=== PATIENT | female | born 1955 | race Caucasian/White ===

== ENCOUNTER 2016-11-18 15:45 | Inpatient (IN) | payer MEDICARE, MEDICAID ==
[~2016-11-18] VITALS: Ht 162.6 cm; Wt 101.5 kg
[2016-11-18] MEDS ORDERED: SOD CHLORIDE 0.9% 1,000 ML IV STA (17:45)
--- NOTE | 2016-11-18 18:11 | RADRPT ---
PROCEDURE: XR Chest. CLINICAL INDICATION: Cough. TECHNIQUE: Single frontal view. COMPARISON: None. FINDINGS: The lungs are clear. The heart size is normal. There is no pleural effusion. There is no pneumothorax. IMPRESSION: 1. Normal chest radiograph. RPTAT: QQ .Akil Cardona MD, Date Time Electronically viewed and signed by .Akil Cardona MD, on 11/18/2016 18:10 .R/
[2016-11-18 18:42] LABS: BASOPHILS % 0.1 % (0.0-2.0); EOSINOPHILS % 0.4 % (0.0-7.0); HEMATOCRIT 33.9 % (37.0-47.0); HEMOGLOBIN 11.5 g/dl (12.0-16.0); LYMPHOCYTES # 3.1 10^3/ul (0.8-2.9); LYMPHOCYTES % 56.4 % (15.0-51.0); MEAN CORPUSCULAR HGB CONC 33.8 g/dl (32.0-37.0); MEAN CORPUSCULAR VOLUME 100.5 fl (82.0-101.0); MEAN PLATELET VOLUME 8.6 fl (7.4-10.4); MONOCYTE # 0.3 10^3/ul (0.3-0.9); MONOCYTES % 4.9 % (0.0-11.0); NEUTROPHILS % 38.2 % (39.0-77.0); RED BLOOD COUNT 3.37 10^6/ul (4.20-5.40); RED CELL DISTRIBUTION WIDTH 15.7 % (11.5-14.5); UNCORRECTED WBC 5.5 10^3/ul (4.8-10.8)
[2016-11-18 18:45] LABS: ADD UMIC YES; URINE BILIRUBIN (Dip) NEGATIVE (NEGATIVE); URINE BLOOD (Dip) 2+ (NEGATIVE); URINE COLOR LT. YELLOW (YELLOW); URINE GLUCOSE (Dip) NEGATIVE (NEGATIVE); URINE KETONES (Dip) NEGATIVE (NEGATIVE); URINE LEUKOCYTE ESTERASE (Dip) 2+ (NEGATIVE); URINE NITRITE (Dip) NEGATIVE (NEGATIVE); URINE TOTAL PROTEIN (Dip) NEGATIVE (NEGATIVE); URINE UROBILINOGEN (Dip) 0.2 E.U./dL (0.1-1.0)
[2016-11-18 18:51] LABS: INR 0.81; PROTIME 11.2 Sec (12.2-14.2); PT RATIO 0.9
[2016-11-18] MEDS ORDERED: METF1000 PO (18:53)
[2016-11-18] MEDS ORDERED: FLUO20CA38 PO (18:54)
[2016-11-18] MEDS ORDERED: FER325 PO (18:55)
[2016-11-18] MEDS ORDERED: ALPR0.254 PO (18:55)
[2016-11-18 18:56] LABS: CHLORIDE 102 mmol/L (97-110)
[2016-11-18] MEDS ORDERED: OMEP40CA6 PO (18:56)
[2016-11-18] MEDS ORDERED: LISI-313 PO (18:56)
[2016-11-18] MEDS ORDERED: PREG150C PO (18:56)
[2016-11-18 18:57] LABS: ALBUMIN 4.4 g/dl (3.3-4.9); SODIUM 142 mmol/L (135-144)
[2016-11-18] MEDS ORDERED: ZOLP10TA5 PO (18:57)
[2016-11-18 19:08] LABS: CONDITION 1; LH ANALYZER COMMENTS 1; PLATELET COUNT 29 10^3/UL (140-440)
[2016-11-18 19:10] LABS: BACTERIA,URINE MODERATE; SQUAMOUS EPITHELIAL CELL,UR MANY
[2016-11-18 19:15] LABS: TROPONIN-I < 0.012 ng/ml (0.00-0.12)
[2016-11-18 19:18] LABS: PLATELET ESTIMATE PLT APPEAR DECREASED
[2016-11-18 19:19] LABS: NEUTROPHIL # 2.1 10^3/ul (1.6-7.5)
--- NOTE | 2016-11-18 20:01 | ERA ---
ER Documentation Chief Complaint Date/Time DATE: 11/18/16 TIME: 19:56 Chief Complaint SENT BY PMD FOR RECENT BLEEDING AND BRUISING AND LOW PLTS AND H&H HPI 60-year-old woman referred here by her data management specialist oncologist for thrombocytopenia. She states over the last few weeks she has been feeling weak and dizzy, and for the last 2-3 months she has developed ecchymoses and superficial hematomas to the lower extremities bilaterally. She states back in September she had a episode of epistaxis which resolved spontaneously. She states recently she is experienced morning diaphoresis upon awakening, she denies any new medication use, no fevers or chills, no night sweats, no recent travel. No complaints of chest pain or shortness of breath, no blood per rectum or melena, no vomiting or diarrhea. ROS All systems reviewed and are negative except as per history of present illness. Medications Home Meds Reported Medications Zolpidem Tartrate* (Zolpidem Tartrate*) 10 Mg Tablet, 10 MG PO QHS Y for INSOMNIA, #30 TAB 11/18/16 Omeprazole* (Omeprazole*) 40 Mg Capsule.dr, 40 MG PO DAILY, #30 CAP 11/18/16 Pregabalin* (Lyrica*) 150 Mg Capsule, 150 MG PO BID, CAP 11/18/16 Lisinopril* (Lisinopril*) 5 Mg Tablet, 5 MG PO DAILY, #30 TAB 11/18/16 Ferrous Sulfate* (Ferrous Sulfate*) 325 Mg Tabec, 325 MG PO BID, TAB 11/18/16 Alprazolam* (Alprazolam*) 0.25 Mg Tablet, 0.25 MG PO DAILY Y for ANXIETY, TAB 11/18/16 Fluoxetine Hcl* (Prozac*) 20 Mg Capsule, 20 MG PO DAILY, CAP 11/18/16 Metformin Hcl* (Metformin Hcl*) 1,000 Mg Tablet, 1000 MG PO WITH BREAKFAST DINNE , #60 TAB 11/18/16 Allergies Allergies: Coded Allergies: Penicillins (Unverified Allergy, Unknown, 11/18/16) PMhx/Soc Hypertension, diabetes mellitus, gastritis History of Surgery: Yes (BACK) Hx Alcohol Use: No Hx Substance Use: No Hx Tobacco Use: No Smoking Status: Never smoker FmHx Acute lymphocytic leukemia Family History: diabetes Physical Exam Vitals Vital Signs Date Time Temp Pulse Resp B/P Pulse Ox O2 Delivery O2 Flow Rate FiO2 11/18/16 15:59 98.5 86 20 132/84 99 Physical Exam GENERAL: Well-developed, well-nourished, well-hydrated, in no apparent distress , looks nontoxic in appearance HEENT: Moist mucous membranes, pink conjunctiva, no cervical spine tenderness or step-off deformities, no goiter, no jaundice or icterus, extraocular movements intact without pain. No submandibular induration, and no pharyngeal erythema NEURO: Alert and oriented 3, cranial nerves II through XII intact bilaterally, pupils equal round reactive to light, no focal deficits or facial asymmetry, sensation intact distally Strength 5/5 in upper and lower extremities bilaterally CARDIAC: Regular rate and rhythm, no murmurs rubs or gallops LUNGS: Clear bilaterally no wheezing crackles or stridor ABDOMEN: Soft nontender, no guarding, no rigidity, no rebound, no psoas sign no obturator sign. Normoactive bowel sounds SKIN: Warm and dry to touch, no abrasions, there are multiple large soft tissue contusions and hematomas to the upper and lower extremities, no active bleeding , no lacerations, no ecchymosis, no target lesions, and without ulcers EXTREMITIES: No clubbing cyanosis or edema, calves are bilaterally symmetrical, no Homans sign, no popliteal cord sign. Distal pulses equal and bilateral PSYCH: Normal affect without agitation or irritability Result Diagram: 11/18/16 1800 11/18/16 1800 Results 24 hrs Laboratory Tests Test 11/18/16 18:00 11/18/16 18:20 Alanine Aminotransferase (ALT/SGPT) Pending Albumin 4.4g/dl Albumin/Globulin Ratio Pending Alkaline Phosphatase Pending Anion Gap Pending Aspartate Amino Transf (AST/SGOT) Pending Basophils # 0.010^3/ul Basophils % 0.1% Blood Morphology Comment Blood Urea Nitrogen Pending Calcium Level Pending Carbon Dioxide Level Pending Chloride Level 102mmol/L Creatinine Pending Differential Comment AUTO w/SCAN Direct Bilirubin Pending Eosinophils # 0.010^3/ul Eosinophils % 0.4% Globulin Pending Glucose Level Pending Hematocrit 33.9% Hemoglobin 11.5g/dl INR International Normalized Ratio 0.81 Indirect Bilirubin Pending Lipase Pending Lymphocytes # 3.110^3/ul Lymphocytes % 56.4% Mean Corpuscular Hemoglobin 34.0pg Mean Corpuscular Hemoglobin Concent 33.8g/dl Mean Corpuscular Volume 100.5fl Mean Platelet Volume 8.6fl Monocytes # 0.310^3/ul Monocytes % 4.9% Neutrophils # 2.110^3/ul Neutrophils % 38.2% Nucleated Red Blood Cells # 0.010^3/ul Nucleated Red Blood Cells % 0.0/100WBC Platelet Count 2910^3/UL Platelet Estimate PLT APPEAR DECREASED Potassium Level 5.0mmol/L Prothrombin Time 11.2Sec Prothrombin Time Ratio 0.9 Red Blood Count 3.3710^6/ul Red Cell Distribution Width 15.7% Sodium Level 142mmol/L Total Bilirubin Pending Total Protein Pending Troponin I < 0.012ng/ml White Blood Count 5.510^3/ul Urine Bacteria MODERATE Urine Bilirubin NEGATIVE Urine Clarity SLIGHTLY CLOUDY Urine Color LT. YELLOW Urine Glucose NEGATIVE% Urine Hemoglobin 2+ Urine Hyaline Casts MODERATE Urine Ketones NEGATIVE Urine Leukocyte Esterase 2+ Urine Microscopic RBC 2-5/HPF Urine Microscopic WBC 2-5/HPF Urine Nitrite NEGATIVE Urine Specific [place] 1.025 Urine Squamous Epithelial Cells MANY Urine Total Protein NEGATIVE Urine Urobilinogen 0.2 E.U./dL Urine pH 5.5 Current Medications Medications (Trade) Dose Ordered Sig/Rehan Route PRN Reason Start Time Stop Time Status Last Admin Dose Admin Sodium Chloride (NS) 1,000 ml @ 1,000 mls/hr Q1H STAT IV 11/18/16 17:45 11/18/16 18:44 DC 11/18/16 18:52 Procedures/MDM IV line was established patient was placed on blood tester fowl rhythm strip revealed sinus rhythm at about 70 bpm with upright P and T waves. Patient was afebrile. One AP view of the chest performed, read by me reveals no acute infiltrates, normal mediastinum, sharp costophrenic and cardiac borders, no air under the diaphragm. Otherwise unremarkable chest x-ray. EKG performed, read by me revealed a normal sinus rhythm at 71 bpm, normal axis , narrow QRS complex, no concerning ST elevations or depressions noted. CBC reveals thrombocytopenia at 29,000, electrolytes are pending and I will follow-up, troponin negative, urinalysis negative for infection. I spoke to Dr. Romero who will be the admitting the patient, and Dr. 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
[2016-11-18 20:11] LABS: ANION GAP 20 (8-16); ASPARTATE AMINO TRANSFERASE 27 IU/L (15-46); BILIRUBIN,INDIRECT 0.2 mg/dl (0-1.1); BILIRUBIN,TOTAL 0.2 mg/dl (0.2-1.3); CARBON DIOXIDE 25 mmol/L (21-31)
[2016-11-18 20:12] LABS: ALANINE AMINOTRANSFERASE 32 IU/L (13-69); ALBUMIN/GLOBULIN RATIO 1.22; ALKALINE PHOSPHATASE 115 IU/L (42-121); BLOOD UREA NITROGEN 27 mg/dl (7-20); CALCIUM 9.9 mg/dl (8.4-10.2); GLUCOSE 102 mg/dl (70-220)
[2016-11-18 23:25] VITALS: BP 132/59; PULSE 69; RESP 18
[2016-11-18 23:51] VITALS: Ht 162.6 cm; Wt 101.5 kg
[2016-11-19] MEDS: SOD CHLORIDE 0.45% 1,000 ML IV SCH ×2 (01:36→12:49)
[2016-11-19 05:13] LABS: BASOPHILS % 0.1 % (0.0-2.0); EOSINOPHILS % 0.7 % (0.0-7.0); HEMATOCRIT 28.2 % (37.0-47.0); HEMOGLOBIN 9.6 g/dl (12.0-16.0); LYMPHOCYTES # 2.1 10^3/ul (0.8-2.9); LYMPHOCYTES % 56.6 % (15.0-51.0); MEAN CORPUSCULAR HEMOGLOBIN 34.4 pg (29.0-33.0); MEAN CORPUSCULAR HGB CONC 34.1 g/dl (32.0-37.0); MEAN PLATELET VOLUME 8.4 fl (7.4-10.4); MONOCYTE # 0.2 10^3/ul (0.3-0.9); MONOCYTES % 5.7 % (0.0-11.0); NEUTROPHIL # 1.4 10^3/ul (1.6-7.5); NEUTROPHILS % 36.9 % (39.0-77.0); POTASSIUM 4.4 mmol/L (3.5-5.1); UNCORRECTED WBC 3.8 10^3/ul (4.8-10.8); WHITE BLOOD COUNT 3.8 10^3/ul (4.8-10.8)
[2016-11-19 05:15] LABS: CREATININE 0.77 mg/dl (0.44-1.00)
[2016-11-19 05:16] LABS: CALCIUM 8.9 mg/dl (8.4-10.2)
[2016-11-19 06:19] LABS: CONDITION 1; LH ANALYZER COMMENTS 1
[2016-11-19 06:23] LABS: PLATELET COUNT 26 10^3/UL (140-440)
[2016-11-19 06:50] VITALS: BP 120/58; PULSE 82; RESP 18
[2016-11-19 07:56] VITALS: BP 126/62; RESP 19
[2016-11-19] MEDS ORDERED: LIDOCAINE 1% (MDV) 20 ML INJ INJ ONE (08:00)
--- NOTE | 2016-11-19 08:01 | CONS ---
Date/Time of Note Date/Time of Note DATE: 11/19/16 TIME: 08:00 Assessment/Plan Assessment/Plan Chief Complaint/Hosp Course ASSESSMENT AND PLAN: This is a 60-year-old female who presents with: 1. Pancytopenia. ( WITH +FHX FOR ALL) r/o primary bone marrow disorder orders given BMBX- performed from [facility] under local anesthesia with 1 % LIDOCAINE PT IS MORBIDLY OBESE AND REQUIRED ANESTHESIA USING SPINAL NEEDLE PT TOLERATED PROCEDURE WELL SPECIMEN SEND TO THE LAB 2. Azotemia. Etiology is likely due to volume depletion. The patient's renal function has improved after receiving IV hydration. We will continue. 3. Diabetes. We will continue Accu-Cheks and sliding scale. We will continue metformin. 4. History of hypertension. Continue benazepril. 5. Depression and anxiety disorder. Continue Xanax and Prozac. 6. History of neuropathy. Continue Lyrica. 7. History of degenerative joint disease, osteoarthritis. The patient is status post bilateral knee replacement. Continue to monitor. 8. Insomnia. Continue Ambien. 9. Gastrointestinal and deep venous thrombosis prophylaxis. Continue proton pump inhibitor and sequential leg squeezers. Problems: Consultation Date/Type/Reason Admit Date/Time Nov 18, 2016 at 20:09 Date of Consultation: Nov 19, 2016 Type of Consultation: hemeonc Reason for Consultation pancytopenia Referring Provider: FINA IRVING of Present Illness This is a 60-year-old female with a past medical history of hypertension, history of dyslipidemia, history of obesity, history of anxiety disorder, history of depression, history of diabetes and insomnia who presents to [facility] for recent concern of bruising, bleeding, low platelets and anemia. The patient states over the last 2 to 3 months she has developed ecchymoses and superficial hematomas in her upper and lower extremities. She was then seen BY ME YESTERDAY AND WAS noted her to be thrombocytopenic anemic with multiple bruises The patient continued to have episodes of epistaxis which resolved spontaneously; however, given these progressive symptoms, she was send to [facility] Emergency Room for evaluation , to be admitted for further w -up The patient, upon arrival to the emergency room, had laboratory data drawn which noted her to be anemic with a hemoglobin 11.5 and thrombocytopenia with a platelet count of 29. The patient in the emergency room was given IV fluids and admitted to med/surg telemetry for further evaluation. Overnight, the patient had been stable and complained of a mild headache but otherwise denies any fevers, chills, nausea, vomiting. No hemoptysis, hematemesis, or hematochezia. note that pt has a + FNX ALL ( SON developed ALL when he was 10 yo) no fever, nt sweats, wt loss PAST MEDICAL HISTORY: As stated above, history of hypertension, diabetes, dyslipidemia, obesity, GERD, anxiety disorder, insomnia, depression. ALLERGIES: THE PATIENT IS ALLERGIC TO PENICILLIN. PAST SURGICAL HISTORY: Includes surgeries with bilateral knee arthroplasty and back surgery. FAMILY HISTORY: The patient has family history of diabetes. SOCIAL HISTORY: Does not drink, smoke, or do drugs. MEDICATIONS: The patient's medications have been reviewed and reconciled. REVIEW OF SYSTEMS: A 14-point review of systems was conducted. Pertinent positives stated in HPI, otherwise negative. Social History Smoking Status: Never smoker Exam/Review of Systems Vital Signs Vitals Vital Signs Date Time Temp Pulse Resp B/P Pulse Ox O2 Delivery O2 Flow Rate FiO2 11/19/16 07:56 98.2 74 19 126/62 96 11/19/16 06:50 Room Air Intake and Output 11/18/16 11/18/16 11/19/16 15:00 23:00 07:00 Intake Total 1000 ml 900 ml Balance 1000 ml 900 ml Exam PHYSICAL EXAMINATION: HEENT: Head is normocephalic. NECK: Supple. HEART: Regular rate. LUNGS: Show diminished breath sounds at base. ABDOMEN: Soft, nontender to palpation without rebound or guarding. EXTREMITIES: Negative for clubbing, cyanosis, no edema. DERMATOLOGIC: Noted ecchymoses upper and lower extremities, back, and thighs. NEUROLOGIC: No focal deficits. Results Result Diagram: 11/19/16 0425 11/19/16 0425 Results 24 hrs Laboratory Tests Test 11/18/16 18:00 11/18/16 18:20 11/19/16 04:25 Alanine Aminotransferase (ALT/SGPT) 32 Albumin 4.4 Albumin/Globulin Ratio 1.22 Alkaline Phosphatase 115 Anion Gap 20 H 14 Aspartate Amino Transf (AST/SGOT) 27 Basophils # 0.0 0.0 Basophils % 0.1 0.1 Blood Morphology Comment Blood Urea Nitrogen 27 H 20 Calcium Level 9.9 8.9 Carbon Dioxide Level 25 25 Chloride Level 102 106 Creatinine 0.90 0.77 Differential Comment AUTO w/SCAN Direct Bilirubin 0.00 Eosinophils # 0.0 0.0 Eosinophils % 0.4 0.7 Globulin 3.60 H Glucose Level 102 97 Hematocrit 33.9 L 28.2 L Hemoglobin 11.5 L 9.6 L INR International Normalized Ratio 0.81 Indirect Bilirubin 0.2 Lipase 286 Lymphocytes # 3.1 H 2.1 Lymphocytes % 56.4 H 56.6 H Mean Corpuscular Hemoglobin 34.0 H 34.4 H Mean Corpuscular Hemoglobin Concent 33.8 34.1 Mean Corpuscular Volume 100.5 101.0 Mean Platelet Volume 8.6 8.4 Monocytes # 0.3 0.2 L Monocytes % 4.9 5.7 Neutrophils # 2.1 1.4 L Neutrophils % 38.2 L 36.9 L Nucleated Red Blood Cells # 0.0 0.0 Nucleated Red Blood Cells % 0.0 0.0 Platelet Count 29 *L 26 *L Platelet Estimate PLT APPEAR DECREASED Potassium Level 5.0 4.4 Prothrombin Time 11.2 L Prothrombin Time Ratio 0.9 Red Blood Count 3.37 L 2.80 L Red Cell Distribution Width 15.7 H 16.0 H Sodium Level 142 141 Total Bilirubin 0.2 Total Protein 8.0 Troponin I < 0.012 White Blood Count 5.5 3.8 #L Urine Bacteria MODERATE Urine Bilirubin NEGATIVE Urine Clarity SLIGHTLY CLOUDY Urine Color LT. YELLOW Urine Glucose NEGATIVE Urine Hemoglobin 2+ H Urine Hyaline Casts MODERATE Urine Ketones NEGATIVE Urine Leukocyte Esterase 2+ H Urine Microscopic RBC 2-5 Urine Microscopic WBC 2-5 Urine Nitrite NEGATIVE Urine Specific [place] 1.025 Urine Squamous Epithelial Cells MANY Urine Total Protein NEGATIVE Urine Urobilinogen 0.2 E.U./dL Urine pH 5.5 Lactate Dehydrogenase 326 Medications Medications Current Medications Sodium Chloride (1/2 NS) 1,000 ml @ 80 mls/hr [id number] IV Last administered on 11/19/16t 01:36; Admin Dose 80 MLS/HR; Start 11/19/16 at 00:30 ZHAO CARRILLO MD Nov 19, 2016 08:01
[2016-11-19] MEDS: PANTOPRAZOLE (EC) 40 MG TAB PO SCH (08:52)
[2016-11-19] MEDS: FLUOXETINE 20 MG CAP PO SCH (08:53)
[2016-11-19] MEDS: FERROUS SULFATE (EC) 325 MG TAB PO SCH ×2 (08:53→20:53)
[2016-11-19] MEDS: PREGABALIN 75 MG CAP PO SCH ×2 (08:53→20:53)
[2016-11-19] MEDS: LISINOPRIL 5 MG TAB PO SCH (08:54)
[2016-11-19] MEDS ORDERED: GLUCAGON 1 MG INJ IM PRN (09:00)
[2016-11-19] MEDS ORDERED: GLUCOSE GEL 15 GRAM TUBE PO PRN ×2 (09:00)
[2016-11-19] MEDS ORDERED: DEXTROSE 50% 50 ML SYRINGE IV PRN ×2 (09:00)
[2016-11-19] MEDS ORDERED: LIDOCAINE 1% (MDV) 20 ML INJ SC ONE (09:00)
[2016-11-19] MEDS ORDERED: NON-FORMULARY/PATIENT OWN MED (Omeprazole* 40 MG) PO SCH (09:00)
[2016-11-19] MEDS ORDERED: GLUCOSE GEL 15 GRAM TUBE BUCCAL PRN (09:00)
--- NOTE | 2016-11-19 09:11 | HP ---
DATE OF ADMISSION: 11/18/2016 CHIEF COMPLAINT: Thrombocytopenia, ecchymosis, bruising. HISTORY OF PRESENT ILLNESS: This is a 60-year-old female with a past medical history of hypertensio n, history of dyslipidemia, history of obesity, history of anxiety disorder, history of depression, history of diabetes and insomnia who presents to [facility] for recent concern of bruising, bleeding, low platelets and anemia. The patient states over the last 2 to 3 months she velásquez s developed ecchymoses and superficial hematomas in her upper and lower extremities. She was then s een by her car deliverer, Dr. Machado, who noted her to be thrombocytopenic and has been working he r up for her anemia. The patient continued to have episodes of epistaxis which resolved spontaneous ly; however, given these progressive symptoms, she came into the [facility] Emergency Room for evaluation. The patient, upon arrival to the emergency room, had laboratory data drawn which no kianna her to be anemic with a hemoglobin 11.5 and thrombocytopenia with a platelet count of 29. The p atient in the emergency room was given IV fluids and admitted to med/surg telemetry for further eval uation. Overnight, the patient had been stable and complained of a mild headache but otherwise femi es any fevers, chills, nausea, vomiting. No hemoptysis, hematemesis, or hematochezia. PAST MEDICAL HISTORY: As stated above, history of hypertension, diabetes, dyslipidemia, obesity, GE RD, anxiety disorder, insomnia, depression. ALLERGIES: THE PATIENT IS ALLERGIC TO PENICILLIN. PAST SURGICAL HISTORY: Includes surgeries with bilateral knee arthroplasty and back surgery. FAMILY HISTORY: The patient has family history of diabetes. SOCIAL HISTORY: Does not drink, smoke, or do drugs. MEDICATIONS: The patient's medications have been reviewed and reconciled. REVIEW OF SYSTEMS: A 14-point review of systems was conducted. Pertinent positives stated in HPI, otherwise negative. PHYSICAL EXAMINATION: VITAL SIGNS: Blood pressure is 126/60, respiration 19, pulse 74, temperature 98.2. HEENT: Head is normocephalic. NECK: Supple. HEART: Regular rate. LUNGS: Show diminished breath sounds at base. ABDOMEN: Soft, nontender to palpation without rebound or guarding. EXTREMITIES: Negative for clubbing, cyanosis, no edema. DERMATOLOGIC: Noted ecchymoses upper and lower extremities, back, and thighs. NEUROLOGIC: No focal deficits. LABORATORY DATA: Shows a BMP within normal limits. White count 3.8, hemoglobin 9.6, hematocrit 28. 9, platelet count is 26. Chest x-ray shows no acute findings. ASSESSMENT AND PLAN: This is a 60-year-old female who presents with: 1. Pancytopenia. Underlying etiology is unclear. Concerning for possible plasma cell dyscrasia, l eukemia. Plan is for the patient to undergo bone marrow biopsy by car deliverer, Dr. Machado. We will continue to monitor CBC daily. The patient may require platelet and/or blood transfusion. We will defer to Dr. Machado for management. Otherwise, continue to monitor closely. 2. Azotemia. Etiology is likely due to volume depletion. The patient's renal function has improve d after receiving IV hydration. We will continue. 3. Diabetes. We will continue Accu-Cheks and sliding scale. We will continue metformin. 4. History of hypertension. Continue benazepril. 5. Depression and anxiety disorder. Continue Xanax and Prozac. 6. History of neuropathy. Continue Lyrica. 7. History of degenerative joint disease, osteoarthritis. The patient is status post bilateral kne e replacement. Continue to monitor. 8. Insomnia. Continue Ambien. 9. Gastrointestinal and deep venous thrombosis prophylaxis. Continue proton pump inhibitor and seq uential leg squeezers. Please note I spent 20 minutes of time discussing code status with the patient. The patient is FULL CODE and advanced directives. Dictated By: FINA NUÑEZ/ARMEN Conf#: [id number] DID#: [id number]
[2016-11-19] MEDS ORDERED: ONDANSETRON 4 MG INJ IV PRN (09:30)
[2016-11-19] MEDS: ALPRAZOLAM 0.25 MG TAB PO PRN (09:35)
[2016-11-19] MEDS: ACETAMINOPHEN 325 MG TAB PO PRN (09:36)
[2016-11-19 10:34] LABS: RETICULOCYTE COUNT % 1.4 % (0.5-1.5)
[2016-11-19 10:38] LABS: IRON 92 ug/dl (35-150)
[2016-11-19 10:41] LABS: MAGNESIUM 1.6 mg/dl (1.7-2.5)
[2016-11-19 10:48] LABS: TOTAL IRON BINDING CAPACITY 271 ug/dl (241-421)
[2016-11-19 11:09] LABS: INR 0.91; PROTIME 12.3 Sec (12.2-14.2)
[2016-11-19 11:10] LABS: PARTIAL THROMBOPLASTIN TIME 26.4 Sec (25.0-35.0)
[2016-11-19 11:11] LABS: THROMBIN TIME 13.9 SEC (13.8-19.1)
[2016-11-19 11:14] LABS: D-DIMER 854.76 ng/ml (<460); THYROID STIMULATING HORMONE 1.56 MIU/L (0.465-4.680)
[2016-11-19] MEDS: INSULIN ASPART [NOVOLOG] 3 ML PEN SC SCH ×3 (11:40→21:00)
[2016-11-19 11:49] LABS: FOLATE 10.4 ng/ml (2.8-20.0)
[2016-11-19 12:38] LABS: PLATELET COUNT 26 10^3/UL (140-440)
[2016-11-19 14:05] LABS: FIBRIN SPLIT PRODUCT <10 ug/ml (<10)
[2016-11-19] MEDS ORDERED: MAGNESIUM SULFATE 2 GM/50 ML 50 ML IVPB ONE (16:30)
[2016-11-19] MEDS: metFORMIN 500 MG TAB PO SCH ×2 (17:55→22:17)
[2016-11-19 19:00] VITALS: BP 120/68; PULSE 68; RESP 20
--- NOTE | 2016-11-19 20:10 | RADRPT ---
PROCEDURE: US Abdomen. CLINICAL INDICATION: Abdominal pain. History of cholecystectomy. TECHNIQUE: Multiple real-time images were acquired of the patient's abdomen and retroperitoneum ut ilizing a high resolution transducer. COMPARISON: None FINDINGS: The liver demonstrates increased echogenicity and size and no focal lesions are seen. The liver keshia ures 15.8 cm in size. The gallbladder is not identified. No intrahepatic biliary dilatation is seen . The common bile duct measures 7 mm in maximal dimension. The visualized portions of the pancrea s are unremarkable. There is no splenomegaly. The spleen measures 11.2 x 4.1 cm in size. No free f luid is identified. The kidneys are normal size, and demonstrate normal echogenicity and morphology. The right kidney m easures 9.8 cm. The left kidney measures 10 cm. There is no dilatation of the pelvicaliceal system s bilaterally. There are no perinephric fluid collections. There are no areas of increased echogen icity to suggest nephrolithiasis. IMPRESSION: 1. Fatty infiltration of the liver. 2. Gallbladder not visualized consistent with the clinical history of a prior cholecystectomy with likely physiologic common bile duct dilatation. RPTAT: HPNM Physician Emelina Date Time Electronically viewed and signed by Physician Emelina on 11/19/2016 20:10 /
[2016-11-20 01:15] VITALS: BP 119/66; PULSE 77; RESP 16
[2016-11-20] MEDS: SOD CHLORIDE 0.45% 1,000 ML IV SCH ×2 (01:30→14:14)
[2016-11-20] MEDS: ALPRAZOLAM 0.25 MG TAB PO PRN (01:52)
[2016-11-20] MEDS: ACCUCHECK XX SCH (02:03)
[2016-11-20] MEDS: PANTOPRAZOLE (EC) 40 MG TAB PO SCH (05:49)
[2016-11-20 05:56] LABS: POTASSIUM 4.5 mmol/L (3.5-5.1)
[2016-11-20 05:58] LABS: CREATININE 0.9 mg/dl (0.44-1.00)
[2016-11-20 05:59] LABS: PHOSPHORUS 3.1 mg/dl (2.5-4.9)
[2016-11-20 06:00] LABS: CALCIUM 8.9 mg/dl (8.4-10.2); MAGNESIUM 2.2 mg/dl (1.7-2.5)
[2016-11-20] MEDS: metFORMIN 500 MG TAB PO SCH ×2 (07:50→18:32)
[2016-11-20] MEDS: INSULIN ASPART [NOVOLOG] 3 ML PEN SC SCH ×4 (07:50→20:06)
[2016-11-20 08:10] VITALS: BP 96/57; RESP 19
[2016-11-20 08:33] LABS: PROTEIN, TOTAL 6.2 g/dL (6.1-8.1)
[2016-11-20] MEDS: LISINOPRIL 5 MG TAB PO SCH (09:00)
--- NOTE | 2016-11-20 09:38 | CONS ---
Date/Time of Note Date/Time of Note DATE: 11/20/16 TIME: 09:37 Consult Date/Type/Reason Admit Date/Time Nov 18, 2016 at 20:09 Initial Consult Date 11/19/16 Type of Consultation: nephrology Ordering Provider: FINA GENAO DO Subjective Pt. seen and examined. occ SOB. s/p Bone marrow Bx d/w RN and Dr. Genao Objective Vital Signs Date Time Temp Pulse Resp B/P Pulse Ox O2 Delivery O2 Flow Rate FiO2 11/20/16 08:10 98.1 66 19 96/57 97 11/19/16 19:00 Room Air Intake and Output 11/19/16 11/19/16 11/20/16 15:00 23:00 07:00 Intake Total 1690 ml 1440 ml Balance 1690 ml 1440 ml HEENT: Head is normocephalic. NECK: Supple. HEART: Regular rate. LUNGS: Show diminished breath sounds at base. ABDOMEN: Soft, nontender to palpation without rebound or guarding. EXTREMITIES: Negative for clubbing, cyanosis, no edema. DERMATOLOGIC: Noted ecchymoses upper and lower extremities, back, and thighs. NEUROLOGIC: No focal deficits. Results/Medications Result Diagram: 11/19/16 1000 11/20/16 0420 Results 24 hrs Laboratory Tests Test 11/19/16 10:00 11/19/16 12:28 11/19/16 17:18 11/19/16 21:53 25-Hydroxy Vitamin D Total Pending 25-Hydroxy Vitamin D2 Pending 25-Hydroxy Vitamin D3 Pending Absolute Reticulocyte Count 0.042 Activated Partial Thromboplast Time 26.4 Albumin (PEP) Pending [id number] Pending [id number] Pending Beta Globulins Pending D-Dimer 854.76 H D-Dimer Comment Erythropoietin Pending Fibrinogen 334.0 Folate 10.4 Gamma Globulins Pending Haptoglobin Pending INR International Normalized Ratio 0.91 Iron Level 92 Lactate Dehydrogenase 334 Magnesium Level 1.6 L Percent Iron Saturation 34 Percent Reticulocyte Count 1.4 Plasma Fibrin Degradation Products <10 Platelet Count 26 *L Protein Electrophoresis Interpret Pending Prothrombin Time 12.3 Prothrombin Time Ratio 1.0 Thrombin Time 13.9 Thyroid Stimulating Hormone (TSH) 1.560 Total Iron Binding Capacity 271 Total Protein (PEP) 6.2 Uric Acid 5.0 Vitamin B12 Level 317 Bedside Glucose 92 105 188 Test 11/20/16 01:57 11/20/16 04:20 11/20/16 08:05 Bedside Glucose 100 109 Anion Gap 13 Blood Urea Nitrogen 19 Calcium Level 8.9 Carbon Dioxide Level 25 Chloride Level 107 Creatinine 0.90 Glucose Level 98 Hemoglobin A1c 6.2 H Magnesium Level 2.2 Phosphorus Level 3.1 Potassium Level 4.5 Sodium Level 140 Medications Current Medications Sodium Chloride (1/2 NS) 1,000 ml @ 80 mls/hr [id number] IV Last administered on 11/19/16 12:49; Admin Dose 80 MLS/HR; Start 11/19/16 at 00:30 Alprazolam (Xanax) 0.25 mg DAILY PRN PO ANXIETY Last administered on 11/20/16 01:52; Admin Dose 0.25 MG; Start 11/19/16 at 09:00 Ferrous Sulfate (Ferrous Sulfate (Ec)) 325 mg BID PO Last administered on 20:53; Admin Dose 325 MG; Start 11/19/16 at 09:00 Fluoxetine HCl (Prozac) 20 mg DAILY PO Last administered on 11/19/16 08:53; Admin Dose 20 MG; Start 11/19/16 at 09:00 Lisinopril (Zestril) 5 mg DAILY PO Last administered on 11/19/16 08:54; Admin Dose 5 MG; Start 11/19/16 at 09:00 Pregabalin (Lyrica) 150 mg BID PO Last administered on 11/19/16 20:53; Admin Dose 150 MG; Start 11/19/16 at 09:00 Zolpidem Tartrate (Ambien) 10 mg QHS PRN PO INSOMNIA; Start 11/19/16 at 09:00 Miscellaneous Information 1 ea NOTE XX ; Start 11/19/16 at 09:00 Glucose (Glutose) 15 gm Q15M PRN PO DECREASED GLUCOSE; Start 11/19/16 at 09:00 Glucose (Glutose) 22.5 gm Q15M PRN PO DECREASED GLUCOSE; Start 11/19/16 at 09:00 Dextrose (D50w Syringe) 25 ml Q15M PRN IV DECREASED GLUCOSE; Start 11/19/16 at 09:00 Dextrose (D50w Syringe) 50 ml Q15M PRN IV DECREASED GLUCOSE; Start 11/19/16 at 09:00 Glucagon (Glucagen) 1 mg Q15M PRN IM DECREASED GLUCOSE; Start 11/19/16 at 09:00 Glucose (Glutose) 15 gm Q15M PRN BUCCAL DECREASED GLUCOSE; Start 11/19/16 at 09: 00 Diagnostic Test (Pha) (Accucheck) 1 ea 02 XX Last administered on 11/20/16 02: 03; Admin Dose 1 EA; Start 11/20/16 at 02:00 Pantoprazole (Protonix Tab) 40 mg DAILY@06 PO Last administered on 11/20/16 05: 49; Admin Dose 40 MG; Start 11/19/16 at 09:00 Acetaminophen (Tylenol Tab) 650 mg Q6H PRN PO PAIN AND OR ELEVATED TEMP Last administered on 11/19/16 09:36; Admin Dose 650 MG; Start 11/19/16 at 09:30 Ondansetron HCl (Zofran Inj) 4 mg Q4H PRN IV NAUSEA AND/OR VOMITING; Start 11/19 at 09:30 Assessment/Plan Chief Complaint/Hosp Course 1. Pancytopenia. Underlying etiology is unclear. Concerning for possible plasma cell dyscrasia, leukemia. Plan is for the patient to undergo bone marrow biopsy by labor conciliator, Dr. Machado. We will continue to monitor CBC daily. The patient may require platelet and/or blood transfusion. We will defer to Dr. Machado for management. Otherwise, continue to monitor closely. 2. Azotemia. Etiology is likely due to volume depletion. The patient's renal function has improved after receiving IV hydration. We will continue. 3. Diabetes. We will continue Accu-Cheks and sliding scale. We will continue metformin. 4. History of hypertension. Continue benazepril. 5. Depression and anxiety disorder. Continue Xanax and Prozac. 6. History of neuropathy. Continue Lyrica. 7. History of degenerative joint disease, osteoarthritis. The patient is status post bilateral knee replacement. Continue to monitor. 8. Insomnia. Continue Ambien. 9. Gastrointestinal and deep venous thrombosis prophylaxis. Continue proton pump inhibitor and sequential leg squeezers. Problems: CRUZITO SAMUELS MD Nov 20, 2016 09:38
[2016-11-20] MEDS: FLUOXETINE 20 MG CAP PO SCH (09:53)
[2016-11-20] MEDS: FERROUS SULFATE (EC) 325 MG TAB PO SCH ×2 (09:53→20:06)
[2016-11-20] MEDS: PREGABALIN 75 MG CAP PO SCH ×2 (09:53→20:06)
[2016-11-20 10:04] LABS: HEMATOCRIT 28.4 % (37.0-47.0); HEMOGLOBIN 9.2 g/dl (12.0-16.0); MEAN CORPUSCULAR HEMOGLOBIN 33.2 pg (29.0-33.0); MEAN CORPUSCULAR HGB CONC 32.4 g/dl (32.0-37.0); MEAN CORPUSCULAR VOLUME 102.5 fl (82.0-101.0); RED BLOOD COUNT 2.77 10^6/ul (4.20-5.40); RED CELL DISTRIBUTION WIDTH 14.8 % (11.5-14.5); UNCORRECTED WBC 3.7 10^3/ul (4.8-10.8); WHITE BLOOD COUNT 3.7 10^3/ul (4.8-10.8)
[2016-11-20 10:06] LABS: LYMPHOCYTES % 62.5 % (15.0-51.0); MEAN PLATELET VOLUME 10.5 fl (7.4-10.4); MONOCYTES % 5.1 % (0.0-11.0); NEUTROPHILS % 31.6 % (39.0-77.0); PLATELET COUNT 23 10^3/UL (140-440)
[2016-11-20 10:07] LABS: EOSINOPHILS % 0.5 % (0.0-7.0); LYMPHOCYTES # 2.3 10^3/ul (0.8-2.9); MONOCYTE # 0.2 10^3/ul (0.3-0.9); NEUTROPHIL # 1.2 10^3/ul (1.6-7.5)
[2016-11-20 10:09] LABS: PLATELET ESTIMATE PLT APPEAR DECREASED
[2016-11-20 11:58] LABS: WHITE BLOOD COUNT 5.5 10^3/ul (4.8-10.8)
[2016-11-20 16:24] VITALS: BP 118/74; PULSE 64; RESP 18
[2016-11-20 17:48] LABS: ALBUMIN 3.7 g/dL (3.8-4.8)
[2016-11-20 19:53] VITALS: BP 123/61; RESP 18
--- NOTE | 2016-11-20 20:44 | CONS ---
Date/Time of Note Date/Time of Note DATE: 11/20/16 TIME: 20:42 Assessment/Plan Assessment/Plan Chief Complaint/Hosp Course ASSESSMENT AND PLAN: This is a 60-year-old female who presents with: 1. Pancytopenia. ( WITH +FHX FOR ALL) r/o primary bone marrow disorder orders given BMBX- performed from [facility] under local anesthesia with 1 % LIDOCAINE FINAL -P SMEAR- NO BLASTS FLOW- SEND OUT 2. Azotemia. Etiology is likely due to volume depletion. The patient's renal function has improved after receiving IV hydration. We will continue. 3. Diabetes. We will continue Accu-Cheks and sliding scale. We will continue metformin. 4. History of hypertension. Continue benazepril. 5. Depression and anxiety disorder. Continue Xanax and Prozac. 6. History of neuropathy. Continue Lyrica. 7. History of degenerative joint disease, osteoarthritis. The patient is status post bilateral knee replacement. Continue to monitor. 8. Insomnia. Continue Ambien. 9. Gastrointestinal and deep venous thrombosis prophylaxis. Continue proton pump inhibitor and sequential leg squeezers. Problems: Consultation Date/Type/Reason Admit Date/Time Nov 18, 2016 at 20:09 Initial Consult Date 11/19/16 Type of Consultation: [facility] Referring Provider: FINA IRVING DO 24 HR Interval Summary Free Text/Dictation ALL NOTED POST BMBX NO BLEEDING SMEAR- NO BLASTS FLOW- SEND OUT Exam/Review of Systems Vital Signs Vitals Vital Signs Date Time Temp Pulse Resp B/P Pulse Ox O2 Delivery O2 Flow Rate FiO2 11/20/16 19:53 98.0 72 18 123/61 99 11/20/16 16:24 Room Air Intake and Output 11/19/16 11/19/16 11/20/16 15:00 23:00 07:00 Intake Total 1690 ml 1440 ml Balance 1690 ml 1440 ml Exam HEENT: Head is normocephalic. NECK: Supple. HEART: Regular rate. LUNGS: Show diminished breath sounds at base. ABDOMEN: Soft, nontender to palpation without rebound or guarding. EXTREMITIES: Negative for clubbing, cyanosis, no edema. DERMATOLOGIC: Noted ecchymoses upper and lower extremities, back, and thighs. NEUROLOGIC: No focal deficits. Results Result Diagram: 11/20/16 0420 2/4/17 0420 Results 24 hrs Laboratory Tests Test 11/19/16 21:53 11/20/16 01:57 11/20/16 04:20 11/20/16 05:45 Bedside Glucose 188 100 Anion Gap 13 Basophils # 0.0 Basophils % 0.0 Blood Urea Nitrogen 19 Calcium Level 8.9 Carbon Dioxide Level 25 Chloride Level 107 Creatinine 0.90 Differential Comment AUTO w/SCAN Eosinophils # 0.0 Eosinophils % 0.5 Glucose Level 98 Hematocrit 28.4 L Hemoglobin 9.2 L Hemoglobin A1c 6.2 H Lymphocytes # 2.3 Lymphocytes % 62.5 H Magnesium Level 2.2 Mean Corpuscular Hemoglobin 33.2 H Mean Corpuscular Hemoglobin Concent 32.4 Mean Corpuscular Volume 102.5 H Mean Platelet Volume 10.5 #H Monocytes # 0.2 L Monocytes % 5.1 Neutrophils # 1.2 L Neutrophils % 31.6 L Nucleated Red Blood Cells # 0.0 Nucleated Red Blood Cells % 0.0 Phosphorus Level 3.1 Platelet Count 23 *L Platelet Estimate PLT APPEAR DECREASED Potassium Level 4.5 Red Blood Count 2.77 L Red Cell Distribution Width 14.8 H Sodium Level 140 White Blood Count 3.7 L Stool Occult Blood NEGATIVE Test 11/20/16 08:05 11/20/16 11:53 11/20/16 16:59 11/20/16 20:04 Bedside Glucose 109 82 115 163 Medications Medications Current Medications Sodium Chloride (1/2 NS) 1,000 ml @ 80 mls/hr [id number] IV Last administered on 11/20/16 14:14; Admin Dose 80 MLS/HR; Start 11/19/16 at 00:30 Alprazolam (Xanax) 0.25 mg DAILY PRN PO ANXIETY Last administered on 11/20/16 01:52; Admin Dose 0.25 MG; Start 11/19/16 at 09:00 Ferrous Sulfate (Ferrous Sulfate (Ec)) 325 mg BID PO Last administered on 20:06; Admin Dose 325 MG; Start 11/19/16 at 09:00 Fluoxetine HCl (Prozac) 20 mg DAILY PO Last administered on 11/20/16 09:53; Admin Dose 20 MG; Start 11/19/16 at 09:00 Lisinopril (Zestril) 5 mg DAILY PO Last administered on 11/19/16 08:54; Admin Dose 5 MG; Start 11/19/16 at 09:00 Pregabalin (Lyrica) 150 mg BID PO Last administered on 11/20/16 20:06; Admin Dose 150 MG; Start 11/19/16 at 09:00 Zolpidem Tartrate (Ambien) 10 mg QHS PRN PO INSOMNIA; Start 11/19/16 at 09:00 Miscellaneous Information 1 ea NOTE XX ; Start 11/19/16 at 09:00 Glucose (Glutose) 15 gm Q15M PRN PO DECREASED GLUCOSE; Start 11/19/16 at 09:00 Glucose (Glutose) 22.5 gm Q15M PRN PO DECREASED GLUCOSE; Start 11/19/16 at 09:00 Dextrose (D50w Syringe) 25 ml Q15M PRN IV DECREASED GLUCOSE; Start 11/19/16 at 09:00 Dextrose (D50w Syringe) 50 ml Q15M PRN IV DECREASED GLUCOSE; Start 11/19/16 at 09:00 Glucagon (Glucagen) 1 mg Q15M PRN IM DECREASED GLUCOSE; Start 11/19/16 at 09:00 Glucose (Glutose) 15 gm Q15M PRN BUCCAL DECREASED GLUCOSE; Start 11/19/16 at 09: 00 Diagnostic Test (Pha) (Accucheck) 1 ea 02 XX Last administered on 11/20/16 02: 03; Admin Dose 1 EA; Start 11/20/16 at 02:00 Pantoprazole (Protonix Tab) 40 mg DAILY@06 PO Last administered on 11/20/16 05: 49; Admin Dose 40 MG; Start 11/19/16 at 09:00 Acetaminophen (Tylenol Tab) 650 mg Q6H PRN PO PAIN AND OR ELEVATED TEMP Last administered on 11/19/16 09:36; Admin Dose 650 MG; Start 11/19/16 at 09:30 Ondansetron HCl (Zofran Inj) 4 mg Q4H PRN IV NAUSEA AND/OR VOMITING; Start 11/19 at 09:30 ZHAO CARRILLO MD Nov 20, 2016 20:43
[2016-11-20] MEDS: ZOLPIDEM 5 MG TAB PO PRN (22:20)
[2016-11-20] MEDS: ALBUTEROL HFA 8 GM INHALER INH PRN (22:21)
[2016-11-21] MEDS: SOD CHLORIDE 0.45% 1,000 ML IV SCH ×2 (01:58→16:25)
[2016-11-21] MEDS: ACCUCHECK XX SCH (02:00)
[2016-11-21] MEDS: PANTOPRAZOLE (EC) 40 MG TAB PO SCH (06:09)
[2016-11-21 06:13] LABS: BASOPHILS % 0.2 % (0.0-2.0); EOSINOPHILS % 0.5 % (0.0-7.0); HEMATOCRIT 26.9 % (37.0-47.0); HEMOGLOBIN 9.1 g/dl (12.0-16.0); LYMPHOCYTES # 2.2 10^3/ul (0.8-2.9); MEAN CORPUSCULAR HEMOGLOBIN 34.4 pg (29.0-33.0); MEAN CORPUSCULAR VOLUME 101.1 fl (82.0-101.0); MONOCYTE # 0.2 10^3/ul (0.3-0.9); MONOCYTES % 4.7 % (0.0-11.0); NEUTROPHIL # 1.9 10^3/ul (1.6-7.5); NEUTROPHILS % 43.6 % (39.0-77.0); RED BLOOD COUNT 2.66 10^6/ul (4.20-5.40); RED CELL DISTRIBUTION WIDTH 15.7 % (11.5-14.5); UNCORRECTED WBC 4.3 10^3/ul (4.8-10.8); WHITE BLOOD COUNT 4.3 10^3/ul (4.8-10.8)
[2016-11-21 06:31] LABS: CONDITION 1; LH ANALYZER COMMENTS 1
[2016-11-21 06:35] LABS: PLATELET COUNT 22 10^3/UL (140-440)
[2016-11-21 07:27] VITALS: BP 140/63; RESP 20
[2016-11-21] MEDS: INSULIN ASPART [NOVOLOG] 3 ML PEN SC SCH ×4 (07:50→20:25)
[2016-11-21] MEDS: FERROUS SULFATE (EC) 325 MG TAB PO SCH ×2 (09:04→20:32)
[2016-11-21] MEDS: FLUOXETINE 20 MG CAP PO SCH (09:04)
[2016-11-21] MEDS: metFORMIN 500 MG TAB PO SCH ×2 (09:04→18:38)
[2016-11-21] MEDS: PREGABALIN 75 MG CAP PO SCH ×2 (09:05→20:32)
[2016-11-21] MEDS: LISINOPRIL 5 MG TAB PO SCH (09:07)
--- NOTE | 2016-11-21 09:17 | CONS ---
Date/Time of Note Date/Time of Note DATE: 11/21/16 TIME: 09:16 Consult Date/Type/Reason Admit Date/Time Nov 18, 2016 at 20:09 Initial Consult Date 11/19/16 Type of Consultation: nephro Ordering Provider: FINA IRVING DO Subjective Pt. seen and examined. d/w heme.onc good uop. Objective Vital Signs Date Time Temp Pulse Resp B/P Pulse Ox O2 Delivery O2 Flow Rate FiO2 11/21/16 07:27 97.7 76 20 140/63 97 11/20/16 16:24 Room Air Intake and Output 11/20/16 11/20/16 11/21/16 15:00 23:00 07:00 Intake Total 1710 ml 1540 ml Balance 1710 ml 1540 ml HEENT: Head is normocephalic. NECK: Supple. HEART: Regular rate. LUNGS: Show diminished breath sounds at base. ABDOMEN: Soft, nontender to palpation without rebound or guarding. EXTREMITIES: Negative for clubbing, cyanosis, no edema. DERMATOLOGIC: Noted ecchymoses upper and lower extremities, back, and thighs. NEUROLOGIC: No focal deficits. Results/Medications Result Diagram: 11/21/16 0426 11/20/16 0420 Results 24 hrs Laboratory Tests Test 11/20/16 11:53 11/20/16 16:59 11/20/16 20:04 11/21/16 04:26 Bedside Glucose 82 115 163 Basophils # 0.0 Basophils % 0.2 Blood Morphology Comment Eosinophils # 0.0 Eosinophils % 0.5 Hematocrit 26.9 L Hemoglobin 9.1 L Lymphocytes # 2.2 Lymphocytes % 51.0 Mean Corpuscular Hemoglobin 34.4 H Mean Corpuscular Hemoglobin Concent 34.0 Mean Corpuscular Volume 101.1 H Mean Platelet Volume 9.0 Monocytes # 0.2 L Monocytes % 4.7 Neutrophils # 1.9 Neutrophils % 43.6 Nucleated Red Blood Cells # 0.0 Nucleated Red Blood Cells % 0.0 Platelet Count 22 *L Red Blood Count 2.66 L Red Cell Distribution Width 15.7 H White Blood Count 4.3 L Test 11/21/16 08:11 Bedside Glucose 107 Medications Current Medications Sodium Chloride (1/2 NS) 1,000 ml @ 80 mls/hr [id number] IV Last administered on 11/21/16 01:58; Admin Dose 80 MLS/HR; Start 11/19/16 at 00:30 Alprazolam (Xanax) 0.25 mg DAILY PRN PO ANXIETY Last administered on 11/20/16 01:52; Admin Dose 0.25 MG; Start 11/19/16 at 09:00 Ferrous Sulfate (Ferrous Sulfate (Ec)) 325 mg BID PO Last administered on 09:04; Admin Dose 325 MG; Start 11/19/16 at 09:00 Fluoxetine HCl (Prozac) 20 mg DAILY PO Last administered on 11/21/16 09:04; Admin Dose 20 MG; Start 11/19/16 at 09:00 Lisinopril (Zestril) 5 mg DAILY PO Last administered on 11/21/16 09:07; Admin Dose 5 MG; Start 11/19/16 at 09:00 Pregabalin (Lyrica) 150 mg BID PO Last administered on 11/21/16 09:05; Admin Dose 150 MG; Start 11/19/16 at 09:00 Zolpidem Tartrate (Ambien) 10 mg QHS PRN PO INSOMNIA Last administered on 22:20; Admin Dose 10 MG; Start 11/19/16 at 09:00 Miscellaneous Information 1 ea NOTE XX ; Start 11/19/16 at 09:00 Glucose (Glutose) 15 gm Q15M PRN PO DECREASED GLUCOSE; Start 11/19/16 at 09:00 Glucose (Glutose) 22.5 gm Q15M PRN PO DECREASED GLUCOSE; Start 11/19/16 at 09:00 Dextrose (D50w Syringe) 25 ml Q15M PRN IV DECREASED GLUCOSE; Start 11/19/16 at 09:00 Dextrose (D50w Syringe) 50 ml Q15M PRN IV DECREASED GLUCOSE; Start 11/19/16 at 09:00 Glucagon (Glucagen) 1 mg Q15M PRN IM DECREASED GLUCOSE; Start 11/19/16 at 09:00 Glucose (Glutose) 15 gm Q15M PRN BUCCAL DECREASED GLUCOSE; Start 11/19/16 at 09: 00 Diagnostic Test (Pha) (Accucheck) 1 ea 02 XX Last administered on 11/20/16 02: 03; Admin Dose 1 EA; Start 11/20/16 at 02:00 Pantoprazole (Protonix Tab) 40 mg DAILY@06 PO Last administered on 11/21/16 06: 09; Admin Dose 40 MG; Start 11/19/16 at 09:00 Acetaminophen (Tylenol Tab) 650 mg Q6H PRN PO PAIN AND OR ELEVATED TEMP Last administered on 11/19/16 09:36; Admin Dose 650 MG; Start 11/19/16 at 09:30 Ondansetron HCl (Zofran Inj) 4 mg Q4H PRN IV NAUSEA AND/OR VOMITING; Start 11/19 at 09:30 Assessment/Plan Chief Complaint/Hosp Course 1. Pancytopenia. Underlying etiology is unclear. Concerning for possible plasma cell dyscrasia, leukemia. -s/p bone marrow biopsy . -We will continue to monitor CBC daily. The patient may require platelet and/ or blood transfusion. We will defer to Dr. Machado for management. Otherwise , continue to monitor closely. 2. Azotemia. Etiology is likely due to volume depletion. The patient's renal function has improved after receiving IV hydration. We will continue. 3. Diabetes. We will continue Accu-Cheks and sliding scale. We will continue metformin. 4. History of hypertension. Continue benazepril. 5. Depression and anxiety disorder. Continue Xanax and Prozac. 6. History of neuropathy. Continue Lyrica. 7. History of degenerative joint disease, osteoarthritis. The patient is status post bilateral knee replacement. Continue to monitor. 8. Insomnia. Continue Ambien. 9. Gastrointestinal and deep venous thrombosis prophylaxis. Continue proton pump inhibitor and sequential leg squeezers. Problems: CRUZITO SAMUELS MD Nov 21, 2016 09:17
--- NOTE | 2016-11-21 15:34 | CONS ---
Date/Time of Note Date/Time of Note DATE: 11/21/16 TIME: 15:30 Assessment/Plan Assessment/Plan Chief Complaint/Hosp Course ASSESSMENT AND PLAN: This is a 60-year-old female who presents with: 1. Pancytopenia. ( WITH +FHX FOR ALL) r/o primary bone marrow disorder vs ITP BMBX- performed from [facility] under local anesthesia with 1 % LIDOCAINE FINAL -P SMEAR- NO BLASTS FLOW- NEG SO FAR LOOKS LIKE ITP WILL START STEROIDS D/W PT IN DETAILS 2. Azotemia. Etiology is likely due to volume depletion. The patient's renal function has improved after receiving IV hydration. We will continue. 3. Diabetes. We will continue Accu-Cheks and sliding scale. We will continue metformin. 4. History of hypertension. Continue benazepril. 5. Depression and anxiety disorder. Continue Xanax and Prozac. 6. History of neuropathy. Continue Lyrica. 7. History of degenerative joint disease, osteoarthritis. The patient is status post bilateral knee replacement. Continue to monitor. 8. Insomnia. Continue Ambien. 9. Gastrointestinal and deep venous thrombosis prophylaxis. Continue proton pump inhibitor and sequential leg squeezers. Problems: Consultation Date/Type/Reason Admit Date/Time Nov 18, 2016 at 20:09 Initial Consult Date 11/19/16 Type of Consultation: [facility] Referring Provider: FINA IRVING DO 24 HR Interval Summary Free Text/Dictation all noted d/w dr Troncoso flow- neg Exam/Review of Systems Vital Signs Vitals Vital Signs Date Time Temp Pulse Resp B/P Pulse Ox O2 Delivery O2 Flow Rate FiO2 11/21/16 07:27 97.7 76 20 140/63 97 11/20/16 16:24 Room Air Intake and Output 11/20/16 11/20/16 11/21/16 15:00 23:00 07:00 Intake Total 1710 ml 1540 ml Balance 1710 ml 1540 ml Exam HEENT: Head is normocephalic. NECK: Supple. HEART: Regular rate. LUNGS: Show diminished breath sounds at base. ABDOMEN: Soft, nontender to palpation without rebound or guarding. EXTREMITIES: Negative for clubbing, cyanosis, no edema. DERMATOLOGIC: Noted ecchymoses upper and lower extremities, back, and thighs. NEUROLOGIC: No focal deficits. Results Result Diagram: 11/21/16 0426 11/20/16 0420 Results 24 hrs Laboratory Tests Test 11/20/16 16:59 11/20/16 20:04 11/21/16 04:26 11/21/16 08:11 Bedside Glucose 115 163 107 Basophils # 0.0 Basophils % 0.2 Blood Morphology Comment Eosinophils # 0.0 Eosinophils % 0.5 Hematocrit 26.9 L Hemoglobin 9.1 L Lymphocytes # 2.2 Lymphocytes % 51.0 Mean Corpuscular Hemoglobin 34.4 H Mean Corpuscular Hemoglobin Concent 34.0 Mean Corpuscular Volume 101.1 H Mean Platelet Volume 9.0 Monocytes # 0.2 L Monocytes % 4.7 Neutrophils # 1.9 Neutrophils % 43.6 Nucleated Red Blood Cells # 0.0 Nucleated Red Blood Cells % 0.0 Platelet Count 22 *L Red Blood Count 2.66 L Red Cell Distribution Width 15.7 H White Blood Count 4.3 L Test 11/21/16 11:52 Bedside Glucose 139 Medications Medications Current Medications Sodium Chloride (1/2 NS) 1,000 ml @ 80 mls/hr [id number] IV Last administered on 11/21/16 01:58; Admin Dose 80 MLS/HR; Start 11/19/16 at 00:30 Alprazolam (Xanax) 0.25 mg DAILY PRN PO ANXIETY Last administered on 11/20/16 01:52; Admin Dose 0.25 MG; Start 11/19/16 at 09:00 Ferrous Sulfate (Ferrous Sulfate (Ec)) 325 mg BID PO Last administered on 09:04; Admin Dose 325 MG; Start 11/19/16 at 09:00 Fluoxetine HCl (Prozac) 20 mg DAILY PO Last administered on 11/21/16 09:04; Admin Dose 20 MG; Start 11/19/16 at 09:00 Lisinopril (Zestril) 5 mg DAILY PO Last administered on 11/21/16 09:07; Admin Dose 5 MG; Start 11/19/16 at 09:00 Pregabalin (Lyrica) 150 mg BID PO Last administered on 11/21/16 09:05; Admin Dose 150 MG; Start 11/19/16 at 09:00 Zolpidem Tartrate (Ambien) 10 mg QHS PRN PO INSOMNIA Last administered on 22:20; Admin Dose 10 MG; Start 11/19/16 at 09:00 Miscellaneous Information 1 ea NOTE XX ; Start 11/19/16 at 09:00 Glucose (Glutose) 15 gm Q15M PRN PO DECREASED GLUCOSE; Start 11/19/16 at 09:00 Glucose (Glutose) 22.5 gm Q15M PRN PO DECREASED GLUCOSE; Start 11/19/16 at 09:00 Dextrose (D50w Syringe) 25 ml Q15M PRN IV DECREASED GLUCOSE; Start 11/19/16 at 09:00 Dextrose (D50w Syringe) 50 ml Q15M PRN IV DECREASED GLUCOSE; Start 11/19/16 at 09:00 Glucagon (Glucagen) 1 mg Q15M PRN IM DECREASED GLUCOSE; Start 11/19/16 at 09:00 Glucose (Glutose) 15 gm Q15M PRN BUCCAL DECREASED GLUCOSE; Start 11/19/16 at 09: 00 Diagnostic Test (Pha) (Accucheck) 1 ea 02 XX Last administered on 11/20/16 02: 03; Admin Dose 1 EA; Start 11/20/16 at 02:00 Pantoprazole (Protonix Tab) 40 mg DAILY@06 PO Last administered on 11/21/16 06: 09; Admin Dose 40 MG; Start 11/19/16 at 09:00 Acetaminophen (Tylenol Tab) 650 mg Q6H PRN PO PAIN AND OR ELEVATED TEMP Last administered on 11/19/16 09:36; Admin Dose 650 MG; Start 11/19/16 at 09:30 Ondansetron HCl (Zofran Inj) 4 mg Q4H PRN IV NAUSEA AND/OR VOMITING; Start 11/19 at 09:30 ZHAO CARRILLO MD Nov 21, 2016 15:34
[2016-11-21] MEDS: METHYLPREDNISOLONE 125 MG INJ IV SCH ×2 (16:32→23:17)
[2016-11-21 19:15] VITALS: BP 115/62; RESP 18
[2016-11-21] MEDS: ZOLPIDEM 5 MG TAB PO PRN (23:22)
[2016-11-22] MEDS: ACCUCHECK XX SCH (01:16)
[2016-11-22] MEDS: SOD CHLORIDE 0.45% 1,000 ML IV SCH (04:18)
[2016-11-22 05:35] LABS: BASOPHILS % 0.1 % (0.0-2.0); EOSINOPHILS % 0.1 % (0.0-7.0); HEMATOCRIT 28.9 % (37.0-47.0); LYMPHOCYTES # 1.1 10^3/ul (0.8-2.9); LYMPHOCYTES % 33.6 % (15.0-51.0); MEAN CORPUSCULAR HEMOGLOBIN 34.7 pg (29.0-33.0); MEAN CORPUSCULAR HGB CONC 34.6 g/dl (32.0-37.0); MEAN CORPUSCULAR VOLUME 100.1 fl (82.0-101.0); MEAN PLATELET VOLUME 8.5 fl (7.4-10.4); MONOCYTES % 0.7 % (0.0-11.0); NEUTROPHIL # 2.2 10^3/ul (1.6-7.5); NEUTROPHILS % 65.5 % (39.0-77.0); RED BLOOD COUNT 2.88 10^6/ul (4.20-5.40); RED CELL DISTRIBUTION WIDTH 15.7 % (11.5-14.5); UNCORRECTED WBC 3.4 10^3/ul (4.8-10.8); WHITE BLOOD COUNT 3.4 10^3/ul (4.8-10.8)
[2016-11-22 05:50] LABS: CONDITION 1; LH ANALYZER COMMENTS 1
[2016-11-22 05:51] LABS: PLATELET COUNT 29 10^3/UL (140-440)
[2016-11-22] MEDS: PANTOPRAZOLE (EC) 40 MG TAB PO SCH (06:33)
[2016-11-22] MEDS: METHYLPREDNISOLONE 125 MG INJ IV SCH ×3 (06:33→22:43)
[2016-11-22] MEDS: INSULIN ASPART [NOVOLOG] 3 ML PEN SC SCH ×4 (07:50→21:15)
[2016-11-22] MEDS: PREGABALIN 75 MG CAP PO SCH ×2 (08:47→21:08)
[2016-11-22] MEDS: FERROUS SULFATE (EC) 325 MG TAB PO SCH ×2 (08:47→21:07)
[2016-11-22] MEDS: FLUOXETINE 20 MG CAP PO SCH (08:47)
[2016-11-22] MEDS: metFORMIN 500 MG TAB PO SCH ×2 (08:48→18:08)
[2016-11-22] MEDS: LISINOPRIL 5 MG TAB PO SCH (08:48)
[2016-11-22 09:04] VITALS: BP 145/71; RESP 19
--- NOTE | 2016-11-22 09:33 | CONS ---
Date/Time of Note Date/Time of Note DATE: 11/22/16 TIME: 09:33 Assessment/Plan Assessment/Plan Chief Complaint/Hosp Course ASSESSMENT AND PLAN: This is a 60-year-old female who presents with: 1. Pancytopenia. ( WITH +FHX FOR ALL) r/o primary bone marrow disorder vs ITP BMBX- performed from [facility] under local anesthesia with 1 % LIDOCAINE FINAL -P SMEAR- NO BLASTS FLOW- NEG SO FAR LOOKS LIKE ITP WILL START STEROIDS D/W PT IN DETAILS 2. Azotemia. Etiology is likely due to volume depletion. The patient's renal function has improved after receiving IV hydration. We will continue. 3. Diabetes. We will continue Accu-Cheks and sliding scale. We will continue metformin. 4. History of hypertension. Continue benazepril. 5. Depression and anxiety disorder. Continue Xanax and Prozac. 6. History of neuropathy. Continue Lyrica. 7. History of degenerative joint disease, osteoarthritis. The patient is status post bilateral knee replacement. Continue to monitor. 8. Insomnia. Continue Ambien. 9. Gastrointestinal and deep venous thrombosis prophylaxis. Continue proton pump inhibitor and sequential leg squeezers. Problems: Consultation Date/Type/Reason Admit Date/Time Nov 18, 2016 at 20:09 Initial Consult Date 11/19/16 Type of Consultation: [facility] Referring Provider: FINA IRVING DO 24 HR Interval Summary Free Text/Dictation The patient is stable, no acute events overnight. No fevers, chills, nausea, vomiting. No shortness of breath. Exam/Review of Systems Vital Signs Vitals Vital Signs Date Time Temp Pulse Resp B/P Pulse Ox O2 Delivery O2 Flow Rate FiO2 11/22/16 09:04 98.0 69 19 145/71 97 11/20/16 16:24 Room Air Intake and Output 11/21/16 11/21/16 11/22/16 15:00 23:00 07:00 Intake Total 1700 ml 1960 ml Balance 1700 ml 1960 ml Exam HEENT: Head is normocephalic. NECK: Supple. HEART: Regular rate. LUNGS: Show diminished breath sounds at the base. ABDOMEN: Soft, nontender to palpation without rebound or guarding. EXTREMITIES: Negative for clubbing, cyanosis. No edema. DERMATOLOGIC: No rashes. MUSCULOSKELETAL: No joint effusions. NEUROLOGIC: No change in exam. Results Result Diagram: 11/22/16 0444 11/20/16 0420 Results 24 hrs Laboratory Tests Test 11/21/16 11:52 11/21/16 17:48 11/21/16 20:22 11/22/16 04:44 Bedside Glucose 139 111 159 Basophils # 0.0 Basophils % 0.1 Blood Morphology Comment Eosinophils # 0.0 Eosinophils % 0.1 Hematocrit 28.9 L Hemoglobin 10.0 L Lymphocytes # 1.1 Lymphocytes % 33.6 Mean Corpuscular Hemoglobin 34.7 H Mean Corpuscular Hemoglobin Concent 34.6 Mean Corpuscular Volume 100.1 Mean Platelet Volume 8.5 Monocytes # 0.0 L Monocytes % 0.7 Neutrophils # 2.2 Neutrophils % 65.5 Nucleated Red Blood Cells # 0.0 Nucleated Red Blood Cells % 0.0 Platelet Count 29 #*L Red Blood Count 2.88 L Red Cell Distribution Width 15.7 H White Blood Count 3.4 #L Test 11/22/16 07:55 Bedside Glucose 145 Medications Medications Current Medications Alprazolam (Xanax) 0.25 mg DAILY PRN PO ANXIETY Last administered on 11/20/16 01:52; Admin Dose 0.25 MG; Start 11/19/16 at 09:00 Ferrous Sulfate (Ferrous Sulfate (Ec)) 325 mg BID PO Last administered on 08:47; Admin Dose 325 MG; Start 11/19/16 at 09:00 Fluoxetine HCl (Prozac) 20 mg DAILY PO Last administered on 11/22/16 08:47; Admin Dose 20 MG; Start 11/19/16 at 09:00 Lisinopril (Zestril) 5 mg DAILY PO Last administered on 11/22/16 08:48; Admin Dose 5 MG; Start 11/19/16 at 09:00 Pregabalin (Lyrica) 150 mg BID PO Last administered on 11/22/16 08:47; Admin Dose 150 MG; Start 11/19/16 at 09:00 Zolpidem Tartrate (Ambien) 10 mg QHS PRN PO INSOMNIA Last administered on 23:22; Admin Dose 10 MG; Start 11/19/16 at 09:00 Miscellaneous Information 1 ea NOTE XX ; Start 11/19/16 at 09:00 Glucose (Glutose) 15 gm Q15M PRN PO DECREASED GLUCOSE; Start 11/19/16 at 09:00 Glucose (Glutose) 22.5 gm Q15M PRN PO DECREASED GLUCOSE; Start 11/19/16 at 09:00 Dextrose (D50w Syringe) 25 ml Q15M PRN IV DECREASED GLUCOSE; Start 11/19/16 at 09:00 Dextrose (D50w Syringe) 50 ml Q15M PRN IV DECREASED GLUCOSE; Start 11/19/16 at 09:00 Glucagon (Glucagen) 1 mg Q15M PRN IM DECREASED GLUCOSE; Start 11/19/16 at 09:00 Glucose (Glutose) 15 gm Q15M PRN BUCCAL DECREASED GLUCOSE; Start 11/19/16 at 09: 00 Diagnostic Test (Pha) (Accucheck) 1 ea 02 XX Last administered on 11/20/16 02: 03; Admin Dose 1 EA; Start 11/20/16 at 02:00 Pantoprazole (Protonix Tab) 40 mg DAILY@06 PO Last administered on 11/22/16 06: 33; Admin Dose 40 MG; Start 11/19/16 at 09:00 Acetaminophen (Tylenol Tab) 650 mg Q6H PRN PO PAIN AND OR ELEVATED TEMP Last administered on 11/19/16 09:36; Admin Dose 650 MG; Start 11/19/16 at 09:30 Ondansetron HCl (Zofran Inj) 4 mg Q4H PRN IV NAUSEA AND/OR VOMITING; Start 11/19 at 09:30 Methylprednisolone Sodium Succinate (Solu-Medrol) 80 mg Q8 IV Last administered on 11/22/16 06:33; Admin Dose 80 MG; Start 11/21/16 at 16:00 ZHAO CARRILLO MD Nov 22, 2016 09:33
--- NOTE | 2016-11-22 10:05 | PN ---
DATE: 11/22/2016 SUBJECTIVE: The patient is stable, no acute events overnight. No fevers, chills, nausea, vomiting. No shortness of breath. OBJECTIVE: VITAL SIGNS: Blood pressure is 150/60, respiration 18, pulse 75, temperature 98.2. HEENT: Head is normocephalic. NECK: Supple. HEART: Regular rate. LUNGS: Show diminished breath sounds at the base. ABDOMEN: Soft, nontender to palpation without rebound or guarding. EXTREMITIES: Negative for clubbing, cyanosis. No edema. DERMATOLOGIC: No rashes. MUSCULOSKELETAL: No joint effusions. NEUROLOGIC: No change in exam. MEDICATIONS: Patient's medications have been reviewed. LABORATORY DATA: Shows a white count 3.4, hemoglobin 10.0, hematocrit 28.9, platelet count is 29. IMAGING STUDIES: The patient's abdominal ultrasound shows gallbladder is not visualized, fatty live r. ASSESSMENT AND PLAN: 1. Pancytopenia. The patient is status post bone marrow biopsy. 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 No evidence of blasts at this time. The patient currently has been initiated on steroi ds. We will continue to monitor. Follow up with histology tech, Dr. Machado. 2. Azotemia, improved. Continue to monitor. 3. Diabetes, continue Accu-Cheks and sliding scale. 4. Hypertension. Continue Benazepril. 5. Depression and anxiety disorder. Continue Xanax and Prozac. 6. Neuropathy. Continue Lyrica. 7. History of insomnia. Continue Ambien. 8. Degenerative joint disease and osteoarthritis, status post bilateral knee replacement. Continue to monitor. 9. Gastrointestinal and deep venous thrombosis prophylaxis. Continue proton pump inhibitor and seq uential leg squeezers. Dictated By: FINA NUÑEZ/ARMEN Conf#: [id number] DID#: [id number]
[2016-11-22 20:03] VITALS: BP 118/58; RESP 20
[2016-11-22] MEDS: ALPRAZOLAM 0.25 MG TAB PO PRN (21:07)
[2016-11-22] MEDS: ZOLPIDEM 5 MG TAB PO PRN (22:43)
[2016-11-23] MEDS: ACCUCHECK XX SCH (02:50)
[2016-11-23] MEDS: PANTOPRAZOLE (EC) 40 MG TAB PO SCH (05:34)
[2016-11-23] MEDS: METHYLPREDNISOLONE 125 MG INJ IV SCH ×3 (05:34→22:20)
[2016-11-23] MEDS: ALBUTEROL HFA 8 GM INHALER INH PRN (05:35)
[2016-11-23 05:39] LABS: BASOPHILS % 0.2 % (0.0-2.0); HEMATOCRIT 28.3 % (37.0-47.0); HEMOGLOBIN 9.6 g/dl (12.0-16.0); LYMPHOCYTES # 1.3 10^3/ul (0.8-2.9); MEAN CORPUSCULAR HEMOGLOBIN 34.4 pg (29.0-33.0); MEAN CORPUSCULAR HGB CONC 33.8 g/dl (32.0-37.0); MEAN CORPUSCULAR VOLUME 101.8 fl (82.0-101.0); MEAN PLATELET VOLUME 7.9 fl (7.4-10.4); MONOCYTE # 0.2 10^3/ul (0.3-0.9); MONOCYTES % 3.2 % (0.0-11.0); NEUTROPHIL # 3.4 10^3/ul (1.6-7.5); NEUTROPHILS % 70.6 % (39.0-77.0); PLATELET COUNT 37 10^3/UL (140-440); RED BLOOD COUNT 2.78 10^6/ul (4.20-5.40); UNCORRECTED WBC 4.9 10^3/ul (4.8-10.8); WHITE BLOOD COUNT 4.9 10^3/ul (4.8-10.8)
[2016-11-23 06:04] LABS: CONDITION 1; LH ANALYZER COMMENTS 1
[2016-11-23] MEDS: INSULIN ASPART [NOVOLOG] 3 ML PEN SC SCH ×4 (07:50→20:57)
[2016-11-23 08:05] VITALS: BP 129/61; RESP 19
[2016-11-23] MEDS: FERROUS SULFATE (EC) 325 MG TAB PO SCH ×2 (08:40→20:50)
[2016-11-23] MEDS: FLUOXETINE 20 MG CAP PO SCH (08:40)
[2016-11-23] MEDS: LISINOPRIL 5 MG TAB PO SCH (08:41)
[2016-11-23] MEDS: metFORMIN 500 MG TAB PO SCH ×2 (08:49→18:00)
[2016-11-23] MEDS: PREGABALIN 75 MG CAP PO SCH ×2 (08:49→20:49)
--- NOTE | 2016-11-23 10:14 | CONS ---
Date/Time of Note Date/Time of Note DATE: 11/23/16 TIME: 10:13 Assessment/Plan Assessment/Plan Chief Complaint/Hosp Course ASSESSMENT AND PLAN: This is a 60-year-old female who presents with: 1. Pancytopenia. ( WITH +FHX FOR ALL) r/o primary bone marrow disorder vs ITP BMBX- performed from [facility] under local anesthesia with 1 % LIDOCAINE FINAL -P, SMEAR- NO BLASTS FLOW- NEG SO FAR LOOKS LIKE ITP WILL START STEROIDS D/W PT IN DETAILS 2. Azotemia. Etiology is likely due to volume depletion. The patient's renal function has improved after receiving IV hydration. We will continue. 3. Diabetes. We will continue Accu-Cheks and sliding scale. We will continue metformin. 4. History of hypertension. Continue benazepril. 5. Depression and anxiety disorder. Continue Xanax and Prozac. 6. History of neuropathy. Continue Lyrica. 7. History of degenerative joint disease, osteoarthritis. The patient is status post bilateral knee replacement. Continue to monitor. 8. Insomnia. Continue Ambien. 9. Gastrointestinal and deep venous thrombosis prophylaxis. Continue proton pump inhibitor and sequential leg squeezers. Problems: Consultation Date/Type/Reason Admit Date/Time Nov 18, 2016 at 20:09 Initial Consult Date 11/19/16 Type of Consultation: [facility] Referring Provider: FINA IRVING DO 24 HR Interval Summary Free Text/Dictation on steroids Exam/Review of Systems Vital Signs Vitals Vital Signs Date Time Temp Pulse Resp B/P Pulse Ox O2 Delivery O2 Flow Rate FiO2 11/23/16 08:05 98.9 65 19 129/61 99 11/20/16 16:24 Room Air Intake and Output 11/22/16 11/22/16 11/23/16 15:00 23:00 07:00 Intake Total 1400 ml 680 ml Balance 1400 ml 680 ml Exam HEENT: Head is normocephalic. NECK: Supple. HEART: Regular rate. LUNGS: Show diminished breath sounds at the base. ABDOMEN: Soft, nontender to palpation without rebound or guarding. EXTREMITIES: Negative for clubbing, cyanosis. No edema. DERMATOLOGIC: No rashes. MUSCULOSKELETAL: No joint effusions. NEUROLOGIC: No change in exam. Results Result Diagram: 11/23/16 0414 11/20/16 0420 Results 24 hrs Laboratory Tests Test 2/6/17 12:05 11/22/16 17:45 11/22/16 21:06 11/23/16 02:48 Bedside Glucose 206 170 224 H 162 Test 11/23/16 04:14 11/23/16 08:38 Basophils # 0.0 Basophils % 0.2 Blood Morphology Comment Eosinophils # 0.0 Eosinophils % 0.0 Hematocrit 28.3 L Hemoglobin 9.6 L Lymphocytes # 1.3 Lymphocytes % 26.0 Mean Corpuscular Hemoglobin 34.4 H Mean Corpuscular Hemoglobin Concent 33.8 Mean Corpuscular Volume 101.8 H Mean Platelet Volume 7.9 Monocytes # 0.2 L Monocytes % 3.2 Neutrophils # 3.4 Neutrophils % 70.6 Nucleated Red Blood Cells # 0.0 Nucleated Red Blood Cells % 0.0 Platelet Count 37 #L Red Blood Count 2.78 L Red Cell Distribution Width 16.0 H White Blood Count 4.9 # Bedside Glucose 137 Medications Medications Current Medications Alprazolam (Xanax) 0.25 mg DAILY PRN PO ANXIETY Last administered on 11/22/16 21:07; Admin Dose 0.25 MG; Start 11/19/16 at 09:00 Ferrous Sulfate (Ferrous Sulfate (Ec)) 325 mg BID PO Last administered on 08:40; Admin Dose 325 MG; Start 11/19/16 at 09:00 Fluoxetine HCl (Prozac) 20 mg DAILY PO Last administered on 11/23/16 08:40; Admin Dose 20 MG; Start 11/19/16 at 09:00 Lisinopril (Zestril) 5 mg DAILY PO Last administered on 11/23/16 08:41; Admin Dose 5 MG; Start 11/19/16 at 09:00 Pregabalin (Lyrica) 150 mg BID PO Last administered on 11/23/16 08:49; Admin Dose 150 MG; Start 11/19/16 at 09:00 Zolpidem Tartrate (Ambien) 10 mg QHS PRN PO INSOMNIA Last administered on 22:43; Admin Dose 10 MG; Start 11/19/16 at 09:00 Miscellaneous Information 1 ea NOTE XX ; Start 11/19/16 at 09:00 Glucose (Glutose) 15 gm Q15M PRN PO DECREASED GLUCOSE; Start 11/19/16 at 09:00 Glucose (Glutose) 22.5 gm Q15M PRN PO DECREASED GLUCOSE; Start 11/19/16 at 09:00 Dextrose (D50w Syringe) 25 ml Q15M PRN IV DECREASED GLUCOSE; Start 11/19/16 at 09:00 Dextrose (D50w Syringe) 50 ml Q15M PRN IV DECREASED GLUCOSE; Start 11/19/16 at 09:00 Glucagon (Glucagen) 1 mg Q15M PRN IM DECREASED GLUCOSE; Start 11/19/16 at 09:00 Glucose (Glutose) 15 gm Q15M PRN BUCCAL DECREASED GLUCOSE; Start 11/19/16 at 09: 00 Diagnostic Test (Pha) (Accucheck) 1 ea 02 XX Last administered on 11/23/16 02: 50; Admin Dose 1 EA; Start 11/20/16 at 02:00 Pantoprazole (Protonix Tab) 40 mg DAILY@06 PO Last administered on 11/23/16 05: 34; Admin Dose 40 MG; Start 11/19/16 at 09:00 Acetaminophen (Tylenol Tab) 650 mg Q6H PRN PO PAIN AND OR ELEVATED TEMP Last administered on 11/19/16 09:36; Admin Dose 650 MG; Start 11/19/16 at 09:30 Ondansetron HCl (Zofran Inj) 4 mg Q4H PRN IV NAUSEA AND/OR VOMITING; Start 11/19 at 09:30 Methylprednisolone Sodium Succinate (Solu-Medrol) 80 mg Q8 IV Last administered on 11/23/16 05:34; Admin Dose 80 MG; Start 11/21/16 at 16:00 ZHAO CARRILLO MD Nov 23, 2016 10:14
--- NOTE | 2016-11-23 10:59 | PN ---
DATE: SUBJECTIVE: The patient is stable, no acute events overnight. No fevers, chills, nausea, vomiting, no shortness of breath. OBJECTIVE: VITAL SIGNS: Blood pressure 129/64, respiration 19, pulse 65, temperature 98.9. HEENT: Head is normocephalic. NECK: Supple. HEART: Regular rate. LUNGS: Show diminished breath sounds at base. ABDOMEN: Soft, nontender to palpation. No rebound or guarding. EXTREMITIES: Negative for clubbing, cyanosis, no edema. DERMATOLOGIC: No rashes. MUSCULOSKELETAL: No joint effusions. NEUROLOGIC: No change in exam. MEDICATIONS: The patient's medications have been reviewed. LABORATORY DATA: Shows a white count of 4.9, hemoglobin 9.6, hematocrit 28.3, platelet count is 37. ASSESSMENT AND PLAN: 1. Pancytopenia and thrombocytopenia. Etiology may be secondary to ITP. The patient is status pos t bone marrow biopsy. Final pathology is pending. The patient is on empiric steroids with slow imp rovement of platelet count. We will continue current treatment plan. Follow up with hematology. 2. Diabetes. Continue current insulin regimen. 3. Hypertension. Continue Benazepril. 4. Neuropathy. Continue Lyrica. 5. Depression and anxiety disorder. Continue Xanax and Prozac. 6. Insomnia. Continue Ambien. 7. Degenerative joint disease, osteoarthritis. Continue medical management. 8. Gastrointestinal and deep venous thrombosis prophylaxis. Continue proton pump inhibitor and seq uential leg squeezers. 9. Status post azotemia. Dictated By: FINA NUÑEZ/ARMEN Conf#: [id number] DID#: [id number]
[2016-11-23 19:57] VITALS: BP 132/75; RESP 18
[2016-11-23] MEDS ORDERED: ALBUTEROL HFA 8 GM INHALER INH PRN (22:00)
[2016-11-23] MEDS: ALPRAZOLAM 0.25 MG TAB PO PRN (22:20)
[2016-11-24] MEDS: ACCUCHECK XX SCH (02:18)
[2016-11-24 05:31] LABS: POTASSIUM 4.9 mmol/L (3.5-5.1)
[2016-11-24 05:33] LABS: CREATININE 0.88 mg/dl (0.44-1.00)
[2016-11-24 05:34] LABS: CALCIUM 10.1 mg/dl (8.4-10.2); MAGNESIUM 1.6 mg/dl (1.7-2.5); PHOSPHORUS 3.7 mg/dl (2.5-4.9)
[2016-11-24] MEDS: METHYLPREDNISOLONE 125 MG INJ IV SCH ×3 (05:49→21:49)
[2016-11-24] MEDS: PANTOPRAZOLE (EC) 40 MG TAB PO SCH (05:49)
[2016-11-24 05:52] LABS: BASOPHILS % 0.2 % (0.0-2.0); HEMOGLOBIN 9.7 g/dl (12.0-16.0); LYMPHOCYTES # 1.1 10^3/ul (0.8-2.9); LYMPHOCYTES % 30.5 % (15.0-51.0); MEAN CORPUSCULAR HEMOGLOBIN 34.9 pg (29.0-33.0); MEAN CORPUSCULAR HGB CONC 34.5 g/dl (32.0-37.0); MEAN CORPUSCULAR VOLUME 101.1 fl (82.0-101.0); MEAN PLATELET VOLUME 7.9 fl (7.4-10.4); MONOCYTE # 0.1 10^3/ul (0.3-0.9); MONOCYTES % 3.4 % (0.0-11.0); NEUTROPHIL # 2.5 10^3/ul (1.6-7.5); NEUTROPHILS % 65.9 % (39.0-77.0); PLATELET COUNT 35 10^3/UL (140-440); RED BLOOD COUNT 2.77 10^6/ul (4.20-5.40); RED CELL DISTRIBUTION WIDTH 15.7 % (11.5-14.5); UNCORRECTED WBC 3.7 10^3/ul (4.8-10.8); WHITE BLOOD COUNT 3.7 10^3/ul (4.8-10.8)
[2016-11-24 05:55] LABS: CONDITION 1; LH ANALYZER COMMENTS 1
[2016-11-24 08:29] VITALS: BP 145/66; RESP 18
[2016-11-24] MEDS: ALBUTEROL 0.083% (NEB) 2.5 MG/3 ML AMP HHN PRN ×2 (08:30→17:41)
--- NOTE | 2016-11-24 09:04 | CONS ---
Date/Time of Note Date/Time of Note DATE: 11/24/16 TIME: 09:04 Assessment/Plan Assessment/Plan Chief Complaint/Hosp Course ASSESSMENT AND PLAN: This is a 60-year-old female who presents with: 1. Pancytopenia. ( WITH +FHX FOR ALL) r/o primary bone marrow disorder vs ITP BMBX- performed from [facility] under local anesthesia with 1 % LIDOCAINE FINAL -noted, no evidence of 1 bm disorder, although bx is small SMEAR- NO BLASTS FLOW- NEG SO FAR LOOKS LIKE ITP cont STEROIDS D/W PT IN DETAILS 2. Azotemia. Etiology is likely due to volume depletion. The patient's renal function has improved after receiving IV hydration. We will continue. 3. Diabetes. We will continue Accu-Cheks and sliding scale. We will continue metformin. 4. History of hypertension. Continue benazepril. 5. Depression and anxiety disorder. Continue Xanax and Prozac. 6. History of neuropathy. Continue Lyrica. 7. History of degenerative joint disease, osteoarthritis. The patient is status post bilateral knee replacement. Continue to monitor. 8. Insomnia. Continue Ambien. 9. Gastrointestinal and deep venous thrombosis prophylaxis. Continue proton pump inhibitor and sequential leg squeezers. Problems: Consultation Date/Type/Reason Admit Date/Time Nov 18, 2016 at 20:09 Initial Consult Date 11/19/16 Type of Consultation: [facility] Referring Provider: FINA IRVING DO 24 HR Interval Summary Free Text/Dictation all noted no new events on steroids Exam/Review of Systems Vital Signs Vitals Vital Signs Date Time Temp Pulse Resp B/P Pulse Ox O2 Delivery O2 Flow Rate FiO2 11/24/16 08:31 53 18 98 21 11/24/16 08:29 97.9 145/66 11/20/16 16:24 Room Air Intake and Output 11/23/16 11/23/16 11/24/16 15:00 23:00 07:00 Intake Total 1030 ml 750 ml Output Total 650 ml Balance 380 ml 750 ml Exam HEENT: Head is normocephalic. NECK: Supple. HEART: Regular rate. LUNGS: Show diminished breath sounds at the base. ABDOMEN: Soft, nontender to palpation without rebound or guarding. EXTREMITIES: Negative for clubbing, cyanosis. No edema. DERMATOLOGIC: No rashes. MUSCULOSKELETAL: No joint effusions. NEUROLOGIC: No change in exam. Results Result Diagram: 11/24/16 0422 11/24/16 0422 Results 24 hrs Laboratory Tests Test 11/23/16 12:42 11/23/16 17:56 11/23/16 20:47 11/24/16 02:17 Bedside Glucose 112 141 185 160 Test 11/24/16 04:22 11/24/16 08:02 Anion Gap 18 H Basophils # 0.0 Basophils % 0.2 Blood Morphology Comment Blood Urea Nitrogen 31 H Calcium Level 10.1 Carbon Dioxide Level 24 Chloride Level 103 Creatinine 0.88 Eosinophils # 0.0 Eosinophils % 0.0 Glucose Level 166 Hematocrit 28.0 L Hemoglobin 9.7 L Lymphocytes # 1.1 Lymphocytes % 30.5 Magnesium Level 1.6 L Mean Corpuscular Hemoglobin 34.9 H Mean Corpuscular Hemoglobin Concent 34.5 Mean Corpuscular Volume 101.1 H Mean Platelet Volume 7.9 Monocytes # 0.1 L Monocytes % 3.4 Neutrophils # 2.5 Neutrophils % 65.9 Nucleated Red Blood Cells # 0.0 Nucleated Red Blood Cells % 0.0 Phosphorus Level 3.7 Platelet Count 35 L Potassium Level 4.9 Red Blood Count 2.77 L Red Cell Distribution Width 15.7 H Sodium Level 140 White Blood Count 3.7 #L Bedside Glucose 152 Medications Medications Current Medications Alprazolam (Xanax) 0.25 mg DAILY PRN PO ANXIETY Last administered on 11/23/16 22:20; Admin Dose 0.25 MG; Start 11/19/16 at 09:00 Ferrous Sulfate (Ferrous Sulfate (Ec)) 325 mg BID PO Last administered on 20:50; Admin Dose 325 MG; Start 11/19/16 at 09:00 Fluoxetine HCl (Prozac) 20 mg DAILY PO Last administered on 11/23/16 08:40; Admin Dose 20 MG; Start 11/19/16 at 09:00 Lisinopril (Zestril) 5 mg DAILY PO Last administered on 11/23/16 08:41; Admin Dose 5 MG; Start 11/19/16 at 09:00 Pregabalin (Lyrica) 150 mg BID PO Last administered on 11/23/16 20:49; Admin Dose 150 MG; Start 11/19/16 at 09:00 Zolpidem Tartrate (Ambien) 10 mg QHS PRN PO INSOMNIA Last administered on 22:43; Admin Dose 10 MG; Start 11/19/16 at 09:00 Miscellaneous Information 1 ea NOTE XX ; Start 11/19/16 at 09:00 Glucose (Glutose) 15 gm Q15M PRN PO DECREASED GLUCOSE; Start 11/19/16 at 09:00 Glucose (Glutose) 22.5 gm Q15M PRN PO DECREASED GLUCOSE; Start 11/19/16 at 09:00 Dextrose (D50w Syringe) 25 ml Q15M PRN IV DECREASED GLUCOSE; Start 11/19/16 at 09:00 Dextrose (D50w Syringe) 50 ml Q15M PRN IV DECREASED GLUCOSE; Start 11/19/16 at 09:00 Glucagon (Glucagen) 1 mg Q15M PRN IM DECREASED GLUCOSE; Start 11/19/16 at 09:00 Glucose (Glutose) 15 gm Q15M PRN BUCCAL DECREASED GLUCOSE; Start 11/19/16 at 09: 00 Diagnostic Test (Pha) (Accucheck) 1 ea 02 XX Last administered on 11/24/16 02: 18; Admin Dose 1 EA; Start 11/20/16 at 02:00 Pantoprazole (Protonix Tab) 40 mg DAILY@06 PO Last administered on 11/24/16 05: 49; Admin Dose 40 MG; Start 11/19/16 at 09:00 Acetaminophen (Tylenol Tab) 650 mg Q6H PRN PO PAIN AND OR ELEVATED TEMP Last administered on 11/19/16 09:36; Admin Dose 650 MG; Start 11/19/16 at 09:30 Ondansetron HCl (Zofran Inj) 4 mg Q4H PRN IV NAUSEA AND/OR VOMITING; Start 11/19 at 09:30 Methylprednisolone Sodium Succinate (Solu-Medrol) 80 mg Q8 IV Last administered on 11/24/16 05:49; Admin Dose 80 MG; Start 11/21/16 at 16:00 Azithromycin 250 mg 250 mg DAILY PO ; Start 11/24/16 at 09:00 Magnesium Sulfate (Magnesium Sulfate 2 Gm/50 ml) 50 ml @ 25 mls/hr ONCE IVPB ; Start 11/24/16 at 10:00; Stop 11/24/16 at 11:59 Guaifenesin (Robitussin Liquid Cup) 200 mg Q4H PRN PO cough; Start 11/24/16 at 08:30 ZHAO CARRILLO MD Nov 24, 2016 09:04
[2016-11-24] MEDS: metFORMIN 500 MG TAB PO SCH ×2 (09:20→18:17)
[2016-11-24] MEDS: INSULIN ASPART [NOVOLOG] 3 ML PEN SC SCH ×4 (09:21→20:14)
[2016-11-24] MEDS: FERROUS SULFATE (EC) 325 MG TAB PO SCH ×2 (09:22→20:16)
[2016-11-24] MEDS: FLUOXETINE 20 MG CAP PO SCH (09:22)
[2016-11-24] MEDS: LISINOPRIL 5 MG TAB PO SCH (09:23)
[2016-11-24] MEDS: AZITHROMYCIN 250 MG TAB PO SCH (09:24)
[2016-11-24] MEDS: PREGABALIN 75 MG CAP PO SCH ×2 (09:27→20:16)
[2016-11-24] MEDS: GUAIFENESIN 20 MG/ML 5ML CUP PO PRN ×2 (09:27→20:15)
[2016-11-24] MEDS ORDERED: MAGNESIUM SULFATE 2 GM/50 ML 50 ML IVPB SCH (10:00)
--- NOTE | 2016-11-24 11:12 | PN ---
DATE: 11/24/2016 SUBJECTIVE: The patient is complaining of a cough, wheezing over the last 24 hours. No other event s noted. No hemoptysis, hematemesis or hematochezia. OBJECTIVE: VITAL SIGNS: Blood pressure 132/75, respiration 18, pulse 79, temperature 98.2. HEENT: Head is normocephalic. NECK: Supple. HEART: Regular rate. LUNGS: Show diminished breath sounds at base and some audible wheezes. ABDOMEN: Soft, nontender to palpation. No rebound or guarding. EXTREMITIES: Negative for clubbing, cyanosis, edema. DERMATOLOGIC: No rashes. MUSCULOSKELETAL: No joint effusions. NEUROLOGIC: No change in exam. MEDICATIONS: Have been reviewed. LABORATORY DATA: Sodium 140, potassium 4.9, chloride 103, BUN 31, creatinine 1.88, magnesium 1.6. White count 3.7, hemoglobin 9.7, hematocrit 28.0, platelet count 35. IMAGING STUDIES: The patient's pathology on biopsy shows thrombocytopenia, microcytic anemia, leuko penia. Insufficient for complete evaluation. ASSESSMENT AND PLAN: 1. Pancytopenia and thrombocytopenia. 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 The patient's biopsy does not show any blast cells. However, it was noted to velásquez ve insufficient material. The patient is currently on steroids for empiric treatment of possible im mune thrombocytopenic purpura. Will defer to hematology for management. 2. Asthmatic bronchitis. The patient will be started on azithromycin. Will continue steroids. Wi ll continue nebulizers. Will add Robitussin p.r.n. for cough. Check a chest x-ray and monitor. 3. Diabetes. Continue Accu-Cheks, insulin sliding scale. 4. Hypertension. Continue aspirin. 5. Neuropathy. Continue Lyrica. 6. Depression and anxiety, continue Xanax and Prozac. 7. Insomnia. Continue Ambien. 8. History of degenerative joint disease with arthritis. Continue current medical management. 9. Gastrointestinal and deep venous thrombosis prophylaxis. Continue proton pump inhibitor and seq uential leg squeezers. 10. Hypomagnesemia. Replete with magnesium sulfate. Dictated By: FINA NUÑEZ/ARMEN Conf#: [id number] DID#: [id number]
--- NOTE | 2016-11-24 11:21 | RADRPT ---
PROCEDURE: XR Chest. CLINICAL INDICATION: Cough. TECHNIQUE: Single frontal chest x-ray. COMPARISON: Chest radiograph 11/18/2016. FINDINGS: The cardiomediastinal silhouette is unremarkable. No pneumothorax, pleural effusion or consolidation is seen. No acute osseous abnormality is noted. IMPRESSION: 1. No acute cardiopulmonary abnormality. No significant interval change. RPTAT: QQ .Deng Ivory MD, MD Date Time Electronically viewed and signed by .Deng Ivory MD, on 11/24/2016 11:21 .N/
[2016-11-24] MEDS: ALPRAZOLAM 0.25 MG TAB PO PRN (12:19)
[2016-11-24 14:32] LABS: ANA SCREEN NEGATIVE (NEGATIVE)
[2016-11-24 19:44] VITALS: BP 148/80; RESP 20
[2016-11-24] MEDS: ACETAMINOPHEN 325 MG TAB PO PRN (20:15)
[2016-11-24] MEDS: ZOLPIDEM 5 MG TAB PO PRN (20:16)
[2016-11-25] MEDS: ACCUCHECK XX SCH (02:00)
[2016-11-25] MEDS: PANTOPRAZOLE (EC) 40 MG TAB PO SCH (04:47)
[2016-11-25] MEDS: GUAIFENESIN 20 MG/ML 5ML CUP PO PRN ×3 (04:47→17:25)
[2016-11-25] MEDS: METHYLPREDNISOLONE 125 MG INJ IV SCH ×3 (04:47→21:29)
[2016-11-25 05:18] LABS: BASOPHILS % 0.3 % (0.0-2.0); HEMATOCRIT 28.9 % (37.0-47.0); HEMOGLOBIN 9.9 g/dl (12.0-16.0); LYMPHOCYTES # 1.3 10^3/ul (0.8-2.9); LYMPHOCYTES % 36.6 % (15.0-51.0); MEAN CORPUSCULAR HEMOGLOBIN 34.3 pg (29.0-33.0); MEAN CORPUSCULAR HGB CONC 34.2 g/dl (32.0-37.0); MEAN CORPUSCULAR VOLUME 100.3 fl (82.0-101.0); MEAN PLATELET VOLUME 8.6 fl (7.4-10.4); MONOCYTE # 0.1 10^3/ul (0.3-0.9); MONOCYTES % 4.1 % (0.0-11.0); NEUTROPHIL # 2.1 10^3/ul (1.6-7.5); RED BLOOD COUNT 2.88 10^6/ul (4.20-5.40); RED CELL DISTRIBUTION WIDTH 15.5 % (11.5-14.5); UNCORRECTED WBC 3.6 10^3/ul (4.8-10.8); WHITE BLOOD COUNT 3.6 10^3/ul (4.8-10.8)
[2016-11-25 05:37] LABS: CREATININE 0.91 mg/dl (0.44-1.00)
[2016-11-25 05:38] LABS: PHOSPHORUS 3.2 mg/dl (2.5-4.9)
[2016-11-25 05:44] LABS: CONDITION 1; LH ANALYZER COMMENTS 1
[2016-11-25 05:45] LABS: PLATELET COUNT 28 10^3/UL (140-440)
[2016-11-25 08:10] VITALS: BP 122/84; RESP 18
[2016-11-25] MEDS: PREGABALIN 75 MG CAP PO SCH ×2 (09:54→20:27)
[2016-11-25] MEDS: AZITHROMYCIN 250 MG TAB PO SCH (09:54)
[2016-11-25] MEDS: FLUOXETINE 20 MG CAP PO SCH (09:54)
[2016-11-25] MEDS: FERROUS SULFATE (EC) 325 MG TAB PO SCH ×2 (09:54→20:27)
[2016-11-25] MEDS: metFORMIN 500 MG TAB PO SCH ×2 (09:54→17:25)
[2016-11-25] MEDS: LISINOPRIL 5 MG TAB PO SCH (09:56)
[2016-11-25] MEDS: INSULIN ASPART [NOVOLOG] 3 ML PEN SC SCH ×4 (09:57→20:30)
[2016-11-25] MEDS: ALBUTEROL 0.083% (NEB) 2.5 MG/3 ML AMP HHN PRN (10:04)
--- NOTE | 2016-11-25 11:06 | PN ---
DATE: 11/25/2016 SUBJECTIVE: The patient is feeling better, continues to have a cough, but improving. Patient also has a hoarse voice. No other acute events noted. No hemoptysis, hematemesis or hematochezia. OBJECTIVE: VITAL SIGNS: Blood pressure 148/80, respirations 20, pulse 95, temperature 98.3. HEENT: Head is normocephalic. NECK: Supple. HEART: Regular rate. LUNGS: Show diminished breath sounds at the base. ABDOMEN: Soft, nontender to palpation. No rebound or guarding. EXTREMITIES: Negative for clubbing, cyanosis, no edema. DERMATOLOGIC: No rashes. MUSCULOSKELETAL: No joint effusions. NEUROLOGIC: No change in exam. MEDICATIONS: The patient's medications have been reviewed. LABORATORY DATA: Shows sodium 140, potassium 5.0, BUN 29, creatinine 0.91. White count 3.6, hemogl obin 9.9, hematocrit 22.9, platelet count is 28. IMAGING: Chest x-ray shows no acute pathology. ASSESSMENT AND PLAN: 1. Pancytopenia and thrombocytopenia. Etiology is possibly secondary to ITP. The patient is curre ntly on Solu-Medrol. Will continue. Follow up CBC daily. Follow up with Dr. Machado for further recommendations. 2. Asthmatic bronchitis. The patient is clinically improving. Continue azithromycin, nebulizers, steroids. Continue Robitussin. The patient's chest x-ray was reviewed, was negative for any acute pathology. 3. Diabetes, continue Accu-Cheks and sliding scale. 4. Hypertension. Continue aspirin. 5. . Continue Lyrica. 6. Depression and anxiety. Continue Xanax and Prozac. 7. Insomnia. Continue Ambien. 8. History of degenerative joint disease, arthritis. Continue current medical management. 9. Gastrointestinal and deep venous thrombosis prophylaxis. Continue proton pump inhibitor and seq uential leg squeezers. Dictated By: FINA NUÑEZ/ARMEN Conf#: [id number] DID#: [id number]
--- NOTE | 2016-11-25 12:05 | CONS ---
Date/Time of Note Date/Time of Note DATE: 11/25/16 TIME: 12:05 Assessment/Plan Assessment/Plan Chief Complaint/Hosp Course ASSESSMENT AND PLAN: This is a 60-year-old female who presents with: 1. Pancytopenia. ( WITH +FHX FOR ALL) r/o primary bone marrow disorder vs ITP BMBX- performed from [facility] under local anesthesia with 1 % LIDOCAINE FINAL -neg, small specimen SMEAR- NO BLASTS FLOW- NEG SO FAR LOOKS LIKE ITP cont STEROIDS D/W PT IN DETAILS 2nd opinion - DR TOLEDO 2. Azotemia. Etiology is likely due to volume depletion. The patient's renal function has improved after receiving IV hydration. We will continue. 3. Diabetes. We will continue Accu-Cheks and sliding scale. We will continue metformin. 4. History of hypertension. Continue benazepril. 5. Depression and anxiety disorder. Continue Xanax and Prozac. 6. History of neuropathy. Continue Lyrica. 7. History of degenerative joint disease, osteoarthritis. The patient is status post bilateral knee replacement. Continue to monitor. 8. Insomnia. Continue Ambien. 9. Gastrointestinal and deep venous thrombosis prophylaxis. Continue proton pump inhibitor and sequential leg squeezers. Problems: Consultation Date/Type/Reason Admit Date/Time Nov 18, 2016 at 20:09 Initial Consult Date 11/19/16 Type of Consultation: [facility] Referring Provider: FINA IRVING DO 24 HR Interval Summary Free Text/Dictation on steroids Exam/Review of Systems Vital Signs Vitals Vital Signs Date Time Temp Pulse Resp B/P Pulse Ox O2 Delivery O2 Flow Rate FiO2 11/25/16 10:05 62 20 98 21 11/25/16 08:10 98.2 122/84 Intake and Output 11/24/16 11/24/16 11/25/16 15:00 23:00 07:00 Intake Total 750 ml 1120 ml Output Total 1050 ml Balance 750 ml 70 ml Exam HEENT: Head is normocephalic. NECK: Supple. HEART: Regular rate. LUNGS: Show diminished breath sounds at the base. ABDOMEN: Soft, nontender to palpation without rebound or guarding. EXTREMITIES: Negative for clubbing, cyanosis. No edema. DERMATOLOGIC: No rashes. MUSCULOSKELETAL: No joint effusions. NEUROLOGIC: No change in exam. Results Result Diagram: 11/25/16 0433 11/25/16 0433 Results 24 hrs Laboratory Tests Test 11/24/16 17:14 11/24/16 20:10 11/25/16 01:28 11/25/16 04:33 Bedside Glucose 168 219 167 Anion Gap 22 H Basophils # 0.0 Basophils % 0.3 Blood Morphology Comment Blood Urea Nitrogen 29 H Calcium Level 10.0 Carbon Dioxide Level 22 Chloride Level 101 Creatinine 0.91 Eosinophils # 0.0 Eosinophils % 0.0 Glucose Level 167 Hematocrit 28.9 L Hemoglobin 9.9 L Lymphocytes # 1.3 Lymphocytes % 36.6 Magnesium Level 2.0 Mean Corpuscular Hemoglobin 34.3 H Mean Corpuscular Hemoglobin Concent 34.2 Mean Corpuscular Volume 100.3 Mean Platelet Volume 8.6 Monocytes # 0.1 L Monocytes % 4.1 Neutrophils # 2.1 Neutrophils % 59.0 Nucleated Red Blood Cells # 0.0 Nucleated Red Blood Cells % 0.0 Phosphorus Level 3.2 Platelet Count 28 *L Potassium Level 5.0 Red Blood Count 2.88 L Red Cell Distribution Width 15.5 H Sodium Level 140 White Blood Count 3.6 L Test 11/25/16 08:07 11/25/16 11:47 Bedside Glucose 164 258 H Medications Medications Current Medications Alprazolam (Xanax) 0.25 mg DAILY PRN PO ANXIETY Last administered on 11/24/16 12:19; Admin Dose 0.25 MG; Start 11/19/16 at 09:00 Ferrous Sulfate (Ferrous Sulfate (Ec)) 325 mg BID PO Last administered on 09:54; Admin Dose 325 MG; Start 11/19/16 at 09:00 Fluoxetine HCl (Prozac) 20 mg DAILY PO Last administered on 11/25/16 09:54; Admin Dose 20 MG; Start 11/19/16 at 09:00 Lisinopril (Zestril) 5 mg DAILY PO Last administered on 11/25/16 09:56; Admin Dose 5 MG; Start 11/19/16 at 09:00 Pregabalin (Lyrica) 150 mg BID PO Last administered on 11/25/16 09:54; Admin Dose 150 MG; Start 11/19/16 at 09:00 Zolpidem Tartrate (Ambien) 10 mg QHS PRN PO INSOMNIA Last administered on 20:16; Admin Dose 10 MG; Start 11/19/16 at 09:00 Miscellaneous Information 1 ea NOTE XX ; Start 11/19/16 at 09:00 Glucose (Glutose) 15 gm Q15M PRN PO DECREASED GLUCOSE; Start 11/19/16 at 09:00 Glucose (Glutose) 22.5 gm Q15M PRN PO DECREASED GLUCOSE; Start 11/19/16 at 09:00 Dextrose (D50w Syringe) 25 ml Q15M PRN IV DECREASED GLUCOSE; Start 11/19/16 at 09:00 Dextrose (D50w Syringe) 50 ml Q15M PRN IV DECREASED GLUCOSE; Start 11/19/16 at 09:00 Glucagon (Glucagen) 1 mg Q15M PRN IM DECREASED GLUCOSE; Start 11/19/16 at 09:00 Glucose (Glutose) 15 gm Q15M PRN BUCCAL DECREASED GLUCOSE; Start 11/19/16 at 09: 00 Diagnostic Test (Pha) (Accucheck) 1 ea 02 XX Last administered on 11/24/16 02: 18; Admin Dose 1 EA; Start 11/20/16 at 02:00 Pantoprazole (Protonix Tab) 40 mg DAILY@06 PO Last administered on 11/25/16 04: 47; Admin Dose 40 MG; Start 11/19/16 at 09:00 Acetaminophen (Tylenol Tab) 650 mg Q6H PRN PO PAIN AND OR ELEVATED TEMP Last administered on 11/24/16 20:15; Admin Dose 650 MG; Start 11/19/16 at 09:30 Ondansetron HCl (Zofran Inj) 4 mg Q4H PRN IV NAUSEA AND/OR VOMITING; Start 11/19 at 09:30 Methylprednisolone Sodium Succinate (Solu-Medrol) 80 mg Q8 IV Last administered on 11/25/16 04:47; Admin Dose 80 MG; Start 11/21/16 at 16:00 Azithromycin (Zithromax) 250 mg DAILY PO Last administered on 11/25/16 09:54; Admin Dose 250 MG; Start 11/24/16 at 09:00 Guaifenesin (Robitussin Liquid Cup) 200 mg Q4H PRN PO cough Last administered on 11/25/16 09:58; Admin Dose 200 MG; Start 11/24/16 at 08:30 ZHAO CARRILLO MD Nov 25, 2016 12:05
[2016-11-25 19:00] VITALS: BP 141/66; RESP 19
[2016-11-25] MEDS: ACETAMINOPHEN 325 MG TAB PO PRN (19:44)
[2016-11-25] MEDS: ALPRAZOLAM 0.25 MG TAB PO PRN (19:44)
--- NOTE | 2016-11-25 21:16 | CONS ---
DATE OF ADMISSION: 11/18/2016 DATE OF CONSULTATION: 11/25/2016 TYPE OF CONSULTATION: Hematology consultation as a "second opinion." REQUESTING PHYSICIAN: 1. Dr. Pat Machado 2. Dr. Lyle Miner REASON FOR CONSULTATION: Pancytopenia. Dear Doctors Jeannette and Dr. Miner: Thank you very much for asking me to see this very interesting and pleasant patient in hematologic c onsultation. As you know, is a 60-year-old female who was admitted to [facility] on 11/18/2016. The patient apparently had been experiencing increasing bruising without trauma for the past 4 to 6 months. The patient states that she first noted that these ecchymotic ar eas after starting on aspirin. The patient, however, discontinued the aspirin after only a few days , but the ecchymoses have continued. Most of the ecchymoses have been on the upper and lower extremity. The patient has not had gingival bleeding but has had 1 or 2 episodes of epistaxis. She has not noticed any melena or hematochezia and she has not had any hematemesis. The patient is status post hysterectomy and has not had any ty pe of vaginal bleeding. The patient states when the symptoms first started she had not had any unusual viral illnesses or ot her illnesses. Other than the aspirin she had not taken any other new medications. The patient was seen as an outpatient by Dr. Pat Machado prior to this admission. Dr. Machado was unable to determine the etiology for the significant thrombocytopenia and the patient was sanket t to the emergency room. On presentation to the emergency room, the patient's white count was 5500 with 38% neutrophils and 56% lymphocytes, hemoglobin was 11.5, hematocrit 33.9, MCV 105.5, MCH 34, MCHC 33.8, RDW 15.7, plate let count 29,000, MPV is 86. Repeated CBCs have been similar, although there has been a decrease in white count. Also there has no longer been the relative lymphocytosis. Today, the patient's white count is 6300 with 59% neutrophils and 36% lymphocytes. The hemoglobin is 9.9, hematocrit 28.9, MC V 100.3, MCH 34.3, MCHC 34.2, RDW 15.5 and platelet count is 28,000 with an MPV of 86,000. Other evaluation has included on admission, sodium 142, potassium 5, BUN 37, creatinine 0.9, total b ilirubin 0.2 with an indirect of 0.2, AST 27, ALT 32, alkaline phosphatase 115 and LDH 326, albumin 4.4, globulin 3.6. Vitamin B12 level is 317, folic acid level was 10.4. Serum iron 92, iron bindin g capacity 271, percent saturation 34%. An erythropoietin level was 47.3. On that same day the greg ent had a hemoglobin of 9.6, hematocrit of 28.2. Haptoglobin is 145. Other studies have included CHANTE which is negative. HIV is negative as well. Stool for occult blood is negative x1. The patient has had a chest x-ray which was normal. An abdominal ultrasound show some fatty infiltr ation of the liver. The spleen was felt to be normal in size and measured 11.2 x 4.1 cm. The patient has undergone a bone marrow aspiration and biopsy done on November 19. This was performed for left posterior iliac crest. Unfortunately, the aspiration was hypocellular. There were no par ticles noted. There are scattered myeloid and erythroid precursors. No megakaryocytes were seen. N o abnormal cells were identified. The clock specimen was also a particulate and therefore had a few isolated hematopoietic cells. The biopsy itself was primarily cortical bone with only a scant amou nt of subcortical marrow. This was insufficient for evaluation. Flow cytometry showed no diagnosti c immunophenotypic abnormalities. 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 These are not necessarily consistent with any known disease entity. The patient has had no symptoms other than the abnormal bruising. She has had no fevers, chills or night sweats. No shortness of breath or cough. She has had no complaints of joint pain. No diarrh ea or mouth ulcerations. No alopecia. The patient states she had never been told of any hematologic abnormalities in the past. Past medica l problems have included type 2 diabetes mellitus, hypertension, depression and anxiety, diabetic ne uropathy and a history of "fibromyalgia." PAST SURGICAL HISTORY: Patient's surgeries in the past have included some type of lower back surger y in 2012 at [facility]. She states that this was complicated by a postoperative infection an d she spent multiple weeks in the hospital requiring antibiotics. She states she did have blood tra nsfusions during that time, it is unclear whether there was thrombocytopenia. The patient also, how ever, has had bilateral total knee replacement surgeries in the past year which were not associated with any hemorrhagic complications. Hysterectomy 20 years ago. The ovaries were left in situ. MEDICATIONS: At the time of admission have been included: 1. Omeprazole 40 mg every morning. 2. Lyrica 150 mg p.o. b.i.d. 3. Lisinopril 5 mg daily. 4. Alprazolam 0.25 mg q. 8 hours for pain. 5. Fluoxetine 20 mg p.o. daily. 6. Metformin 1000 mg daily. 7. Zolpidem 10 mg hours of sleep p.r.n. ALLERGIES: SHE STATES SHE IS ALLERGIC TO PENICILLIN. SOCIAL HISTORY: The patient does not smoke or use alcoholic beverages. She has not knowingly been exposed to any industrial toxins or ionizing radiation. FAMILY HISTORY: Remarkable in that her son had acute lymphoblastic leukemia as a child. He is now alive and in good health at 31 years of age. She has 2 other children that are in good health. The re is a family history of diabetes but no other known history of any hematologic abnormalities. PHYSICAL EXAMINATION GENERAL: At this time reveals a well-developed, obese female who is in no acute distress. VITAL SIGNS: Temperature 98.2, pulse 72 per minute, respirations 18, blood pressure 122/84 and puls e oximetry is 98% on room air. SKIN: Scattered ecchymoses and purpura mostly on the arms and legs. HEENT: Normocephalic. No evidence of trauma. The pupils are equal, round, react to light and acco mmodation. Sclerae nonicteric. Oral mucosa is moist without lesions. Tongue is well papillated. There is no gingival hyperplasia, no hypertrophy of Waldeyer ring, I cannot see any mucosal purpura. NECK: Supple, no jugular venous distention or thyroid enlargement. CHEST: Clear to auscultation and percussion. No rhonchi, wheezes, rales or rubs. BREASTS: Symmetrical. No masses, skin retraction, or nipple inversion. NODES: No palpable lymphadenopathy in lymph node bearing area. ABDOMEN: Soft but obese. There are no masses or ascites. Bowel sounds are active. EXTREMITIES: Good range of motion, no clubbing, edema or cyanosis. There longitudinal incisions ov er both knees which are well healed. No palpable cords or Homans sign. NEUROLOGIC: Normal. The peripheral smear has been reviewed. Red blood cell morphology is relatively normal. There are some oval macrocytes. There are no fragmented red blood cells, no spherocytes. The white blood john ls are mildly decreased in number. They are otherwise normal in appearance. There are no immature neutrophils. No hypersegmented polys, and no nucleated red blood cells noted. There are occasional atypical lymphocytes. The platelets are moderately to markedly decreased. There are some occasiona l large platelet forms seen. At this time, the etiology of this patient's thrombocytopenia is unclear. Certainly this could repr esent immune thrombocytopenia; however, one would expect to see large platelets if that were the levon e. Also the population of platelets in immune thrombocytopenia is usually young and therefore hemos tatically very active. This degree of ecchymosis is unusual for this. The patient has no exposures to medications or other toxins which may cause thrombocytopenia. Also she has not taken any medication associated with thrombocytopenia. Of interest also is the fact that the patient does have a borderline white blood cell count. Also t here is a mild macrocytosis. One should consider the possibility of an underlying myelodysplastic sy ndrome, which may be evolving at this time. Also, although there are no circulating immature white blood cells the possibility of a "aleukemic leukemia" or an evolving aplastic process should be con sidered as well. There does not appear to be any evidence of a consumptive coagulopathy such as TTP, hemolytic uremic syndrome or DIC. There is no evidence of a hemolytic process at this time as the patient's bilirubin is normal. LDH is normal and haptoglobin is normal, but one should also consider the possibility of paroxysmal noct urnal hemoglobinuria. A bone marrow has been attempted, but has noted the specimen was not adequate for evaluation. I hav e discussed the situation with the patient and suggested that a repeat bone marrow aspiration and bi opsy is necessary. She is very fearful of this. Perhaps this can be done in radiology under CT avni dance and with some sedation. Other studies suggested at this time included an immunofixation and quantitative immunoglobulins as well as a beta 2 microglobulin. This although, I think it is unlikely, one might consider the possi bility of a bone marrow infiltrative process such as lymphoma. I have also requested antiplatelet antibody panel as well as a neutrophil antibody to be done by van w cytometry. Once again, thank you very much for the opportunity of participating in the medical care of this bambi y interesting and pleasant patient. I will be happy to follow this patient with you and assist in h er hematologic evaluation and follow up as necessary. Dictated By: DONNY TOLEDO MD SR/ARMEN Conf#: [id number] DID#: [id number]
[2016-11-25] MEDS: ZOLPIDEM 5 MG TAB PO PRN (21:34)
[2016-11-26] VITALS (9 sets, daily range): BP systolic 28–172; BP diastolic 60–82; PULSE 54–82; RESP 18–21
[2016-11-26] MEDS: ACCUCHECK XX SCH (01:38)
[2016-11-26] MEDS: GUAIFENESIN 20 MG/ML 5ML CUP PO PRN (01:39)
[2016-11-26] MEDS: METHYLPREDNISOLONE 125 MG INJ IV SCH ×3 (05:23→21:54)
[2016-11-26] MEDS: PANTOPRAZOLE (EC) 40 MG TAB PO SCH (05:23)
[2016-11-26 06:21] LABS: ABNORMAL IP MESSAGE 1; HEMATOCRIT 29.2 % (37.0-47.0); HEMOGLOBIN 9.7 g/dl (12.0-16.0); LYMPHOCYTES # 1.1 10^3/ul (0.8-2.9); LYMPHOCYTES % 30.8 % (15.0-51.0); MEAN CORPUSCULAR HEMOGLOBIN 33.1 pg (29.0-33.0); MEAN CORPUSCULAR HGB CONC 33.2 g/dl (32.0-37.0); MEAN CORPUSCULAR VOLUME 99.7 fl (82.0-101.0); MEAN PLATELET VOLUME 11.9 fl (7.4-10.4); MONOCYTE # 0.1 10^3/ul (0.3-0.9); MONOCYTES % 3.2 % (0.0-11.0); NEUTROPHIL # 2.4 10^3/ul (1.6-7.5); NEUTROPHILS % 65.2 % (39.0-77.0); NUCLEATED RED BLOOD CELLS% 0.8 /100WBC (0.0-0.0); RED BLOOD COUNT 2.93 10^6/ul (4.20-5.40); RED CELL DISTRIBUTION WIDTH 14.6 % (11.5-14.5); WHITE BLOOD COUNT 3.7 10^3/ul (4.8-10.8)
[2016-11-26 07:13] LABS: ADD SCAN DIFF NO; PLATELET COUNT 33 10^3/UL (140-415)
--- NOTE | 2016-11-26 08:45 | PN ---
DATE: 11/26/2016 SUBJECTIVE: The patient is stable. She is feeling clinically improving. No acute events noted. N o hemoptysis, hematemesis, or hematochezia. The patient is pending repeat bone marrow biopsy. No o ther events noted. OBJECTIVE: VITAL SIGNS: Blood pressure 140/66, respiration 19, pulse 69, temperature 97.9. HEENT: Head is normocephalic. NECK: Supple. HEART: Regular rate. LUNGS: Show diminished breath sounds at the base. ABDOMEN: Soft, nontender to palpation. No rebound or guarding. EXTREMITIES: Negative for clubbing, cyanosis, edema. DERMATOLOGIC: No rashes. MUSCULOSKELETAL: No joint effusions. NEUROLOGIC: No change in exam. MEDICATIONS: The patient's medications have been reviewed. LABORATORY DATA: On 11/26/2016 showed white count 3.7, hemoglobin 9.7, hematocrit 29.2, platelet co unt is 33. ASSESSMENT AND PLAN: 1. Pancytopenia and thrombocytopenia. Etiology is felt to be secondary to possible ITP. The patie nt is currently on Solu-Medrol. A second opinion by Dr. Martinez was obtained. A possible repeat bam ne marrow biopsy is pending. We will continue to monitor. Follow up with hematology for further re commendations. 2. Bronchitis, clinically improving. Continue nebulizers, steroids, azithromycin, and Robitussin. 3. Diabetes. Continue Accu-Cheks and sliding scale. 4. Hypertension. Continue current blood pressure regimen. 5. Neuropathy. Continue Lyrica. 6. Depression and anxiety disorder. Continue Xanax and Prozac. 7. Insomnia. Continue Ambien. 8. History of degenerative joint disease, arthritis. Continue current medical management. 9. Gastrointestinal and deep venous thrombosis prophylaxis. Continue proton pump inhibitor and seq uential leg squeezers. Dictated By: FINA NUÑEZ/ARMEN Conf#: [id number] DID#: [id number]
--- NOTE | 2016-11-26 09:19 | CONS ---
DATE OF ADMISSION: 11/18/2016 DATE OF CONSULTATION: 11/26/2016 TYPE OF CONSULTATION: Hematology progress note. HISTORY OF PRESENT ILLNESS: is feeling well this morning. She has no complaints. She has had no fevers, chills or night sweats. A CBC this morning, the white count 3700 with a of 3700 with an absolute neutrophil count of 2400 an d absolute lymphocyte count of 1100. Hemoglobin was 9.7, hematocrit 29.2, platelet count 33,000 wit h a MPV of 11.9. I have requested a CT-guided bone marrow aspiration and biopsy to be done by Interventional Radiolog y. The patient is quite anxious about this because of the discomfort she experienced with the last examination. I have explained to the patient this is necessary in order for us to actually determine the etiology for the patient's peripheral blood abnormalities so that they can be treated appropriately. It is still my concern that this patient has an underlying myelodysplastic syndrome or even some oth er bone marrow infiltrative process. Dictated By: DONNY TOLEDO MD, SR/ARMEN Conf#: [id number] DID#: [id number]
[2016-11-26] MEDS: FLUOXETINE 20 MG CAP PO SCH (09:28)
[2016-11-26] MEDS: metFORMIN 500 MG TAB PO SCH ×2 (09:28→18:28)
[2016-11-26] MEDS: FERROUS SULFATE (EC) 325 MG TAB PO SCH ×2 (09:28→20:30)
[2016-11-26] MEDS: PREGABALIN 75 MG CAP PO SCH ×2 (09:28→20:31)
[2016-11-26] MEDS: LISINOPRIL 5 MG TAB PO SCH (09:29)
[2016-11-26] MEDS: AZITHROMYCIN 250 MG TAB PO SCH (09:29)
[2016-11-26] MEDS ORDERED: LIDOCAINE 1% (MDV) 20 ML INJ ONE (10:08)
[2016-11-26] MEDS ORDERED: MIDAZOLAM 1 MG/ML 2 ML INJ ONE (10:16)
[2016-11-26] MEDS ORDERED: FENTAnyl 50 MCG/ML VIAL ONE (10:16)
[2016-11-26] MEDS: INSULIN ASPART [NOVOLOG] 3 ML PEN SC SCH ×4 (10:17→20:33)
--- NOTE | 2016-11-26 12:31 | RADRPT ---
PROCEDURE: CT GUIDED PERCUTANEOUS BONE MARROW BIOPSY CLINICAL INDICATION: Pancytopenia, thrombocytopenia TECHNIQUE: Informed consent was obtained from the patient following careful explanation of the risks and benefi ts of the procedure. Versed and Fentanyl were administered. DLP not available CTDIvol not available One or more of the following post reduction techniques were used: - Automated exposure control. - Adjustment of the mA and/or Kv according to patient's size. - Use of iterative reconstruction technique The patient was placed prone on the CT table. Multiple axial CT images through the abdomen were acqu ired without contrast. The iliac bone was localized. A site in the patient's back was selected and m arked. The area was prepped and draped in the usual sterile fashion. 1% lidocaine was utilized. Und er CT guidance a 11 gauge co-axial core biopsy needle was advanced into the left iliac bone, paralle l to the SI joint.. A bone marrow aspirate was obtained. Subsequently the needle was withdrawn and r eadvanced into the bone and a core bone biopsy was obtained. There were no immediate complications. COMPARISON: none FINDINGS: As above RPTAT: AA IMPRESSION: Uncomplicated CT-guided bone marrow biopsy and aspiration. .Matt Marinelli MD, MD Date Time Electronically viewed and signed by .Matt Marinelli MD, on 11/26/2016 12:31 .S/
[2016-11-26 13:17] LABS: IMMUNOGLOBULIN G 799 mg/dl (700-1600)
[2016-11-26 13:18] LABS: IMMUNOGLOBULIN M 49 mg/dl (40-230)
[2016-11-26 13:19] LABS: IMMUNOGLOBULIN A 131 mg/dl (70-400)
--- NOTE | 2016-11-26 13:57 | CONS ---
Date/Time of Note Date/Time of Note DATE: 11/26/16 TIME: 13:56 Assessment/Plan Assessment/Plan Chief Complaint/Hosp Course ASSESSMENT AND PLAN: This is a 60-year-old female who presents with: 1. Pancytopenia. ( WITH +FHX FOR ALL) r/o primary bone marrow disorder vs ITP BMBX- performed from [facility] under local anesthesia with 1 % LIDOCAINE FINAL -NEG SMEAR- NO BLASTS FLOW- NEG SO FAR LOOKS LIKE ITP CONT STEROIDS D/W PT IN DETAILS REPEAT BMBX 2. Azotemia. Etiology is likely due to volume depletion. The patient's renal function has improved after receiving IV hydration. We will continue. 3. Diabetes. We will continue Accu-Cheks and sliding scale. We will continue metformin. 4. History of hypertension. Continue benazepril. 5. Depression and anxiety disorder. Continue Xanax and Prozac. 6. History of neuropathy. Continue Lyrica. 7. History of degenerative joint disease, osteoarthritis. The patient is status post bilateral knee replacement. Continue to monitor. 8. Insomnia. Continue Ambien. 9. Gastrointestinal and deep venous thrombosis prophylaxis. Continue proton pump inhibitor and sequential leg squeezers. Problems: Consultation Date/Type/Reason Admit Date/Time Nov 18, 2016 at 20:09 Initial Consult Date 11/19/16 Type of Consultation: [facility] Referring Provider: FINA IRVING DO 24 HR Interval Summary Free Text/Dictation ALL NOTED ON STEROIDS NO RESPONSE Exam/Review of Systems Vital Signs Vitals Vital Signs Date Time Temp Pulse Resp B/P Pulse Ox O2 Delivery O2 Flow Rate FiO2 11/25/16 19:00 97.9 69 19 141/66 98 11/25/16 10:05 21 Intake and Output 11/25/16 11/25/16 11/26/16 15:00 23:00 07:00 Intake Total 840 ml 1050 ml Output Total 950 ml Balance 840 ml 100 ml Exam HEENT: Head is normocephalic. NECK: Supple. HEART: Regular rate. LUNGS: Show diminished breath sounds at the base. ABDOMEN: Soft, nontender to palpation without rebound or guarding. EXTREMITIES: Negative for clubbing, cyanosis. No edema. DERMATOLOGIC: No rashes. MUSCULOSKELETAL: No joint effusions. NEUROLOGIC: No change in exam. Results Result Diagram: 11/26/16 0445 11/25/16 0433 Results 24 hrs Laboratory Tests Test 11/25/16 17:29 11/25/16 20:03 11/26/16 01:34 11/26/16 04:45 Bedside Glucose 160 239 H 212 Basophils # 0.0 Basophils % 0.0 Eosinophils # 0.0 Eosinophils % 0.0 Hematocrit 29.2 L Hemoglobin 9.7 L Immunoglobulin A 131 Immunoglobulin G 799 Immunoglobulin M 49 Lymphocytes # 1.1 Lymphocytes % 30.8 Mean Corpuscular Hemoglobin 33.1 H Mean Corpuscular Hemoglobin Concent 33.2 Mean Corpuscular Volume 99.7 Mean Platelet Volume 11.9 #H Monocytes # 0.1 L Monocytes % 3.2 Neutrophils # 2.4 Neutrophils % 65.2 Nucleated Red Blood Cells # 0.0 Nucleated Red Blood Cells % 0.8 H Platelet Count 33 L Red Blood Count 2.93 L Red Cell Distribution Width 14.6 H White Blood Count 3.7 L Test 11/26/16 08:01 11/26/16 09:25 11/26/16 12:56 Bedside Glucose 183 185 169 Medications Medications Current Medications Alprazolam (Xanax) 0.25 mg DAILY PRN PO ANXIETY Last administered on 11/25/16 19:44; Admin Dose 0.25 MG; Start 11/19/16 at 09:00 Ferrous Sulfate (Ferrous Sulfate (Ec)) 325 mg BID PO Last administered on 09:28; Admin Dose 325 MG; Start 11/19/16 at 09:00 Fluoxetine HCl (Prozac) 20 mg DAILY PO Last administered on 11/26/16 09:28; Admin Dose 20 MG; Start 11/19/16 at 09:00 Lisinopril (Zestril) 5 mg DAILY PO Last administered on 11/26/16 09:29; Admin Dose 5 MG; Start 11/19/16 at 09:00 Pregabalin (Lyrica) 150 mg BID PO Last administered on 11/26/16 09:28; Admin Dose 150 MG; Start 11/19/16 at 09:00 Zolpidem Tartrate (Ambien) 10 mg QHS PRN PO INSOMNIA Last administered on 21:34; Admin Dose 10 MG; Start 11/19/16 at 09:00 Miscellaneous Information 1 ea NOTE XX ; Start 11/19/16 at 09:00 Glucose (Glutose) 15 gm Q15M PRN PO DECREASED GLUCOSE; Start 11/19/16 at 09:00 Glucose (Glutose) 22.5 gm Q15M PRN PO DECREASED GLUCOSE; Start 11/19/16 at 09:00 Dextrose (D50w Syringe) 25 ml Q15M PRN IV DECREASED GLUCOSE; Start 11/19/16 at 09:00 Dextrose (D50w Syringe) 50 ml Q15M PRN IV DECREASED GLUCOSE; Start 11/19/16 at 09:00 Glucagon (Glucagen) 1 mg Q15M PRN IM DECREASED GLUCOSE; Start 11/19/16 at 09:00 Glucose (Glutose) 15 gm Q15M PRN BUCCAL DECREASED GLUCOSE; Start 11/19/16 at 09: 00 Diagnostic Test (Pha) (Accucheck) 1 ea 02 XX Last administered on 11/24/16 02: 18; Admin Dose 1 EA; Start 11/20/16 at 02:00 Pantoprazole (Protonix Tab) 40 mg DAILY@06 PO Last administered on 11/26/16 05 :23; Admin Dose 40 MG; Start 11/19/16 at 09:00 Acetaminophen (Tylenol Tab) 650 mg Q6H PRN PO PAIN AND OR ELEVATED TEMP Last administered on 11/25/16 19:44; Admin Dose 650 MG; Start 11/19/16 at 09:30 Ondansetron HCl (Zofran Inj) 4 mg Q4H PRN IV NAUSEA AND/OR VOMITING; Start 11/19 at 09:30 Methylprednisolone Sodium Succinate (Solu-Medrol) 80 mg Q8 IV Last administered on 11/26/16 05:23; Admin Dose 80 MG; Start 11/21/16 at 16:00 Azithromycin (Zithromax) 250 mg DAILY PO Last administered on 11/26/16 09:29; Admin Dose 250 MG; Start 11/24/16 at 09:00 Guaifenesin (Robitussin Liquid Cup) 200 mg Q4H PRN PO cough Last administered on 11/26/16 01:39; Admin Dose 200 MG; Start 11/24/16 at 08:30 ZHAO CARRILLO MD Nov 26, 2016 13:56
[2016-11-26] MEDS: ACETAMINOPHEN 325 MG TAB PO PRN (16:37)
[2016-11-26] MEDS: ALPRAZOLAM 0.25 MG TAB PO PRN (16:37)
[2016-11-27] MEDS: ZOLPIDEM 5 MG TAB PO PRN (01:28)
[2016-11-27] MEDS: ACCUCHECK XX SCH (02:00)
[2016-11-27 05:31] LABS: ADD SCAN DIFF NO
[2016-11-27] MEDS: PANTOPRAZOLE (EC) 40 MG TAB PO SCH (05:45)
[2016-11-27] MEDS: METHYLPREDNISOLONE 125 MG INJ IV SCH ×3 (05:45→21:27)
[2016-11-27 05:50] LABS: ABNORMAL IP MESSAGE 1; HEMATOCRIT 28.6 % (37.0-47.0); HEMOGLOBIN 9.7 g/dl (12.0-16.0); LYMPHOCYTES # 0.9 10^3/ul (0.8-2.9); LYMPHOCYTES % 23.6 % (15.0-51.0); MEAN CORPUSCULAR HEMOGLOBIN 33.6 pg (29.0-33.0); MEAN CORPUSCULAR HGB CONC 33.9 g/dl (32.0-37.0); MEAN PLATELET VOLUME 11.5 fl (7.4-10.4); MONOCYTE # 0.1 10^3/ul (0.3-0.9); MONOCYTES % 2.7 % (0.0-11.0); NEUTROPHIL # 2.6 10^3/ul (1.6-7.5); NEUTROPHILS % 72.6 % (39.0-77.0); PLATELET COUNT 30 10^3/UL (140-415); RED BLOOD COUNT 2.89 10^6/ul (4.20-5.40); RED CELL DISTRIBUTION WIDTH 14.2 % (11.5-14.5); WHITE BLOOD COUNT 3.6 10^3/ul (4.8-10.8)
[2016-11-27 06:08] LABS: POTASSIUM 4.5 mmol/L (3.5-5.1)
[2016-11-27 06:10] LABS: CREATININE 0.91 mg/dl (0.44-1.00)
[2016-11-27 06:11] LABS: CALCIUM 9.7 mg/dl (8.4-10.2); PHOSPHORUS 3.4 mg/dl (2.5-4.9)
[2016-11-27 06:12] LABS: MAGNESIUM 1.9 mg/dl (1.7-2.5)
[2016-11-27 07:30] VITALS: BP 132/76; RESP 17
[2016-11-27] MEDS ORDERED: LIDOCAINE 1% (MDV) 20 ML INJ SC ONE (08:30)
[2016-11-27] MEDS: PREGABALIN 75 MG CAP PO SCH ×2 (08:36→21:22)
[2016-11-27] MEDS: FERROUS SULFATE (EC) 325 MG TAB PO SCH ×2 (08:36→21:22)
[2016-11-27] MEDS: AZITHROMYCIN 250 MG TAB PO SCH (08:38)
[2016-11-27] MEDS: LISINOPRIL 5 MG TAB PO SCH (08:38)
[2016-11-27] MEDS: FLUOXETINE 20 MG CAP PO SCH (08:38)
[2016-11-27] MEDS: metFORMIN 500 MG TAB PO SCH ×2 (08:42→17:55)
[2016-11-27] MEDS: INSULIN ASPART [NOVOLOG] 3 ML PEN SC SCH ×4 (08:44→21:25)
[2016-11-27] MEDS: ALPRAZOLAM 0.25 MG TAB PO PRN (08:48)
--- NOTE | 2016-11-27 10:31 | CONS ---
Date/Time of Note Date/Time of Note DATE: 11/27/16 TIME: 10:29 Assessment/Plan Assessment/Plan Chief Complaint/Hosp Course ASSESSMENT AND PLAN: This is a 60-year-old female who presents with: 1. Pancytopenia. ( WITH +FHX FOR ALL) r/o primary bone marrow disorder vs ITP BMBX- performed from [facility] under local anesthesia with 1 % LIDOCAINE FINAL -neg, small specimen SMEAR- NO BLASTS FLOW- NEG SO FAR LOOKS LIKE ITP cont STEROIDS D/W PT IN DETAILS D/W DR TOLEDO AWAIT PATH ON 2ND BMBX 2. Azotemia. Etiology is likely due to volume depletion. The patient's renal function has improved after receiving IV hydration. We will continue. 3. Diabetes. We will continue Accu-Cheks and sliding scale. We will continue metformin. 4. History of hypertension. Continue benazepril. 5. Depression and anxiety disorder. Continue Xanax and Prozac. 6. History of neuropathy. Continue Lyrica. 7. History of degenerative joint disease, osteoarthritis. The patient is status post bilateral knee replacement. Continue to monitor. 8. Insomnia. Continue Ambien. 9. Gastrointestinal and deep venous thrombosis prophylaxis. Continue proton pump inhibitor and sequential leg squeezers. Problems: Consultation Date/Type/Reason Admit Date/Time Nov 18, 2016 at 20:09 Initial Consult Date 11/19/16 Type of Consultation: [facility] Referring Provider: FINA IRVING DO 24 HR Interval Summary Free Text/Dictation ALL NOTED POST 2ND BMBX- CT-QUIDED PATH-P ON STEROIDS NO RESPONSE Exam/Review of Systems Vital Signs Vitals Vital Signs Date Time Temp Pulse Resp B/P Pulse Ox O2 Delivery O2 Flow Rate FiO2 11/27/16 07:30 97.8 56 17 132/76 100 11/26/16 12:30 Room Air 11/25/16 10:05 21 Intake and Output 11/26/16 11/26/16 11/27/16 15:00 23:00 07:00 Intake Total 1500 ml 950 ml Output Total 600 ml 850 ml Balance 900 ml 100 ml Exam HEENT: Head is normocephalic. NECK: Supple. HEART: Regular rate. LUNGS: Show diminished breath sounds at the base. ABDOMEN: Soft, nontender to palpation without rebound or guarding. EXTREMITIES: Negative for clubbing, cyanosis. No edema. DERMATOLOGIC: No rashes. MUSCULOSKELETAL: No joint effusions. NEUROLOGIC: No change in exam. Results Result Diagram: 11/27/16 0425 11/27/165 Results 24 hrs Laboratory Tests Test 11/26/16 12:56 11/26/16 18:24 11/26/16 20:13 11/27/16 01:52 Bedside Glucose 169 133 192 231 H Test 11/27/16 04:25 11/27/16 07:56 Anion Gap 19 H Basophils # 0.0 Basophils % 0.0 Blood Urea Nitrogen 34 H Calcium Level 9.7 Carbon Dioxide Level 24 Chloride Level 99 Creatinine 0.91 Eosinophils # 0.0 Eosinophils % 0.0 Glucose Level 187 Hematocrit 28.6 L Hemoglobin 9.7 L Lymphocytes # 0.9 Lymphocytes % 23.6 Magnesium Level 1.9 Mean Corpuscular Hemoglobin 33.6 H Mean Corpuscular Hemoglobin Concent 33.9 Mean Corpuscular Volume 99.0 Mean Platelet Volume 11.5 H Monocytes # 0.1 L Monocytes % 2.7 Neutrophils # 2.6 Neutrophils % 72.6 Nucleated Red Blood Cells # 0.0 Nucleated Red Blood Cells % 0.0 Phosphorus Level 3.4 Platelet Count 30 L Potassium Level 4.5 Red Blood Count 2.89 L Red Cell Distribution Width 14.2 Sodium Level 137 White Blood Count 3.6 L Bedside Glucose 207 Medications Medications Current Medications Alprazolam (Xanax) 0.25 mg DAILY PRN PO ANXIETY Last administered on 11/27/16 08:48; Admin Dose 0.25 MG; Start 11/19/16 at 09:00 Ferrous Sulfate (Ferrous Sulfate (Ec)) 325 mg BID PO Last administered on 08:36; Admin Dose 325 MG; Start 11/19/16 at 09:00 Fluoxetine HCl (Prozac) 20 mg DAILY PO Last administered on 11/27/16 08:38; Admin Dose 20 MG; Start 11/19/16 at 09:00 Lisinopril (Zestril) 5 mg DAILY PO Last administered on 11/27/16 08:38; Admin Dose 5 MG; Start 11/19/16 at 09:00 Pregabalin (Lyrica) 150 mg BID PO Last administered on 11/27/16 08:36; Admin Dose 150 MG; Start 11/19/16 at 09:00 Zolpidem Tartrate (Ambien) 10 mg QHS PRN PO INSOMNIA Last administered on 01:28; Admin Dose 10 MG; Start 11/19/16 at 09:00 Miscellaneous Information 1 ea NOTE XX ; Start 11/19/16 at 09:00 Glucose (Glutose) 15 gm Q15M PRN PO DECREASED GLUCOSE; Start 11/19/16 at 09:00 Glucose (Glutose) 22.5 gm Q15M PRN PO DECREASED GLUCOSE; Start 11/19/16 at 09:00 Dextrose (D50w Syringe) 25 ml Q15M PRN IV DECREASED GLUCOSE; Start 11/19/16 at 09:00 Dextrose (D50w Syringe) 50 ml Q15M PRN IV DECREASED GLUCOSE; Start 11/19/16 at 09:00 Glucagon (Glucagen) 1 mg Q15M PRN IM DECREASED GLUCOSE; Start 11/19/16 at 09:00 Glucose (Glutose) 15 gm Q15M PRN BUCCAL DECREASED GLUCOSE; Start 11/19/16 at 09: 00 Diagnostic Test (Pha) (Accucheck) 1 ea 02 XX Last administered on 11/24/16 02: 18; Admin Dose 1 EA; Start 11/20/16 at 02:00 Pantoprazole (Protonix Tab) 40 mg DAILY@06 PO Last administered on 11/27/16 05 :45; Admin Dose 40 MG; Start 11/19/16 at 09:00 Acetaminophen (Tylenol Tab) 650 mg Q6H PRN PO PAIN AND OR ELEVATED TEMP Last administered on 11/26/16 16:37; Admin Dose 650 MG; Start 11/19/16 at 09:30 Ondansetron HCl (Zofran Inj) 4 mg Q4H PRN IV NAUSEA AND/OR VOMITING; Start 11/19 at 09:30 Methylprednisolone Sodium Succinate (Solu-Medrol) 80 mg Q8 IV Last administered on 11/27/16 05:45; Admin Dose 80 MG; Start 11/21/16 at 16:00 Azithromycin (Zithromax) 250 mg DAILY PO Last administered on 11/27/16 08:38; Admin Dose 250 MG; Start 11/24/16 at 09:00 Guaifenesin (Robitussin Liquid Cup) 200 mg Q4H PRN PO cough Last administered on 11/26/16t 01:39; Admin Dose 200 MG; Start 11/24/16 at 08:30 Lidocaine (Xylocaine 1% (Mdv) 20 ml) 20 ml ONCE ONCE SC ; Start 11/27/16 at 08: 30; Stop 11/27/16 at 08:31 ZHAO CARRILLO MD Nov 27, 2016 10:31
--- NOTE | 2016-11-27 10:32 | CONS ---
Date/Time of Note Date/Time of Note DATE: 11/27/16 TIME: 10:31 Assessment/Plan Assessment/Plan Chief Complaint/Hosp Course ASSESSMENT AND PLAN: This is a 60-year-old female who presents with: 1. Pancytopenia. ( WITH +FHX FOR ALL) r/o primary bone marrow disorder vs ITP BMBX- performed from [facility] under local anesthesia with 1 % LIDOCAINE FINAL -neg, small specimen SMEAR- NO BLASTS FLOW- NEG SO FAR LOOKS LIKE ITP cont STEROIDS D/W PT IN DETAILS D/W DR TOLEDO AWAIT PATH ON 2ND BMBX 2. Azotemia. Etiology is likely due to volume depletion. The patient's renal function has improved after receiving IV hydration. We will continue. 3. Diabetes. We will continue Accu-Cheks and sliding scale. We will continue metformin. 4. History of hypertension. Continue benazepril. 5. Depression and anxiety disorder. Continue Xanax and Prozac. 6. History of neuropathy. Continue Lyrica. 7. History of degenerative joint disease, osteoarthritis. The patient is status post bilateral knee replacement. Continue to monitor. 8. Insomnia. Continue Ambien. 9. Gastrointestinal and deep venous thrombosis prophylaxis. Continue proton pump inhibitor and sequential leg squeezers. Problems: Consultation Date/Type/Reason Admit Date/Time Nov 18, 2016 at 20:09 Initial Consult Date 11/19/16 Type of Consultation: [facility] Reason for Consultation PANCYTOPENIA Referring Provider: FINA IRVING DO 24 HR Interval Summary Free Text/Dictation ALL NOTED NO NEW EVENTS D/W DR TOLEDO BMBX- CT- QUIDED Exam/Review of Systems Vital Signs Vitals Vital Signs Date Time Temp Pulse Resp B/P Pulse Ox O2 Delivery O2 Flow Rate FiO2 11/27/16 07:30 97.8 56 17 132/76 100 11/26/16 12:30 Room Air 11/25/16 10:05 21 Intake and Output 11/26/16 11/26/16 11/27/16 15:00 23:00 07:00 Intake Total 1500 ml 950 ml Output Total 600 ml 850 ml Balance 900 ml 100 ml Exam HEENT: Head is normocephalic. NECK: Supple. HEART: Regular rate. LUNGS: Show diminished breath sounds at the base. ABDOMEN: Soft, nontender to palpation without rebound or guarding. EXTREMITIES: Negative for clubbing, cyanosis. No edema. DERMATOLOGIC: No rashes. MUSCULOSKELETAL: No joint effusions. NEUROLOGIC: No change in exam. Results Result Diagram: 11/27/165 11/27/165 Results 24 hrs Laboratory Tests Test 11/26/16 12:56 11/26/16 18:24 11/26/16 20:13 11/27/16 01:52 Bedside Glucose 169 133 192 231 H Test 11/27/16 04:25 11/27/16 07:56 Anion Gap 19 H Basophils # 0.0 Basophils % 0.0 Blood Urea Nitrogen 34 H Calcium Level 9.7 Carbon Dioxide Level 24 Chloride Level 99 Creatinine 0.91 Eosinophils # 0.0 Eosinophils % 0.0 Glucose Level 187 Hematocrit 28.6 L Hemoglobin 9.7 L Lymphocytes # 0.9 Lymphocytes % 23.6 Magnesium Level 1.9 Mean Corpuscular Hemoglobin 33.6 H Mean Corpuscular Hemoglobin Concent 33.9 Mean Corpuscular Volume 99.0 Mean Platelet Volume 11.5 H Monocytes # 0.1 L Monocytes % 2.7 Neutrophils # 2.6 Neutrophils % 72.6 Nucleated Red Blood Cells # 0.0 Nucleated Red Blood Cells % 0.0 Phosphorus Level 3.4 Platelet Count 30 L Potassium Level 4.5 Red Blood Count 2.89 L Red Cell Distribution Width 14.2 Sodium Level 137 White Blood Count 3.6 L Bedside Glucose 207 Medications Medications Current Medications Alprazolam (Xanax) 0.25 mg DAILY PRN PO ANXIETY Last administered on 11/27/16 08:48; Admin Dose 0.25 MG; Start 11/19/16 at 09:00 Ferrous Sulfate (Ferrous Sulfate (Ec)) 325 mg BID PO Last administered on 08:36; Admin Dose 325 MG; Start 11/19/16 at 09:00 Fluoxetine HCl (Prozac) 20 mg DAILY PO Last administered on 11/27/16 08:38; Admin Dose 20 MG; Start 11/19/16 at 09:00 Lisinopril (Zestril) 5 mg DAILY PO Last administered on 11/27/16 08:38; Admin Dose 5 MG; Start 11/19/16 at 09:00 Pregabalin (Lyrica) 150 mg BID PO Last administered on 11/27/16 08:36; Admin Dose 150 MG; Start 11/19/16 at 09:00 Zolpidem Tartrate (Ambien) 10 mg QHS PRN PO INSOMNIA Last administered on 01:28; Admin Dose 10 MG; Start 11/19/16 at 09:00 Miscellaneous Information 1 ea NOTE XX ; Start 11/19/16 at 09:00 Glucose (Glutose) 15 gm Q15M PRN PO DECREASED GLUCOSE; Start 11/19/16 at 09:00 Glucose (Glutose) 22.5 gm Q15M PRN PO DECREASED GLUCOSE; Start 11/19/16 at 09:00 Dextrose (D50w Syringe) 25 ml Q15M PRN IV DECREASED GLUCOSE; Start 11/19/16 at 09:00 Dextrose (D50w Syringe) 50 ml Q15M PRN IV DECREASED GLUCOSE; Start 11/19/16 at 09:00 Glucagon (Glucagen) 1 mg Q15M PRN IM DECREASED GLUCOSE; Start 11/19/16 at 09:00 Glucose (Glutose) 15 gm Q15M PRN BUCCAL DECREASED GLUCOSE; Start 11/19/16 at 09: 00 Diagnostic Test (Pha) (Accucheck) 1 ea 02 XX Last administered on 11/24/16 02: 18; Admin Dose 1 EA; Start 11/20/16 at 02:00 Pantoprazole (Protonix Tab) 40 mg DAILY@06 PO Last administered on 11/27/16 05 :45; Admin Dose 40 MG; Start 11/19/16 at 09:00 Acetaminophen (Tylenol Tab) 650 mg Q6H PRN PO PAIN AND OR ELEVATED TEMP Last administered on 11/26/16 16:37; Admin Dose 650 MG; Start 11/19/16 at 09:30 Ondansetron HCl (Zofran Inj) 4 mg Q4H PRN IV NAUSEA AND/OR VOMITING; Start 11/19 at 09:30 Methylprednisolone Sodium Succinate (Solu-Medrol) 80 mg Q8 IV Last administered on 11/27/16 05:45; Admin Dose 80 MG; Start 11/21/16 at 16:00 Azithromycin (Zithromax) 250 mg DAILY PO Last administered on 11/27/16 08:38; Admin Dose 250 MG; Start 11/24/16 at 09:00 Guaifenesin (Robitussin Liquid Cup) 200 mg Q4H PRN PO cough Last administered on 11/26/16t 01:39; Admin Dose 200 MG; Start 11/24/16 at 08:30 Lidocaine (Xylocaine 1% (Mdv) 20 ml) 20 ml ONCE ONCE SC ; Start 11/27/16 at 08: 30; Stop 11/27/16 at 08:31 ZHAO CARRILLO MD Nov 27, 2016 10:32
--- NOTE | 2016-11-27 10:51 | PN ---
DATE: 11/27/2016 SUBJECTIVE: Yesterday the patient had a bone marrow biopsy, and tolerated it well. The patient, marco rajput, is requesting for a PICC line. She states that she has multiple bruises across the body duri ng daily lab draws and is tired of the pain from the persistent attempts by green end worker to obtain l abs. Otherwise, the patient denies any hemoptysis, hematemesis or hematochezia. OBJECTIVE: VITAL SIGNS: Blood pressure is 132/76, respirations 17, pulse 56, temperature 97.8. HEENT: Head is normocephalic. NECK: Supple. HEART: Regular rate. LUNGS: Show diminished breath sounds at base. ABDOMEN: Soft, nontender to palpation. No rebound or guarding. EXTREMITIES: Negative for clubbing, cyanosis, edema. DERMATOLOGIC: Positive ecchymoses across the bilateral arms. NEUROLOGIC: No focal deficits. MUSCULOSKELETAL: No joint effusions. LABORATORY DATA: Shows sodium 137, potassium 4.5, chloride 99, BUN 34, creatinine 0.91. White coun t is 3.6, hemoglobin 9.7, hematocrit ____, and platelet count is 30. ASSESSMENT AND PLAN: 1. Pancytopenia. Etiology is unclear. Initially it was felt to be secondary to possible ITP versu s myeloproliferative disorder. The patient is status post a repeat bone marrow biopsy yesterday. Amaris mendoza, is on Solu-Medrol. We will continue. We will follow up with hematologists, Dr. Juan Machado for recommendations. 2. Bronchitis. Clinically improving. Continue on azithromycin, steroids, and nebulizers. 3. Diabetes. Continue current insulin regimen. 4. Hypertension, controlled. Continue current blood pressure regimen. 5. Neuropathy. Continue Lyrica. 6. Depression and anxiety disorder. Continue Xanax and Prozac. 7. Insomnia. Continue Ambien. 8. Gastrointestinal and deep venous thrombosis prophylaxis. Continue proton pump inhibitor and se quential leg squeezers. 9. History of degenerative joint disease with arthritis, currently stable. Continue medical manage ment. Dictated By: FINA NUÑEZ/NTS Conf#: [id number] DID#: [id number]
[2016-11-27] MEDS: ACETAMINOPHEN 325 MG TAB PO PRN (12:44)
[2016-11-27 14:35] VITALS: BP 145/84; PULSE 68; RESP 16
--- NOTE | 2016-11-27 14:36 | RADRPT ---
PROCEDURE: US guidance for PICC line CLINICAL INDICATION: PICC line placement TECHNIQUE: Multiple real-time images were acquired of the patient's arm utilizing a high resolutio n transducer. This was performed by the PICC line nurse for venous access. COMPARISON: None FINDINGS: Ultrasound guidance for PICC line placement. IMPRESSION: Ultrasound guidance for PICC line placement. RPTAT: AA .Matt Marinelli MD, MD Date Time Electronically viewed and signed by .Matt Marinelli MD, on 11/27/2016 14:35 .S/
--- NOTE | 2016-11-27 16:00 | RADRPT ---
PROCEDURE: XR Chest. CLINICAL INDICATION: PICC line placement TECHNIQUE: Single frontal view of the chest was obtained COMPARISON: Same day FINDINGS: There is a new right-sided PICC line in place with its tip extending towards the left brachiocephali c vein region. The heart, mediastinum, and lungs are unchanged. The heart is normal in size. The lungs are clear. RPTAT: AA IMPRESSION: New PICC line with its tip extending towards the left brachiocephalic vein region. Retraction and a dvancement is recommended. .Matt Marinelli MD, MD Date Time Electronically viewed and signed by .Matt Marinelli MD, on 11/27/2016 15:59 .S/
--- NOTE | 2016-11-27 16:00 | RADRPT ---
PROCEDURE: XR Chest. CLINICAL INDICATION: PICC line placement TECHNIQUE: Single frontal view of the chest was obtained COMPARISON: 11/24/2016 FINDINGS: There is a new right-sided PICC line in place with its tip overlying the upper SVC region.. The heart, mediastinum, and lungs are unchanged. The heart is normal in size. The lungs are clear. RPTAT: AA IMPRESSION: New PICC line with its tip overlying the upper SVC region. .Matt Marinelli MD, Date Time Electronically viewed and signed by .Matt Marinelli MD, on 11/27/2016 16:00 .S/
[2016-11-27 19:32] VITALS: BP 129/60; RESP 16
[2016-11-27] MEDS ORDERED: POLYETHYLENE GLYCOL 17 GM PACKET PO PRN (23:00)
[2016-11-27] MEDS ORDERED: NA PHOSPHATE/BIPHOS 133 ML ENEMA PR ONE (23:00)
[2016-11-27] MEDS: HYDROCODONE/APAP (5/325) TAB PO PRN (23:00)
[2016-11-27] MEDS: DOCUSATE SODIUM 100 MG CAP PO SCH (23:03)
[2016-11-28] MEDS: ZOLPIDEM 5 MG TAB PO PRN ×2 (01:37→23:51)
[2016-11-28] MEDS: ACETAMINOPHEN 325 MG TAB PO PRN (01:37)
[2016-11-28] MEDS: ACCUCHECK XX SCH (02:00)
[2016-11-28 05:30] LABS: BASOPHILS % 0.1 % (0.0-2.0); HEMATOCRIT 28.4 % (37.0-47.0); HEMOGLOBIN 9.7 g/dl (12.0-16.0); LYMPHOCYTES # 0.7 10^3/ul (0.8-2.9); LYMPHOCYTES % 21.6 % (15.0-51.0); MEAN CORPUSCULAR HEMOGLOBIN 33.8 pg (29.0-33.0); MEAN CORPUSCULAR HGB CONC 34.2 g/dl (32.0-37.0); MEAN CORPUSCULAR VOLUME 99.1 fl (82.0-101.0); MEAN PLATELET VOLUME 8.1 fl (7.4-10.4); MONOCYTE # 0.1 10^3/ul (0.3-0.9); MONOCYTES % 3.1 % (0.0-11.0); NEUTROPHIL # 2.5 10^3/ul (1.6-7.5); NEUTROPHILS % 75.2 % (39.0-77.0); RED BLOOD COUNT 2.86 10^6/ul (4.20-5.40); RED CELL DISTRIBUTION WIDTH 15.3 % (11.5-14.5); UNCORRECTED WBC 3.3 10^3/ul (4.8-10.8); WHITE BLOOD COUNT 3.3 10^3/ul (4.8-10.8)
[2016-11-28] MEDS: PANTOPRAZOLE (EC) 40 MG TAB PO SCH (05:37)
[2016-11-28] MEDS: METHYLPREDNISOLONE 125 MG INJ IV SCH ×3 (05:38→21:08)
[2016-11-28 06:02] LABS: CONDITION 1; LH ANALYZER COMMENTS 1; PLATELET COUNT 30 10^3/UL (140-440)
[2016-11-28 07:29] VITALS: BP 142/82; RESP 14
--- NOTE | 2016-11-28 08:43 | PN ---
DATE: 11/28/2016 SUBJECTIVE: The patient had a PICC line placed yesterday. There was some noted bruising around her PICC site. No other acute events noted. No hemoptysis, hematemesis. OBJECTIVE: VITAL SIGNS: Blood pressure is 142/82, respiration 14, pulse , temperature 98.3. HEENT: Head is normocephalic. NECK: Supple. HEART: Regular rate. LUNGS: Show diminished breath sounds at the base. ABDOMEN: Soft, nontender to palpation. EXTREMITIES: Negative for clubbing, cyanosis, or edema. DERMATOLOGIC: No rashes. MUSCULOSKELETAL: Noted PICC line in the right upper extremity with ecchymoses. NEUROLOGIC: No change in exam. MEDICATIONS: The patient's medications have been reviewed. LABORATORY DATA: Has been reviewed. Laboratory data shows white count 3.3, hemoglobin 9.7, hematoc rit 28.4, platelet count is 30. ASSESSMENT AND PLAN: 1. Pancytopenia, etiology is unclear, possibly due to idiopathic thrombocytopenic purpura, versus m yeloproliferative disorder. The patient is status post repeat bone marrow biopsy. At this point, jason wakefield to monitor CBC. We will follow up with hematology for recommendations. The patient remains on steroids. 2. Bronchitis, improving. Continue current medical management. Continue steroids, azithromycin, n ebulizers. 3. Diabetes. Continue current insulin regimen. 4. Hypertension, controlled. Continue current blood pressure regimen. 5. Neuropathy. Continue Lyrica. 6. Depression and anxiety disorder. Continue Xanax and Prozac. 7. Insomnia. Continue Ambien. 8. Gastrointestinal and deep venous thrombosis prophylaxis. Continue proton pump inhibitor and seq uential leg squeezers. 9. History of degenerative joint disease, currently stable. Continue medical management. Dictated By: FINA NUÑEZ/ARMEN Conf#: [id number] DID#: [id number]
[2016-11-28] MEDS ORDERED: SENNA TAB PO PRN (09:00)
[2016-11-28] MEDS ORDERED: SENNA TAB PO SCH (09:00)
[2016-11-28] MEDS: INSULIN ASPART [NOVOLOG] 3 ML PEN SC SCH ×4 (09:00→21:10)
[2016-11-28] MEDS: metFORMIN 500 MG TAB PO SCH ×2 (09:02→18:28)
[2016-11-28] MEDS: DOCUSATE SODIUM 100 MG CAP PO SCH ×2 (09:02→21:08)
[2016-11-28] MEDS: FLUOXETINE 20 MG CAP PO SCH (09:02)
[2016-11-28] MEDS: LISINOPRIL 5 MG TAB PO SCH (09:03)
[2016-11-28] MEDS: AZITHROMYCIN 250 MG TAB PO SCH (09:03)
[2016-11-28] MEDS: FERROUS SULFATE (EC) 325 MG TAB PO SCH ×2 (09:03→21:08)
[2016-11-28] MEDS: PREGABALIN 75 MG CAP PO SCH ×2 (09:03→21:08)
[2016-11-28] MEDS: ALPRAZOLAM 0.25 MG TAB PO PRN (09:09)
[2016-11-28] MEDS: HYDROCODONE/APAP (5/325) TAB PO PRN (12:36)
--- NOTE | 2016-11-28 18:42 | CONS ---
Date/Time of Note Date/Time of Note DATE: 11/28/16 TIME: 18:41 Assessment/Plan Assessment/Plan Chief Complaint/Hosp Course ASSESSMENT AND PLAN: This is a 60-year-old female who presents with: 1. Pancytopenia. ( WITH +FHX FOR ALL) r/o primary bone marrow disorder vs ITP BMBX- performed from [facility] under local anesthesia with 1 % LIDOCAINE FINAL -NEG SMEAR- NO BLASTS FLOW- NEG SO FAR LOOKS LIKE ITP CONT STEROIDS D/W PT IN DETAILS REPEAT BMBX 2. Azotemia. Etiology is likely due to volume depletion. The patient's renal function has improved after receiving IV hydration. We will continue. 3. Diabetes. We will continue Accu-Cheks and sliding scale. We will continue metformin. 4. History of hypertension. Continue benazepril. 5. Depression and anxiety disorder. Continue Xanax and Prozac. 6. History of neuropathy. Continue Lyrica. 7. History of degenerative joint disease, osteoarthritis. The patient is status post bilateral knee replacement. Continue to monitor. 8. Insomnia. Continue Ambien. 9. Gastrointestinal and deep venous thrombosis prophylaxis. Continue proton pump inhibitor and sequential leg squeezers. Problems: Consultation Date/Type/Reason Admit Date/Time Nov 18, 2016 at 20:09 Initial Consult Date 11/19/16 Type of Consultation: [facility] Referring Provider: FINA IRVING DO Exam/Review of Systems Vital Signs Vitals Vital Signs Date Time Temp Pulse Resp B/P Pulse Ox O2 Delivery O2 Flow Rate FiO2 11/28/16 07:29 98.3 53 14 142/82 100 11/27/16 14:35 Room Air 11/26/16 12:00 2 11/25/16 10:05 21 Intake and Output 11/27/16 11/27/16 11/28/16 15:00 23:00 07:00 Intake Total 600 ml 800 ml Output Total 800 ml Balance 600 ml 0 ml Results Result Diagram: 11/28/16 0435 11/27/16 0425 Results 24 hrs Laboratory Tests Test 11/27/16 21:08 11/28/16 01:36 11/28/16 04:35 11/28/16 08:10 Bedside Glucose 223 H 232 H 183 Basophils # 0.0 Basophils % 0.1 Blood Morphology Comment Eosinophils # 0.0 Eosinophils % 0.0 Hematocrit 28.4 L Hemoglobin 9.7 L Lymphocytes # 0.7 L Lymphocytes % 21.6 Mean Corpuscular Hemoglobin 33.8 H Mean Corpuscular Hemoglobin Concent 34.2 Mean Corpuscular Volume 99.1 Mean Platelet Volume 8.1 # Monocytes # 0.1 L Monocytes % 3.1 Neutrophils # 2.5 Neutrophils % 75.2 Nucleated Red Blood Cells # 0.0 Nucleated Red Blood Cells % 0.0 Platelet Count 30 L Red Blood Count 2.86 L Red Cell Distribution Width 15.3 H White Blood Count 3.3 L Test 11/28/16 11:52 11/28/16 17:15 Bedside Glucose 285 H 201 Medications Medications Current Medications Alprazolam (Xanax) 0.25 mg DAILY PRN PO ANXIETY Last administered on 11/28/16 09:09; Admin Dose 0.25 MG; Start 11/19/16 at 09:00 Ferrous Sulfate (Ferrous Sulfate (Ec)) 325 mg BID PO Last administered on 09:03; Admin Dose 325 MG; Start 11/19/16 at 09:00 Fluoxetine HCl (Prozac) 20 mg DAILY PO Last administered on 11/28/16 09:02; Admin Dose 20 MG; Start 11/19/16 at 09:00 Lisinopril (Zestril) 5 mg DAILY PO Last administered on 11/28/16 09:03; Admin Dose 5 MG; Start 11/19/16 at 09:00 Pregabalin (Lyrica) 150 mg BID PO Last administered on 11/28/16 09:03; Admin Dose 150 MG; Start 11/19/16 at 09:00 Zolpidem Tartrate (Ambien) 10 mg QHS PRN PO INSOMNIA Last administered on 01:37; Admin Dose 10 MG; Start 11/19/16 at 09:00 Miscellaneous Information 1 ea NOTE XX ; Start 11/19/16 at 09:00 Glucose (Glutose) 15 gm Q15M PRN PO DECREASED GLUCOSE; Start 11/19/16 at 09:00 Glucose (Glutose) 22.5 gm Q15M PRN PO DECREASED GLUCOSE; Start 11/19/16 at 09:00 Dextrose (D50w Syringe) 25 ml Q15M PRN IV DECREASED GLUCOSE; Start 11/19/16 at 09:00 Dextrose (D50w Syringe) 50 ml Q15M PRN IV DECREASED GLUCOSE; Start 11/19/16 at 09:00 Glucagon (Glucagen) 1 mg Q15M PRN IM DECREASED GLUCOSE; Start 11/19/16 at 09:00 Glucose (Glutose) 15 gm Q15M PRN BUCCAL DECREASED GLUCOSE; Start 11/19/16 at 09: 00 Diagnostic Test (Pha) (Accucheck) 1 ea 02 XX Last administered on 11/24/16 02: 18; Admin Dose 1 EA; Start 11/20/16 at 02:00 Pantoprazole (Protonix Tab) 40 mg DAILY@06 PO Last administered on 11/28/16 05 :37; Admin Dose 40 MG; Start 11/19/16 at 09:00 Acetaminophen (Tylenol Tab) 650 mg Q6H PRN PO PAIN AND OR ELEVATED TEMP Last administered on 11/28/16 01:37; Admin Dose 650 MG; Start 11/19/16 at 09:30 Ondansetron HCl (Zofran Inj) 4 mg Q4H PRN IV NAUSEA AND/OR VOMITING; Start 11/19 at 09:30 Methylprednisolone Sodium Succinate (Solu-Medrol) 80 mg Q8 IV Last administered on 11/28/16 14:41; Admin Dose 80 MG; Start 11/21/16 at 16:00 Azithromycin (Zithromax) 250 mg DAILY PO Last administered on 11/28/16 09:03; Admin Dose 250 MG; Start 11/24/16 at 09:00 Guaifenesin (Robitussin Liquid Cup) 200 mg Q4H PRN PO cough Last administered on 11/26/16 01:39; Admin Dose 200 MG; Start 11/24/16 at 08:30 Acetaminophen/ Hydrocodone Bitart ([place] (5/325)) 1 tab Q4H PRN PO pain Last administered on 11/28/16 12:36; Admin Dose 1 TAB; Start 11/27/16 at 13:00 IV Flush (NS 10 ml) 10 ml PRN PRN IV FLUSH LINE; Start 11/27/16 at 15:00 Polyethylene Glycol (Miralax) 17 gm DAILY PRN PO CONSTIPATION Last administered on 11/27/16 23:03; Admin Dose 17 GM; Start 11/27/16 at 23:00 Docusate Sodium (Colace) 100 mg BID PO Last administered on 11/28/16t 09:02; Admin Dose 100 MG; Start 11/27/16 at 23:00 Senna (Senokot) 1 tab DAILY PRN PO CONSTIPATION; Start 11/28/16 at 09:00 ZHAO CARRILLO MD Nov 28, 2016 18:42
[2016-11-28 19:27] VITALS: BP 127/67; RESP 18
[2016-11-29] MEDS: ACCUCHECK XX SCH (02:31)
[2016-11-29 05:00] LABS: HEMATOCRIT 30.7 % (37.0-47.0); HEMOGLOBIN 10.3 g/dl (12.0-16.0); LYMPHOCYTES # 0.8 10^3/ul (0.8-2.9); LYMPHOCYTES % 17.7 % (15.0-51.0); MEAN CORPUSCULAR HEMOGLOBIN 33.8 pg (29.0-33.0); MEAN CORPUSCULAR HGB CONC 33.7 g/dl (32.0-37.0); MEAN CORPUSCULAR VOLUME 100.2 fl (82.0-101.0); MEAN PLATELET VOLUME 8.9 fl (7.4-10.4); MONOCYTE # 0.2 10^3/ul (0.3-0.9); MONOCYTES % 4.3 % (0.0-11.0); NEUTROPHIL # 3.3 10^3/ul (1.6-7.5); NUCLEATED RED BLOOD CELLS% 3.4 /100WBC (0.0-0.0); RED BLOOD COUNT 3.06 10^6/ul (4.20-5.40); RED CELL DISTRIBUTION WIDTH 15.5 % (11.5-14.5); UNCORRECTED WBC 4.3 10^3/ul (4.8-10.8); WHITE BLOOD COUNT 4.3 10^3/ul (4.8-10.8)
[2016-11-29] MEDS: PANTOPRAZOLE (EC) 40 MG TAB PO SCH ×2 (05:11→18:04)
[2016-11-29] MEDS: METHYLPREDNISOLONE 125 MG INJ IV SCH ×3 (05:12→21:26)
[2016-11-29 05:24] LABS: CONDITION 1; LH ANALYZER COMMENTS 1; NUCLEATED RED BLOOD CELLS # 0.1 10^3/ul (0.0-0.0)
[2016-11-29 05:28] LABS: PLATELET COUNT 26 10^3/UL (140-440)
[2016-11-29 08:02] VITALS: BP 153/73; RESP 18
[2016-11-29] MEDS: ALPRAZOLAM 0.25 MG TAB PO PRN (08:57)
[2016-11-29] MEDS: DOCUSATE SODIUM 100 MG CAP PO SCH ×2 (08:57→21:27)
[2016-11-29] MEDS: FLUOXETINE 20 MG CAP PO SCH (08:58)
[2016-11-29] MEDS: LISINOPRIL 5 MG TAB PO SCH (08:58)
[2016-11-29] MEDS: PREGABALIN 75 MG CAP PO SCH ×2 (08:58→21:26)
[2016-11-29] MEDS: AZITHROMYCIN 250 MG TAB PO SCH (08:59)
[2016-11-29] MEDS: FERROUS SULFATE (EC) 325 MG TAB PO SCH ×2 (08:59→21:27)
[2016-11-29] MEDS: FAMOTIDINE 20 MG TAB PO SCH ×2 (08:59→21:27)
[2016-11-29] MEDS: INSULIN ASPART [NOVOLOG] 3 ML PEN SC SCH ×4 (09:01→21:26)
[2016-11-29] MEDS: metFORMIN 500 MG TAB PO SCH ×2 (09:03→18:04)
--- NOTE | 2016-11-29 10:43 | PN ---
DATE: 11/29/2016 SUBJECTIVE: The patient is complaining of pain in her PICC line site. She is also complaining of m idepigastric pain. No other acute events noted. No hemoptysis, hematemesis or hematochezia. OBJECTIVE: VITAL SIGNS: Blood pressure 153/73, respiration 18, pulse 61, temperature 98.2. HEENT: Head is normocephalic. NECK: Supple. HEART: Regular rate. LUNGS: Show diminished breath sounds at base. ABDOMEN: Soft, with positive midepigastric tenderness. No rebound or guarding. EXTREMITIES: Negative for clubbing, cyanosis, no edema. DERMATOLOGIC: No rashes. MUSCULOSKELETAL: Positive PICC line noted in to right upper extremity noted ecchymoses around PICC line site, positive tenderness to palpation. NEUROLOGIC: No focal deficits. LABORATORY DATA: Shows a white count 4.3, hemoglobin 10.3, hematocrit 30.7, platelet count is 26. BMP is pending. ASSESSMENT AND PLAN: 1. Pancytopenia, etiology is unclear, possible myelodysplastic syndrome versus idiopathic thrombocy topenic purpura. The patient is status post repeat bone marrow biopsy, results are still pending. The patient remains on Solu-Medrol. Will defer to hematology for management and will continue to mo nitor closely. 2. Bronchitis. Clinically improving. Will continue azithromycin, nebulizers, completing course. 3. Right upper arm pain. Etiology is likely due to recent PICC line. Will check a Doppler ultraso und to rule out any kind of blood clot and monitor. 4. Hypertension. Continue current blood pressure regimen. 5. Diabetes, continue Accu-Cheks and sliding scale. 6. Gastroesophageal reflux disease. The patient continues complaining of midepigastric tenderness. Will increase Protonix 40 mg b.i.d. Will start the patient on Pepcid 20 mg b.i.d. and monitor. 7. Insomnia. Continue Ambien. 8. Depression and anxiety disorder. Continue Xanax and Prozac. 9. Neuropathy. Continue Lyrica. 10. Gastrointestinal and deep venous thrombosis prophylaxis. Continue proton pump inhibitor and se quential leg squeezers. Dictated By: FINA NUÑEZ/ARMEN Conf#: [id number] DID#: [id number]
--- NOTE | 2016-11-29 11:21 | CONS ---
Date/Time of Note Date/Time of Note DATE: 11/29/16 TIME: 11:21 Assessment/Plan Assessment/Plan Chief Complaint/Hosp Course ASSESSMENT AND PLAN: This is a 60-year-old female who presents with: 1. Pancytopenia. ( WITH +FHX FOR ALL) r/o primary bone marrow disorder vs ITP BMBX- performed from [facility] under local anesthesia with 1 % LIDOCAINE FINAL -NEG SMEAR- NO BLASTS FLOW- NEG SO FAR LOOKS LIKE ITP CONT STEROIDS D/W PT IN DETAILS REPEAT BMBX 2. Azotemia. Etiology is likely due to volume depletion. The patient's renal function has improved after receiving IV hydration. We will continue. 3. Diabetes. We will continue Accu-Cheks and sliding scale. We will continue metformin. 4. History of hypertension. Continue benazepril. 5. Depression and anxiety disorder. Continue Xanax and Prozac. 6. History of neuropathy. Continue Lyrica. 7. History of degenerative joint disease, osteoarthritis. The patient is status post bilateral knee replacement. Continue to monitor. 8. Insomnia. Continue Ambien. 9. Gastrointestinal and deep venous thrombosis prophylaxis. Continue proton pump inhibitor and sequential leg squeezers. Problems: Consultation Date/Type/Reason Admit Date/Time Nov 18, 2016 at 20:09 Initial Consult Date 11/19/16 Type of Consultation: [facility] Referring Provider: FINA IRVING DO Exam/Review of Systems Vital Signs Vitals Vital Signs Date Time Temp Pulse Resp B/P Pulse Ox O2 Delivery O2 Flow Rate FiO2 11/29/16 08:02 98.2 61 18 153/73 97 11/27/16 14:35 Room Air 11/26/16 12:00 2 11/25/16 10:05 21 Intake and Output 11/28/16 11/28/16 11/29/16 15:00 23:00 07:00 Intake Total 700 ml 850 ml Balance 700 ml 850 ml Results Result Diagram: 11/29/16 0415 11/27/16 0425 Results 24 hrs Laboratory Tests Test 11/28/16 11:52 11/28/16 17:15 11/28/16 21:05 11/29/16 02:29 Bedside Glucose 285 H 201 300 H 206 Test 11/29/16 04:15 11/29/16 07:47 Basophils # 0.0 Basophils % 0.0 Blood Morphology Comment Eosinophils # 0.0 Eosinophils % 0.0 Hematocrit 30.7 L Hemoglobin 10.3 L Lymphocytes # 0.8 Lymphocytes % 17.7 Mean Corpuscular Hemoglobin 33.8 H Mean Corpuscular Hemoglobin Concent 33.7 Mean Corpuscular Volume 100.2 Mean Platelet Volume 8.9 Monocytes # 0.2 L Monocytes % 4.3 Neutrophils # 3.3 Neutrophils % 78.0 H Nucleated Red Blood Cells # 0.1 H Nucleated Red Blood Cells % 3.4 H Platelet Count 26 *L Red Blood Count 3.06 L Red Cell Distribution Width 15.5 H White Blood Count 4.3 #L Bedside Glucose 199 Medications Medications Current Medications Alprazolam (Xanax) 0.25 mg DAILY PRN PO ANXIETY Last administered on 11/29/16 08:57; Admin Dose 0.25 MG; Start 11/19/16 at 09:00 Ferrous Sulfate (Ferrous Sulfate (Ec)) 325 mg BID PO Last administered on 08:59; Admin Dose 325 MG; Start 11/19/16 at 09:00 Fluoxetine HCl (Prozac) 20 mg DAILY PO Last administered on 11/29/16 08:58; Admin Dose 20 MG; Start 11/19/16 at 09:00 Lisinopril (Zestril) 5 mg DAILY PO Last administered on 11/29/16 08:58; Admin Dose 5 MG; Start 11/19/16 at 09:00 Pregabalin (Lyrica) 150 mg BID PO Last administered on 11/29/16 08:58; Admin Dose 150 MG; Start 11/19/16 at 09:00 Zolpidem Tartrate (Ambien) 10 mg QHS PRN PO INSOMNIA Last administered on 23:51; Admin Dose 10 MG; Start 11/19/16 at 09:00 Miscellaneous Information 1 ea NOTE XX ; Start 11/19/16 at 09:00 Glucose (Glutose) 15 gm Q15M PRN PO DECREASED GLUCOSE; Start 11/19/16 at 09:00 Glucose (Glutose) 22.5 gm Q15M PRN PO DECREASED GLUCOSE; Start 11/19/16 at 09:00 Dextrose (D50w Syringe) 25 ml Q15M PRN IV DECREASED GLUCOSE; Start 11/19/16 at 09:00 Dextrose (D50w Syringe) 50 ml Q15M PRN IV DECREASED GLUCOSE; Start 11/19/16 at 09:00 Glucagon (Glucagen) 1 mg Q15M PRN IM DECREASED GLUCOSE; Start 11/19/16 at 09:00 Glucose (Glutose) 15 gm Q15M PRN BUCCAL DECREASED GLUCOSE; Start 11/19/16 at 09: 00 Diagnostic Test (Pha) (Accucheck) 1 ea 02 XX Last administered on 11/29/16 02: 31; Admin Dose 1 EA; Start 11/20/16 at 02:00 Acetaminophen (Tylenol Tab) 650 mg Q6H PRN PO PAIN AND OR ELEVATED TEMP Last administered on 11/28/16 01:37; Admin Dose 650 MG; Start 11/19/16 at 09:30 Ondansetron HCl (Zofran Inj) 4 mg Q4H PRN IV NAUSEA AND/OR VOMITING; Start 11/19 at 09:30 Azithromycin (Zithromax) 250 mg DAILY PO Last administered on 11/29/16 08:59; Admin Dose 250 MG; Start 11/24/16 at 09:00 Guaifenesin (Robitussin Liquid Cup) 200 mg Q4H PRN PO cough Last administered on 11/26/16 01:39; Admin Dose 200 MG; Start 11/24/16 at 08:30 Acetaminophen/ Hydrocodone Bitart ([place] (5/325)) 1 tab Q4H PRN PO pain Last administered on 11/28/16 12:36; Admin Dose 1 TAB; Start 11/27/16 at 13:00 IV Flush (NS 10 ml) 10 ml PRN PRN IV FLUSH LINE; Start 11/27/16 at 15:00 Polyethylene Glycol (Miralax) 17 gm DAILY PRN PO CONSTIPATION Last administered on 11/27/16 23:03; Admin Dose 17 GM; Start 11/27/16 at 23:00 Docusate Sodium (Colace) 100 mg BID PO Last administered on 11/29/16 08:57; Admin Dose 100 MG; Start 11/27/16 at 23:00 Senna (Senokot) 1 tab DAILY PRN PO CONSTIPATION; Start 11/28/16 at 09:00 Pantoprazole (Protonix Tab) 40 mg BID@,18 PO ; Start 11/29/16 at 18:00 Famotidine (Pepcid) 20 mg BID PO Last administered on 11/29/16t 08:59; Admin Dose 20 MG; Start 11/29/16 at 09:00 Methylprednisolone Sodium Succinate (Solu-Medrol) 60 mg Q8 IV ; Start 11/29/16 at 14:00 ZHAO CARRILLO MD Nov 29, 2016 11:21
--- NOTE | 2016-11-29 13:20 | RADRPT ---
PROCEDURE: Right upper extremity venous ultrasound CLINICAL INDICATION: Right arm pain and swelling, deep venous thrombosis TECHNIQUE: Mcnulty scale, color doppler, spectral doppler ultrasound imaging of the venous system of the right upper extremity. Augmentation maneuvers were utilized. COMPARISON: No prior studies are available for comparison. FINDINGS: RIGHT: Internal jugular vein: Patent. Subclavian vein: Patent. Axillary vein: Patent. Brachial vein: Patent. Basilic vein: Patent. Cephalic vein: Patent. Radial vein: Patent. Ulnar vein: Patent. IMPRESSION: No evidence of a deep vein thrombosis involving the right upper extremity. RPTAT: AADD .Brando Coronado MD, MD Date Time Electronically viewed and signed by .Brando Coronado MD, on 11/29/2016 13:20 .B/
[2016-11-29 20:08] VITALS: BP 152/85; RESP 18
[2016-11-29] MEDS: INSULIN GLARGINE [LANtus] 3 ML PEN SC SCH (21:25)
[2016-11-29 23:54] LABS: PLATELET ANTIBODY - IGA NEGATIVE (NEGATIVE); PLATELET ANTIBODY - IGG NEGATIVE (NEGATIVE); PLATELET ANTIBODY - IGM NEGATIVE (NEGATIVE)
[2016-11-30] MEDS: ZOLPIDEM 5 MG TAB PO PRN ×2 (00:41→23:20)
[2016-11-30] MEDS: ACCUCHECK XX SCH (02:00)
[2016-11-30] MEDS: METHYLPREDNISOLONE 125 MG INJ IV SCH ×3 (05:41→21:44)
[2016-11-30] MEDS: PANTOPRAZOLE (EC) 40 MG TAB PO SCH ×2 (05:41→17:56)
[2016-11-30 05:55] LABS: BASOPHILS % 0.2 % (0.0-2.0); HEMATOCRIT 30.3 % (37.0-47.0); HEMOGLOBIN 10.3 g/dl (12.0-16.0); LYMPHOCYTES # 1.2 10^3/ul (0.8-2.9); LYMPHOCYTES % 26.5 % (15.0-51.0); MEAN CORPUSCULAR HEMOGLOBIN 33.9 pg (29.0-33.0); MEAN CORPUSCULAR HGB CONC 33.9 g/dl (32.0-37.0); MEAN CORPUSCULAR VOLUME 99.9 fl (82.0-101.0); MEAN PLATELET VOLUME 8.2 fl (7.4-10.4); MONOCYTE # 0.2 10^3/ul (0.3-0.9); MONOCYTES % 5.3 % (0.0-11.0); NEUTROPHIL # 3.1 10^3/ul (1.6-7.5); PLATELET COUNT 31 10^3/UL (140-440); RED BLOOD COUNT 3.04 10^6/ul (4.20-5.40); RED CELL DISTRIBUTION WIDTH 15.2 % (11.5-14.5); UNCORRECTED WBC 4.6 10^3/ul (4.8-10.8); WHITE BLOOD COUNT 4.6 10^3/ul (4.8-10.8)
[2016-11-30 06:18] LABS: CONDITION 1; LH ANALYZER COMMENTS 1
[2016-11-30] MEDS: metFORMIN 500 MG TAB PO SCH ×2 (07:55→17:56)
[2016-11-30 08:10] VITALS: BP 127/58; RESP 18
--- NOTE | 2016-11-30 10:35 | PN ---
DATE: 11/30/2016 SUBJECTIVE: The patient is stable, no acute events overnight. The patient's pain in the right uppe r extremity has improved. No other events noted. No hemoptysis, hematemesis or hematochezia. OBJECTIVE: VITAL SIGNS: Blood pressure 127/58, respirations 18, pulse 70, temperature 98.2. HEENT: Head is normocephalic. NECK: Supple. HEART: Regular rate. LUNGS: Show diminished breath sounds at the base. ABDOMEN: Soft, nontender to palpation without rebound or guarding. EXTREMITIES: Negative for clubbing, cyanosis, no edema. DERMATOLOGIC: No rashes. MUSCULOSKELETAL: No joint effusions. NEUROLOGIC: No change in exam. MEDICATIONS: The patient's medications have been reviewed. LABORATORY DATA: Shows white count 4.6, hemoglobin 10.3, hematocrit 30.3, platelet count 31. ASSESSMENT AND PLAN: 1. Pancytopenia, etiology is unclear, possible myelodysplastic syndrome versus ITP. Patient had a repeat bone marrow biopsy. Results are still pending. The patient is currently on Solu-Medrol bein g titrated down per Hematology. Will continue to monitor. 2. Bronchitis, clinically improved. Patient has completed antibiotic course. 3. Right upper arm pain. Etiology is secondary to recent PICC line placement. Doppler ultrasound was negative for any DVT. 4. Hypertension. Continue current blood pressure regimen. 5. Diabetes. The patient's glucose levels remain elevated in part due to recent steroid use. The patient was started on Lantus. Continue Accu-Cheks and monitor. 6. Gastroesophageal reflux disease. Continue Protonix and Pepcid. 7. Insomnia. Continue Ambien. 8. Depression and anxiety disorder. Continue Xanax and Prozac. 9. Neuropathy. Continue Lyrica. 10. Gastrointestinal and deep venous thrombosis prophylaxis. Continue proton pump inhibitor and se quential leg squeezers. Dictated By: FINA NUÑEZ/ARMEN Conf#: [id number] DID#: [id number]
[2016-11-30] MEDS: DOCUSATE SODIUM 100 MG CAP PO SCH ×2 (11:36→20:20)
[2016-11-30] MEDS: FLUOXETINE 20 MG CAP PO SCH (11:36)
[2016-11-30] MEDS: FAMOTIDINE 20 MG TAB PO SCH ×2 (11:36→20:20)
[2016-11-30] MEDS: LISINOPRIL 5 MG TAB PO SCH (11:36)
[2016-11-30] MEDS: FERROUS SULFATE (EC) 325 MG TAB PO SCH ×2 (11:36→20:25)
[2016-11-30] MEDS: PREGABALIN 75 MG CAP PO SCH ×2 (11:38→20:20)
[2016-11-30] MEDS: INSULIN ASPART [NOVOLOG] 3 ML PEN SC SCH ×4 (11:40→20:28)
--- NOTE | 2016-11-30 19:11 | CONS ---
Date/Time of Note Date/Time of Note DATE: 11/30/16 TIME: 19:10 Assessment/Plan Assessment/Plan Chief Complaint/Hosp Course ASSESSMENT AND PLAN: This is a 60-year-old female who presents with: 1. Pancytopenia. ( WITH +FHX FOR ALL) r/o primary bone marrow disorder vs ITP BMBX- performed from [facility] under local anesthesia with 1 % LIDOCAINE FINAL -NEG SMEAR- NO BLASTS FLOW- NEG SO FAR LOOKS LIKE ITP CONT STEROIDS D/W PT IN DETAILS REPEAT BMBX 2. Azotemia. Etiology is likely due to volume depletion. The patient's renal function has improved after receiving IV hydration. We will continue. 3. Diabetes. We will continue Accu-Cheks and sliding scale. We will continue metformin. 4. History of hypertension. Continue benazepril. 5. Depression and anxiety disorder. Continue Xanax and Prozac. 6. History of neuropathy. Continue Lyrica. 7. History of degenerative joint disease, osteoarthritis. The patient is status post bilateral knee replacement. Continue to monitor. 8. Insomnia. Continue Ambien. 9. Gastrointestinal and deep venous thrombosis prophylaxis. Continue proton pump inhibitor and sequential leg squeezers. Problems: Consultation Date/Type/Reason Admit Date/Time Nov 18, 2016 at 20:09 Initial Consult Date 11/19/16 Type of Consultation: [facility] Referring Provider: FINA IRVING DO Exam/Review of Systems Vital Signs Vitals Vital Signs Date Time Temp Pulse Resp B/P Pulse Ox O2 Delivery O2 Flow Rate FiO2 11/30/16 08:10 98.2 70 18 127/58 96 11/27/16 14:35 Room Air 11/26/16 12:00 2 Intake and Output 11/29/16 11/29/16 11/30/16 15:00 23:00 07:00 Intake Total 700 ml 400 ml Balance 700 ml 400 ml Results Result Diagram: 11/30/16 0442 11/27/16 0425 Results 24 hrs Laboratory Tests Test 11/29/16 20:08 11/30/16 02:35 11/30/16 04:42 11/30/16 07:54 Bedside Glucose 195 196 176 Basophils # 0.0 Basophils % 0.2 Blood Morphology Comment Eosinophils # 0.0 Eosinophils % 0.0 Hematocrit 30.3 L Hemoglobin 10.3 L Lymphocytes # 1.2 Lymphocytes % 26.5 Mean Corpuscular Hemoglobin 33.9 H Mean Corpuscular Hemoglobin Concent 33.9 Mean Corpuscular Volume 99.9 Mean Platelet Volume 8.2 Monocytes # 0.2 L Monocytes % 5.3 Neutrophils # 3.1 Neutrophils % 68.0 Nucleated Red Blood Cells # 0.0 Nucleated Red Blood Cells % 0.0 Platelet Count 31 L Red Blood Count 3.04 L Red Cell Distribution Width 15.2 H White Blood Count 4.6 L Test 11/30/16 11:35 11/30/16 17:55 Bedside Glucose 174 199 Medications Medications Current Medications Alprazolam (Xanax) 0.25 mg DAILY PRN PO ANXIETY Last administered on 11/29/16 08:57; Admin Dose 0.25 MG; Start 11/19/16 at 09:00 Ferrous Sulfate (Ferrous Sulfate (Ec)) 325 mg BID PO Last administered on 11:36; Admin Dose 325 MG; Start 11/19/16 at 09:00 Fluoxetine HCl (Prozac) 20 mg DAILY PO Last administered on 11/30/16 11:36; Admin Dose 20 MG; Start 11/19/16 at 09:00 Lisinopril (Zestril) 5 mg DAILY PO Last administered on 11/30/16 11:36; Admin Dose 5 MG; Start 11/19/16 at 09:00 Pregabalin (Lyrica) 150 mg BID PO Last administered on 11/30/16 11:38; Admin Dose 150 MG; Start 11/19/16 at 09:00 Zolpidem Tartrate (Ambien) 10 mg QHS PRN PO INSOMNIA Last administered on 00:41; Admin Dose 10 MG; Start 11/19/16 at 09:00 Miscellaneous Information 1 ea NOTE XX ; Start 11/19/16 at 09:00 Glucose (Glutose) 15 gm Q15M PRN PO DECREASED GLUCOSE; Start 11/19/16 at 09:00 Glucose (Glutose) 22.5 gm Q15M PRN PO DECREASED GLUCOSE; Start 11/19/16 at 09:00 Dextrose (D50w Syringe) 25 ml Q15M PRN IV DECREASED GLUCOSE; Start 11/19/16 at 09:00 Dextrose (D50w Syringe) 50 ml Q15M PRN IV DECREASED GLUCOSE; Start 11/19/16 at 09:00 Glucagon (Glucagen) 1 mg Q15M PRN IM DECREASED GLUCOSE; Start 11/19/16 at 09:00 Glucose (Glutose) 15 gm Q15M PRN BUCCAL DECREASED GLUCOSE; Start 11/19/16 at 09: 00 Diagnostic Test (Pha) (Accucheck) 1 ea 02 XX Last administered on 11/29/16 02: 31; Admin Dose 1 EA; Start 11/20/16 at 02:00 Acetaminophen (Tylenol Tab) 650 mg Q6H PRN PO PAIN AND OR ELEVATED TEMP Last administered on 11/28/16 01:37; Admin Dose 650 MG; Start 11/19/16 at 09:30 Ondansetron HCl (Zofran Inj) 4 mg Q4H PRN IV NAUSEA AND/OR VOMITING; Start 11/19 at 09:30 Guaifenesin (Robitussin Liquid Cup) 200 mg Q4H PRN PO cough Last administered on 11/26/16 01:39; Admin Dose 200 MG; Start 11/24/16 at 08:30 Acetaminophen/ Hydrocodone Bitart ([place] (5/325)) 1 tab Q4H PRN PO pain Last administered on 11/28/16 12:36; Admin Dose 1 TAB; Start 11/27/16 at 13:00 IV Flush (NS 10 ml) 10 ml PRN PRN IV FLUSH LINE; Start 11/27/16 at 15:00 Polyethylene Glycol (Miralax) 17 gm DAILY PRN PO CONSTIPATION Last administered on 11/27/16 23:03; Admin Dose 17 GM; Start 11/27/16 at 23:00 Docusate Sodium (Colace) 100 mg BID PO Last administered on 11/30/16 11:36; Admin Dose 100 MG; Start 11/27/16 at 23:00 Senna (Senokot) 1 tab DAILY PRN PO CONSTIPATION; Start 11/28/16 at 09:00 Pantoprazole (Protonix Tab) 40 mg BID@06,18 PO Last administered on 11/30/16 17:56; Admin Dose 40 MG; Start 11/29/16 at 18:00 Famotidine (Pepcid) 20 mg BID PO Last administered on 11/30/16 11:36; Admin Dose 20 MG; Start 11/29/16 at 09:00 Methylprednisolone Sodium Succinate (Solu-Medrol) 60 mg Q8 IV Last administered on 11/30/16 16:11; Admin Dose 60 MG; Start 11/29/16 at 14:00 Insulin Glargine (Lantus) 6 unit HS SC Last administered on 11/29/16 21:25; Admin Dose 6 UNIT; Start 11/29/16 at 21:00 ZHAO CARRILLO MD Nov 30, 2016 19:10
[2016-11-30] MEDS: INSULIN GLARGINE [LANtus] 3 ML PEN SC SCH (20:29)
[2016-11-30 20:42] VITALS: BP 118/63; RESP 18
[2016-11-30] MEDS: ACETAMINOPHEN 325 MG TAB PO PRN (23:19)
[2016-12-01] MEDS: ACCUCHECK XX SCH (02:00)
[2016-12-01] MEDS: PANTOPRAZOLE (EC) 40 MG TAB PO SCH ×2 (05:07→18:02)
[2016-12-01] MEDS: METHYLPREDNISOLONE 125 MG INJ IV SCH (05:07)
[2016-12-01 05:49] LABS: BASOPHILS % 0.1 % (0.0-2.0); HEMATOCRIT 30.8 % (37.0-47.0); HEMOGLOBIN 10.5 g/dl (12.0-16.0); LYMPHOCYTES # 1.1 10^3/ul (0.8-2.9); LYMPHOCYTES % 26.3 % (15.0-51.0); MEAN CORPUSCULAR HEMOGLOBIN 33.9 pg (29.0-33.0); MEAN CORPUSCULAR VOLUME 99.7 fl (82.0-101.0); MEAN PLATELET VOLUME 9.4 fl (7.4-10.4); MONOCYTE # 0.2 10^3/ul (0.3-0.9); NEUTROPHIL # 2.9 10^3/ul (1.6-7.5); NEUTROPHILS % 69.6 % (39.0-77.0); RED BLOOD COUNT 3.09 10^6/ul (4.20-5.40); RED CELL DISTRIBUTION WIDTH 15.7 % (11.5-14.5); UNCORRECTED WBC 4.1 10^3/ul (4.8-10.8); WHITE BLOOD COUNT 4.1 10^3/ul (4.8-10.8)
[2016-12-01 05:50] LABS: CONDITION 1; LH ANALYZER COMMENTS 1
[2016-12-01 05:52] LABS: PLATELET COUNT 23 10^3/UL (140-440)
[2016-12-01 07:28] VITALS: BP 157/77; RESP 16
[2016-12-01] MEDS: metFORMIN 500 MG TAB PO SCH ×2 (08:45→18:02)
[2016-12-01] MEDS: FERROUS SULFATE (EC) 325 MG TAB PO SCH (08:45)
[2016-12-01] MEDS: PREGABALIN 75 MG CAP PO SCH (08:45)
[2016-12-01] MEDS: FAMOTIDINE 20 MG TAB PO SCH (08:45)
[2016-12-01] MEDS: FLUOXETINE 20 MG CAP PO SCH (08:46)
[2016-12-01] MEDS: DOCUSATE SODIUM 100 MG CAP PO SCH (08:46)
[2016-12-01] MEDS: LISINOPRIL 5 MG TAB PO SCH (08:46)
--- NOTE | 2016-12-01 09:00 | PN ---
DATE: 12/01/2016 SUBJECTIVE: The patient is stable, no acute events overnight. The patient's pain is improved in th e right upper extremity. No other acute events noted. No hemoptysis, hematemesis, or hematochezia. OBJECTIVE: VITAL SIGNS: Blood pressure is 157/77, respirations 16, pulse 63, temperature is 98.5. HEENT: Head is normocephalic. NECK: Supple. HEART: Regular rate. LUNGS: Show diminished breath sounds at the base. ABDOMEN: Soft, nontender to palpation, no rebound or guarding. EXTREMITIES: Negative for clubbing, cyanosis, no edema. DERMATOLOGIC: No rashes. MUSCULOSKELETAL: No joint effusions. NEUROLOGIC: No change in exam. MEDICATIONS: The patient's medications have been reviewed. LABORATORY DATA: Shows a white count 4.1, hemoglobin 10.5, hematocrit 30.8, platelet count is 23. IMAGING: The patient's biopsy results show evidence of severe thrombocytopenia, possible low grade myelodysplastic syndrome. ASSESSMENT AND PLAN: 1. Pancytopenia and thrombocytopenia. Etiology is possibly due to myelodysplastic syndrome. The p atient's platelet levels have remained low. No significant improvement despite steroids. Will cont inue to monitor. Follow up with hematology. 2. Bronchitis, improved. Continue to monitor. The patient is status post antibiotics. 3. Hypertension. Continue current blood pressure regimen. 4. Diabetes. Glucose levels are Improving. Continue current insulin regimen. 5. Gastroesophageal reflux disease. Continue Protonix and Pepcid. 6. Insomnia. Continue Ambien. 7. Depression and anxiety disorder. Continue Xanax and Prozac. 8. Neuropathy. Continue Lyrica. 9. Gastrointestinal and deep venous thrombosis prophylaxis. Continue proton pump inhibitor and seq uential leg squeezers. 10. ____ right upper arm pain. Dictated By: FINA NUÑEZ/ARMEN Conf#: [id number] DID#: [id number]
[2016-12-01] MEDS: INSULIN ASPART [NOVOLOG] 3 ML PEN SC SCH ×3 (09:32→17:55)
--- NOTE | 2016-12-01 11:40 | CONS ---
Date/Time of Note Date/Time of Note DATE: 12/01/16 TIME: 11:35 Assessment/Plan Assessment/Plan Chief Complaint/Hosp Course ASSESSMENT AND PLAN: This is a 60-year-old female who presents with: 1. Pancytopenia. ( WITH +FHX FOR ALL) r/o primary bone marrow disorder vs ITP BMBX- performed from [facility] under local anesthesia with 1 % LIDOCAINE FINAL -NEG SMEAR- NO BLASTS FLOW- NEG d/w pathology- DR FORBES CYTOGENETIC ON 1 BMBX- SOME ABN, NOT CLEAR IF OF ANY CLINICAL SIGNIFICANCE SMEAR- HYPERCELLULAR NO MEGAKARYOCYTES INCREASED ERYTHROID LINE NEXT GENE- REQUESTED RESULT WILL BE IN 1 WE NO RESPONSE TO STEROIDS WOULD DC STEROIDS, DC HOME , MONITOR COUNT OUTPT PLAN CHEMO IF DX OF MDS IS CONFIRMED WILL D/W DR IRVING 2. Azotemia. Etiology is likely due to volume depletion. The patient's renal function has improved after receiving IV hydration. We will continue. 3. Diabetes. We will continue Accu-Cheks and sliding scale. We will continue metformin. 4. History of hypertension. Continue benazepril. 5. Depression and anxiety disorder. Continue Xanax and Prozac. 6. History of neuropathy. Continue Lyrica. 7. History of degenerative joint disease, osteoarthritis. The patient is status post bilateral knee replacement. Continue to monitor. 8. Insomnia. Continue Ambien. 9. Gastrointestinal and deep venous thrombosis prophylaxis. Continue proton pump inhibitor and sequential leg squeezers. Problems: Consultation Date/Type/Reason Admit Date/Time Nov 18, 2016 at 20:09 Initial Consult Date 11/19/16 Type of Consultation: [facility] Referring Provider: FINA IRVING DO 24 HR Interval Summary Free Text/Dictation d/w pathology CYTOGENETIC ON 1 BMBX- SOME ABN, NOT CLEAR IF OF ANY CLINICAL SIGNIFICANCE SMEAR- HYPERCELLULAR NO MEGAKARYOCYTES INCREASED ERYTHROID LINE NEXT GENE- REQUESTED RESULT WILL BE IN 1 WE NO RESPONSE TO STEROIDS WOULD DC STEROIDS, DC HOME , MONITOR COUNT OUTPT PLAN CHEMO IF DX OF MDS IS CONFIRMED WILL D/W DR IRVING Exam/Review of Systems Vital Signs Vitals Vital Signs Date Time Temp Pulse Resp B/P Pulse Ox O2 Delivery O2 Flow Rate FiO2 12/01/16 07:28 98.5 63 16 157/77 99 11/27/16 14:35 Room Air Intake and Output 11/30/16 11/30/16 12/01/16 15:00 23:00 07:00 Intake Total 960 ml 480 ml Balance 960 ml 480 ml Results Result Diagram: 12/01/16 0435 11/27/16 0425 Results 24 hrs Laboratory Tests Test 11/30/16 17:55 11/30/16 20:16 12/01/16 02:20 12/01/16 04:35 Bedside Glucose 199 258 H 186 Basophils # 0.0 Basophils % 0.1 Blood Morphology Comment Eosinophils # 0.0 Eosinophils % 0.0 Hematocrit 30.8 L Hemoglobin 10.5 L Lymphocytes # 1.1 Lymphocytes % 26.3 Mean Corpuscular Hemoglobin 33.9 H Mean Corpuscular Hemoglobin Concent 34.0 Mean Corpuscular Volume 99.7 Mean Platelet Volume 9.4 Monocytes # 0.2 L Monocytes % 4.0 Neutrophils # 2.9 Neutrophils % 69.6 Nucleated Red Blood Cells # 0.0 Nucleated Red Blood Cells % 0.0 Platelet Count 23 #*L Red Blood Count 3.09 L Red Cell Distribution Width 15.7 H White Blood Count 4.1 L Test 12/01/16 07:43 12/01/16 10:59 Bedside Glucose 176 Lab Scanned Report REFERENCE LAB Medications Medications Current Medications Alprazolam (Xanax) 0.25 mg DAILY PRN PO ANXIETY Last administered on 11/29/16 08:57; Admin Dose 0.25 MG; Start 11/19/16 at 09:00 Ferrous Sulfate (Ferrous Sulfate (Ec)) 325 mg BID PO Last administered on 08:45; Admin Dose 325 MG; Start 11/19/16 at 09:00 Fluoxetine HCl (Prozac) 20 mg DAILY PO Last administered on 12/01/16 08:46; Admin Dose 20 MG; Start 11/19/16 at 09:00 Lisinopril (Zestril) 5 mg DAILY PO Last administered on 12/01/16 08:46; Admin Dose 5 MG; Start 11/19/16 at 09:00 Pregabalin (Lyrica) 150 mg BID PO Last administered on 12/01/16 08:45; Admin Dose 150 MG; Start 11/19/16 at 09:00 Zolpidem Tartrate (Ambien) 10 mg QHS PRN PO INSOMNIA Last administered on 23:20; Admin Dose 10 MG; Start 11/19/16 at 09:00 Miscellaneous Information 1 ea NOTE XX ; Start 11/19/16 at 09:00 Glucose (Glutose) 15 gm Q15M PRN PO DECREASED GLUCOSE; Start 11/19/16 at 09:00 Glucose (Glutose) 22.5 gm Q15M PRN PO DECREASED GLUCOSE; Start 11/19/16 at 09:00 Dextrose (D50w Syringe) 25 ml Q15M PRN IV DECREASED GLUCOSE; Start 11/19/16 at 09:00 Dextrose (D50w Syringe) 50 ml Q15M PRN IV DECREASED GLUCOSE; Start 11/19/16 at 09:00 Glucagon (Glucagen) 1 mg Q15M PRN IM DECREASED GLUCOSE; Start 11/19/16 at 09:00 Glucose (Glutose) 15 gm Q15M PRN BUCCAL DECREASED GLUCOSE; Start 11/19/16 at 09: 00 Diagnostic Test (Pha) (Accucheck) 1 ea 02 XX Last administered on 11/29/16 02: 31; Admin Dose 1 EA; Start 11/20/16 at 02:00 Acetaminophen (Tylenol Tab) 650 mg Q6H PRN PO PAIN AND OR ELEVATED TEMP Last administered on 11/30/16 23:19; Admin Dose 650 MG; Start 11/19/16 at 09:30 Ondansetron HCl (Zofran Inj) 4 mg Q4H PRN IV NAUSEA AND/OR VOMITING; Start 11/19 at 09:30 Guaifenesin (Robitussin Liquid Cup) 200 mg Q4H PRN PO cough Last administered on 11/26/16 01:39; Admin Dose 200 MG; Start 11/24/16 at 08:30 Acetaminophen/ Hydrocodone Bitart ([place] (5/325)) 1 tab Q4H PRN PO pain Last administered on 11/28/16 12:36; Admin Dose 1 TAB; Start 11/27/16 at 13:00 IV Flush (NS 10 ml) 10 ml PRN PRN IV FLUSH LINE; Start 11/27/16 at 15:00 Polyethylene Glycol (Miralax) 17 gm DAILY PRN PO CONSTIPATION Last administered on 11/27/16 23:03; Admin Dose 17 GM; Start 11/27/16 at 23:00 Docusate Sodium (Colace) 100 mg BID PO Last administered on 11/30/16 20:20; Admin Dose 100 MG; Start 11/27/16 at 23:00 Senna (Senokot) 1 tab DAILY PRN PO CONSTIPATION; Start 11/28/16 at 09:00 Pantoprazole (Protonix Tab) 40 mg BID@06,18 PO Last administered on 12/01/16 05:07; Admin Dose 40 MG; Start 11/29/16 at 18:00 Famotidine (Pepcid) 20 mg BID PO Last administered on 12/01/16 08:45; Admin Dose 20 MG; Start 11/29/16 at 09:00 Methylprednisolone Sodium Succinate (Solu-Medrol) 60 mg Q8 IV Last administered on 12/01/16 05:07; Admin Dose 60 MG; Start 11/29/16 at 14:00 Insulin Glargine (Lantus) 6 unit HS SC Last administered on 11/30/16 20:29; Admin Dose 6 UNIT; Start 11/29/16 at 21:00 ZHAO CARRILLO MD Dec 01, 2016 11:40
[2016-12-01] MEDS: ALPRAZOLAM 0.25 MG TAB PO PRN (14:10)
[2016-12-01 19:51] VITALS: BP 131/71; RESP 18
[2016-12-01] MEDS: ACETAMINOPHEN 325 MG TAB PO PRN (20:27)
== END 2016-12-01 20:45 | disposition home or self-care (01) | DRG 809 ==
LOC: E/R 15:45 → MS1 20:09
PROVIDERS: ADMIT Internal Medicine Nephrology; ATTEND Internal Medicine
PROC: 07DR3ZX Extraction of Iliac Bone Marrow, Percutaneous Approach, Diagnostic (ICD-10-PCS; principal; 2016-11-26)
PROC: 02HV33Z Insertion of Infusion Device into Superior Vena Cava, Percutaneous Approach (ICD-10-PCS; 2016-11-27)
DX: D61.818 Other pancytopenia (principal); C94 Other leukemias of specified cell type; D69.3 Immune thrombocytopenic purpura; E66.9 Obesity, unspecified; Z68.38 Body mass index [BMI] 38.0-38.9, adult; E11.9 Type 2 diabetes mellitus without complications; I10 Essential (primary) hypertension; F41.8 Other specified anxiety disorders; Z89.512 Acquired absence of left leg below knee; Z89.511 Acquired absence of right leg below knee; G47.00 Insomnia, unspecified; Z80.6 Family history of leukemia; G62.9 Polyneuropathy, unspecified; J45.909 Unspecified asthma, uncomplicated; E83.42 Hypomagnesemia; K21.9 Gastro-esophageal reflux disease without esophagitis
CPT/HCPCS: 36415; 36569; 71010; 76700; 76937; 77012; 80048; 80053; 81001; 81003; 82270; 82306; 82607; 82668; 82746; 82784; 82962; 83010; 83036; 83540; 83615; 83690; 83735; 84100; 84155; 84165; 84443; 84484; 84560; 85025; 85045; 85049; 85362; 85378; 85384; 85610; 85670; 85730; 86022; 86038; 86320; 86703; 86850; 86870; 86900; 86901; 86902; 88305; 88313; 93005; 93971; 94640; 94664; 96360; 97110; 97116; 97162; 97530; C1769; J1815; J2250; J2930; J3010; J3475; J7030

== ENCOUNTER 2016-12-30 15:03 | Inpatient (IN) | payer MEDICARE, OTHER ==
[~2016-12-30] VITALS: Ht 162.6 cm; Wt 99.8 kg
[~2016-12-30 15:03] MED LIST: ALPR0.254 PO; FER325 PO; FLUO20CA38 PO; LISI-313 PO; METF1000 PO; OMEP40CA6 PO; PREG150C PO; ZOLP10TA5 PO
[2016-12-30 21:58] LABS: ADD SCAN DIFF NO
[2016-12-30 22:16] LABS: ABNORMAL IP MESSAGE 1; HEMATOCRIT 24.6 % (37.0-47.0); HEMOGLOBIN 8.3 g/dl (12.0-16.0); MEAN CORPUSCULAR HEMOGLOBIN 34.2 pg (29.0-33.0); MEAN CORPUSCULAR HGB CONC 33.7 g/dl (32.0-37.0); MEAN CORPUSCULAR VOLUME 101.2 fl (82.0-101.0); MEAN PLATELET VOLUME 10.4 fl (7.4-10.4); RED BLOOD COUNT 2.43 10^6/ul (4.20-5.40); RED CELL DISTRIBUTION WIDTH 14.6 % (11.5-14.5); WHITE BLOOD COUNT 1.6 10^3/ul (4.8-10.8)
[2016-12-30 22:27] LABS: ADD UMIC YES; URINE BILIRUBIN (Dip) NEGATIVE (NEGATIVE); URINE BLOOD (Dip) 2+ (NEGATIVE); URINE COLOR LT. YELLOW (YELLOW); URINE GLUCOSE (Dip) NEGATIVE (NEGATIVE); URINE KETONES (Dip) 15 (NEGATIVE); URINE LEUKOCYTE ESTERASE (Dip) NEGATIVE (NEGATIVE); URINE NITRITE (Dip) NEGATIVE (NEGATIVE); URINE TOTAL PROTEIN (Dip) NEGATIVE (NEGATIVE); URINE UROBILINOGEN (Dip) 0.2 E.U./dL (0.1-1.0)
[2016-12-30 22:40] LABS: CHLORIDE 105 mmol/L (97-110)
[2016-12-30 22:41] LABS: ALBUMIN 4.3 g/dl (3.3-4.9); POTASSIUM 4.5 mmol/L (3.5-5.1); SODIUM 142 mmol/L (135-144)
[2016-12-30 22:44] LABS: ALANINE AMINOTRANSFERASE 39 IU/L (13-69); ALBUMIN/GLOBULIN RATIO 1.79; ALKALINE PHOSPHATASE 91 IU/L (42-121); ANION GAP 20 (8-16); ASPARTATE AMINO TRANSFERASE 32 IU/L (15-46); BACTERIA,URINE FEW; BILIRUBIN,INDIRECT 0.4 mg/dl (0-1.1); BILIRUBIN,TOTAL 0.4 mg/dl (0.2-1.3); BLOOD UREA NITROGEN 13 mg/dl (7-20); CALCIUM 9.6 mg/dl (8.4-10.2); CARBON DIOXIDE 22 mmol/L (21-31); CREATININE 0.62 mg/dl (0.44-1.00); GLUCOSE 118 mg/dl (70-220); SQUAMOUS EPITHELIAL CELL,UR FEW; TOTAL PROTEIN 6.7 g/dl (6.1-8.1); URINE RBCS >50 /HPF (0)
[2016-12-30 22:49] LABS: PLATELET COUNT 4 10^3/UL (140-415)
[2016-12-30 22:56] LABS: TROPONIN-I < 0.012 ng/ml (0.00-0.12)
[2016-12-30 23:06] LABS: INR 0.88; PROTIME 11.9 Sec (12.2-14.2); PT RATIO 0.9
[2016-12-30 23:07] LABS: PARTIAL THROMBOPLASTIN TIME 26.8 Sec (25.0-35.0)
--- NOTE | 2016-12-30 23:12 | RADRPT ---
PROCEDURE: XR Chest. CLINICAL INDICATION: Upper gastrointestinal hemorrhage. TECHNIQUE: Single frontal view of the chest was obtained COMPARISON: 11/27/2016 FINDINGS: The heart and mediastinum are within normal limits. The lungs are clear. There is no pleural effusion or pneumothorax. IMPRESSION: No acute disease. RPTAT: [facility] Physician Evgeny Date Time Electronically viewed and signed by Herve Zhang Physician on 12/30/2016 23:12 RS/
[2016-12-30 23:19] LABS: LYMPHOCYTES # 1.2 10^3/ul (0.8-2.9); NEUTROPHIL # 0.4 10^3/ul (1.6-7.5)
[2016-12-30 23:21] LABS: PLATELET ESTIMATE PLT APPEAR DECREASED
[2016-12-30] MEDS ORDERED: ONDANSETRON 4 MG INJ IV STA (23:24)
[2016-12-30] MEDS ORDERED: morphine 4 MG/ML VIAL IV STA (23:24)
[2016-12-31] VITALS (11 sets, daily range): BP systolic 113–135; BP diastolic 55–68; PULSE 76–100; RESP 16–18; TEMP 98.3; Ht 162.6 cm; Wt 99.8 kg
--- NOTE | 2016-12-31 00:46 | RADRPT ---
PROCEDURE: CT BRAIN WITHOUT CONTRAST CLINICAL INDICATION: 61-year-old female with headaches. TECHNIQUE: The study was performed utilizing Speed[employer] VCT 64-slice CT scanner. Direct axial sections were obtained from the foramen magnum to the vertex without the use of intravenous contrast material. Sagittal and coronal reformations were obtained. One or more of the following dose reduc tion techniques were utilized: automated exposure control, adjustment of the mA and/or kV according to patient's size or use of iterative reconstruction technique. The images were viewed on a PACS w orkstation. CTD/vol = 45.0 mGy; Total Exam DLP = 810.3 mGy-cm. COMPARISON: None. FINDINGS: There is mild prominence of the sulci and cisternal spaces consistent with diffuse volume loss. Oth erwise, the ventricles have a normal shape and position. There is no evidence for mass effect or mid line shift. Ovoid calcific density identified within the right medial occipitotemporal gyrus region on axial image 2-14 measuring 4 x 4 mm. There is an additional ovoid calcific density within the r ight superior frontal region measuring approximately 3 x 3 mm. These are most consistent with prior cysticercosis infection. There is no evidence for acute intra or extra-axial blood. The bony calvar ium is intact. There is mild mucosal thickening within the right ethmoid air cells. No air-fluid le vels are noted. The mastoid air cells are without significant soft tissue. IMPRESSION: 1. Mild diffuse volume loss. 2. Ovoid calcific densities within the right medial occipitotemporal and right superior frontal reg ions most likely from prior cysticercosis infection. 3. Mild mucosal thickening right ethmoid air cells. .Andrea Michaud MD, Date Time Electronically viewed and signed by .Andrea Michaud MD, MD on 12/31/2016 00:46 .M/
--- NOTE | 2016-12-31 01:45 | ERA ---
ER Documentation Chief Complaint Date/Time DATE: 12/31/16 TIME: 01:43 Chief Complaint SENT BY PMD FOR LO HGB AND PLT. NEEDS TRANSFUSION,NO ACTIVE BLEEDING HPI 61-year-old woman with a history of myelodysplastic syndrome and chemotherapy referred here by her hematology oncologist Dr. Whitehead for possible transfusion. She has previously had anemia and thrombocytopenia. She has been feeling weak for the last 7 days, and she has had superficial bruising to the extremities, patient also complains of headache although she states she has had these headaches before, she has had no slurred speech, no paresis or paresthesias, no chest pain or shortness of breath, no melena or blood per rectum. Patient denies abdominal pain. ROS All systems reviewed and are negative except as per history of present illness. Medications Home Meds Reported Medications Zolpidem Tartrate* (Zolpidem Tartrate*) 10 Mg Tablet, 10 MG PO QHS Y for INSOMNIA, #30 TAB 11/18/16 Omeprazole* (Omeprazole*) 40 Mg Capsule.dr, 40 MG PO DAILY, #30 CAP 11/18/16 Pregabalin* (Lyrica*) 150 Mg Capsule, 150 MG PO BID, CAP 11/18/16 Lisinopril* (Lisinopril*) 5 Mg Tablet, 5 MG PO DAILY, #30 TAB 11/18/16 Ferrous Sulfate* (Ferrous Sulfate*) 325 Mg Tabec, 325 MG PO BID, TAB 11/18/16 Alprazolam* (Alprazolam*) 0.25 Mg Tablet, 0.25 MG PO DAILY Y for ANXIETY, TAB 11/18/16 Fluoxetine Hcl* (Prozac*) 20 Mg Capsule, 20 MG PO DAILY, CAP 11/18/16 Metformin Hcl* (Metformin Hcl*) 1,000 Mg Tablet, 1000 MG PO WITH BREAKFAST DINNE , #60 TAB 11/18/16 Allergies Allergies: Coded Allergies: Penicillins (Unverified Allergy, Unknown, 12/30/16) PMhx/Soc MDS, hypertension, gastritis, anemia, anxiety History of Surgery: Yes (bilateral knee surgery, back surgery) Anesthesia Reaction: No Hx Neurological Disorder: No Hx Respiratory Disorders: No Hx Cardiac Disorders: Yes (htn) Hx Psychiatric Problems: No Hx Miscellaneous Medical Probl: Yes (ANXIETY DISORDER, DEPRESSION, INSOMNIA) Hx Alcohol Use: No Hx Substance Use: No Hx Tobacco Use: Yes (quit more than 25 years ago) Smoking Status: Former smoker FmHx Family History: No diabetes Physical Exam Vitals Vital Signs Date Time Temp Pulse Resp B/P Pulse Ox O2 Delivery O2 Flow Rate FiO2 12/30/16 21:39 97 15 154/101 95 Room Air 12/30/16 16:11 98.6 84 122/70 12/30/16 15:10 98.8 91 20 110/58 98 Physical Exam GENERAL: Well-developed, well-nourished, well-hydrated, in no apparent distress , looks nontoxic in appearance HEENT: Moist mucous membranes, pink conjunctiva, no cervical spine tenderness or step-off deformities, no goiter, no jaundice or icterus, extraocular movements intact without pain. No submandibular induration, and no pharyngeal erythema NEURO: Alert and oriented 3, cranial nerves II through XII intact bilaterally, pupils equal round reactive to light, no focal deficits or facial asymmetry, sensation intact distally Strength 5/5 in upper and lower extremities bilaterally CARDIAC: Regular rate and rhythm, no murmurs rubs or gallops LUNGS: Clear bilaterally no wheezing crackles or stridor ABDOMEN: Soft nontender, no guarding, no rigidity, no rebound, no psoas sign no obturator sign. Normoactive bowel sounds SKIN: Ecchymoses and soft tissue contusions to upper extremities bilaterally, no gingival bleeding, no lacerations, no abscesses EXTREMITIES: No clubbing cyanosis or edema, calves are bilaterally symmetrical, no Homans sign, no popliteal cord sign. Distal pulses equal and bilateral PSYCH: Normal affect without agitation or irritability Result Diagram: 12/30/16215412/30/162199 Results 24 hrs Laboratory Tests Test 12/30/16 21:55 12/30/16 22:00 Band Neutrophils % 3.0% Hematocrit 24.6% Hemoglobin 8.3g/dl Lymphocytes # 1.210^3/ul Lymphocytes % 73.0% Mean Corpuscular Hemoglobin 34.2pg Mean Corpuscular Hemoglobin Concent 33.7g/dl Mean Corpuscular Volume 101.2fl Mean Platelet Volume 10.4fl Monocytes # 10^3/ul Monocytes % % Neutrophils # 0.410^3/ul Neutrophils % 24.0% Platelet Count 410^3/UL Platelet Estimate PLT APPEAR DECREASED Red Blood Count 2.4310^6/ul Red Cell Distribution Width 14.6% White Blood Count 1.610^3/ul Activated Partial Thromboplast Time 26.8Sec Alanine Aminotransferase (ALT/SGPT) 39IU/L Albumin 4.3g/dl Albumin/Globulin Ratio 1.79 Alkaline Phosphatase 91IU/L Anion Gap 20 Aspartate Amino Transf (AST/SGOT) 32IU/L Blood Urea Nitrogen 13mg/dl Calcium Level 9.6mg/dl Carbon Dioxide Level 22mmol/L Chloride Level 105mmol/L Creatinine 0.62mg/dl Direct Bilirubin 0.00mg/dl Globulin 2.40g/dl Glucose Level 118mg/dl INR International Normalized Ratio 0.88 Indirect Bilirubin 0.4mg/dl Potassium Level 4.5mmol/L Prothrombin Time 11.9Sec Prothrombin Time Ratio 0.9 Sodium Level 142mmol/L Total Bilirubin 0.4mg/dl Total Protein 6.7g/dl Troponin I < 0.012ng/ml Urine Bacteria FEW Urine Bilirubin NEGATIVE Urine Clarity SLIGHTLY CLOUDY Urine Color LT. YELLOW Urine Glucose NEGATIVE% Urine Hemoglobin 2+ Urine Ketones 15 Urine Leukocyte Esterase NEGATIVE Urine Microscopic RBC >50/HPF Urine Microscopic WBC NONE SEEN/HPF Urine Nitrite NEGATIVE Urine Specific [place] 1.020 Urine Squamous Epithelial Cells FEW Urine Total Protein NEGATIVE Urine Urobilinogen 0.2 E.U./dL Urine pH 6.5 Current Medications Medications (Trade) Dose Ordered Sig/Rehan Route PRN Reason Start Time Stop Time Status Last Admin Dose Admin Morphine Sulfate (morphine) 4 mg ONCE STAT IV 12/30/16 23:24 12/30/16 23:26 DC 12/31/16 00:07 Ondansetron HCl (Zofran Inj) 4 mg ONCE STAT IV 12/30/16 23:24 12/30/16 23:26 DC 12/31/16 00:06 Procedures/[facility] IV line was established patient was placed on cardiac cath tech rhythm strip revealed a sinus rhythm at about 80 bpm with upright P and T waves. Patient was afebrile. EKG performed, read by me: 84 bpm, normal sinus rhythm, normal axis, no acute ST segment changes, narrow QRS complex, with good R-wave progression in precordial leads. CT scan of the brain was performed and was negative for acute bleed mass or shift. CBC was abnormal with a leukopenia 1.6, anemia with a hemoglobin of 8.3, and severe thrombocytopenia 4000, electrolytes are normal, liver function tests are normal, troponin was negative, urine analysis revealed hematuria. For her symptoms I administered morphine 4 mg IV and Zofran 4 mg IV headache. I also ordered transfusion 4 units platelets for severe thrombocytopenia and hematuria. Patient is also anemic and she was typed and crossed and may require PRBC IV transfusion. Critical Care: Time: 38 minutes, this was time separate from other procedures. Treatments/Evaluations: Close monitoring and treatment of unstable vital signs, cardiorespiratory, and neurologic status, while maintaining tight balance of fluid, respiratory, and cardiac interventions. Patient admitted to Dr. Miner. I also spoke to her hematology/oncology physician Dr. Whitehead Departure Diagnosis: Primary Impression: MDS (myelodysplastic syndrome) Additional Impressions: Thrombocytopenia Anemia Qualified Code: D64.9 - Anemia, unspecified type Hematuria Condition: JANAE Jain MD Dec 31, 2016 01:45
[2016-12-31] MEDS ORDERED: DIPHENHYDRAMINE 50 MG INJ IV PRN ×2 (03:30→05:30)
[2016-12-31] MEDS ORDERED: ALPRAZOLAM 0.25 MG TAB PO PRN (04:00)
[2016-12-31] MEDS ORDERED: morphine 2 MG INJ IV ONE (05:30)
[2016-12-31] MEDS: PANTOPRAZOLE (EC) 40 MG TAB PO SCH (05:31)
[2016-12-31] MEDS ORDERED: GLUCAGON 1 MG INJ IM PRN (06:00)
[2016-12-31] MEDS ORDERED: DEXTROSE 50% 50 ML SYRINGE IV PRN ×2 (06:00)
[2016-12-31] MEDS ORDERED: PANTOPRAZOLE (EC) 40 MG TAB PO SCH (06:00)
[2016-12-31] MEDS ORDERED: GLUCOSE GEL 15 GRAM TUBE BUCCAL PRN (06:00)
[2016-12-31] MEDS ORDERED: GLUCOSE GEL 15 GRAM TUBE PO PRN ×2 (06:00)
[2016-12-31] MEDS ORDERED: INSULIN ASPART [NOVOLOG] 3 ML PEN SC SCH (08:00)
[2016-12-31] MEDS: INSULIN ASPART [NOVOLOG] 3 ML PEN SC SCH ×4 (08:00→19:31)
[2016-12-31] MEDS ORDERED: metFORMIN 500 MG TAB PO SCH ×2 (08:00)
[2016-12-31] MEDS: PREGABALIN 25 MG CAP PO SCH ×2 (08:43→20:45)
[2016-12-31] MEDS: metFORMIN 500 MG TAB PO SCH ×2 (08:43→17:23)
[2016-12-31] MEDS: LISINOPRIL 5 MG TAB PO SCH (08:43)
[2016-12-31] MEDS: FERROUS SULFATE (EC) 325 MG TAB PO SCH ×2 (08:43→20:45)
[2016-12-31] MEDS ORDERED: FLUOXETINE 20 MG CAP PO SCH ×2 (09:00)
[2016-12-31] MEDS ORDERED: PREGABALIN 75 MG CAP PO SCH ×2 (09:00)
[2016-12-31] MEDS ORDERED: LISINOPRIL 5 MG TAB PO SCH ×2 (09:00)
[2016-12-31] MEDS ORDERED: FERROUS SULFATE (EC) 325 MG TAB PO SCH ×2 (09:00)
[2016-12-31] MEDS ORDERED: ALBUTEROL/IPRATROPIUM (NEB) 3 ML AMP HHN PRN (10:00)
[2016-12-31] MEDS: HYDROCODONE/APAP (5/325) TAB PO PRN (10:03)
[2016-12-31] MEDS: METHYLPREDNISOLONE 40 MG INJ IV SCH ×2 (10:03→20:45)
--- NOTE | 2016-12-31 10:14 | HP ---
DATE OF ADMISSION: 12/31/2016 CHIEF COMPLAINT: Pancytopenia, severe thrombocytopenia, neutropenia. HISTORY OF PRESENT ILLNESS: This is a 61-year-old female with a past medical history of hypertensio n, dyslipidemia, obesity, diabetes, depression, anxiety disorder, insomnia, who presents to [facility] due to abnormal labs. The patient was recently admitted to [facility] in November. At that time, the patient had thrombocytopenia. A full workup was done, [facility] included a bone marrow biopsy with findings consistent with a myeloproliferative disorder. The merly was eventually discharged home. The patient now returns back to [facility] after having lab workup done by her primary pulp cooker, Dr. Machado, which showed severe anemia and thrombocytopenia. The patient also states over the last 7 days she has been feeling weak. She has had superficial bruising to her extremities and she has had intermittent headaches which she sa ys has been ongoing. She denies any overt melena, any hematochezia, hemoptysis or hematemesis. The patient in the emergency room had a CT scan of the head which showed no acute findings. The patien t was typed and crossed 4 units of platelets and 2 units of PRBC, was transfused and admitted to critical access hospital. Overnight, the patient developed some mild swelling around her periorbital eyes as well as some mild shortness of breath. The patient was given Benadryl with improvement of her symptoms. Th e patient denies any chest pain, dysuria or hematuria. PAST MEDICAL HISTORY: As stated above, history of hypertension, diabetes, dyslipidemia, obesity, GE RD, anxiety disorder, insomnia, depression. ALLERGIES: PATIENT IS ALLERGIC TO PENICILLIN. PAST SURGICAL HISTORY: History of bilateral knee arthroplasty and back surgery. FAMILY HISTORY: The patient has a positive family history for diabetes. SOCIAL HISTORY: She does not drink, smoke or do drugs. MEDICATIONS: Have been reviewed and reconciled. REVIEW OF SYSTEMS: A 14-point review of systems was conducted. Pertinent positives in the HPI, oth erwise negative. PHYSICAL EXAMINATION: VITAL SIGNS: Blood pressure is 131/71, respirations 18, pulse 81, temperature 98.1. HEENT: Head is normocephalic. NECK: Supple. HEART: Regular rate. LUNGS: Show diminished breath sounds at the bases. ABDOMEN: Soft, nontender to palpation without rebound or guarding. EXTREMITIES: Negative for clubbing, cyanosis. No edema. DERMATOLOGIC: Noted ecchymoses upper and lower extremities. NEUROLOGIC: No focal deficits. LABORATORY DATA: Shows a white count 1.6, hemoglobin 8.3, hematocrit 24.6, platelet count of 4. BM P within normal limits. IMAGING: The patient's chest x-ray shows no acute disease. CT scan of the brain shows mild volume loss and calcified densities in the right medial and superior frontal regions most likely from cysticercosis infection. ASSESSMENT AND PLAN: 1. This is a 61-year-old female who presents with pancytopenia, severe thrombocytopenia, anemia. E tiology is likely secondary to myelodysplastic syndrome. The patient will be transfused per hematol ogy 4 units of platelets and 2 units of PRBC. The patient may also be given Neupogen. We will defe r to hematology for evaluation and recommendations. We will continue to monitor closely. 2. Reactive airway disease. The patient has audible wheezes on exam. Unclear if this is due to as thmatic bronchitis or a questionable transfusion reaction. Plan at this point is to start the patie nt on Solu-Medrol 10 mg IV b.i.d. We will start the patient on DuoNeb and monitor closely. The pat ient did receive Benadryl prior to transfusion. We will consider a pulmonary evaluation. 3. Diabetes. Continue Accu-Cheks and insulin sliding scale. Continue metformin. 4. Hypertension. Continue current blood pressure regimen. 5. Depression and anxiety. Continue Xanax and Prozac. 6. Neuropathy. Continue Lyrica. 7. History of headaches. Etiology may be secondary to migraines. CT scan shows no acute bleed. W e will continue to monitor. Continue pain control. 8. Insomnia. Continue Ambien. 9. History of degenerative joint disease, osteoarthritis. 10. Gastrointestinal and deep venous thrombosis prophylaxis. Continue proton pump inhibitor, seque ntial leg squeezers. Please note I spent up to 25 minutes of face to face time with the patient, discussing code status. The patient is a FULL CODE. Dictated By: FINA IRVING DO NR/ARMEN Conf#: [id number] DID#: [id number]
[2016-12-31 10:35] LABS: CREATININE 0.68 mg/dl (0.44-1.00); MAGNESIUM 1.4 mg/dl (1.7-2.5); PHOSPHORUS 3.6 mg/dl (2.5-4.9)
[2016-12-31 10:36] LABS: CALCIUM 8.9 mg/dl (8.4-10.2)
[2016-12-31] MEDS: FLUOXETINE 20 MG CAP PO SCH (12:50)
[2016-12-31] MEDS: FILGRASTIM 300 MCG INJ SC SCH (19:31)
[2016-12-31] MEDS: ACCU-CHEK XX SCH (20:45)
[2016-12-31] MEDS: GUAIFENESIN/DM 5ML CUP PO PRN (20:45)
--- NOTE | 2016-12-31 22:48 | CONS ---
Date/Time of Note Date/Time of Note DATE: 12/31/16 TIME: 22:47 Assessment/Plan Assessment/Plan Chief Complaint/Hosp Course 1. pancytopenia, severe thrombocytopenia, anemia. myelodysplastic syndrome. The patient transfused with 4 units of platelets and 2 units of PRBC. We will continue to monitor closely. 2. Reactive airway disease. 3. Diabetes. Continue Accu-Cheks and insulin sliding scale. Continue metformin. 4. Hypertension. Continue current blood pressure regimen. 5. Depression and anxiety. Continue Xanax and Prozac. 6. Neuropathy. Continue Lyrica. 7. History of headaches. Etiology may be secondary to migraines. CT scan shows no acute bleed. We will continue to monitor. Continue pain control. 8. Insomnia. Continue Ambien. 9. History of degenerative joint disease, osteoarthritis. 10. Gastrointestinal and deep venous thrombosis prophylaxis. Continue proton pump inhibitor, sequential leg squeezers. Problems: Consultation Date/Type/Reason Admit Date/Time Dec 31, 2016 at 01:30 Date of Consultation: Dec 31, 2016 Type of Consultation: hemeon Reason for Consultation pancytopenia MDS Referring Provider: FINA IRVING of Present Illness This is a 61-year-old female with a past medical history of hypertension, dyslipidemia, obesity, diabetes, depression, anxiety disorder, insomnia, who presents to [facility] due to abnormal labs. The patient was recently admitted to [facility] in November. At that time, the patient had thrombocytopenia. A full workup was done, which included a bone marrow biopsy with findings consistent with a MDS The patient was eventually discharged home. PT WAS READMITTED WITH severe anemia and thrombocytopenia- POST CHEMO She was ADMITTED FOR PRBC AND PLATELET TRANSFUSION The patient denies any chest pain, dysuria or hematuria. Social History Smoking Status: Former smoker Exam/Review of Systems Vital Signs Vitals Vital Signs Date Time Temp Pulse Resp B/P Pulse Ox O2 Delivery O2 Flow Rate FiO2 12/31/16 20:17 76 12/31/16 20:16 98.1 16 115/56 96 12/31/16 04:50 Room Air Exam HEENT: Head is normocephalic. NECK: Supple. HEART: Regular rate. LUNGS: Show diminished breath sounds at the bases. ABDOMEN: Soft, nontender to palpation without rebound or guarding. EXTREMITIES: Negative for clubbing, cyanosis. No edema. DERMATOLOGIC: Noted ecchymoses upper and lower extremities. NEUROLOGIC: No focal deficits. Results Result Diagram: 12/30/16 2155 12/31/16 0941 Results 24 hrs Laboratory Tests Test 12/31/16 07:54 12/31/16 09:41 12/31/16 11:29 12/31/16 14:25 Bedside Glucose 151 178 Anion Gap 13 # Blood Urea Nitrogen 11 Calcium Level 8.9 Carbon Dioxide Level 31 Chloride Level 102 Creatinine 0.68 Glucose Level 107 Magnesium Level 1.4 L Phosphorus Level 3.6 Potassium Level 4.0 Sodium Level 142 Troponin I 0.012 < 0.012 Test 12/31/16 17:07 12/31/16 19:29 Bedside Glucose 188 155 Medications Medications Current Medications Pantoprazole (Protonix Tab) 40 mg DAILY@06 PO Last administered on 12/31/16 05 :31; Admin Dose 40 MG; Start 12/31/16 at 06:00 Alprazolam (Xanax) 0.25 mg DAILY PRN PO ANXIETY; Start 12/31/16 at 05:30 Diphenhydramine HCl (Benadryl) 25 mg Q4 PRN IV ITCHING; Start 12/31/16 at 05:30 Diagnostic Test (Pha) (Accucheck) 1 ea 02 XX ; Start 01/01/17 at 02:00 Ferrous Sulfate (Ferrous Sulfate (Ec)) 325 mg BID PO Last administered on 20:45; Admin Dose 325 MG; Start 12/31/16 at 09:00 Fluoxetine HCl (Prozac) 20 mg DAILY PO Last administered on 12/31/16 12:50; Admin Dose 20 MG; Start 12/31/16 at 09:00 Lisinopril (Zestril) 5 mg DAILY PO Last administered on 12/31/16 08:43; Admin Dose 5 MG; Start 12/31/16 at 09:00 Pregabalin (Lyrica) 150 mg BID PO Last administered on 12/31/16 20:45; Admin Dose 150 MG; Start 12/31/16 at 09:00 Miscellaneous Information 1 ea NOTE XX ; Start 12/31/16 at 06:00 Glucose (Glutose) 15 gm Q15M PRN PO DECREASED GLUCOSE; Start 12/31/16 at 06:00 Glucose (Glutose) 22.5 gm Q15M PRN PO DECREASED GLUCOSE; Start 12/31/16 at 06: 00 Dextrose (D50w Syringe) 25 ml Q15M PRN IV DECREASED GLUCOSE; Start 12/31/16 at 06:00 Dextrose (D50w Syringe) 50 ml Q15M PRN IV DECREASED GLUCOSE; Start 12/31/16 at 06:00 Glucagon (Glucagen) 1 mg Q15M PRN IM DECREASED GLUCOSE; Start 12/31/16 at 06:00 Glucose (Glutose) 15 gm Q15M PRN BUCCAL DECREASED GLUCOSE; Start 12/31/16 at 06 :00 Methylprednisolone Sodium Succinate (Solu-Medrol) 10 mg Q12 IV Last administered on 12/31/16 20:45; Admin Dose 10 MG; Start 12/31/16 at 10:00 Acetaminophen/ Hydrocodone Bitart ([place] (5/325)) 1 tab Q6H PRN PO pain Last administered on 12/31/16 10:03; Admin Dose 1 TAB; Start 12/31/16 at 10:00 Filgrastim (Neupogen) 300 mcg DAILY@17 SC Last administered on 12/31/16 19:31 ; Admin Dose 300 MCG; Start 12/31/16 at 19:00 Guaifenesin/ Dextromethorphan (Robitussin Dm Liquid Cup) 10 ml Q4H PRN PO COUGH Last administered on 12/31/16 20:45; Admin Dose 10 ML; Start 12/31/16 at 20:30 ZHAO CARRILLO MD Dec 31, 2016 22:48
[2017-01-01] VITALS (12 sets, daily range): BP systolic 121–130; BP diastolic 57–64; PULSE 50–94; RESP 16–18
[2017-01-01 01:02] LABS: ADD UMIC YES; URINE BILIRUBIN (Dip) NEGATIVE (NEGATIVE); URINE BLOOD (Dip) 2+ (NEGATIVE); URINE COLOR LT. YELLOW (YELLOW); URINE GLUCOSE (Dip) NEGATIVE (NEGATIVE); URINE KETONES (Dip) NEGATIVE (NEGATIVE); URINE LEUKOCYTE ESTERASE (Dip) NEGATIVE (NEGATIVE); URINE NITRITE (Dip) NEGATIVE (NEGATIVE); URINE TOTAL PROTEIN (Dip) NEGATIVE (NEGATIVE); URINE UROBILINOGEN (Dip) 0.2 E.U./dL (0.1-1.0)
[2017-01-01] MEDS: PANTOPRAZOLE (EC) 40 MG TAB PO SCH (05:00)
[2017-01-01] MEDS: GUAIFENESIN/DM 5ML CUP PO PRN ×2 (05:02→08:37)
[2017-01-01] MEDS: INSULIN ASPART [NOVOLOG] 3 ML PEN SC SCH ×4 (08:00→20:09)
[2017-01-01 08:09] LABS: ABNORMAL IP MESSAGE 1; ADD SCAN DIFF NO; HEMATOCRIT 31.9 % (37.0-47.0); HEMOGLOBIN 10.7 g/dl (12.0-16.0); MEAN CORPUSCULAR HEMOGLOBIN 32.8 pg (29.0-33.0); MEAN CORPUSCULAR HGB CONC 33.5 g/dl (32.0-37.0); MEAN CORPUSCULAR VOLUME 97.9 fl (82.0-101.0); MEAN PLATELET VOLUME 9.7 fl (7.4-10.4); PLATELET COUNT 68 10^3/UL (140-415); RED BLOOD COUNT 3.26 10^6/ul (4.20-5.40); RED CELL DISTRIBUTION WIDTH 15.8 % (11.5-14.5); WHITE BLOOD COUNT 1.8 10^3/ul (4.8-10.8)
[2017-01-01 08:33] LABS: POTASSIUM 4.6 mmol/L (3.5-5.1)
[2017-01-01] MEDS: metFORMIN 500 MG TAB PO SCH ×2 (08:33→18:24)
[2017-01-01] MEDS: FLUOXETINE 20 MG CAP PO SCH (08:34)
[2017-01-01] MEDS: PREGABALIN 25 MG CAP PO SCH ×2 (08:34→20:08)
[2017-01-01] MEDS: METHYLPREDNISOLONE 40 MG INJ IV SCH ×2 (08:34→20:08)
[2017-01-01] MEDS: FERROUS SULFATE (EC) 325 MG TAB PO SCH ×2 (08:34→20:08)
[2017-01-01 08:36] LABS: CREATININE 0.69 mg/dl (0.44-1.00)
[2017-01-01] MEDS: LISINOPRIL 5 MG TAB PO SCH (08:36)
[2017-01-01 08:37] LABS: CALCIUM 9.3 mg/dl (8.4-10.2); MAGNESIUM 1.5 mg/dl (1.7-2.5); PHOSPHORUS 3.1 mg/dl (2.5-4.9)
--- NOTE | 2017-01-01 09:27 | CONS ---
Date/Time of Note Date/Time of Note DATE: 01/01/17 TIME: 09:23 Consult Date/Type/Reason Admit Date/Time Dec 31, 2016 at 01:30 Initial Consult Date 12/31/16 Type of Consultation: med Ordering Provider: FINA IRVING DO Subjective This is a 61-year-old female with a past medical history of hypertension, dyslipidemia, obesity, diabetes, depression, anxiety disorder, insomnia, who presents to [facility] due to abnormal labs. The patient was recently admitted to [facility] in November. At that time, the patient had thrombocytopenia. A full workup was done, which included a bone marrow biopsy with findings consistent with a myeloproliferative disorder. The patient was eventually discharged home. The patient now returns back to [facility] after having lab workup done by her primary cradle slide maker, Dr. Machado, which showed severe anemia and thrombocytopenia. She was transfused and admitted to telemetry. the patient developed some mild swelling around her periorbital eyes as well as some mild shortness of breath. The patient was given Benadryl with improvement of her symptoms. The patient denies any chest pain, dysuria or hematuria. PAST MEDICAL HISTORY: As stated above, history of hypertension, diabetes, dyslipidemia, obesity, GERD, anxiety disorder, insomnia, depression. Objective Vital Signs Date Time Temp Pulse Resp B/P Pulse Ox O2 Delivery O2 Flow Rate FiO2 01/01/17 08:15 50 01/01/17 07:43 97.8 18 127/57 97 12/31/16 04:50 Room Air Intake and Output 12/31/16 12/31/16 01/01/17 15:00 23:00 07:00 Intake Total 700 ml Balance 700 ml Results/Medications Result Diagram: 01/01/17 0550 01/01/17 0550 Results 24 hrs Laboratory Tests Test 12/31/16 09:41 12/31/16 11:29 12/31/16 14:25 12/31/16 17:07 Anion Gap 13 # Blood Urea Nitrogen 11 Calcium Level 8.9 Carbon Dioxide Level 31 Chloride Level 102 Creatinine 0.68 Glucose Level 107 Magnesium Level 1.4 L Phosphorus Level 3.6 Potassium Level 4.0 Sodium Level 142 Troponin I 0.012 < 0.012 Bedside Glucose 178 188 Test 12/31/16 18:30 12/31/16 19:29 01/01/17 05:50 01/01/17 07:56 Urine Bilirubin NEGATIVE Urine Clarity CLEAR Urine Color LT. YELLOW Urine Glucose NEGATIVE Urine Hemoglobin 2+ H Urine Ketones NEGATIVE Urine Leukocyte Esterase NEGATIVE Urine Microscopic RBC 10-25 Urine Microscopic WBC NONE SEEN Urine Nitrite NEGATIVE Urine Specific [place] <=1.005 L Urine Total Protein NEGATIVE Urine Urobilinogen 0.2 E.U./dL Urine pH 6.5 Bedside Glucose 155 131 Anion Gap 17 H Blood Urea Nitrogen 14 Calcium Level 9.3 Carbon Dioxide Level 28 Chloride Level 103 Creatinine 0.69 Eosinophils # Eosinophils % Glucose Level 139 Hematocrit 31.9 #L Hemoglobin 10.7 #L Magnesium Level 1.5 L Mean Corpuscular Hemoglobin 32.8 Mean Corpuscular Hemoglobin Concent 33.5 Mean Corpuscular Volume 97.9 Mean Platelet Volume 9.7 Neutrophils # Neutrophils % Phosphorus Level 3.1 Platelet Count 68 #L Potassium Level 4.6 Red Blood Count 3.26 #L Red Cell Distribution Width 15.8 H Sodium Level 143 White Blood Count 1.8 L Medications Current Medications Pantoprazole (Protonix Tab) 40 mg DAILY@06 PO Last administered on 01/01/17 05 :00; Admin Dose 40 MG; Start 12/31/16 at 06:00 Alprazolam (Xanax) 0.25 mg DAILY PRN PO ANXIETY; Start 12/31/16 at 05:30 Diphenhydramine HCl (Benadryl) 25 mg Q4 PRN IV ITCHING; Start 12/31/16 at 05:30 Diagnostic Test (Pha) (Accucheck) 1 ea 02 XX ; Start 01/01/17 at 02:00 Ferrous Sulfate (Ferrous Sulfate (Ec)) 325 mg BID PO Last administered on 08:34; Admin Dose 325 MG; Start 12/31/16 at 09:00 Fluoxetine HCl (Prozac) 20 mg DAILY PO Last administered on 01/01/17 08:34; Admin Dose 20 MG; Start 12/31/16 at 09:00 Lisinopril (Zestril) 5 mg DAILY PO Last administered on 12/31/16 08:43; Admin Dose 5 MG; Start 12/31/16 at 09:00 Pregabalin (Lyrica) 150 mg BID PO Last administered on 3/18/17at 08:34; Admin Dose 150 MG; Start 12/31/16 at 09:00 Miscellaneous Information 1 ea NOTE XX ; Start 12/31/16 at 06:00 Glucose (Glutose) 15 gm Q15M PRN PO DECREASED GLUCOSE; Start 12/31/16 at 06:00 Glucose (Glutose) 22.5 gm Q15M PRN PO DECREASED GLUCOSE; Start 12/31/16 at 06: 00 Dextrose (D50w Syringe) 25 ml Q15M PRN IV DECREASED GLUCOSE; Start 12/31/16 at 06:00 Dextrose (D50w Syringe) 50 ml Q15M PRN IV DECREASED GLUCOSE; Start 12/31/16 at 06:00 Glucagon (Glucagen) 1 mg Q15M PRN IM DECREASED GLUCOSE; Start 12/31/16 at 06:00 Glucose (Glutose) 15 gm Q15M PRN BUCCAL DECREASED GLUCOSE; Start 12/31/16 at 06 :00 Methylprednisolone Sodium Succinate (Solu-Medrol) 10 mg Q12 IV Last administered on 01/01/17 08:34; Admin Dose 10 MG; Start 12/31/16 at 10:00 Acetaminophen/ Hydrocodone Bitart ([place] (5/325)) 1 tab Q6H PRN PO pain Last administered on 12/31/16 10:03; Admin Dose 1 TAB; Start 12/31/16 at 10:00 Filgrastim (Neupogen) 300 mcg DAILY@17 SC Last administered on 12/31/16 19:31 ; Admin Dose 300 MCG; Start 12/31/16 at 19:00 Guaifenesin/ Dextromethorphan (Robitussin Dm Liquid Cup) 10 ml Q4H PRN PO COUGH Last administered on 01/01/17 08:37; Admin Dose 10 ML; Start 12/31/16 at 20:30 Assessment/Plan Chief Complaint/Hosp Course 1. pancytopenia, severe thrombocytopenia, anemia. Etiology is likely secondary to myelodysplastic syndrome. The patient transfused per hematology 4 units of platelets and 2 units of PRBC. The patient may also be given Neupogen. We will defer to hematology for evaluation and recommendations. We will continue to monitor closely. 2. Reactive airway disease. The patient has audible wheezes on exam. Unclear if this is due to asthmatic bronchitis or a questionable transfusion reaction. Plan at this point is to cont on Solu-Medrol 10 mg IV b.i.d. We will start the patient on DuoNeb and monitor closely. The patient did receive Benadryl prior to transfusion. We will consider a pulmonary evaluation. 3. Diabetes. Continue Accu-Cheks and insulin sliding scale. Continue metformin. 4. Hypertension. Continue current blood pressure regimen. 5. Depression and anxiety. Continue Xanax and Prozac. 6. Neuropathy. Continue Lyrica. 7. History of headaches. Etiology may be secondary to migraines. CT scan shows no acute bleed. We will continue to monitor. Continue pain control. 8. Insomnia. Continue Ambien. 9. History of degenerative joint disease, osteoarthritis. 10. Gastrointestinal and deep venous thrombosis prophylaxis. Continue proton pump inhibitor, sequential leg squeezers. Problems: YAZMIN GARCIA MD Jan 01, 2017 09:27
[2017-01-01] MEDS: ALBUTEROL/IPRATROPIUM (NEB) 3 ML AMP HHN SCH ×4 (10:00→20:55)
[2017-01-01 11:07] LABS: LYMPHOCYTES # 1.1 10^3/ul (0.8-2.9); MONOCYTE # 0.1 10^3/ul (0.3-0.9); NEUTROPHIL # 0.3 10^3/ul (1.6-7.5); PLATELET ESTIMATE PLT APPEAR DECREASED
[2017-01-01] MEDS: FILGRASTIM 300 MCG INJ SC SCH (18:32)
--- NOTE | 2017-01-01 21:42 | CONS ---
Date/Time of Note Date/Time of Note DATE: 01/01/17 TIME: 21:37 Assessment/Plan Assessment/Plan Chief Complaint/Hosp Course 1. pancytopenia, severe thrombocytopenia, anemia. myelodysplastic syndrome. CHILLS The patient transfused with 4 units of platelets and 2 units of PRBC. The patient may also be given Neupogen. PANCULTURE We will continue to monitor closely. 2. Reactive airway disease. The patient has audible wheezes on exam. Unclear if this is due to asthmatic bronchitis or a questionable transfusion reaction. Plan at this point is to cont on Solu-Medrol 10 mg IV b.i.d. We will start the patient on DuoNeb and monitor closely. The patient did receive Benadryl prior to transfusion. 3. Diabetes. Continue Accu-Cheks and insulin sliding scale. Continue metformin. 4. Hypertension. Continue current blood pressure regimen. 5. Depression and anxiety. Continue Xanax and Prozac. 6. Neuropathy. Continue Lyrica. 7. History of headaches. Etiology may be secondary to migraines. CT scan shows no acute bleed. We will continue to monitor. Continue pain control. 8. Insomnia. Continue Ambien. 9. History of degenerative joint disease, osteoarthritis. 10. Gastrointestinal and deep venous thrombosis prophylaxis. Continue proton pump inhibitor, sequential leg squeezers. Problems: Consultation Date/Type/Reason Admit Date/Time Dec 31, 2016 at 01:30 Initial Consult Date 12/31/16 Type of Consultation: HEMEON Reason for Consultation MDS PANCYTOPENIA Referring Provider: FINA IRVING DO 24 HR Interval Summary Free Text/Dictation This is a 61-year-old female with a past medical history of hypertension, dyslipidemia, obesity, diabetes, depression, anxiety disorder, insomnia, who presents to [facility] due to abnormal labs. The patient was recently admitted to [facility] in November. At that time, the patient had thrombocytopenia. A full workup was done, which included a bone marrow biopsy with findings consistent with a MDS The patient was eventually discharged home. PT WAS READMITTED WITH severe anemia and thrombocytopenia- POST CHEMO She was transfused and admitted to telemetry. the patient developed some mild swelling around her periorbital eyes as well as some mild shortness of breath. The patient was given Benadryl with improvement of her symptoms. The patient denies any chest pain, dysuria or hematuria. Exam/Review of Systems Vital Signs Vitals Vital Signs Date Time Temp Pulse Resp B/P Pulse Ox O2 Delivery O2 Flow Rate FiO2 01/01/17 20:56 88 18 97 21 01/01/17 15:36 98.3 124/58 12/31/16 04:50 Room Air Intake and Output 12/31/16 12/31/16 01/01/17 15:00 23:00 07:00 Intake Total 700 ml Balance 700 ml Exam HEENT: Head is normocephalic. NECK: Supple. HEART: Regular rate. LUNGS: Show diminished breath sounds at the bases. ABDOMEN: Soft, nontender to palpation without rebound or guarding. EXTREMITIES: Negative for clubbing, cyanosis. No edema. DERMATOLOGIC: Noted ecchymoses upper and lower extremities. NEUROLOGIC: No focal deficits. Results Result Diagram: 01/01/17 0550 01/01/17 0550 Results 24 hrs Laboratory Tests Test 01/01/17 05:50 01/01/17 07:56 01/01/17 11:55 01/01/17 17:13 Anion Gap 17 H Band Neutrophils % 18.0 H Blood Urea Nitrogen 14 Calcium Level 9.3 Carbon Dioxide Level 28 Chloride Level 103 Creatinine 0.69 Eosinophils # Eosinophils % Glucose Level 139 Hematocrit 31.9 #L Hemoglobin 10.7 #L Lymphocytes # 1.1 Lymphocytes % 60.0 H Magnesium Level 1.5 L Mean Corpuscular Hemoglobin 32.8 Mean Corpuscular Hemoglobin Concent 33.5 Mean Corpuscular Volume 97.9 Mean Platelet Volume 9.7 Monocytes # 0.1 L Monocytes % 4.0 Neutrophils # 0.3 L Neutrophils % 18.0 L Nucleated Red Blood Cells % 2.0 H Phosphorus Level 3.1 Platelet Count 68 #L Platelet Estimate PLT APPEAR DECREASED Potassium Level 4.6 Red Blood Count 3.26 #L Red Cell Distribution Width 15.8 H Sodium Level 143 White Blood Count 1.8 L Bedside Glucose 131 159 170 Test 01/01/17 19:18 Bedside Glucose 236 H Medications Medications Current Medications Pantoprazole (Protonix Tab) 40 mg DAILY@06 PO Last administered on 01/01/17t 05 :00; Admin Dose 40 MG; Start 12/31/16 at 06:00 Alprazolam (Xanax) 0.25 mg DAILY PRN PO ANXIETY; Start 12/31/16 at 05:30 Diphenhydramine HCl (Benadryl) 25 mg Q4 PRN IV ITCHING; Start 12/31/16 at 05:30 Diagnostic Test (Pha) (Accucheck) 1 ea 02 XX ; Start 01/01/17 at 02:00 Ferrous Sulfate (Ferrous Sulfate (Ec)) 325 mg BID PO Last administered on 20:08; Admin Dose 325 MG; Start 12/31/16 at 09:00 Fluoxetine HCl (Prozac) 20 mg DAILY PO Last administered on 01/01/17 08:34; Admin Dose 20 MG; Start 12/31/16 at 09:00 Lisinopril (Zestril) 5 mg DAILY PO Last administered on 12/31/16 08:43; Admin Dose 5 MG; Start 12/31/16 at 09:00 Pregabalin (Lyrica) 150 mg BID PO Last administered on 01/01/17 20:08; Admin Dose 150 MG; Start 12/31/16 at 09:00 Miscellaneous Information 1 ea NOTE XX ; Start 12/31/16 at 06:00 Glucose (Glutose) 15 gm Q15M PRN PO DECREASED GLUCOSE; Start 12/31/16 at 06:00 Glucose (Glutose) 22.5 gm Q15M PRN PO DECREASED GLUCOSE; Start 12/31/16 at 06: 00 Dextrose (D50w Syringe) 25 ml Q15M PRN IV DECREASED GLUCOSE; Start 12/31/16 at 06:00 Dextrose (D50w Syringe) 50 ml Q15M PRN IV DECREASED GLUCOSE; Start 12/31/16 at 06:00 Glucagon (Glucagen) 1 mg Q15M PRN IM DECREASED GLUCOSE; Start 12/31/16 at 06:00 Glucose (Glutose) 15 gm Q15M PRN BUCCAL DECREASED GLUCOSE; Start 12/31/16 at 06 :00 Methylprednisolone Sodium Succinate (Solu-Medrol) 10 mg Q12 IV Last administered on 01/01/17 20:08; Admin Dose 10 MG; Start 12/31/16 at 10:00 Acetaminophen/ Hydrocodone Bitart ([place] (5/325)) 1 tab Q6H PRN PO pain Last administered on 12/31/16 10:03; Admin Dose 1 TAB; Start 12/31/16 at 10:00 Filgrastim (Neupogen) 300 mcg DAILY@17 SC Last administered on 01/01/17 18:32 ; Admin Dose 300 MCG; Start 12/31/16 at 19:00 Guaifenesin/ Dextromethorphan (Robitussin Dm Liquid Cup) 10 ml Q4H PRN PO COUGH Last administered on 01/01/17 08:37; Admin Dose 10 ML; Start 12/31/16 at 20:30 ZHAO CARRILLO MD Jan 01, 2017 21:42
[2017-01-01] MEDS: ALBUTEROL HFA 8 GM INHALER INH PRN (21:47)
[2017-01-02] VITALS (10 sets, daily range): BP systolic 114–143; BP diastolic 55–67; PULSE 72–106; RESP 16–18
[2017-01-02] MEDS: HYDROCODONE/APAP (5/325) TAB PO PRN ×2 (00:20→16:31)
[2017-01-02] MEDS: ZOLPIDEM 5 MG TAB PO PRN (00:23)
[2017-01-02] MEDS: ALBUTEROL/IPRATROPIUM (NEB) 3 ML AMP HHN SCH ×6 (01:00→21:49)
[2017-01-02] MEDS: ACCU-CHEK XX SCH (02:57)
[2017-01-02] MEDS: PANTOPRAZOLE (EC) 40 MG TAB PO SCH (05:28)
[2017-01-02] MEDS: ALBUTEROL HFA 8 GM INHALER INH PRN (05:28)
[2017-01-02 07:32] LABS: ADD SCAN DIFF NO
[2017-01-02 07:36] LABS: ABNORMAL IP MESSAGE 1; HEMATOCRIT 31.4 % (37.0-47.0); HEMOGLOBIN 10.5 g/dl (12.0-16.0); MEAN CORPUSCULAR HEMOGLOBIN 33.3 pg (29.0-33.0); MEAN CORPUSCULAR HGB CONC 33.4 g/dl (32.0-37.0); MEAN CORPUSCULAR VOLUME 99.7 fl (82.0-101.0); PLATELET COUNT 56 10^3/UL (140-415); RED BLOOD COUNT 3.15 10^6/ul (4.20-5.40); RED CELL DISTRIBUTION WIDTH 15.8 % (11.5-14.5); WHITE BLOOD COUNT 3.1 10^3/ul (4.8-10.8)
[2017-01-02] MEDS: INSULIN ASPART [NOVOLOG] 3 ML PEN SC SCH ×4 (08:00→21:01)
[2017-01-02] MEDS: metFORMIN 500 MG TAB PO SCH ×2 (09:13→19:06)
[2017-01-02] MEDS: PREGABALIN 25 MG CAP PO SCH ×2 (09:14→21:00)
[2017-01-02] MEDS: METHYLPREDNISOLONE 40 MG INJ IV SCH ×3 (09:14→22:47)
[2017-01-02] MEDS: FERROUS SULFATE (EC) 325 MG TAB PO SCH ×2 (09:14→20:59)
[2017-01-02] MEDS: FLUOXETINE 20 MG CAP PO SCH (09:14)
[2017-01-02] MEDS: LISINOPRIL 5 MG TAB PO SCH (09:19)
--- NOTE | 2017-01-02 09:28 | CONS ---
Date/Time of Note Date/Time of Note DATE: 01/02/17 TIME: 09:27 Assessment/Plan Assessment/Plan Chief Complaint/Hosp Course MDS 1. pancytopenia, severe thrombocytopenia, anemia. POST CHEMO The patient transfused- 4 units of platelets and 2 units of PRBC. The patient also given Neupogen. We will continue to monitor closely. 2. Reactive airway disease. The patient has audible wheezes on exam. Unclear if this is due to asthmatic bronchitis or a questionable transfusion reaction. Plan at this point is to taper Solu-Medrol 10 mg IV b.i.d. We will start the patient on xopenex and monitor closely. The patient did receive Benadryl prior to transfusion. We will consider a pulmonary evaluation. Start po steroids today. 3. Diabetes. Continue Accu-Cheks and insulin sliding scale. Continue metformin. 4. Hypertension. Continue current blood pressure regimen. 5. Depression and anxiety. Continue Xanax and Prozac. 6. Neuropathy. Continue Lyrica. 7. History of headaches. Etiology may be secondary to migraines. CT scan shows no acute bleed. We will continue to monitor. Continue pain control. 8. Insomnia. Continue Ambien. 9. History of degenerative joint disease, osteoarthritis. 10. Gastrointestinal and deep venous thrombosis prophylaxis. Continue proton pump inhibitor, sequential leg squeezers. Problems: Consultation Date/Type/Reason Admit Date/Time Dec 31, 2016 at 01:30 Initial Consult Date 12/31/16 Type of Consultation: [facility] Referring Provider: FINA IRVING DO 24 HR Interval Summary Free Text/Dictation STILL SOB Exam/Review of Systems Vital Signs Vitals Vital Signs Date Time Temp Pulse Resp B/P Pulse Ox O2 Delivery O2 Flow Rate FiO2 01/02/17 09:19 84 143/66 97 Room Air 01/02/17 04:33 98.0 16 01/01/17 20:56 21 Intake and Output 01/01/17 01/01/17 01/02/17 15:00 23:00 07:00 Intake Total 750 ml Balance 750 ml Exam HEENT: Head is normocephalic. NECK: Supple. HEART: Regular rate. LUNGS: Show diminished breath sounds at the bases. ABDOMEN: Soft, nontender to palpation without rebound or guarding. EXTREMITIES: Negative for clubbing, cyanosis. No edema. DERMATOLOGIC: Noted ecchymoses upper and lower extremities. NEUROLOGIC: No focal deficits. Results Result Diagram: 01/02/17 0655 01/01/17 0550 Results 24 hrs Laboratory Tests Test 01/01/17 11:55 01/01/17 17:13 01/01/17 19:18 01/01/17 22:58 Bedside Glucose 159 170 236 H 166 Test 01/02/17 06:55 01/02/17 08:24 Eosinophils # Eosinophils % Hematocrit 31.4 L Hemoglobin 10.5 L Mean Corpuscular Hemoglobin 33.3 H Mean Corpuscular Hemoglobin Concent 33.4 Mean Corpuscular Volume 99.7 Mean Platelet Volume 10.0 Neutrophils # Neutrophils % Platelet Count 56 L Red Blood Count 3.15 L Red Cell Distribution Width 15.8 H White Blood Count 3.1 #L Bedside Glucose 129 Medications Medications Current Medications Pantoprazole (Protonix Tab) 40 mg DAILY@06 PO Last administered on 01/02/17 05 :28; Admin Dose 40 MG; Start 12/31/16 at 06:00 Alprazolam (Xanax) 0.25 mg DAILY PRN PO ANXIETY; Start 12/31/16 at 05:30 Diphenhydramine HCl (Benadryl) 25 mg Q4 PRN IV ITCHING; Start 12/31/16 at 05:30 Diagnostic Test (Pha) (Accucheck) 1 ea 02 XX Last administered on 01/02/17 02: 57; Admin Dose 1 EA; Start 01/01/17 at 02:00 Ferrous Sulfate (Ferrous Sulfate (Ec)) 325 mg BID PO Last administered on 09:14; Admin Dose 325 MG; Start 12/31/16 at 09:00 Fluoxetine HCl (Prozac) 20 mg DAILY PO Last administered on 01/02/17 09:14; Admin Dose 20 MG; Start 12/31/16 at 09:00 Lisinopril (Zestril) 5 mg DAILY PO Last administered on 01/02/17 09:19; Admin Dose 5 MG; Start 12/31/16 at 09:00 Pregabalin (Lyrica) 150 mg BID PO Last administered on 01/02/17 09:14; Admin Dose 150 MG; Start 12/31/16 at 09:00 Miscellaneous Information 1 ea NOTE XX ; Start 12/31/16 at 06:00 Glucose (Glutose) 15 gm Q15M PRN PO DECREASED GLUCOSE; Start 12/31/16 at 06:00 Glucose (Glutose) 22.5 gm Q15M PRN PO DECREASED GLUCOSE; Start 12/31/16 at 06: 00 Dextrose (D50w Syringe) 25 ml Q15M PRN IV DECREASED GLUCOSE; Start 12/31/16 at 06:00 Dextrose (D50w Syringe) 50 ml Q15M PRN IV DECREASED GLUCOSE; Start 12/31/16 at 06:00 Glucagon (Glucagen) 1 mg Q15M PRN IM DECREASED GLUCOSE; Start 12/31/16 at 06:00 Glucose (Glutose) 15 gm Q15M PRN BUCCAL DECREASED GLUCOSE; Start 12/31/16 at 06 :00 Methylprednisolone Sodium Succinate (Solu-Medrol) 10 mg Q12 IV Last administered on 01/02/17 09:14; Admin Dose 10 MG; Start 12/31/16 at 10:00 Acetaminophen/ Hydrocodone Bitart ([place] (5/325)) 1 tab Q6H PRN PO pain Last administered on 01/02/17 00:20; Admin Dose 1 TAB; Start 12/31/16 at 10:00 Filgrastim (Neupogen) 300 mcg DAILY@17 SC Last administered on 01/01/17 18:32 ; Admin Dose 300 MCG; Start 12/31/16 at 19:00 Guaifenesin/ Dextromethorphan (Robitussin Dm Liquid Cup) 10 ml Q4H PRN PO COUGH Last administered on 01/01/17 08:37; Admin Dose 10 ML; Start 12/31/16 at 20:30 ZHAO CARRILLO MD Jan 02, 2017 09:28
[2017-01-02 09:50] LABS: MONOCYTE # 0.3 10^3/ul (0.3-0.9); NEUTROPHIL # 1.3 10^3/ul (1.6-7.5)
[2017-01-02 09:51] LABS: PLATELET ESTIMATE PLT APPEAR DECREASED
--- NOTE | 2017-01-02 12:05 | CONS ---
Date/Time of Note Date/Time of Note DATE: 01/02/17 TIME: 12:02 Consult Date/Type/Reason Admit Date/Time Dec 31, 2016 at 01:30 Initial Consult Date 12/31/16 Type of Consultation: neph Ordering Provider: FINA IRVING DO Subjective This is a 61-year-old female with a past medical history of hypertension, dyslipidemia, obesity, diabetes, depression, anxiety disorder, insomnia, who presents to [facility] due to abnormal labs. The patient was recently admitted to [facility] in November. At that time, the patient had thrombocytopenia. A full workup was done, which included a bone marrow biopsy with findings consistent with a myeloproliferative disorder. The patient was eventually discharged home. The patient now returns back to [facility] after having lab workup done by her primary mortgage loan underwriter, Dr. Machado, which showed severe anemia and thrombocytopenia. She was transfused and admitted to telemetry. the patient developed some mild swelling around her periorbital eyes as well as some mild shortness of breath. The patient was given Benadryl with improvement of her symptoms. The patient denies any chest pain, dysuria or hematuria. Noted dyspnea and started on aggressive pulm toilet but co palpitations with hhn therapy. started on mdi. PAST MEDICAL HISTORY: As stated above, history of hypertension, diabetes, dyslipidemia, obesity, GERD, anxiety disorder, insomnia, depression. HEENT: Head is normocephalic. NECK: Supple. HEART: Regular rate. LUNGS: Show diminished breath sounds at the bases. ABDOMEN: Soft, nontender to palpation without rebound or guarding. EXTREMITIES: Negative for clubbing, cyanosis. No edema. DERMATOLOGIC: Noted ecchymoses upper and lower extremities. NEUROLOGIC: No focal deficits. Objective Vital Signs Date Time Temp Pulse Resp B/P Pulse Ox O2 Delivery O2 Flow Rate FiO2 01/02/17 09:19 84 143/66 97 Room Air 01/02/17 04:33 98.0 16 01/01/17 20:56 21 Intake and Output 01/01/17 01/01/17 01/02/17 15:00 23:00 07:00 Intake Total 750 ml Balance 750 ml Results/Medications Result Diagram: 01/02/17 0655 01/01/17 0550 Results 24 hrs Laboratory Tests Test 01/01/17 17:13 01/01/17 19:18 01/01/17 22:58 01/02/17 06:55 Bedside Glucose 170 236 H 166 Band Neutrophils % 16.0 H Eosinophils # Eosinophils % Hematocrit 31.4 L Hemoglobin 10.5 L Lymphocytes # 1.0 Lymphocytes % 32.0 Mean Corpuscular Hemoglobin 33.3 H Mean Corpuscular Hemoglobin Concent 33.4 Mean Corpuscular Volume 99.7 Mean Platelet Volume 10.0 Monocytes # 0.3 Monocytes % 11.0 Neutrophils # 1.3 L Neutrophils % 41.0 Nucleated Red Blood Cells % 3.0 H Platelet Count 56 L Platelet Estimate PLT APPEAR DECREASED Red Blood Count 3.15 L Red Cell Distribution Width 15.8 H White Blood Count 3.1 #L Test 01/02/17 08:24 Bedside Glucose 129 Medications Current Medications Pantoprazole (Protonix Tab) 40 mg DAILY@06 PO Last administered on 01/02/17 05 :28; Admin Dose 40 MG; Start 12/31/16 at 06:00 Alprazolam (Xanax) 0.25 mg DAILY PRN PO ANXIETY; Start 12/31/16 at 05:30 Diphenhydramine HCl (Benadryl) 25 mg Q4 PRN IV ITCHING; Start 12/31/16 at 05:30 Diagnostic Test (Pha) (Accucheck) 1 ea 02 XX Last administered on 01/02/17 02: 57; Admin Dose 1 EA; Start 01/01/17 at 02:00 Ferrous Sulfate (Ferrous Sulfate (Ec)) 325 mg BID PO Last administered on 09:14; Admin Dose 325 MG; Start 12/31/16 at 09:00 Fluoxetine HCl (Prozac) 20 mg DAILY PO Last administered on 01/02/17 09:14; Admin Dose 20 MG; Start 12/31/16 at 09:00 Lisinopril (Zestril) 5 mg DAILY PO Last administered on 01/02/17 09:19; Admin Dose 5 MG; Start 12/31/16 at 09:00 Pregabalin (Lyrica) 150 mg BID PO Last administered on 01/02/17 09:14; Admin Dose 150 MG; Start 12/31/16 at 09:00 Miscellaneous Information 1 ea NOTE XX ; Start 12/31/16 at 06:00 Glucose (Glutose) 15 gm Q15M PRN PO DECREASED GLUCOSE; Start 12/31/16 at 06:00 Glucose (Glutose) 22.5 gm Q15M PRN PO DECREASED GLUCOSE; Start 12/31/16 at 06: 00 Dextrose (D50w Syringe) 25 ml Q15M PRN IV DECREASED GLUCOSE; Start 12/31/16 at 06:00 Dextrose (D50w Syringe) 50 ml Q15M PRN IV DECREASED GLUCOSE; Start 12/31/16 at 06:00 Glucagon (Glucagen) 1 mg Q15M PRN IM DECREASED GLUCOSE; Start 12/31/16 at 06:00 Glucose (Glutose) 15 gm Q15M PRN BUCCAL DECREASED GLUCOSE; Start 12/31/16 at 06 :00 Methylprednisolone Sodium Succinate (Solu-Medrol) 10 mg Q12 IV Last administered on 01/02/17 09:14; Admin Dose 10 MG; Start 12/31/16 at 10:00 Acetaminophen/ Hydrocodone Bitart ([place] (5/325)) 1 tab Q6H PRN PO pain Last administered on 01/02/17 00:20; Admin Dose 1 TAB; Start 12/31/16 at 10:00 Filgrastim (Neupogen) 300 mcg DAILY@17 SC Last administered on 01/01/17 18:32 ; Admin Dose 300 MCG; Start 12/31/16 at 19:00 Guaifenesin/ Dextromethorphan (Robitussin Dm Liquid Cup) 10 ml Q4H PRN PO COUGH Last administered on 01/01/17 08:37; Admin Dose 10 ML; Start 12/31/16 at 20:30 Assessment/Plan Chief Complaint/Hosp Course 1. pancytopenia, severe thrombocytopenia, anemia. Etiology is likely secondary to myelodysplastic syndrome. The patient transfused per hematology 4 units of platelets and 2 units of PRBC. The patient may also be given Neupogen. We will defer to hematology for evaluation and recommendations. We will continue to monitor closely. 2. Reactive airway disease. The patient has audible wheezes on exam. Unclear if this is due to asthmatic bronchitis or a questionable transfusion reaction. Plan at this point is to taper Solu-Medrol 10 mg IV b.i.d. We will start the patient on xopenex and monitor closely. The patient did receive Benadryl prior to transfusion. We will consider a pulmonary evaluation. Start po steroids today. 3. Diabetes. Continue Accu-Cheks and insulin sliding scale. Continue metformin. 4. Hypertension. Continue current blood pressure regimen. 5. Depression and anxiety. Continue Xanax and Prozac. 6. Neuropathy. Continue Lyrica. 7. History of headaches. Etiology may be secondary to migraines. CT scan shows no acute bleed. We will continue to monitor. Continue pain control. 8. Insomnia. Continue Ambien. 9. History of degenerative joint disease, osteoarthritis. 10. Gastrointestinal and deep venous thrombosis prophylaxis. Continue proton pump inhibitor, sequential leg squeezers. Problems: YAZMIN GARCIA MD Jan 02, 2017 12:05
[2017-01-02] MEDS ORDERED: predniSONE 10 MG TAB PO SCH (12:30)
[2017-01-02] MEDS: LEVALBUTEROL (NEB) 0.63 MG/3 ML AMP HHN PRN ×2 (13:55→18:28)
[2017-01-02] MEDS: AZITHROMYCIN 500MG/NS (PMX) 250 ML IVPB SCH (14:03)
[2017-01-02] MEDS: ALPRAZOLAM 0.25 MG TAB PO PRN (16:06)
[2017-01-02] MEDS: GUAIFENESIN/DM 5ML CUP PO PRN (16:31)
[2017-01-02] MEDS: FILGRASTIM 300 MCG INJ SC SCH (19:38)
[2017-01-03] VITALS (11 sets, daily range): BP systolic 110–162; BP diastolic 56–71; PULSE 67–99; RESP 18–20
[2017-01-03] MEDS: ZOLPIDEM 5 MG TAB PO PRN ×2 (00:16→23:57)
[2017-01-03] MEDS: ALBUTEROL/IPRATROPIUM (NEB) 3 ML AMP HHN SCH ×6 (01:04→20:58)
[2017-01-03] MEDS: ACCU-CHEK XX SCH (02:00)
[2017-01-03] MEDS: GUAIFENESIN/DM 5ML CUP PO PRN ×4 (03:31→21:57)
[2017-01-03] MEDS: PANTOPRAZOLE (EC) 40 MG TAB PO SCH (05:23)
[2017-01-03] MEDS: METHYLPREDNISOLONE 40 MG INJ IV SCH ×3 (05:24→21:57)
[2017-01-03 07:37] LABS: ADD SCAN DIFF NO
[2017-01-03 07:44] LABS: ABNORMAL IP MESSAGE 1; HEMOGLOBIN 10.3 g/dl (12.0-16.0); MEAN CORPUSCULAR HGB CONC 33.2 g/dl (32.0-37.0); MEAN CORPUSCULAR VOLUME 99.4 fl (82.0-101.0); PLATELET COUNT 45 10^3/UL (140-415); RED BLOOD COUNT 3.12 10^6/ul (4.20-5.40); RED CELL DISTRIBUTION WIDTH 15.7 % (11.5-14.5); WHITE BLOOD COUNT 4.8 10^3/ul (4.8-10.8)
[2017-01-03] MEDS: PREGABALIN 25 MG CAP PO SCH ×2 (08:55→21:57)
[2017-01-03] MEDS: FLUOXETINE 20 MG CAP PO SCH (08:55)
[2017-01-03] MEDS: LISINOPRIL 5 MG TAB PO SCH (08:55)
[2017-01-03] MEDS: FERROUS SULFATE (EC) 325 MG TAB PO SCH ×2 (08:55→21:57)
[2017-01-03] MEDS: INSULIN ASPART [NOVOLOG] 3 ML PEN SC SCH ×4 (09:00→21:58)
[2017-01-03] MEDS: metFORMIN 500 MG TAB PO SCH ×2 (09:12→17:15)
[2017-01-03] MEDS: HYDROCODONE/APAP (5/325) TAB PO PRN (09:12)
[2017-01-03] MEDS: LEVALBUTEROL (NEB) 0.63 MG/3 ML AMP HHN PRN ×3 (09:26→20:58)
[2017-01-03 11:42] LABS: LYMPHOCYTES # 1.6 10^3/ul (0.8-2.9); MONOCYTE # 0.2 10^3/ul (0.3-0.9); NEUTROPHIL # 2.1 10^3/ul (1.6-7.5)
[2017-01-03 11:43] LABS: PLATELET ESTIMATE PLT APPEAR DECREASED; SCHISTOCYTES OCCASIONAL
--- NOTE | 2017-01-03 12:22 | PN ---
DATE: 01/03/2017 SUBJECTIVE: The patient continues to have productive cough, but improving. Breathing is improved. No other acute events noted. No hemoptysis, hematemesis or hematochezia. OBJECTIVE: VITAL SIGNS: Blood pressure is 160/71, respiration 18, pulse 75, temperature 98.3. HEENT: Head is normocephalic. NECK: Supple. HEART: Regular rate. LUNGS: Show diminished breath sounds at base. Positive rhonchi. ABDOMEN: Soft, nontender to palpation. No rebound or guarding. EXTREMITIES: Negative for clubbing, cyanosis, no edema. DERMATOLOGIC: No rashes. MUSCULOSKELETAL: No joint effusions. NEUROLOGIC: No change in exam. MEDICATIONS: The patient's medications have been reviewed. LABORATORY DATA: Shows a white count 4.8, hemoglobin 10.3, hematocrit 31.0, platelet count 45. ASSESSMENT AND PLAN: 1. Severe pancytopenia. Etiology is secondary to recent chemotherapy and myelodysplastic syndrome. The patient is status post blood transfusion, platelet transfusion is currently on Neupogen. The patient's white count is improved. Hemoglobin levels have improved. Platelet counts have improved. Will continue to monitor. Follow up with hematology. Dr. Machado further recommendations. 2. Acute bronchitis with asthma exacerbation. The patient is currently on azithromycin, Solu-Medro l and receiving nebulizer therapy. We will continue current treatment plan. Will slowly titrate do wn Solu-Medrol and monitor closely. 3. Hypertension. Continue lisinopril. We will adjust medications as needed. 4. Diabetes. Continue Accu-Cheks with insulin sliding scale. Continue metformin. 5. Neuropathy. Continue Lyrica. 6. Insomnia. Continue Ambien. 7. History of degenerative joint disease, arthritis. Continue to monitor. 8. Depression and anxiety disorder. Continue Xanax and Prozac. 9. Debility. We will place a physical therapy evaluation. 10. Gastrointestinal and deep venous thrombosis prophylaxis. Continue PPI and sequential leg squee zers. Dictated By: FINA NUÑEZ/NTS Conf#: [id number] DID#: [id number]
[2017-01-03] MEDS: AZITHROMYCIN 500MG/NS (PMX) 250 ML IVPB SCH (12:45)
[2017-01-03] MEDS: ALPRAZOLAM 0.25 MG TAB PO PRN (13:16)
--- NOTE | 2017-01-03 16:18 | CONS ---
Date/Time of Note Date/Time of Note DATE: 01/03/17 TIME: 16:10 Assessment/Plan Assessment/Plan Chief Complaint/Hosp Course MDS 1. pancytopenia, severe thrombocytopenia, anemia. POST CHEMO The patient transfused- 4 units of platelets and 2 units of PRBC. The patient also given Neupogen. We will continue to monitor closely. 2. Reactive airway disease. The patient has audible wheezes on exam. Unclear if this is due to asthmatic bronchitis or a questionable transfusion reaction. Plan at this point is to taper Solu-Medrol 10 mg IV b.i.d. We will start the patient on xopenex and monitor closely. The patient did receive Benadryl prior to transfusion. We will consider a pulmonary evaluation. Start po steroids today. 3. Diabetes. Continue Accu-Cheks and insulin sliding scale. Continue metformin. 4. Hypertension. Continue current blood pressure regimen. 5. Depression and anxiety. Continue Xanax and Prozac. 6. Neuropathy. Continue Lyrica. 7. History of headaches. Etiology may be secondary to migraines. CT scan shows no acute bleed. We will continue to monitor. Continue pain control. 8. Insomnia. Continue Ambien. 9. History of degenerative joint disease, osteoarthritis. 10. Gastrointestinal and deep venous thrombosis prophylaxis. Continue proton pump inhibitor, sequential leg squeezers. Problems: Consultation Date/Type/Reason Admit Date/Time Dec 31, 2016 at 01:30 Initial Consult Date 12/31/16 Type of Consultation: [facility] Referring Provider: FINA IRVING DO 24 HR Interval Summary Free Text/Dictation + productive cough, but improving. Breathing is improved. No other acute events noted. No hemoptysis, hematemesis or hematochezia. Exam/Review of Systems Vital Signs Vitals Vital Signs Date Time Temp Pulse Resp B/P Pulse Ox O2 Delivery O2 Flow Rate FiO2 01/03/17 12:25 99 01/03/17 12:00 98.2 18 114/56 97 Room Air 01/03/17 09:26 21 Intake and Output 01/02/17 01/02/17 01/03/17 15:00 23:00 07:00 Intake Total 1090 ml 450 ml Balance 1090 ml 450 ml Exam OBJECTIVE: HEENT: Head is normocephalic. NECK: Supple. HEART: Regular rate. LUNGS: Show diminished breath sounds at base. Positive rhonchi. ABDOMEN: Soft, nontender to palpation. No rebound or guarding. EXTREMITIES: Negative for clubbing, cyanosis, no edema. DERMATOLOGIC: No rashes. MUSCULOSKELETAL: No joint effusions. NEUROLOGIC: No change in exam. Results Result Diagram: 01/03/17 0711 01/01/17 0550 Results 24 hrs Laboratory Tests Test 01/02/17 18:11 01/02/17 20:58 01/03/17 02:13 01/03/17 07:11 Bedside Glucose 222 H 285 H 243 H Band Neutrophils % 18.0 H Eosinophils # Eosinophils % Hematocrit 31.0 L Hemoglobin 10.3 L Lymphocytes # 1.6 Lymphocytes % 34.0 Mean Corpuscular Hemoglobin 33.0 Mean Corpuscular Hemoglobin Concent 33.2 Mean Corpuscular Volume 99.4 Mean Platelet Volume 9.0 Monocytes # 0.2 L Monocytes % 4.0 Neutrophils # 2.1 Neutrophils % 44.0 Platelet Count 45 L Platelet Estimate PLT APPEAR DECREASED Red Blood Count 3.12 L Red Cell Distribution Width 15.7 H Schistocytes OCCASIONAL White Blood Count 4.8 # Test 01/03/17 07:57 01/03/17 11:59 Bedside Glucose 204 246 H Medications Medications Current Medications Pantoprazole (Protonix Tab) 40 mg DAILY@06 PO Last administered on 01/03/17 05 :23; Admin Dose 40 MG; Start 12/31/16 at 06:00 Alprazolam (Xanax) 0.25 mg DAILY PRN PO ANXIETY Last administered on 01/03/17 13:16; Admin Dose 0.25 MG; Start 12/31/16 at 05:30 Diphenhydramine HCl (Benadryl) 25 mg Q4 PRN IV ITCHING; Start 12/31/16 at 05:30 Diagnostic Test (Pha) (Accucheck) 1 ea 02 XX Last administered on 01/02/17 02: 57; Admin Dose 1 EA; Start 01/01/17 at 02:00 Ferrous Sulfate (Ferrous Sulfate (Ec)) 325 mg BID PO Last administered on 08:55; Admin Dose 325 MG; Start 12/31/16 at 09:00 Fluoxetine HCl (Prozac) 20 mg DAILY PO Last administered on 01/03/17 08:55; Admin Dose 20 MG; Start 12/31/16 at 09:00 Lisinopril (Zestril) 5 mg DAILY PO Last administered on 01/03/17 08:55; Admin Dose 5 MG; Start 12/31/16 at 09:00 Pregabalin (Lyrica) 150 mg BID PO Last administered on 01/03/17 08:55; Admin Dose 150 MG; Start 12/31/16 at 09:00 Miscellaneous Information 1 ea NOTE XX ; Start 12/31/16 at 06:00 Glucose (Glutose) 15 gm Q15M PRN PO DECREASED GLUCOSE; Start 12/31/16 at 06:00 Glucose (Glutose) 22.5 gm Q15M PRN PO DECREASED GLUCOSE; Start 12/31/16 at 06: 00 Dextrose (D50w Syringe) 25 ml Q15M PRN IV DECREASED GLUCOSE; Start 12/31/16 at 06:00 Dextrose (D50w Syringe) 50 ml Q15M PRN IV DECREASED GLUCOSE; Start 12/31/16 at 06:00 Glucagon (Glucagen) 1 mg Q15M PRN IM DECREASED GLUCOSE; Start 12/31/16 at 06:00 Glucose (Glutose) 15 gm Q15M PRN BUCCAL DECREASED GLUCOSE; Start 12/31/16 at 06 :00 Acetaminophen/ Hydrocodone Bitart ([place] (5/325)) 1 tab Q6H PRN PO pain Last administered on 01/03/17 09:12; Admin Dose 1 TAB; Start 12/31/16 at 10:00 Filgrastim (Neupogen) 300 mcg DAILY@17 SC Last administered on 01/02/17 19:38 ; Admin Dose 300 MCG; Start 12/31/16 at 19:00 Guaifenesin/ Dextromethorphan 10 ml 10 ml Q4H PRN PO COUGH Last administered on 01/03/17 11:16; Admin Dose 10 ML; Start 12/31/16 at 20:30 Azithromycin (Zithromax 500mg/ NS (Pmx)) 250 ml @ 250 mls/hr Q24H IVPB Last administered on 01/03/17 12:45; Admin Dose 250 MLS/HR; Start 01/02/17 at 13:00 Methylprednisolone Sodium Succinate (Solu-Medrol) 10 mg Q8 IV Last administered on 01/03/17 15:29; Admin Dose 10 MG; Start 01/03/17 at 14:00 ZHAO CARRILLO MD Jan 03, 2017 16:18
[2017-01-03] MEDS: FILGRASTIM 300 MCG INJ SC SCH (17:16)
[2017-01-04] VITALS (9 sets, daily range): BP systolic 109–160; BP diastolic 56–77; PULSE 70–103; RESP 18–21
[2017-01-04] MEDS: ALBUTEROL/IPRATROPIUM (NEB) 3 ML AMP HHN SCH ×6 (01:00→19:40)
[2017-01-04] MEDS: LEVALBUTEROL (NEB) 0.63 MG/3 ML AMP HHN PRN ×3 (01:42→19:36)
[2017-01-04] MEDS: ACCU-CHEK XX SCH (02:00)
[2017-01-04] MEDS: ALPRAZOLAM 0.25 MG TAB PO PRN (03:38)
[2017-01-04] MEDS: PANTOPRAZOLE (EC) 40 MG TAB PO SCH (05:50)
[2017-01-04] MEDS: METHYLPREDNISOLONE 40 MG INJ IV SCH ×3 (05:50→22:12)
[2017-01-04 07:38] LABS: ADD SCAN DIFF NO
[2017-01-04 07:50] LABS: ABNORMAL IP MESSAGE 1; BASOPHILS % 0.1 % (0.0-2.0); HEMATOCRIT 32.6 % (37.0-47.0); HEMOGLOBIN 10.5 g/dl (12.0-16.0); LYMPHOCYTES # 1.8 10^3/ul (0.8-2.9); LYMPHOCYTES % 22.1 % (15.0-51.0); MEAN CORPUSCULAR HEMOGLOBIN 32.5 pg (29.0-33.0); MEAN CORPUSCULAR HGB CONC 32.2 g/dl (32.0-37.0); MEAN CORPUSCULAR VOLUME 100.9 fl (82.0-101.0); MEAN PLATELET VOLUME 9.8 fl (7.4-10.4); MONOCYTE # 0.5 10^3/ul (0.3-0.9); MONOCYTES % 6.1 % (0.0-11.0); NEUTROPHIL # 5.6 10^3/ul (1.6-7.5); NEUTROPHILS % 70.3 % (39.0-77.0); NUCLEATED RED BLOOD CELLS # 0.1 10^3/ul (0.0-0.0); NUCLEATED RED BLOOD CELLS% 0.9 /100WBC (0.0-0.0); RED BLOOD COUNT 3.23 10^6/ul (4.20-5.40); RED CELL DISTRIBUTION WIDTH 15.7 % (11.5-14.5); WHITE BLOOD COUNT 7.9 10^3/ul (4.8-10.8)
[2017-01-04 08:03] LABS: POTASSIUM 4.6 mmol/L (3.5-5.1)
[2017-01-04 08:05] LABS: PLATELET COUNT 32 10^3/UL (140-415)
[2017-01-04 08:06] LABS: CREATININE 0.82 mg/dl (0.44-1.00)
[2017-01-04 08:07] LABS: CALCIUM 9.6 mg/dl (8.4-10.2); MAGNESIUM 1.5 mg/dl (1.7-2.5); PHOSPHORUS 2.7 mg/dl (2.5-4.9)
[2017-01-04] MEDS: FLUOXETINE 20 MG CAP PO SCH (08:39)
[2017-01-04] MEDS: FERROUS SULFATE (EC) 325 MG TAB PO SCH ×2 (08:39→20:33)
[2017-01-04] MEDS: LISINOPRIL 5 MG TAB PO SCH (08:40)
[2017-01-04] MEDS: metFORMIN 500 MG TAB PO SCH ×2 (08:40→17:24)
[2017-01-04] MEDS: INSULIN ASPART [NOVOLOG] 3 ML PEN SC SCH ×4 (08:44→20:36)
[2017-01-04] MEDS ORDERED: MAGNESIUM SULFATE 2 GM/50 ML 50 ML IVPB ONE (09:30)
--- NOTE | 2017-01-04 09:42 | RADRPT ---
PROCEDURE: XR Chest. CLINICAL INDICATION: Bronchitis. TECHNIQUE: Single frontal view. COMPARISON: 12/30/2016. FINDINGS: The lungs are clear. The heart size is normal. There is no pleural effusion. There is no pneumothorax. IMPRESSION: 1. Normal chest radiograph. 2. No change from 12/30/2016. RPTAT: QQ .Akil Cardona MD, MD Date Time Electronically viewed and signed by .Akil Cardona MD, MD on 01/04/2017 09:41 .R/
[2017-01-04] MEDS: PREGABALIN 75 MG CAP PO SCH ×2 (10:11→20:32)
[2017-01-04] MEDS: GUAIFENESIN/DM 5ML CUP PO PRN ×2 (10:11→20:32)
[2017-01-04] MEDS: LEVOFLOXACIN 500 MG TAB PO SCH (10:11)
--- NOTE | 2017-01-04 10:16 | PN ---
DATE: 01/04/2017 SUBJECTIVE: The patient is complaining of right-sided neck fullness. She is also complaining of co ugh and episodes of shortness of breath. The patient is also very nervous about her platelets bryant nuing to drop despite transfusions. No other acute events noted. OBJECTIVE: VITAL SIGNS: Blood pressure ____/77, respirations 21, pulse 72, temperature 98.1. HEENT: Head is normocephalic. NECK: Supple. HEART: Regular rate. LUNGS: Show diminished breath sounds at base. Positive rhonchi. ABDOMEN: Soft, nontender to palpation. No rebound or guarding. EXTREMITIES: Negative for clubbing, cyanosis. No edema. DERMATOLOGIC: The patient was noted to have ecchymoses upper and lower extremities. MUSCULOSKELETAL: No joint effusions. LABORATORY DATA: Showed sodium 141, potassium 4.6, chloride 99, BUN 25, creatinine 0.82, magnesium 1.5. White count 7.9, hemoglobin 10.5, hematocrit 32.6, platelet count is 32. ASSESSMENT AND PLAN: 1. Pancytopenia, etiology secondary to acute myelodysplastic syndrome, recent chemotherapy. The pa tient is status post blood transfusion, platelet transfusion. The patient is currently on Neupogen. The patient's platelet counts remain low and are dropping. We will defer to hematology for furthe r management and transfusions. 2. Asthmatic bronchitis. The patient continues to have more wheezing and rhonchi. We will increas e Solu-Medrol 20 mg IV q.8h. Continue nebulizer therapy. We will start the patient on Levaquin 500 mg daily. We will order chest x-ray and place a pulmonary consult for evaluation. 3. Urinary tract infection. We will continue Levaquin. 4. Hypertension. Continue lisinopril. Adjust medications as needed. 5. Anxiety disorder. Continue Ativan. 6. Diabetes. Continue Accu-Cheks and sliding scale. 7. ____. Continue Lyrica. 8. Insomnia. Continue Ambien. 9. Depression. Continue Prozac. 10. Debility. Continue PT, OT. 11. History of degenerative joint disease, arthritis. Continue to monitor. 12. Gastrointestinal and deep venous thrombosis prophylaxis. Continue proton pump inhibitor and se quential leg squeezers. 13. Hypomagnesemia. We will replete with magnesium sulfate. Dictated By: FINA NUÑEZ/ARMEN Conf#: [id number] DID#: [id number]
--- NOTE | 2017-01-04 14:33 | RADRPT ---
PROCEDURE: Ultrasound of the soft tissues of the neck. CLINICAL INDICATION: Bilateral neck swelling. TECHNIQUE: High-resolution sonography of the both sides of the neck at the site of the bilateral n suzi swelling was performed in the axial and sagittal planes. COMPARISON: None FINDINGS: There is no fluid collection or mass. There is no abnormality at the site of the neck swelling. IMPRESSION: 1. No abnormality at the site of the neck swelling. 2. Any further management regarding the neck swelling should be based on clinical grounds. RPTAT: QQ .Akil Cardona MD, MD Date Time Electronically viewed and signed by .Akil Cardona MD, MD on 01/04/2017 14:33 .R/
[2017-01-04] MEDS: FILGRASTIM 300 MCG INJ SC SCH (17:24)
[2017-01-04] MEDS: ZOLPIDEM 5 MG TAB PO PRN (22:12)
--- NOTE | 2017-01-04 22:47 | CONS ---
Date/Time of Note Date/Time of Note DATE: 01/04/17 TIME: 22:45 Assessment/Plan Assessment/Plan Chief Complaint/Hosp Course MDS- POST CHEMO 1. pancytopenia, severe thrombocytopenia, anemia. POST CHEMO The patient transfused- 4 units of platelets and 2 units of PRBC. The patient also given Neupogen. We will continue to monitor closely. 2. Reactive airway disease. The patient has audible wheezes on exam. Unclear if this is due to asthmatic bronchitis or a questionable transfusion reaction. Plan at this point is to taper Solu-Medrol 10 mg IV b.i.d. We will start the patient on xopenex and monitor closely. The patient did receive Benadryl prior to transfusion. 3. Diabetes. Continue Accu-Cheks and insulin sliding scale. Continue metformin. 4. Hypertension. Continue current blood pressure regimen. 5. Depression and anxiety. Continue Xanax and Prozac. 6. Neuropathy. Continue Lyrica. 7. History of headaches. Etiology may be secondary to migraines. CT scan shows no acute bleed. We will continue to monitor. Continue pain control. 8. Insomnia. Continue Ambien. 9. History of degenerative joint disease, osteoarthritis. 10. Gastrointestinal and deep venous thrombosis prophylaxis. Continue proton pump inhibitor, sequential leg squeezers. Problems: Consultation Date/Type/Reason Admit Date/Time Dec 31, 2016 at 01:30 Initial Consult Date 12/31/16 Type of Consultation: [facility] Referring Provider: FINA IRVING DO 24 HR Interval Summary Free Text/Dictation all noted + SOB The patient is complaining of right-sided neck fullness. She is also complaining of cough and episodes of shortness of breath. No other acute events noted. Exam/Review of Systems Vital Signs Vitals Vital Signs Date Time Temp Pulse Resp B/P Pulse Ox O2 Delivery O2 Flow Rate FiO2 01/04/17 19:38 76 18 97 21 01/04/17 16:42 98.1 109/60 01/03/17 17:04 Room Air Intake and Output 01/03/17 01/03/17 01/04/17 15:00 23:00 07:00 Intake Total 1730 ml 800 ml Balance 1730 ml 800 ml Exam OBJECTIVE: HEENT: Head is normocephalic. NECK: Supple. HEART: Regular rate. LUNGS: Show diminished breath sounds at base. Positive rhonchi. ABDOMEN: Soft, nontender to palpation. No rebound or guarding. EXTREMITIES: Negative for clubbing, cyanosis. No edema. DERMATOLOGIC: The patient was noted to have ecchymoses upper and lower extremities. MUSCULOSKELETAL: No joint effusions. Results Result Diagram: 01/04/17 0720 01/04/17 0720 Results 24 hrs Laboratory Tests Test 01/04/17 06:06 01/04/17 07:20 01/04/17 11:40 01/04/17 17:14 Bedside Glucose 181 166 211 Anion Gap 20 H Basophils # 0.0 Basophils % 0.1 Blood Urea Nitrogen 25 H Calcium Level 9.6 Carbon Dioxide Level 27 Chloride Level 99 Creatinine 0.82 Eosinophils # 0.0 Eosinophils % 0.0 Glucose Level 151 Hematocrit 32.6 L Hemoglobin 10.5 L Lymphocytes # 1.8 Lymphocytes % 22.1 Magnesium Level 1.5 L Mean Corpuscular Hemoglobin 32.5 Mean Corpuscular Hemoglobin Concent 32.2 Mean Corpuscular Volume 100.9 Mean Platelet Volume 9.8 Monocytes # 0.5 Monocytes % 6.1 Neutrophils # 5.6 Neutrophils % 70.3 Nucleated Red Blood Cells # 0.1 H Nucleated Red Blood Cells % 0.9 H Phosphorus Level 2.7 Platelet Count 32 #L Potassium Level 4.6 Red Blood Count 3.23 L Red Cell Distribution Width 15.7 H Sodium Level 141 White Blood Count 7.9 # Test 01/04/17 20:30 Bedside Glucose 227 H Medications Medications Current Medications Pantoprazole (Protonix Tab) 40 mg DAILY@06 PO Last administered on 01/04/17 05 :50; Admin Dose 40 MG; Start 12/31/16 at 06:00 Alprazolam (Xanax) 0.25 mg DAILY PRN PO ANXIETY Last administered on 01/04/17 03:38; Admin Dose 0.25 MG; Start 12/31/16 at 05:30 Diphenhydramine HCl (Benadryl) 25 mg Q4 PRN IV ITCHING; Start 12/31/16 at 05:30 Diagnostic Test (Pha) (Accucheck) 1 ea 02 XX Last administered on 01/02/17 02: 57; Admin Dose 1 EA; Start 01/01/17 at 02:00 Ferrous Sulfate (Ferrous Sulfate (Ec)) 325 mg BID PO Last administered on 20:33; Admin Dose 325 MG; Start 12/31/16 at 09:00 Fluoxetine HCl (Prozac) 20 mg DAILY PO Last administered on 01/04/17 08:39; Admin Dose 20 MG; Start 12/31/16 at 09:00 Lisinopril (Zestril) 5 mg DAILY PO Last administered on 01/04/17 08:40; Admin Dose 5 MG; Start 12/31/16 at 09:00 Miscellaneous Information 1 ea NOTE XX ; Start 12/31/16 at 06:00 Glucose (Glutose) 15 gm Q15M PRN PO DECREASED GLUCOSE; Start 12/31/16 at 06:00 Glucose (Glutose) 22.5 gm Q15M PRN PO DECREASED GLUCOSE; Start 12/31/16 at 06: 00 Dextrose (D50w Syringe) 25 ml Q15M PRN IV DECREASED GLUCOSE; Start 12/31/16 at 06:00 Dextrose (D50w Syringe) 50 ml Q15M PRN IV DECREASED GLUCOSE; Start 12/31/16 at 06:00 Glucagon (Glucagen) 1 mg Q15M PRN IM DECREASED GLUCOSE; Start 12/31/16 at 06:00 Glucose (Glutose) 15 gm Q15M PRN BUCCAL DECREASED GLUCOSE; Start 12/31/16 at 06 :00 Acetaminophen/ Hydrocodone Bitart ([place] (5/325)) 1 tab Q6H PRN PO pain Last administered on 01/03/17 09:12; Admin Dose 1 TAB; Start 12/31/16 at 10:00 Filgrastim (Neupogen) 300 mcg DAILY@17 SC Last administered on 01/04/17 17:24 ; Admin Dose 300 MCG; Start 12/31/16 at 19:00 Guaifenesin/ Dextromethorphan (Robitussin Dm Liquid Cup) 10 ml Q4H PRN PO COUGH Last administered on 01/04/17 20:32; Admin Dose 10 ML; Start 12/31/16 at 20:30 Pregabalin (Lyrica) 150 mg BID PO Last administered on 01/04/17 20:32; Admin Dose 150 MG; Start 01/04/17 at 09:00 Levofloxacin (Levaquin) 500 mg DAILY@06 PO Last administered on 01/04/17 10:11 ; Admin Dose 500 MG; Start 01/04/17 at 09:30 Methylprednisolone Sodium Succinate (Solu-Medrol) 20 mg Q8 IV Last administered on 01/04/17 22:12; Admin Dose 20 MG; Start 01/04/17 at 14:00 ZHAO CARRILLO MD Jan 04, 2017 22:47
[2017-01-05] MEDS: ALBUTEROL/IPRATROPIUM (NEB) 3 ML AMP HHN SCH ×6 (00:47→19:13)
[2017-01-05 00:52] VITALS: BP 140/72; RESP 20
[2017-01-05] MEDS: LEVALBUTEROL (NEB) 0.63 MG/3 ML AMP HHN PRN ×4 (01:06→19:13)
[2017-01-05] MEDS: ACCU-CHEK XX SCH (02:00)
[2017-01-05 03:52] VITALS: BP 119/62; RESP 20
[2017-01-05] MEDS: LEVOFLOXACIN 500 MG TAB PO SCH (06:04)
[2017-01-05] MEDS: PANTOPRAZOLE (EC) 40 MG TAB PO SCH (06:04)
[2017-01-05] MEDS: METHYLPREDNISOLONE 40 MG INJ IV SCH ×3 (06:04→20:11)
[2017-01-05] MEDS: GUAIFENESIN/DM 5ML CUP PO PRN (06:12)
[2017-01-05 08:29] LABS: ADD SCAN DIFF NO
[2017-01-05 08:36] LABS: ABNORMAL IP MESSAGE 1; BASOPHILS % 0.2 % (0.0-2.0); HEMATOCRIT 34.4 % (37.0-47.0); HEMOGLOBIN 11.1 g/dl (12.0-16.0); LYMPHOCYTES # 1.3 10^3/ul (0.8-2.9); MEAN CORPUSCULAR HEMOGLOBIN 32.2 pg (29.0-33.0); MEAN CORPUSCULAR HGB CONC 32.3 g/dl (32.0-37.0); MEAN CORPUSCULAR VOLUME 99.7 fl (82.0-101.0); MEAN PLATELET VOLUME 12.1 fl (7.4-10.4); MONOCYTE # 0.4 10^3/ul (0.3-0.9); MONOCYTES % 3.9 % (0.0-11.0); NEUTROPHIL # 8.6 10^3/ul (1.6-7.5); NUCLEATED RED BLOOD CELLS # 0.1 10^3/ul (0.0-0.0); NUCLEATED RED BLOOD CELLS% 0.5 /100WBC (0.0-0.0); RED BLOOD COUNT 3.45 10^6/ul (4.20-5.40); RED CELL DISTRIBUTION WIDTH 15.6 % (11.5-14.5); WHITE BLOOD COUNT 10.4 10^3/ul (4.8-10.8)
[2017-01-05] MEDS: FERROUS SULFATE (EC) 325 MG TAB PO SCH ×2 (08:45→20:12)
[2017-01-05] MEDS: FLUOXETINE 20 MG CAP PO SCH (08:46)
[2017-01-05] MEDS: PREGABALIN 75 MG CAP PO SCH ×2 (08:46→20:11)
[2017-01-05 08:48] LABS: POTASSIUM 5.1 mmol/L (3.5-5.1)
[2017-01-05] MEDS: INSULIN ASPART [NOVOLOG] 3 ML PEN SC SCH ×4 (08:48→20:11)
[2017-01-05 08:51] LABS: CREATININE 0.73 mg/dl (0.44-1.00)
[2017-01-05 08:52] VITALS: BP 140/67; RESP 17
[2017-01-05 08:52] LABS: CALCIUM 9.8 mg/dl (8.4-10.2); MAGNESIUM 1.7 mg/dl (1.7-2.5); PHOSPHORUS 4.2 mg/dl (2.5-4.9)
[2017-01-05] MEDS: metFORMIN 500 MG TAB PO SCH ×2 (08:52→17:55)
[2017-01-05] MEDS: LISINOPRIL 5 MG TAB PO SCH (08:57)
[2017-01-05 09:15] LABS: PLATELET COUNT 25 10^3/UL (140-415)
--- NOTE | 2017-01-05 10:26 | PN ---
DATE: 01/05/2017 SUBJECTIVE: The patient is stable. She continues to have cough, but is feeling better. No other a cute events noted. No hemoptysis, hematemesis or hematochezia. OBJECTIVE: VITAL SIGNS: Blood pressure 140/67, respirations 17, pulse 82, temperature 97.6. HEENT: Head is normocephalic. NECK: Supple. HEART: Regular rate. LUNGS: Show diminished breath sounds at the base. ABDOMEN: Soft, nontender to palpation. No rebound or guarding. EXTREMITIES: Negative for clubbing, cyanosis. No edema. DERMATOLOGIC: Positive ecchymosis noted. NEUROLOGIC: No focal deficits. No change in exam. LABORATORY DATA: Shows sodium 139, potassium 5.1, chloride 99, BUN 26, creatinine 0.73. IMAGING: The patient's neck ultrasound shows no abnormalities. Chest x-ray shows normal chest x-ra y, no change. ASSESSMENT AND PLAN: 1. Pancytopenia, thrombocytopenia, etiology secondary to acute myelodysplastic syndrome. The patie nt is status post chemotherapy. The patient has been transfused blood and platelets during this hos pital course. 2. Status post Neupogen. Will continue to monitor platelet counts, which are declining. Will defe r to Hematology for further management and transfusion. 3. Asthmatic bronchitis. The patient is clinically improving. Continue Levaquin, Solu-Medrol. A pulmonary consult was placed for evaluation. 4. Urinary tract infection. The patient is on Levaquin. Will continue. 5. Hypertension. Continue lisinopril. 6. Anxiety. Continue Ativan. 7. Diabetes. Continue Accu-Cheks, insulin sliding scale. 8. Neuropathy. Continue Lyrica. 9. Depression. Continue Prozac. 10. Insomnia. Continue Ambien. 11. Debility. PT, OT consults were placed. 12. Hypomagnesemia. Continue to replete with magnesium sulfate. 13. History of degenerative joint disease and arthritis. Continue to monitor. 14. Gastrointestinal and deep venous thrombosis prophylaxis. Continue PPIs and sequential leg sque ezers. Dictated By: FINA IRVING DO NR/NTS Conf#: [id number] DID#: [id number]
--- NOTE | 2017-01-05 11:28 | CONS ---
DATE OF ADMISSION: 12/31/2016 DATE OF CONSULTATION: REASON FOR CONSULTATION: Shortness of breath. Thank you, Dr. Miner, for this consultation. HISTORY OF PRESENT ILLNESS: This is a 61-year-old lady originally admitted on 12/31/2016 for pancyt openia and neutropenia. She had previously presented with similar problems in November of this year . At that time bone marrow biopsy was consistent with myeloproliferative disorder. During this admi ssion, she has had increasing shortness of breath, orthopnea, PND and had moderate increasing wheezi ng with a questionable history of underlying asthma. PAST MEDICAL HISTORY: 1. Recent diagnosis of myeloproliferative disorder. 2. Diabetes. 3. Pancytopenia. 4. Possible asthma given persistent bronchospasm. MEDICATIONS: Per chart. ALLERGIES: NONE. SOCIAL HISTORY: Nonsmoker, no alcohol, no history of drug use. FAMILY HISTORY: Noncontributory. SYSTEMS REVIEW: A 14-point review of systems was negative other than that mentioned above. PHYSICAL EXAMINATION: GENERAL: Elderly-appearing lady, comfortable at rest, no acute distress. VITAL SIGNS: Currently afebrile, pulse is 82, blood pressure 140/67, O2 saturation 96% on room air. NECK: Supple. No JVD or lymphadenopathy. CARDIAC: S1, S2, no added sounds or murmurs. CHEST: Diminished air entry bilaterally. ABDOMEN: Soft, nontender. No guarding or rebound. EXTREMITIES: No cyanosis, clubbing, edema. NEUROLOGIC: Grossly intact. IMPRESSION: 1. Acute bronchospasm, possible history of asthma. 2. Myeloproliferative disorder. 3. Recent pancytopenia. PLAN: 1. Continue to monitor platelet count and hemoglobin. 2. Agree with IV steroids. 3. Continue bronchodilators. 4. Outpatient pulmonary function testing. Dictated By: JULEE MARCOS/ARMEN Conf#: [id number] DID#: [id number]
--- NOTE | 2017-01-05 11:52 | CONS ---
Date/Time of Note Date/Time of Note DATE: 01/05/17 TIME: 11:50 Assessment/Plan Assessment/Plan Chief Complaint/Hosp Course MDS- POST CHEMO 1. pancytopenia, severe thrombocytopenia, anemia. POST CHEMO The patient transfused- 4 units of platelets and 2 units of PRBC. The patient also given Neupogen. WILL DC TOMORROW We will continue to monitor closely. 2. Reactive airway disease. The patient has audible wheezes on exam. Unclear if this is due to asthmatic bronchitis or a questionable transfusion reaction. Plan at this point is to taper Solu-Medrol 10 mg IV b.i.d. We will start the patient on xopenex and monitor closely. The patient did receive Benadryl prior to transfusion. 3. Diabetes. Continue Accu-Cheks and insulin sliding scale. Continue metformin. 4. Hypertension. Continue current blood pressure regimen. 5. Depression and anxiety. Continue Xanax and Prozac. 6. Neuropathy. Continue Lyrica. 7. History of headaches. Etiology may be secondary to migraines. CT scan shows no acute bleed. We will continue to monitor. Continue pain control. 8. Insomnia. Continue Ambien. 9. History of degenerative joint disease, osteoarthritis. 10. Gastrointestinal and deep venous thrombosis prophylaxis. Continue proton pump inhibitor, sequential leg squeezers. Problems: Consultation Date/Type/Reason Admit Date/Time Dec 31, 2016 at 01:30 Initial Consult Date 12/31/16 Type of Consultation: [facility] Referring Provider: FINA IRVING DO 24 HR Interval Summary Free Text/Dictation ALL NOTED STILL WITH SOB [PLATELET COUNT COMING DOWN NO ACUTE BLEEDING AFEBRILE NOT FELLING WELL PULM CALLED Exam/Review of Systems Vital Signs Vitals Vital Signs Date Time Temp Pulse Resp B/P Pulse Ox O2 Delivery O2 Flow Rate FiO2 01/05/17 08:52 97.6 82 17 140/67 91 01/05/17 07:37 21 01/04/17 20:00 Room Air Intake and Output 01/04/17 01/04/17 01/05/17 15:00 23:00 07:00 Intake Total 1200 ml 200 ml Balance 1200 ml 200 ml Exam GENERAL: Elderly-appearing lady, comfortable at rest, no acute distress. NECK: Supple. No JVD or lymphadenopathy. CARDIAC: S1, S2, no added sounds or murmurs. CHEST: Diminished air entry bilaterally. ABDOMEN: Soft, nontender. No guarding or rebound. EXTREMITIES: No cyanosis, clubbing, edema. NEUROLOGIC: Grossly intact. PROCEDURE: Ultrasound of the soft tissues of the neck. CLINICAL INDICATION: Bilateral neck swelling. TECHNIQUE: High-resolution sonography of the both sides of the neck at the site of the bilateral neck swelling was performed in the axial and sagittal planes. COMPARISON: None FINDINGS: There is no fluid collection or mass. There is no abnormality at the site of the neck swelling. IMPRESSION: 1. No abnormality at the site of the neck swelling. 2. Any further management regarding the neck swelling should be based on clinical grounds. Results Result Diagram: 01/05/17 0700 01/05/17 0700 Results 24 hrs Laboratory Tests Test 01/04/17 17:14 01/04/17 20:30 01/05/17 03:11 01/05/17 07:00 Bedside Glucose 211 227 H 234 H White Blood Count 10.4 # Red Blood Count 3.45 L Hemoglobin 11.1 L Hematocrit 34.4 L Mean Corpuscular Volume 99.7 Mean Corpuscular Hemoglobin 32.2 Mean Corpuscular Hemoglobin Concent 32.3 Red Cell Distribution Width 15.6 H Platelet Count 25 #*L Mean Platelet Volume 12.1 #H Neutrophils % 83.0 H Lymphocytes % 12.0 L Monocytes % 3.9 Eosinophils % 0.0 Basophils % 0.2 Nucleated Red Blood Cells % 0.5 H Neutrophils # 8.6 H Lymphocytes # 1.3 Monocytes # 0.4 Eosinophils # 0.0 Basophils # 0.0 Nucleated Red Blood Cells # 0.1 H Sodium Level 139 Potassium Level 5.1 Chloride Level 99 Carbon Dioxide Level 27 Anion Gap 18 H Blood Urea Nitrogen 26 H Creatinine 0.73 Glucose Level 208 Calcium Level 9.8 Phosphorus Level 4.2 Magnesium Level 1.7 Test 01/05/17 08:11 Bedside Glucose 217 Medications Medications Current Medications Pantoprazole (Protonix Tab) 40 mg DAILY@06 PO Last administered on 01/05/17 06 :04; Admin Dose 40 MG; Start 12/31/16 at 06:00 Alprazolam (Xanax) 0.25 mg DAILY PRN PO ANXIETY Last administered on 01/04/17 03:38; Admin Dose 0.25 MG; Start 12/31/16 at 05:30 Diphenhydramine HCl (Benadryl) 25 mg Q4 PRN IV ITCHING; Start 12/31/16 at 05:30 Diagnostic Test (Pha) (Accucheck) 1 ea 02 XX Last administered on 01/02/17 02: 57; Admin Dose 1 EA; Start 01/01/17 at 02:00 Ferrous Sulfate (Ferrous Sulfate (Ec)) 325 mg BID PO Last administered on 08:45; Admin Dose 325 MG; Start 12/31/16 at 09:00 Fluoxetine HCl (Prozac) 20 mg DAILY PO Last administered on 01/05/17 08:46; Admin Dose 20 MG; Start 12/31/16 at 09:00 Lisinopril (Zestril) 5 mg DAILY PO Last administered on 01/05/17 08:57; Admin Dose 5 MG; Start 12/31/16 at 09:00 Miscellaneous Information 1 ea NOTE XX ; Start 12/31/16 at 06:00 Glucose (Glutose) 15 gm Q15M PRN PO DECREASED GLUCOSE; Start 12/31/16 at 06:00 Glucose (Glutose) 22.5 gm Q15M PRN PO DECREASED GLUCOSE; Start 12/31/16 at 06: 00 Dextrose (D50w Syringe) 25 ml Q15M PRN IV DECREASED GLUCOSE; Start 12/31/16 at 06:00 Dextrose (D50w Syringe) 50 ml Q15M PRN IV DECREASED GLUCOSE; Start 12/31/16 at 06:00 Glucagon (Glucagen) 1 mg Q15M PRN IM DECREASED GLUCOSE; Start 12/31/16 at 06:00 Glucose (Glutose) 15 gm Q15M PRN BUCCAL DECREASED GLUCOSE; Start 12/31/16 at 06 :00 Acetaminophen/ Hydrocodone Bitart ([employer] (5/325)) 1 tab Q6H PRN PO pain Last administered on 01/03/17 09:12; Admin Dose 1 TAB; Start 12/31/16 at 10:00 Filgrastim (Neupogen) 300 mcg DAILY@17 SC Last administered on 01/04/17 17:24 ; Admin Dose 300 MCG; Start 12/31/16 at 19:00 Guaifenesin/ Dextromethorphan (Robitussin Dm Liquid Cup) 10 ml Q4H PRN PO COUGH Last administered on 01/05/17 06:12; Admin Dose 10 ML; Start 12/31/16 at 20:30 Pregabalin (Lyrica) 150 mg BID PO Last administered on 01/05/17 08:46; Admin Dose 150 MG; Start 01/04/17 at 09:00 Levofloxacin (Levaquin) 500 mg DAILY@06 PO Last administered on 01/05/17 06:04 ; Admin Dose 500 MG; Start 01/04/17 at 09:30 Methylprednisolone Sodium Succinate (Solu-Medrol) 20 mg Q8 IV Last administered on 01/05/17 06:04; Admin Dose 20 MG; Start 01/04/17 at 14:00 ZHAO CARRILLO MD Jan 05, 2017 11:52
[2017-01-05 11:57] VITALS: BP 142/63; RESP 20
[2017-01-05 16:05] VITALS: BP 110/50; RESP 18
[2017-01-05] MEDS: FILGRASTIM 300 MCG INJ SC SCH (17:55)
[2017-01-05 19:56] VITALS: BP 131/63; RESP 18
[2017-01-05] MEDS: ALPRAZOLAM 0.25 MG TAB PO PRN (20:18)
[2017-01-06 00:19] VITALS: BP 123/68; RESP 18
[2017-01-06] MEDS: ALBUTEROL/IPRATROPIUM (NEB) 3 ML AMP HHN SCH ×5 (01:00→20:36)
[2017-01-06] MEDS: LEVALBUTEROL (NEB) 0.63 MG/3 ML AMP HHN PRN ×5 (01:31→20:35)
[2017-01-06] MEDS: ACCU-CHEK XX SCH (02:00)
[2017-01-06] MEDS: HYDROCODONE/APAP (5/325) TAB PO PRN (05:05)
[2017-01-06] MEDS: METHYLPREDNISOLONE 40 MG INJ IV SCH ×4 (05:05→20:28)
[2017-01-06] MEDS: LEVOFLOXACIN 500 MG TAB PO SCH (05:05)
[2017-01-06] MEDS: PANTOPRAZOLE (EC) 40 MG TAB PO SCH (05:05)
[2017-01-06 07:25] LABS: ADD SCAN DIFF NO
[2017-01-06 07:33] LABS: ABNORMAL IP MESSAGE 1; HEMATOCRIT 33.1 % (37.0-47.0); HEMOGLOBIN 11.2 g/dl (12.0-16.0); MEAN CORPUSCULAR HEMOGLOBIN 33.3 pg (29.0-33.0); MEAN CORPUSCULAR HGB CONC 33.8 g/dl (32.0-37.0); MEAN CORPUSCULAR VOLUME 98.5 fl (82.0-101.0); MEAN PLATELET VOLUME 11.2 fl (7.4-10.4); RED BLOOD COUNT 3.36 10^6/ul (4.20-5.40); RED CELL DISTRIBUTION WIDTH 15.5 % (11.5-14.5); WHITE BLOOD COUNT 13.7 10^3/ul (4.8-10.8)
[2017-01-06 07:48] VITALS: BP 147/70; RESP 20
[2017-01-06 08:01] LABS: PLATELET COUNT 17 10^3/UL (140-415)
[2017-01-06] MEDS: metFORMIN 500 MG TAB PO SCH ×2 (08:47→17:58)
[2017-01-06] MEDS: FERROUS SULFATE (EC) 325 MG TAB PO SCH ×2 (08:48→20:28)
[2017-01-06] MEDS: PREGABALIN 75 MG CAP PO SCH ×2 (08:48→20:27)
[2017-01-06] MEDS: FLUOXETINE 20 MG CAP PO SCH (08:49)
[2017-01-06] MEDS: LISINOPRIL 5 MG TAB PO SCH (08:49)
[2017-01-06] MEDS: INSULIN ASPART [NOVOLOG] 3 ML PEN SC SCH ×4 (08:53→20:30)
[2017-01-06] MEDS ORDERED: MECLIZINE 25 MG TAB PO PRN (10:00)
--- NOTE | 2017-01-06 11:02 | PN ---
DATE: 01/06/2017 SUBJECTIVE: This morning, the patient is complaining about headache, dizziness. She says her short ness of breath is improving. No fevers. No chills. OBJECTIVE: VITAL SIGNS: Blood pressure 147/70, respirations 20, pulse 68, temperature 97.8. HEENT: Head is normocephalic. NECK: Supple. HEART: Regular rate. LUNGS: Show diminished breath sounds at the bases. ABDOMEN: Soft, nontender to palpation. No rebound or guarding. EXTREMITIES: Negative for clubbing, cyanosis. No edema. DERMATOLOGIC: No rashes. The patient does have noted ecchymoses, no change. MUSCULOSKELETAL: No joint effusions. NEUROLOGIC: No change in exam. LABORATORY DATA: Shows white count 13.7, hemoglobin 11.2, hematocrit 33.1, platelet count 17. ASSESSMENT AND PLAN: 1. Thrombocytopenia. Etiology secondary to myelodysplastic syndrome. The patient is status post c hemotherapy. The patient is status post platelet transfusion. The patient's platelets continue to trend down. Continue to monitor. Consider transfusion. Follow up with hematology. 2. Leukopenia, improved. The patient is status post Neupogen. Continue to monitor. 3. Anemia. The patient is status post blood transfusion. Hemoglobin levels have been stable. Con tinue to monitor. 4. Asthmatic bronchitis. The patient is clinically improving. Continue Levaquin, Solu-Medrol. Ap preciate pulmonary's evaluation. 5. Urinary tract infection. Continue Levaquin. 6. Headaches, dizziness. Etiology may be secondary to pain medications or benign positional vertig o. However, given the patient's severe thrombocytopenia, we will repeat a CT scan of the head to ru le out any form of bleed. 7. Hypertension, controlled. Continue lisinopril. 8. Anxiety disorder, depression. Continue Prozac and Ativan. 9. Neuropathy. Continue Lyrica. 10. Diabetes. Continue current insulin regimen. 11. Insomnia. Continue Ambien. 12. History of degenerative joint disease, osteoarthritis. Continue to monitor. 13. Debility. Continue PT. 14. Gastrointestinal and deep venous thrombosis prophylaxis. Continue proton pump inhibitor and se quential leg squeezers. Dictated By: FINA NUÑEZ/ARMEN Conf#: [id number] [facility]#: [id number]
[2017-01-06 11:23] LABS: LYMPHOCYTES # 1.4 10^3/ul (0.8-2.9); MONOCYTE # 0.5 10^3/ul (0.3-0.9); NEUTROPHIL # 9.2 10^3/ul (1.6-7.5); PLATELET ESTIMATE PLT APPEAR DECREASED
--- NOTE | 2017-01-06 11:26 | RADRPT ---
PROCEDURE: CT Brain without contrast. CLINICAL INDICATION: Headaches. Neurologic deficit TECHNIQUE: A CT of the brain was performed on multidetector high-resolution CT scanner utilizing a xial sections from the skull base through the vertex without contrast. One or more of the following dose reduction techniques were used: Automated exposure control, Adjustment of the mA and/or kV acc ording to patient size, and/or use of iterative reconstruction technique. DOSE: CTDI = 44 mGy and the DLP = 720 mGy-cm. COMPARISON: Head CT 12/31/2016 FINDINGS: No acute intracranial hemorrhage, significant mass effect or midline shift. The duvall-white different iation is grossly preserved. Right frontal and right medial temporal occipital calcifications again seen. The ventricles are stable size with mild volume loss noted. Paranasal sinus mucosal thickening . IMPRESSION: No significant change identified since 12/31/2016. No acute intracranial hemorrhage or significant mass effect. Right frontal and right medial temporal occipital calcifications are nonspecific but may be due to o ld healed neurocysticercosis. RPTAT: AA .Sotero Jorgensen MD, Date Time Electronically viewed and signed by .Sotero Jorgensen MD, on 01/06/2017 11:26 .T/
[2017-01-06 11:53] VITALS: BP 101/50; RESP 18
--- NOTE | 2017-01-06 13:57 | CONS ---
Date/Time of Note Date/Time of Note DATE: 01/06/17 TIME: 13:55 Assessment/Plan Assessment/Plan Additional Assessment/Plan Assessment recommendations; 1. Patient admitted with severe asthma exacerbation with acute bronchitis. 2. History of myelodysplastic syndrome. 3. History of severe thrombocytopenia. 4. History of hypertension. 5. History of diabetes. Next Increase ultimately to 40 mg every 6 hours IV. Add Zithromax 500 mg IV daily. Continue current other medications. Consultation Date/Type/Reason Admit Date/Time Dec 31, 2016 at 01:30 Initial Consult Date 12/31/16 Type of Consultation: Pulmonary Referring Provider: FINA IRVING DO 24 HR Interval Summary Free Text/Dictation Patient condition stable. Still complains significant cough wheezing, shortness of breath is improving. Denies any fever chills. Denies any sinus symptoms. General exam; middle-aged woman currently in no distress having significant coughing bouts. Exam/Review of Systems Vital Signs Vitals Vital Signs Date Time Temp Pulse Resp B/P Pulse Ox O2 Delivery O2 Flow Rate FiO2 01/06/17 11:53 98.5 86 18 101/50 95 01/06/17 07:55 21 01/04/17 20:00 Room Air Intake and Output 01/05/17 01/05/17 01/06/17 15:00 23:00 07:00 Intake Total 600 ml Balance 600 ml Exam HEENT exam is; supple neck, no JVD. No lymphadenopathy. Midline trachea. No thyromegaly. Pharynx is clear. Patient has fair dentition. Pupils are midsize and reactive to light bilaterally. Chest exam is; diminished breath sound bilaterally with bilateral expiratory wheezing. S1-S2 audible, no murmurs. Regular rhythm. Abdomen examination; soft, protuberant. Nontender. Bowel is audible. No organomegaly felt. Extremity exam is; no peripheral edema. Pulses 1+ bilaterally. There are bilateral well-healed knee scars present. Next CRISIS COUNSELOR examination; no focal deficit. Results Result Diagram: 01/06/17 0655 01/05/17 0700 Results 24 hrs Laboratory Tests Test 01/05/17 17:51 01/05/17 19:41 01/06/17 01:31 01/06/17 06:55 Bedside Glucose 215 263 H 233 H White Blood Count 13.7 #H Red Blood Count 3.36 L Hemoglobin 11.2 L Hematocrit 33.1 L Mean Corpuscular Volume 98.5 Mean Corpuscular Hemoglobin 33.3 H Mean Corpuscular Hemoglobin Concent 33.8 Red Cell Distribution Width 15.5 H Platelet Count 17 #*L Mean Platelet Volume 11.2 H Neutrophils % 67.0 Band Neutrophils % 19.0 H Lymphocytes % 10.0 L Monocytes % 4.0 Eosinophils % Neutrophils # 9.2 H Lymphocytes # 1.4 Monocytes # 0.5 Eosinophils # Platelet Estimate PLT APPEAR DECREASED Test 01/06/17 07:31 01/06/17 12:11 Bedside Glucose 189 205 Medications Medications Current Medications Pantoprazole (Protonix Tab) 40 mg DAILY@06 PO Last administered on 01/06/17 05 :05; Admin Dose 40 MG; Start 12/31/16 at 06:00 Alprazolam (Xanax) 0.25 mg DAILY PRN PO ANXIETY Last administered on 01/05/17 20:18; Admin Dose 0.25 MG; Start 12/31/16 at 05:30 Diphenhydramine HCl (Benadryl) 25 mg Q4 PRN IV ITCHING; Start 12/31/16 at 05:30 Diagnostic Test (Pha) (Accucheck) 1 ea 02 XX Last administered on 01/06/17 02: 00; Admin Dose 1 EA; Start 01/01/17 at 02:00 Ferrous Sulfate (Ferrous Sulfate (Ec)) 325 mg BID PO Last administered on 08:48; Admin Dose 325 MG; Start 12/31/16 at 09:00 Fluoxetine HCl (Prozac) 20 mg DAILY PO Last administered on 01/06/17 08:49; Admin Dose 20 MG; Start 12/31/16 at 09:00 Lisinopril (Zestril) 5 mg DAILY PO Last administered on 01/06/17 08:49; Admin Dose 5 MG; Start 12/31/16 at 09:00 Miscellaneous Information 1 ea NOTE XX ; Start 12/31/16 at 06:00 Glucose (Glutose) 15 gm Q15M PRN PO DECREASED GLUCOSE; Start 12/31/16 at 06:00 Glucose (Glutose) 22.5 gm Q15M PRN PO DECREASED GLUCOSE; Start 12/31/16 at 06: 00 Dextrose (D50w Syringe) 25 ml Q15M PRN IV DECREASED GLUCOSE; Start 12/31/16 at 06:00 Dextrose (D50w Syringe) 50 ml Q15M PRN IV DECREASED GLUCOSE; Start 12/31/16 at 06:00 Glucagon (Glucagen) 1 mg Q15M PRN IM DECREASED GLUCOSE; Start 12/31/16 at 06:00 Glucose (Glutose) 15 gm Q15M PRN BUCCAL DECREASED GLUCOSE; Start 12/31/16 at 06 :00 Acetaminophen/ Hydrocodone Bitart ([place] (5/325)) 1 tab Q6H PRN PO pain Last administered on 01/06/17 05:05; Admin Dose 1 TAB; Start 12/31/16 at 10:00 Filgrastim (Neupogen) 300 mcg DAILY@17 SC Last administered on 01/05/17 17:55 ; Admin Dose 300 MCG; Start 12/31/16 at 19:00 Guaifenesin/ Dextromethorphan (Robitussin Dm Liquid Cup) 10 ml Q4H PRN PO COUGH Last administered on 01/05/17 06:12; Admin Dose 10 ML; Start 12/31/16 at 20:30 Pregabalin (Lyrica) 150 mg BID PO Last administered on 01/06/17 08:48; Admin Dose 150 MG; Start 01/04/17 at 09:00 Levofloxacin (Levaquin) 500 mg DAILY@06 PO Last administered on 01/06/17 05:05 ; Admin Dose 500 MG; Start 01/04/17 at 09:30 Methylprednisolone Sodium Succinate (Solu-Medrol) 20 mg Q8 IV Last administered on 01/06/17 05:05; Admin Dose 20 MG; Start 01/04/17 at 14:00 Meclizine HCl (Antivert) 25 mg TID PRN PO dizziness; Start 01/06/17 at 10:00 SHALINI PARR Jan 06, 2017 13:57
[2017-01-06] MEDS ORDERED: AZITHROMYCIN 500 MG in SOD CHLORIDE 0.9% 250 ML IVPB SCH (14:00)
[2017-01-06] MEDS: FILGRASTIM 300 MCG INJ SC SCH (18:00)
[2017-01-06] MEDS: ALPRAZOLAM 0.25 MG TAB PO PRN (18:01)
[2017-01-06] MEDS: ZOLPIDEM 5 MG TAB PO PRN (20:33)
[2017-01-06 20:45] VITALS: BP 112/62; RESP 16
--- NOTE | 2017-01-06 22:45 | CONS ---
Date/Time of Note Date/Time of Note DATE: 01/06/17 TIME: 22:42 Assessment/Plan Assessment/Plan Chief Complaint/Hosp Course MDS- POST CHEMO 1. pancytopenia, severe thrombocytopenia, anemia. POST CHEMO The patient transfused- 4 units of platelets and 2 units of PRBC. The patient also given Neupogen. WILL DC TODAY We will continue to monitor closely. MAY NEED PLATELET TRANSFUSIONS TOMORROW 2. ASTHMA Reactive airway disease. IMPROVING 3. Diabetes. Continue Accu-Cheks and insulin sliding scale. Continue metformin. 4. Hypertension. Continue current blood pressure regimen. 5. Depression and anxiety. Continue Xanax and Prozac. 6. Neuropathy. Continue Lyrica. 7. History of headaches. Etiology may be secondary to migraines. CT scan shows no acute bleed. We will continue to monitor. Continue pain control. 8. Insomnia. Continue Ambien. 9. History of degenerative joint disease, osteoarthritis. 10. Gastrointestinal and deep venous thrombosis prophylaxis. Continue proton pump inhibitor, sequential leg squeezers. Problems: Consultation Date/Type/Reason Admit Date/Time Dec 31, 2016 at 01:30 Initial Consult Date 12/31/16 Type of Consultation: [facility] Referring Provider: FINA IRVING DO 24 HR Interval Summary Free Text/Dictation + headache, dizziness. shortness of breath is improving. No fevers. No chills. Exam/Review of Systems Vital Signs Vitals Vital Signs Date Time Temp Pulse Resp B/P Pulse Ox O2 Delivery O2 Flow Rate FiO2 01/06/17 20:45 97.9 81 16 112/62 96 01/06/17 20:38 21 01/04/17 20:00 Room Air Intake and Output 01/05/17 01/05/17 01/06/17 15:00 23:00 07:00 Intake Total 600 ml Balance 600 ml Exam OBJECTIVE: HEENT: Head is normocephalic. NECK: Supple. HEART: Regular rate. LUNGS: Show diminished breath sounds at the bases. ABDOMEN: Soft, nontender to palpation. No rebound or guarding. EXTREMITIES: Negative for clubbing, cyanosis. No edema. DERMATOLOGIC: No rashes. The patient does have noted ecchymoses, no change. MUSCULOSKELETAL: No joint effusions. NEUROLOGIC: No change in exam. Results Result Diagram: 01/06/17 0655 01/05/17 0700 Results 24 hrs Laboratory Tests Test 01/06/17 01:31 01/06/17 06:55 01/06/17 07:31 01/06/17 12:11 Bedside Glucose 233 H 189 205 White Blood Count 13.7 #H Red Blood Count 3.36 L Hemoglobin 11.2 L Hematocrit 33.1 L Mean Corpuscular Volume 98.5 Mean Corpuscular Hemoglobin 33.3 H Mean Corpuscular Hemoglobin Concent 33.8 Red Cell Distribution Width 15.5 H Platelet Count 17 #*L Mean Platelet Volume 11.2 H Neutrophils % 67.0 Band Neutrophils % 19.0 H Lymphocytes % 10.0 L Monocytes % 4.0 Eosinophils % Neutrophils # 9.2 H Lymphocytes # 1.4 Monocytes # 0.5 Eosinophils # Platelet Estimate PLT APPEAR DECREASED Test 01/06/17 17:13 01/06/17 20:28 Bedside Glucose 171 152 Medications Medications Current Medications Pantoprazole (Protonix Tab) 40 mg DAILY@06 PO Last administered on 01/06/17 05 :05; Admin Dose 40 MG; Start 12/31/16 at 06:00 Alprazolam (Xanax) 0.25 mg DAILY PRN PO ANXIETY Last administered on 01/06/17 18:01; Admin Dose 0.25 MG; Start 12/31/16 at 05:30 Diphenhydramine HCl (Benadryl) 25 mg Q4 PRN IV ITCHING; Start 12/31/16 at 05:30 Diagnostic Test (Pha) (Accucheck) 1 ea 02 XX Last administered on 01/06/17 02: 00; Admin Dose 1 EA; Start 01/01/17 at 02:00 Ferrous Sulfate (Ferrous Sulfate (Ec)) 325 mg BID PO Last administered on 20:28; Admin Dose 325 MG; Start 12/31/16 at 09:00 Fluoxetine HCl (Prozac) 20 mg DAILY PO Last administered on 01/06/17 08:49; Admin Dose 20 MG; Start 12/31/16 at 09:00 Lisinopril (Zestril) 5 mg DAILY PO Last administered on 01/06/17 08:49; Admin Dose 5 MG; Start 12/31/16 at 09:00 Miscellaneous Information 1 ea NOTE XX ; Start 12/31/16 at 06:00 Glucose (Glutose) 15 gm Q15M PRN PO DECREASED GLUCOSE; Start 12/31/16 at 06:00 Glucose (Glutose) 22.5 gm Q15M PRN PO DECREASED GLUCOSE; Start 12/31/16 at 06: 00 Dextrose (D50w Syringe) 25 ml Q15M PRN IV DECREASED GLUCOSE; Start 12/31/16 at 06:00 Dextrose (D50w Syringe) 50 ml Q15M PRN IV DECREASED GLUCOSE; Start 12/31/16 at 06:00 Glucagon (Glucagen) 1 mg Q15M PRN IM DECREASED GLUCOSE; Start 12/31/16 at 06:00 Glucose (Glutose) 15 gm Q15M PRN BUCCAL DECREASED GLUCOSE; Start 12/31/16 at 06 :00 Acetaminophen/ Hydrocodone Bitart ([place] (5/325)) 1 tab Q6H PRN PO pain Last administered on 01/06/17 05:05; Admin Dose 1 TAB; Start 12/31/16 at 10:00 Filgrastim (Neupogen) 300 mcg DAILY@17 SC Last administered on 01/06/17 18:00 ; Admin Dose 300 MCG; Start 12/31/16 at 19:00 Guaifenesin/ Dextromethorphan (Robitussin Dm Liquid Cup) 10 ml Q4H PRN PO COUGH Last administered on 01/05/17 06:12; Admin Dose 10 ML; Start 12/31/16 at 20:30 Pregabalin (Lyrica) 150 mg BID PO Last administered on 01/06/17 20:27; Admin Dose 150 MG; Start 01/04/17 at 09:00 Levofloxacin (Levaquin) 500 mg DAILY@06 PO Last administered on 01/06/17 05:05 ; Admin Dose 500 MG; Start 01/04/17 at 09:30 Meclizine HCl (Antivert) 25 mg TID PRN PO dizziness; Start 01/06/17 at 10:00 Methylprednisolone Sodium Succinate (Solu-Medrol) 40 mg Q6 IV Last administered on 01/06/17 20:28; Admin Dose 40 MG; Start 01/06/17 at 14:00 ZHAO CARRILLO MD Jan 06, 2017 22:45
[2017-01-07] MEDS: ALBUTEROL/IPRATROPIUM (NEB) 3 ML AMP HHN SCH ×6 (01:00→20:53)
[2017-01-07] MEDS: LEVALBUTEROL (NEB) 0.63 MG/3 ML AMP HHN PRN ×2 (01:43→05:10)
[2017-01-07] MEDS: ACCU-CHEK XX SCH (02:00)
[2017-01-07] MEDS: PANTOPRAZOLE (EC) 40 MG TAB PO SCH (05:15)
[2017-01-07] MEDS: METHYLPREDNISOLONE 40 MG INJ IV SCH ×4 (05:15→23:19)
[2017-01-07] MEDS: LEVOFLOXACIN 500 MG TAB PO SCH (05:15)
[2017-01-07 07:14] LABS: ADD SCAN DIFF NO
[2017-01-07 07:23] LABS: ABNORMAL IP MESSAGE 1; BASOPHILS % 0.3 % (0.0-2.0); HEMATOCRIT 34.3 % (37.0-47.0); HEMOGLOBIN 11.5 g/dl (12.0-16.0); LYMPHOCYTES # 0.6 10^3/ul (0.8-2.9); LYMPHOCYTES % 4.8 % (15.0-51.0); MEAN CORPUSCULAR HEMOGLOBIN 33.1 pg (29.0-33.0); MEAN CORPUSCULAR HGB CONC 33.5 g/dl (32.0-37.0); MEAN CORPUSCULAR VOLUME 98.8 fl (82.0-101.0); MONOCYTE # 0.6 10^3/ul (0.3-0.9); MONOCYTES % 4.9 % (0.0-11.0); NEUTROPHIL # 9.3 10^3/ul (1.6-7.5); NEUTROPHILS % 80.5 % (39.0-77.0); RED BLOOD COUNT 3.47 10^6/ul (4.20-5.40); RED CELL DISTRIBUTION WIDTH 15.4 % (11.5-14.5); WHITE BLOOD COUNT 11.6 10^3/ul (4.8-10.8)
[2017-01-07 07:40] LABS: PLATELET COUNT 21 10^3/UL (140-415)
[2017-01-07 07:42] LABS: CREATININE 0.76 mg/dl (0.44-1.00)
[2017-01-07 07:43] LABS: CALCIUM 9.4 mg/dl (8.4-10.2); MAGNESIUM 1.8 mg/dl (1.7-2.5); PHOSPHORUS 4.9 mg/dl (2.5-4.9)
[2017-01-07 07:47] VITALS: BP 121/70; RESP 20
[2017-01-07] MEDS: metFORMIN 500 MG TAB PO SCH ×2 (09:08→17:35)
[2017-01-07] MEDS: FLUOXETINE 20 MG CAP PO SCH (09:09)
[2017-01-07] MEDS: FERROUS SULFATE (EC) 325 MG TAB PO SCH ×2 (09:09→20:07)
[2017-01-07] MEDS: PREGABALIN 75 MG CAP PO SCH ×2 (09:09→20:07)
[2017-01-07] MEDS: LISINOPRIL 5 MG TAB PO SCH (09:10)
[2017-01-07] MEDS: INSULIN ASPART [NOVOLOG] 3 ML PEN SC SCH ×4 (09:17→20:35)
[2017-01-07] MEDS ORDERED: ACETAMINOPHEN 325 MG TAB PO ONE (10:00)
[2017-01-07] MEDS ORDERED: DIPHENHYDRAMINE 25 MG CAP PO ONE (10:00)
--- NOTE | 2017-01-07 10:05 | PN ---
DATE: 01/07/2017 SUBJECTIVE: The patient is stable. He is clinically feeling better. The patient is scheduled for t ransfusion today. No other events noted. OBJECTIVE: VITAL SIGNS: Blood pressure 121/70, respirations 20, pulse 82, temperature 98.7. HEENT: Head is normocephalic. NECK: Supple. HEART: Regular rate. LUNGS: Show diminished breath sounds at the base. ABDOMEN: Soft, nontender to palpation without rebound or guarding. EXTREMITIES: Negative for clubbing, cyanosis. Positive ecchymosis. DERMATOLOGIC: No rashes. MUSCULOSKELETAL: No joint effusions. NEUROLOGIC: No change in exam. MEDICATIONS: Patient's medications have been reviewed. LABORATORY DATA: Showed sodium 130.0, potassium 5.0, chloride 98, BUN 13, creatinine 0.76, glucose 248. White count 11.6, hemoglobin 11.5, hematocrit 34.3, platelet count is 21. ASSESSMENT AND PLAN: 1. Thrombocytopenia secondary to myelodysplastic syndrome. Patient is status post chemotherapy. Babar perera pending platelet transfusion today. Follow up hematology. 2. Leukopenia, improved. Continue to monitor. 3. Anemia. The patient is status post blood transfusion. Continue to monitor H and H levels. 4. Asthma bronchitis, clinically improving. The patient's Solu-Medrol is increased. We will follo w up with pulmonary. Continue Levaquin, nebulizer. 5. Urinary tract infection. Continue Levaquin. 6. Diabetes. The patient's glucose levels are elevated secondary to steroids. We will start the p atient on Lantus 8 units subQ at bedtime. Continue insulin sliding scale. Continue metformin. 7. Hypertension. Continue current blood pressure regimen. 8. Anxiety disorder, depression. Continue Prozac and Ativan. 9. Neuropathy. Continue Lyrica. 10. Insomnia. Continue Ambien. 11. Debility. Continue PT, OT. 12. Gastrointestinal and deep venous thrombosis prophylaxis. Continue proton pump inhibitor and se quential leg squeezers. Dictated By: FINA NUÑEZ/ARMEN Conf#: [id number] DID#: [id number]
[2017-01-07 11:49] VITALS: BP 146/63; RESP 20
--- NOTE | 2017-01-07 14:22 | CONS ---
Date/Time of Note Date/Time of Note DATE: 01/07/17 TIME: 14:08 Consult Date/Type/Reason Admit Date/Time Dec 31, 2016 at 01:30 Initial Consult Date 12/31/16 Type of Consultation: Pulm Ordering Provider: FINA IRVING DO Subjective Comfortable, No new events. Breathing better Objective Vital Signs Date Time Temp Pulse Resp B/P Pulse Ox O2 Delivery O2 Flow Rate FiO2 01/07/17 12:45 84 20 100 21 01/07/17 11:49 98.7 146/63 01/04/17 20:00 Room Air Intake and Output 01/06/17 01/06/17 01/07/17 15:00 23:00 07:00 Intake Total 960 ml Balance 960 ml Exam GENERAL: VITAL SIGNS: per chart NECK: Supple. No JVD or lymphadenopathy. CARDIAC EXAM: S1, S2. No added sounds or murmurs. CHEST: clear bilaterally, No added sounds, rales or wheezes ABDOMEN: Soft, nontender. No guarding or rebound. EXTREMITIES: No cyanosis, clubbing or edema. NEUROLOGIC: Generalized weakness. No focal deficits. Results/Medications Result Diagram: 01/07/17 0643 01/07/17 0643 Results 24 hrs Laboratory Tests Test 01/06/17 17:13 01/06/17 20:28 01/07/17 06:43 01/07/17 07:38 Bedside Glucose 171 152 222 H White Blood Count 11.6 H Red Blood Count 3.47 L Hemoglobin 11.5 L Hematocrit 34.3 L Mean Corpuscular Volume 98.8 Mean Corpuscular Hemoglobin 33.1 H Mean Corpuscular Hemoglobin Concent 33.5 Red Cell Distribution Width 15.4 H Platelet Count 21 #*L Mean Platelet Volume Neutrophils % 80.5 H Lymphocytes % 4.8 L Monocytes % 4.9 Eosinophils % 0.0 Basophils % 0.3 Nucleated Red Blood Cells % 0.0 Neutrophils # 9.3 H Lymphocytes # 0.6 L Monocytes # 0.6 Eosinophils # 0.0 Basophils # 0.0 Nucleated Red Blood Cells # 0.0 Sodium Level 138 Potassium Level 5.0 Chloride Level 98 Carbon Dioxide Level 26 Anion Gap 19 H Blood Urea Nitrogen 30 H Creatinine 0.76 Glucose Level 248 H Calcium Level 9.4 Phosphorus Level 4.9 Magnesium Level 1.8 Test 01/07/17 12:41 Bedside Glucose 230 H Medications Current Medications Pantoprazole (Protonix Tab) 40 mg DAILY@06 PO Last administered on 01/07/17 05 :15; Admin Dose 40 MG; Start 12/31/16 at 06:00 Alprazolam (Xanax) 0.25 mg DAILY PRN PO ANXIETY Last administered on 01/06/17 18:01; Admin Dose 0.25 MG; Start 12/31/16 at 05:30 Diphenhydramine HCl (Benadryl) 25 mg Q4 PRN IV ITCHING; Start 12/31/16 at 05:30 Diagnostic Test (Pha) (Accucheck) 1 ea 02 XX Last administered on 01/07/17 02: 00; Admin Dose 1 EA; Start 01/01/17 at 02:00 Ferrous Sulfate (Ferrous Sulfate (Ec)) 325 mg BID PO Last administered on 09:09; Admin Dose 325 MG; Start 12/31/16 at 09:00 Fluoxetine HCl (Prozac) 20 mg DAILY PO Last administered on 01/07/17 09:09; Admin Dose 20 MG; Start 12/31/16 at 09:00 Lisinopril (Zestril) 5 mg DAILY PO Last administered on 01/07/17 09:10; Admin Dose 5 MG; Start 12/31/16 at 09:00 Miscellaneous Information 1 ea NOTE XX ; Start 12/31/16 at 06:00 Glucose (Glutose) 15 gm Q15M PRN PO DECREASED GLUCOSE; Start 12/31/16 at 06:00 Glucose (Glutose) 22.5 gm Q15M PRN PO DECREASED GLUCOSE; Start 12/31/16 at 06: 00 Dextrose (D50w Syringe) 25 ml Q15M PRN IV DECREASED GLUCOSE; Start 12/31/16 at 06:00 Dextrose (D50w Syringe) 50 ml Q15M PRN IV DECREASED GLUCOSE; Start 12/31/16 at 06:00 Glucagon (Glucagen) 1 mg Q15M PRN IM DECREASED GLUCOSE; Start 12/31/16 at 06:00 Glucose (Glutose) 15 gm Q15M PRN BUCCAL DECREASED GLUCOSE; Start 12/31/16 at 06 :00 Acetaminophen/ Hydrocodone Bitart ([place] (5/325)) 1 tab Q6H PRN PO pain Last administered on 01/06/17 05:05; Admin Dose 1 TAB; Start 12/31/16 at 10:00 Guaifenesin/ Dextromethorphan (Robitussin Dm Liquid Cup) 10 ml Q4H PRN PO COUGH Last administered on 01/05/17 06:12; Admin Dose 10 ML; Start 12/31/16 at 20:30 Pregabalin (Lyrica) 150 mg BID PO Last administered on 01/07/17 09:09; Admin Dose 150 MG; Start 01/04/17 at 09:00 Levofloxacin (Levaquin) 500 mg DAILY@06 PO Last administered on 01/07/17 05:15 ; Admin Dose 500 MG; Start 01/04/17 at 09:30 Meclizine HCl (Antivert) 25 mg TID PRN PO dizziness; Start 01/06/17 at 10:00 Methylprednisolone Sodium Succinate (Solu-Medrol) 40 mg Q6 IV Last administered on 01/07/17 12:44; Admin Dose 40 MG; Start 01/06/17 at 14:00 Insulin Glargine (Lantus) 8 unit DAILY@20 SC ; Start 01/07/17 at 20:00 Assessment/Plan Chief Complaint/Hosp Course Assessment 1. Patient admitted with severe asthma exacerbation with acute bronchitis. 2. History of myelodysplastic syndrome. 3. History of severe thrombocytopenia. 4. History of hypertension. 5. History of diabetes. Plan 1. Continue bronchodilators 2. heme onc recs. 3. encourage OOB. Problems: JULEE INGRAM MD, [facility] Jan 07, 2017 14:21
[2017-01-07] MEDS: GUAIFENESIN/DM 5ML CUP PO PRN ×2 (15:09→20:12)
[2017-01-07 19:26] VITALS: BP 137/71; PULSE 78; RESP 18
[2017-01-07] MEDS ORDERED: INSULIN GLARGINE [LANtus] 3 ML PEN SC SCH (20:00)
[2017-01-07 20:56] VITALS: BP 140/77; RESP 18
[2017-01-07] MEDS: ZOLPIDEM 5 MG TAB PO PRN (22:10)
--- NOTE | 2017-01-07 23:46 | CONS ---
Date/Time of Note Date/Time of Note DATE: 01/07/17 TIME: 23:46 Assessment/Plan Assessment/Plan Chief Complaint/Hosp Course MDS- POST CHEMO 1. pancytopenia, severe thrombocytopenia, anemia. POST CHEMO The patient transfused- 4 units of platelets and 2 units of PRBC. The patient also given Neupogen. WILL DC TODAY We will continue to monitor closely. MAY NEED PLATELET TRANSFUSIONS TOMORROW 2. ASTHMA Reactive airway disease. IMPROVING 3. Diabetes. Continue Accu-Cheks and insulin sliding scale. Continue metformin. 4. Hypertension. Continue current blood pressure regimen. 5. Depression and anxiety. Continue Xanax and Prozac. 6. Neuropathy. Continue Lyrica. 7. History of headaches. Etiology may be secondary to migraines. CT scan shows no acute bleed. We will continue to monitor. Continue pain control. 8. Insomnia. Continue Ambien. 9. History of degenerative joint disease, osteoarthritis. 10. Gastrointestinal and deep venous thrombosis prophylaxis. Continue proton pump inhibitor, sequential leg squeezers. Problems: Consultation Date/Type/Reason Admit Date/Time Dec 31, 2016 at 01:30 Initial Consult Date 12/31/16 Type of Consultation: [facility] Referring Provider: FINA IRVING DO 24 HR Interval Summary Free Text/Dictation The patient is stable. He is clinically feeling better. The patient is scheduled for transfusion today. No other events noted. Exam/Review of Systems Vital Signs Vitals Vital Signs Date Time Temp Pulse Resp B/P Pulse Ox O2 Delivery O2 Flow Rate FiO2 01/07/17 20:56 98.6 18 140/77 95 01/07/17 20:53 82 21 01/07/17 19:26 Room Air Intake and Output 01/06/17 01/06/17 01/07/17 15:00 23:00 07:00 Intake Total 960 ml Balance 960 ml Exam OBJECTIVE: HEENT: Head is normocephalic. NECK: Supple. HEART: Regular rate. LUNGS: Show diminished breath sounds at the base. ABDOMEN: Soft, nontender to palpation without rebound or guarding. EXTREMITIES: Negative for clubbing, cyanosis. Positive ecchymosis. DERMATOLOGIC: No rashes. MUSCULOSKELETAL: No joint effusions. NEUROLOGIC: No change in exam. Results Result Diagram: 01/07/17 0643 01/07/17 0643 Results 24 hrs Laboratory Tests Test 01/07/17 06:43 01/07/17 07:38 01/07/17 12:41 01/07/17 17:20 White Blood Count 11.6 H Red Blood Count 3.47 L Hemoglobin 11.5 L Hematocrit 34.3 L Mean Corpuscular Volume 98.8 Mean Corpuscular Hemoglobin 33.1 H Mean Corpuscular Hemoglobin Concent 33.5 Red Cell Distribution Width 15.4 H Platelet Count 21 #*L Mean Platelet Volume Neutrophils % 80.5 H Lymphocytes % 4.8 L Monocytes % 4.9 Eosinophils % 0.0 Basophils % 0.3 Nucleated Red Blood Cells % 0.0 Neutrophils # 9.3 H Lymphocytes # 0.6 L Monocytes # 0.6 Eosinophils # 0.0 Basophils # 0.0 Nucleated Red Blood Cells # 0.0 Sodium Level 138 Potassium Level 5.0 Chloride Level 98 Carbon Dioxide Level 26 Anion Gap 19 H Blood Urea Nitrogen 30 H Creatinine 0.76 Glucose Level 248 H Calcium Level 9.4 Phosphorus Level 4.9 Magnesium Level 1.8 Bedside Glucose 222 H 230 H 242 H Test 01/07/17 20:05 Bedside Glucose 227 H Medications Medications Current Medications Pantoprazole (Protonix Tab) 40 mg DAILY@06 PO Last administered on 01/07/17 05 :15; Admin Dose 40 MG; Start 12/31/16 at 06:00 Alprazolam (Xanax) 0.25 mg DAILY PRN PO ANXIETY Last administered on 01/06/17 18:01; Admin Dose 0.25 MG; Start 12/31/16 at 05:30 Diphenhydramine HCl (Benadryl) 25 mg Q4 PRN IV ITCHING; Start 12/31/16 at 05:30 Diagnostic Test (Pha) (Accucheck) 1 ea 02 XX Last administered on 01/07/17 02: 00; Admin Dose 1 EA; Start 01/01/17 at 02:00 Ferrous Sulfate (Ferrous Sulfate (Ec)) 325 mg BID PO Last administered on 20:07; Admin Dose 325 MG; Start 12/31/16 at 09:00 Fluoxetine HCl (Prozac) 20 mg DAILY PO Last administered on 01/07/17 09:09; Admin Dose 20 MG; Start 12/31/16 at 09:00 Lisinopril (Zestril) 5 mg DAILY PO Last administered on 01/07/17 09:10; Admin Dose 5 MG; Start 12/31/16 at 09:00 Miscellaneous Information 1 ea NOTE XX ; Start 12/31/16 at 06:00 Glucose (Glutose) 15 gm Q15M PRN PO DECREASED GLUCOSE; Start 12/31/16 at 06:00 Glucose (Glutose) 22.5 gm Q15M PRN PO DECREASED GLUCOSE; Start 12/31/16 at 06: 00 Dextrose (D50w Syringe) 25 ml Q15M PRN IV DECREASED GLUCOSE; Start 12/31/16 at 06:00 Dextrose (D50w Syringe) 50 ml Q15M PRN IV DECREASED GLUCOSE; Start 12/31/16 at 06:00 Glucagon (Glucagen) 1 mg Q15M PRN IM DECREASED GLUCOSE; Start 12/31/16 at 06:00 Glucose (Glutose) 15 gm Q15M PRN BUCCAL DECREASED GLUCOSE; Start 12/31/16 at 06 :00 Acetaminophen/ Hydrocodone Bitart ([place] (5/325)) 1 tab Q6H PRN PO pain Last administered on 01/06/17 05:05; Admin Dose 1 TAB; Start 12/31/16 at 10:00 Guaifenesin/ Dextromethorphan (Robitussin Dm Liquid Cup) 10 ml Q4H PRN PO COUGH Last administered on 01/07/17 20:12; Admin Dose 10 ML; Start 12/31/16 at 20:30 Pregabalin (Lyrica) 150 mg BID PO Last administered on 01/07/17 20:07; Admin Dose 150 MG; Start 01/04/17 at 09:00 Levofloxacin (Levaquin) 500 mg DAILY@06 PO Last administered on 01/07/17 05:15 ; Admin Dose 500 MG; Start 01/04/17 at 09:30 Meclizine HCl (Antivert) 25 mg TID PRN PO dizziness; Start 01/06/17 at 10:00 Methylprednisolone Sodium Succinate (Solu-Medrol) 40 mg Q6 IV Last administered on 01/07/17 23:19; Admin Dose 40 MG; Start 01/06/17 at 14:00 Insulin Glargine (Lantus) 8 unit DAILY@20 SC Last administered on 01/07/17 20: 12; Admin Dose 8 UNIT; Start 01/07/17 at 20:00 ZHAO CARRILLO MD Jan 07, 2017 23:46
[2017-01-08] MEDS: ALBUTEROL/IPRATROPIUM (NEB) 3 ML AMP HHN SCH ×5 (00:48→20:41)
[2017-01-08] MEDS: ACCU-CHEK XX SCH (02:00)
[2017-01-08 04:56] LABS: ADD SCAN DIFF NO
[2017-01-08 05:02] LABS: ABNORMAL IP MESSAGE 1; BASOPHILS % 0.2 % (0.0-2.0); HEMATOCRIT 32.8 % (37.0-47.0); HEMOGLOBIN 10.8 g/dl (12.0-16.0); LYMPHOCYTES # 0.8 10^3/ul (0.8-2.9); LYMPHOCYTES % 13.9 % (15.0-51.0); MEAN CORPUSCULAR HEMOGLOBIN 32.5 pg (29.0-33.0); MEAN CORPUSCULAR HGB CONC 32.9 g/dl (32.0-37.0); MEAN CORPUSCULAR VOLUME 98.8 fl (82.0-101.0); MEAN PLATELET VOLUME 11.7 fl (7.4-10.4); MONOCYTE # 0.3 10^3/ul (0.3-0.9); MONOCYTES % 5.2 % (0.0-11.0); NEUTROPHIL # 4.6 10^3/ul (1.6-7.5); NEUTROPHILS % 79.7 % (39.0-77.0); PLATELET COUNT 31 10^3/UL (140-415); RED BLOOD COUNT 3.32 10^6/ul (4.20-5.40); RED CELL DISTRIBUTION WIDTH 15.5 % (11.5-14.5); WHITE BLOOD COUNT 5.8 10^3/ul (4.8-10.8)
[2017-01-08] MEDS: LEVOFLOXACIN 500 MG TAB PO SCH (05:29)
[2017-01-08] MEDS: PANTOPRAZOLE (EC) 40 MG TAB PO SCH (05:29)
[2017-01-08] MEDS: METHYLPREDNISOLONE 40 MG INJ IV SCH ×4 (05:29→22:38)
[2017-01-08 08:15] VITALS: BP 136/70; RESP 20
[2017-01-08] MEDS: metFORMIN 500 MG TAB PO SCH ×2 (09:09→17:55)
[2017-01-08] MEDS: INSULIN ASPART [NOVOLOG] 3 ML PEN SC SCH ×4 (09:12→21:00)
[2017-01-08] MEDS: FLUOXETINE 20 MG CAP PO SCH (09:58)
[2017-01-08] MEDS: LISINOPRIL 5 MG TAB PO SCH (09:59)
[2017-01-08] MEDS: FERROUS SULFATE (EC) 325 MG TAB PO SCH ×2 (10:00→20:24)
--- NOTE | 2017-01-08 10:26 | PN ---
DATE: 01/08/2017 SUBJECTIVE: The patient is clinically stable, no acute events overnight. The patient is feeling be tter, less short of breath. OBJECTIVE: VITAL SIGNS: Blood pressure 136/70, respirations 20, pulse ____, temperature 97.8. HEENT: Head is normocephalic. NECK: Supple. HEART: Regular rate. LUNGS: Showed diminished breath sounds at the base. ABDOMEN: Soft, nontender to palpation. No rebound or guarding. EXTREMITIES: Negative for clubbing, cyanosis, no edema. DERMATOLOGIC: Positive ecchymoses. NEUROLOGIC: No change in exam. LABORATORY DATA: Shows white count 5.8, hemoglobin 10.8, hematocrit 32.8, platelet count 31. ASSESSMENT AND PLAN: 1. Thrombocytopenia secondary to myelodysplastic syndrome. The patient is status post chemotherapy, status post platelet transfusion yesterday. Will continue to monitor. Follow up with hematology. 2. Asthmatic bronchitis. The patient is clinically improving. We will titrate down steroids, cont inue azithromycin. Follow up with Pulmonary. 3. Urinary tract infection. Continue antibiotics. 4. Diabetes. The patient's glucose levels are elevated secondary to steroids. We will increase La ntus to 14 units subQ at bedtime. We will continue sliding scale. Continue metformin. Will monito r glucose levels as Solu-Medrol is being tapered off. 5. Hypertension. Continue current blood pressure regimen. 6. Anxiety disorder, depression, continue Prozac and Ativan. 7. Neuropathy, continue Lyrica. 8. Insomnia, continue Ambien. 9. Gastrointestinal and deep venous thrombosis prophylaxis. Continue proton pump inhibitor, sequen tial leg squeezers. Dictated By: FINA NUÑEZ/ARMEN Conf#: [id number] DID#: [id number]
[2017-01-08] MEDS: GUAIFENESIN/DM 5ML CUP PO PRN ×3 (10:49→20:24)
[2017-01-08] MEDS: PREGABALIN 75 MG CAP PO SCH ×2 (12:17→20:33)
[2017-01-08 19:31] VITALS: BP 126/59; RESP 20
[2017-01-08] MEDS ORDERED: INSULIN GLARGINE [LANtus] 3 ML PEN SC SCH (20:00)
[2017-01-08] MEDS: ZOLPIDEM 5 MG TAB PO PRN ×2 (20:33→22:37)
--- NOTE | 2017-01-08 23:06 | CONS ---
Date/Time of Note Date/Time of Note DATE: 01/08/17 TIME: 23:04 Assessment/Plan Assessment/Plan Chief Complaint/Hosp Course MDS- POST CHEMO 1. pancytopenia, severe thrombocytopenia, anemia. POST CHEMO The patient transfused- POST 3 units of platelets and 2 units of PRBC. POST Neupogen. We will continue to monitor closely. PLATELET TRANSFUSIONS NEEDED 2. ASTHMA Reactive airway disease. IMPROVING 3. Diabetes. Continue Accu-Cheks and insulin sliding scale. Continue metformin. 4. Hypertension. Continue current blood pressure regimen. 5. Depression and anxiety. Continue Xanax and Prozac. 6. Neuropathy. Continue Lyrica. 7. History of headaches. Etiology may be secondary to migraines. CT scan shows no acute bleed. We will continue to monitor. Continue pain control. 8. Insomnia. Continue Ambien. 9. History of degenerative joint disease, osteoarthritis. 10. Gastrointestinal and deep venous thrombosis prophylaxis. Continue proton pump inhibitor, sequential leg squeezers. Problems: Consultation Date/Type/Reason Admit Date/Time Dec 31, 2016 at 01:30 Initial Consult Date 12/31/16 Type of Consultation: [facility] Referring Provider: FIAN IRVING DO 24 HR Interval Summary Free Text/Dictation The patient is clinically stable, no acute events overnight. The patient is feeling better, less short of breath. POST PLATELET TRANSFUSION Exam/Review of Systems Vital Signs Vitals Vital Signs Date Time Temp Pulse Resp B/P Pulse Ox O2 Delivery O2 Flow Rate FiO2 01/08/17 20:41 86 18 97 21 01/08/17 19:31 98.1 126/59 01/07/17 19:26 Room Air Intake and Output 01/07/17 01/07/17 01/08/17 15:00 23:00 07:00 Intake Total 920 ml 450 ml Balance 920 ml 450 ml Exam OBJECTIVE: HEENT: Head is normocephalic. NECK: Supple. HEART: Regular rate. LUNGS: Showed diminished breath sounds at the base. ABDOMEN: Soft, nontender to palpation. No rebound or guarding. EXTREMITIES: Negative for clubbing, cyanosis, no edema. DERMATOLOGIC: Positive ecchymoses. NEUROLOGIC: No change in exam. Results Result Diagram: 01/08/17 0426 01/07/17 0643 Results 24 hrs Laboratory Tests Test 01/08/17 04:26 01/08/17 08:13 01/08/17 12:15 01/08/17 17:53 White Blood Count 5.8 # Red Blood Count 3.32 L Hemoglobin 10.8 L Hematocrit 32.8 L Mean Corpuscular Volume 98.8 Mean Corpuscular Hemoglobin 32.5 Mean Corpuscular Hemoglobin Concent 32.9 Red Cell Distribution Width 15.5 H Platelet Count 31 #L Mean Platelet Volume 11.7 H Neutrophils % 79.7 H Lymphocytes % 13.9 L Monocytes % 5.2 Eosinophils % 0.0 Basophils % 0.2 Nucleated Red Blood Cells % 0.0 Neutrophils # 4.6 Lymphocytes # 0.8 Monocytes # 0.3 Eosinophils # 0.0 Basophils # 0.0 Nucleated Red Blood Cells # 0.0 Bedside Glucose 229 H 238 H 151 Test 01/08/17 20:14 Bedside Glucose 322 H Medications Medications Current Medications Pantoprazole (Protonix Tab) 40 mg DAILY@06 PO Last administered on 01/08/17 05 :29; Admin Dose 40 MG; Start 12/31/16 at 06:00 Alprazolam (Xanax) 0.25 mg DAILY PRN PO ANXIETY Last administered on 01/06/17 18:01; Admin Dose 0.25 MG; Start 12/31/16 at 05:30 Diphenhydramine HCl (Benadryl) 25 mg Q4 PRN IV ITCHING; Start 12/31/16 at 05:30 Diagnostic Test (Pha) (Accucheck) 1 ea 02 XX Last administered on 01/07/17 02: 00; Admin Dose 1 EA; Start 01/01/17 at 02:00 Ferrous Sulfate (Ferrous Sulfate (Ec)) 325 mg BID PO Last administered on 20:24; Admin Dose 325 MG; Start 12/31/16 at 09:00 Fluoxetine HCl (Prozac) 20 mg DAILY PO Last administered on 01/08/17 09:58; Admin Dose 20 MG; Start 12/31/16 at 09:00 Lisinopril (Zestril) 5 mg DAILY PO Last administered on 01/08/17 09:59; Admin Dose 5 MG; Start 12/31/16 at 09:00 Miscellaneous Information 1 ea NOTE XX ; Start 12/31/16 at 06:00 Glucose (Glutose) 15 gm Q15M PRN PO DECREASED GLUCOSE; Start 12/31/16 at 06:00 Glucose (Glutose) 22.5 gm Q15M PRN PO DECREASED GLUCOSE; Start 12/31/16 at 06: 00 Dextrose (D50w Syringe) 25 ml Q15M PRN IV DECREASED GLUCOSE; Start 12/31/16 at 06:00 Dextrose (D50w Syringe) 50 ml Q15M PRN IV DECREASED GLUCOSE; Start 12/31/16 at 06:00 Glucagon (Glucagen) 1 mg Q15M PRN IM DECREASED GLUCOSE; Start 12/31/16 at 06:00 Glucose (Glutose) 15 gm Q15M PRN BUCCAL DECREASED GLUCOSE; Start 12/31/16 at 06 :00 Acetaminophen/ Hydrocodone Bitart ([place] (5/325)) 1 tab Q6H PRN PO pain Last administered on 01/06/17 05:05; Admin Dose 1 TAB; Start 12/31/16 at 10:00 Guaifenesin/ Dextromethorphan (Robitussin Dm Liquid Cup) 10 ml Q4H PRN PO COUGH Last administered on 01/08/17 20:24; Admin Dose 10 ML; Start 12/31/16 at 20:30 Pregabalin (Lyrica) 150 mg BID PO Last administered on 01/08/17 20:33; Admin Dose 150 MG; Start 01/04/17 at 09:00 Levofloxacin (Levaquin) 500 mg DAILY@06 PO Last administered on 01/08/17 05:29 ; Admin Dose 500 MG; Start 01/04/17 at 09:30 Meclizine HCl (Antivert) 25 mg TID PRN PO dizziness; Start 01/06/17 at 10:00 Insulin Glargine (Lantus) 14 unit DAILY@20 SC Last administered on 01/08/17 20 :20; Admin Dose 14 UNIT; Start 01/08/17 at 20:00 Methylprednisolone Sodium Succinate (Solu-Medrol) 20 mg Q8 IV Last administered on 01/08/17 22:38; Admin Dose 20 MG; Start 01/08/17 at 14:00 ZHAO CARRILLO MD Jan 08, 2017 23:05
[2017-01-09] MEDS: ALBUTEROL/IPRATROPIUM (NEB) 3 ML AMP HHN SCH ×6 (00:49→21:27)
[2017-01-09] MEDS: ACCU-CHEK XX SCH (02:00)
[2017-01-09 05:01] LABS: ADD SCAN DIFF NO
[2017-01-09 05:14] LABS: ABNORMAL IP MESSAGE 1; HEMATOCRIT 32.9 % (37.0-47.0); HEMOGLOBIN 10.9 g/dl (12.0-16.0); MEAN CORPUSCULAR HEMOGLOBIN 32.9 pg (29.0-33.0); MEAN CORPUSCULAR HGB CONC 33.1 g/dl (32.0-37.0); MEAN CORPUSCULAR VOLUME 99.4 fl (82.0-101.0); MEAN PLATELET VOLUME 12.2 fl (7.4-10.4); PLATELET COUNT 31 10^3/UL (140-415); RED BLOOD COUNT 3.31 10^6/ul (4.20-5.40); RED CELL DISTRIBUTION WIDTH 15.9 % (11.5-14.5); WHITE BLOOD COUNT 3.2 10^3/ul (4.8-10.8)
[2017-01-09] MEDS: METHYLPREDNISOLONE 40 MG INJ IV SCH ×4 (05:41→21:31)
[2017-01-09] MEDS: LEVOFLOXACIN 500 MG TAB PO SCH (05:42)
[2017-01-09] MEDS: PANTOPRAZOLE (EC) 40 MG TAB PO SCH (05:42)
[2017-01-09 07:43] VITALS: BP 164/79; RESP 17
[2017-01-09] MEDS: metFORMIN 500 MG TAB PO SCH ×2 (08:46→17:50)
[2017-01-09] MEDS: FLUOXETINE 20 MG CAP PO SCH (08:47)
[2017-01-09] MEDS: FERROUS SULFATE (EC) 325 MG TAB PO SCH ×2 (08:47→21:24)
[2017-01-09] MEDS: PREGABALIN 75 MG CAP PO SCH ×2 (08:47→21:24)
[2017-01-09] MEDS: LISINOPRIL 10 MG TAB PO SCH (08:48)
[2017-01-09] MEDS: INSULIN ASPART [NOVOLOG] 3 ML PEN SC SCH ×4 (08:53→21:30)
[2017-01-09] MEDS ORDERED: LISINOPRIL 5 MG TAB PO SCH ×2 (09:00)
--- NOTE | 2017-01-09 09:17 | PN ---
DATE: 01/09/2017 SUBJECTIVE: The patient is clinically feeling better. She has complaints about some mild hearing l oss in her right ear. She denies any ringing in her ear. No other acute events noted overnight. N o hemoptysis, hematemesis, or hematochezia. OBJECTIVE: VITAL SIGNS: Blood pressure is 164/79, respirations 17, pulse 70, temperature 97.9. HEENT: Head is normocephalic. NECK: Supple. HEART: Regular rate. LUNGS: Show diminished breath sounds at the base. ABDOMEN: Soft, nontender to palpation. No rebound or guarding. EXTREMITIES: Negative for clubbing, cyanosis, no edema. DERMATOLOGIC: No rashes. MUSCULOSKELETAL: No joint effusions. NEUROLOGIC: No change in exam. MEDICATIONS: The patient's medications have been reviewed. LABORATORY DATA: Shows a white count 3.3, hemoglobin 10.9, hematocrit 32.9, platelet count of 31. ASSESSMENT AND PLAN: 1. Thrombocytopenia secondary to mild dysplastic syndrome. The patient is status post chemotherapy , status post platelet transfusion. Continue to monitor platelets. Follow up with hematology. 2. Asthmatic bronchitis. The patient is clinically improving. We will continue to titrate down st eroids. Continue azithromycin. Follow up with pulmonary. 3. Urinary tract infection. The patient is on Levaquin, completing antibiotic course. 4. Diabetes. The patient's glucose levels remain elevated secondary to steroids. We will increase Lantus to 18 units subq at bedtime. Continue to titrate down steroids. Continue metformin. Expec t glucose levels to normalize as steroids are being weaned off. 5. Hypertension. Current blood pressure regimen. 6. Psychiatric disorder ____ Ativan. 7. ____ Continue Lyrica. 8. Insomnia. Continue Ambien. 9. GI and deep vein thrombosis prophylaxis. Continue proton pump inhibitor and sequential leg sque ezers. Dictated By: FINA NUÑEZ/NTS Conf#: [id number] DID#: [id number]
[2017-01-09 10:53] LABS: LYMPHOCYTES # 0.5 10^3/ul (0.8-2.9); MONOCYTE # 0.1 10^3/ul (0.3-0.9); NEUTROPHIL # 2.3 10^3/ul (1.6-7.5)
[2017-01-09 10:54] LABS: TOXIC GRANULATION OCCASIONAL
[2017-01-09] MEDS: ALPRAZOLAM 0.25 MG TAB PO PRN (19:09)
[2017-01-09 19:20] VITALS: BP 134/65; RESP 17
[2017-01-09] MEDS ORDERED: INSULIN GLARGINE [LANtus] 3 ML PEN SC SCH (20:00)
[2017-01-09] MEDS: ZOLPIDEM 5 MG TAB PO PRN ×2 (21:41→22:59)
--- NOTE | 2017-01-09 22:26 | CONS ---
Date/Time of Note Date/Time of Note DATE: 01/09/17 TIME: 22:25 Assessment/Plan Assessment/Plan Chief Complaint/Hosp Course MDS- POST CHEMO 1. pancytopenia, severe thrombocytopenia, anemia. POST CHEMO The patient transfused- POST 3 units of platelets and 2 units of PRBC. POST Neupogen. We will continue to monitor closely. PLATELET TRANSFUSIONS NEEDED 2. ASTHMA Reactive airway disease. IMPROVING 3. Diabetes. Continue Accu-Cheks and insulin sliding scale. Continue metformin. 4. Hypertension. Continue current blood pressure regimen. 5. Depression and anxiety. Continue Xanax and Prozac. 6. Neuropathy. Continue Lyrica. 7. History of headaches. Etiology may be secondary to migraines. CT scan shows no acute bleed. We will continue to monitor. Continue pain control. 8. Insomnia. Continue Ambien. 9. History of degenerative joint disease, osteoarthritis. 10. Gastrointestinal and deep venous thrombosis prophylaxis. Continue proton pump inhibitor, sequential leg squeezers. Problems: Consultation Date/Type/Reason Admit Date/Time Dec 31, 2016 at 01:30 Initial Consult Date 12/31/16 Type of Consultation: [facility] Referring Provider: FIAN IRVING DO 24 HR Interval Summary Free Text/Dictation The patient is clinically feeling better. She has complaints about some mild hearing loss in her right ear. She denies any ringing in her ear. No other acute events noted overnight. No hemoptysis, hematemesis, or hematochezia. Exam/Review of Systems Vital Signs Vitals Vital Signs Date Time Temp Pulse Resp B/P Pulse Ox O2 Delivery O2 Flow Rate FiO2 01/09/17 21:38 87 18 98 21 01/09/17 19:20 97.8 134/65 01/07/17 19:26 Room Air Intake and Output 01/08/17 01/08/17 01/09/17 15:00 23:00 07:00 Intake Total 1160 ml 500 ml Output Total 380 ml Balance 1160 ml 120 ml Exam HEENT: Head is normocephalic. NECK: Supple. HEART: Regular rate. LUNGS: Show diminished breath sounds at the base. ABDOMEN: Soft, nontender to palpation. No rebound or guarding. EXTREMITIES: Negative for clubbing, cyanosis, no edema. DERMATOLOGIC: No rashes. MUSCULOSKELETAL: No joint effusions. NEUROLOGIC: No change in exam. Results Result Diagram: 01/09/17 0419 01/07/17 0643 Results 24 hrs Laboratory Tests Test 01/09/17 04:19 01/09/17 08:26 01/09/17 17:33 01/09/17 21:21 White Blood Count 3.2 #L Red Blood Count 3.31 L Hemoglobin 10.9 L Hematocrit 32.9 L Mean Corpuscular Volume 99.4 Mean Corpuscular Hemoglobin 32.9 Mean Corpuscular Hemoglobin Concent 33.1 Red Cell Distribution Width 15.9 H Platelet Count 31 L Mean Platelet Volume 12.2 H Neutrophils % 71.0 Band Neutrophils % 9.0 H Lymphocytes % 17.0 Monocytes % 2.0 Eosinophils % Basophils % 1.0 Nucleated Red Blood Cells % 3.0 H Neutrophils # 2.3 Lymphocytes # 0.5 L Monocytes # 0.1 L Eosinophils # Basophils # 0.0 Differential Comment MANUAL DIFF Toxic Granulation OCCASIONAL Large Platelets OCCASIONAL Bedside Glucose 280 H 236 H 238 H Medications Medications Current Medications Pantoprazole (Protonix Tab) 40 mg DAILY@06 PO Last administered on 01/09/17 05 :42; Admin Dose 40 MG; Start 12/31/16 at 06:00 Alprazolam (Xanax) 0.25 mg DAILY PRN PO ANXIETY Last administered on 01/09/17 19:09; Admin Dose 0.25 MG; Start 12/31/16 at 05:30 Diphenhydramine HCl (Benadryl) 25 mg Q4 PRN IV ITCHING; Start 12/31/16 at 05:30 Diagnostic Test (Pha) (Accucheck) 1 ea 02 XX Last administered on 01/07/17 02: 00; Admin Dose 1 EA; Start 01/01/17 at 02:00 Ferrous Sulfate (Ferrous Sulfate (Ec)) 325 mg BID PO Last administered on 21:24; Admin Dose 325 MG; Start 12/31/16 at 09:00 Fluoxetine HCl (Prozac) 20 mg DAILY PO Last administered on 01/09/17 08:47; Admin Dose 20 MG; Start 12/31/16 at 09:00 Miscellaneous Information 1 ea NOTE XX ; Start 12/31/16 at 06:00 Glucose (Glutose) 15 gm Q15M PRN PO DECREASED GLUCOSE; Start 12/31/16 at 06:00 Glucose (Glutose) 22.5 gm Q15M PRN PO DECREASED GLUCOSE; Start 12/31/16 at 06: 00 Dextrose (D50w Syringe) 25 ml Q15M PRN IV DECREASED GLUCOSE; Start 12/31/16 at 06:00 Dextrose (D50w Syringe) 50 ml Q15M PRN IV DECREASED GLUCOSE; Start 12/31/16 at 06:00 Glucagon (Glucagen) 1 mg Q15M PRN IM DECREASED GLUCOSE; Start 12/31/16 at 06:00 Glucose (Glutose) 15 gm Q15M PRN BUCCAL DECREASED GLUCOSE; Start 12/31/16 at 06 :00 Acetaminophen/ Hydrocodone Bitart ([place] (5/325)) 1 tab Q6H PRN PO pain Last administered on 01/06/17 05:05; Admin Dose 1 TAB; Start 12/31/16 at 10:00 Guaifenesin/ Dextromethorphan (Robitussin Dm Liquid Cup) 10 ml Q4H PRN PO COUGH Last administered on 01/08/17 20:24; Admin Dose 10 ML; Start 12/31/16 at 20:30 Pregabalin (Lyrica) 150 mg BID PO Last administered on 01/09/17 21:24; Admin Dose 150 MG; Start 01/04/17 at 09:00 Levofloxacin (Levaquin) 500 mg DAILY@06 PO Last administered on 01/09/17 05:42 ; Admin Dose 500 MG; Start 01/04/17 at 09:30 Meclizine HCl (Antivert) 25 mg TID PRN PO dizziness; Start 01/06/17 at 10:00 Insulin Glargine (Lantus) 18 unit DAILY@20 SC Last administered on 01/09/17 21 :30; Admin Dose 18 UNIT; Start 01/09/17 at 20:00 Methylprednisolone Sodium Succinate (Solu-Medrol) 10 mg Q8 IV Last administered on 01/09/17 21:31; Admin Dose 10 MG; Start 01/09/17 at 09:00 Lisinopril (Zestril) 10 mg DAILY PO Last administered on 01/09/17 08:48; Admin Dose 10 MG; Start 01/09/17 at 09:00 ZHAO CARRILLO MD Jan 09, 2017 22:26
[2017-01-10] MEDS: ALBUTEROL/IPRATROPIUM (NEB) 3 ML AMP HHN SCH ×6 (00:09→21:42)
[2017-01-10] MEDS: ACCU-CHEK XX SCH (02:06)
[2017-01-10] MEDS: LEVOFLOXACIN 500 MG TAB PO SCH (05:37)
[2017-01-10] MEDS: PANTOPRAZOLE (EC) 40 MG TAB PO SCH (05:37)
[2017-01-10] MEDS: METHYLPREDNISOLONE 40 MG INJ IV SCH (05:37)
[2017-01-10 05:38] LABS: ADD SCAN DIFF NO
[2017-01-10 05:47] LABS: ABNORMAL IP MESSAGE 1; HEMOGLOBIN 11.2 g/dl (12.0-16.0); MEAN CORPUSCULAR HEMOGLOBIN 32.3 pg (29.0-33.0); MEAN CORPUSCULAR HGB CONC 32.9 g/dl (32.0-37.0); PLATELET COUNT 37 10^3/UL (140-415); RED BLOOD COUNT 3.47 10^6/ul (4.20-5.40); RED CELL DISTRIBUTION WIDTH 15.6 % (11.5-14.5); WHITE BLOOD COUNT 2.3 10^3/ul (4.8-10.8)
[2017-01-10 06:19] LABS: POTASSIUM 4.8 mmol/L (3.5-5.1)
[2017-01-10 06:21] LABS: CREATININE 0.76 mg/dl (0.44-1.00)
[2017-01-10 06:22] LABS: CALCIUM 10.3 mg/dl (8.4-10.2); MAGNESIUM 1.8 mg/dl (1.7-2.5); PHOSPHORUS 4.4 mg/dl (2.5-4.9)
[2017-01-10 08:08] VITALS: BP 120/89; RESP 18
--- NOTE | 2017-01-10 08:49 | PN ---
DATE: 01/10/2017 SUBJECTIVE: The patient is clinically feeling better. Breathing is improved. The patient no longe r complaining about decreased hearing in the right ear. No other acute events noted. OBJECTIVE: VITAL SIGNS: Blood pressure 134/65, respirations are 17, pulse 78, temperature 97.8. HEENT: Head is normocephalic. NECK: Supple. HEART: Regular rate. LUNGS: Show diminished breath sounds at the base. ABDOMEN: Soft, nontender to palpation. No rebound or guarding. EXTREMITIES: Negative for clubbing, cyanosis and no edema. DERMATOLOGIC: No rashes. MUSCULOSKELETAL: No joint effusions. NEUROLOGIC: No change in exam. MEDICATIONS: The patient's medications have been reviewed. LABORATORY DATA: Shows sodium 136, potassium 4.0, chloride 98, BUN 27, creatinine 0.76, calcium ___ __, white count 10.3, hemoglobin 11.2, hematocrit 34.0, platelet count is 37. ASSESSMENT AND PLAN: 1. Thrombocytopenia, leukopenia, etiology secondary to myelodysplastic syndrome. The patient is st atus post chemotherapy. The patient is status post platelet transfusion and Neupogen. Will continu e to monitor and follow up with hematology. 2. Asthmatic bronchitis. The patient clinically improving. Will discontinue IV Solu-Medrol, start prednisone 20 mg daily, taper off over the next 2 or 3 days. Continue Levaquin and nebulizer thera py. 3. Urinary tract infection. The patient is completing antibiotic course. 4. Diabetes. Glucose levels remain elevated secondary to steroids. Will increase Lantus 22 units subQ at bedtime and continue metformin. Continue insulin sliding scale. 5. Hypertension. Continue current blood pressure regimen. 6. Anxiety disorder. Continue Ativan. 7. Neuropathy. Continue Lyrica. 8. Insomnia. Continue Ambien. 9. Gastrointestinal and deep vein thrombosis prophylaxis. Continue proton pump inhibitor and seque ntial leg squeezers. Dictated By: FINA NUÑEZ/ARMEN Conf#: [id number] DID#: [id number]
[2017-01-10] MEDS: LISINOPRIL 10 MG TAB PO SCH (08:52)
[2017-01-10] MEDS: FERROUS SULFATE (EC) 325 MG TAB PO SCH ×2 (08:52→21:29)
[2017-01-10] MEDS: FLUOXETINE 20 MG CAP PO SCH (08:52)
[2017-01-10] MEDS: PREGABALIN 75 MG CAP PO SCH ×2 (08:52→21:29)
[2017-01-10] MEDS: predniSONE 20 MG TAB PO SCH (08:57)
[2017-01-10] MEDS: metFORMIN 500 MG TAB PO SCH ×2 (08:57→18:02)
[2017-01-10] MEDS: INSULIN ASPART [NOVOLOG] 3 ML PEN SC SCH ×4 (09:03→21:31)
[2017-01-10 09:54] LABS: LYMPHOCYTES # 0.5 10^3/ul (0.8-2.9); MONOCYTE # 0.1 10^3/ul (0.3-0.9); NEUTROPHIL # 1.7 10^3/ul (1.6-7.5)
--- NOTE | 2017-01-10 13:03 | CONS ---
Date/Time of Note Date/Time of Note DATE: 01/10/17 TIME: 13:03 Assessment/Plan Assessment/Plan Chief Complaint/Hosp Course MDS- POST CHEMO 1. pancytopenia, severe thrombocytopenia, anemia. POST CHEMO The patient transfused- POST 3 units of platelets and 2 units of PRBC. POST Neupogen. We will continue to monitor closely. PLATELET TRANSFUSIONS NEEDED COUNT IS IMPROVING 2. ASTHMA Reactive airway disease. IMPROVING 3. Diabetes. Continue Accu-Cheks and insulin sliding scale. Continue metformin. 4. Hypertension. Continue current blood pressure regimen. 5. Depression and anxiety. Continue Xanax and Prozac. 6. Neuropathy. Continue Lyrica. 7. History of headaches. Etiology may be secondary to migraines. CT scan shows no acute bleed. We will continue to monitor. Continue pain control. 8. Insomnia. Continue Ambien. 9. History of degenerative joint disease, osteoarthritis. 10. Gastrointestinal and deep venous thrombosis prophylaxis. Continue proton pump inhibitor, sequential leg squeezers. Problems: Consultation Date/Type/Reason Admit Date/Time Dec 31, 2016 at 01:30 Initial Consult Date 12/31/16 Type of Consultation: [facility] Referring Provider: FINA IRVING DO 24 HR Interval Summary Free Text/Dictation The patient is clinically feeling better. Breathing is improved. The patient no longer complaining about decreased hearing in the right ear. No other acute events noted. Exam/Review of Systems Vital Signs Vitals Vital Signs Date Time Temp Pulse Resp B/P Pulse Ox O2 Delivery O2 Flow Rate FiO2 01/10/17 08:20 80 18 97 21 01/10/17 08:08 98.4 120/89 01/07/17 19:26 Room Air Intake and Output 01/09/17 01/09/17 01/10/17 14:59 22:59 06:59 Intake Total 620 ml Balance 620 ml Exam HEENT: Head is normocephalic. NECK: Supple. HEART: Regular rate. LUNGS: Show diminished breath sounds at the base. ABDOMEN: Soft, nontender to palpation. No rebound or guarding. EXTREMITIES: Negative for clubbing, cyanosis and no edema. DERMATOLOGIC: No rashes. MUSCULOSKELETAL: No joint effusions. NEUROLOGIC: No change in exam. Results Result Diagram: 01/10/17 0432 01/10/17 0432 Results 24 hrs Laboratory Tests Test 01/09/17 17:33 01/09/17 21:21 01/10/17 01:59 01/10/17 04:32 Bedside Glucose 236 H 238 H 243 H White Blood Count 2.3 #L Red Blood Count 3.47 L Hemoglobin 11.2 L Hematocrit 34.0 L Mean Corpuscular Volume 98.0 Mean Corpuscular Hemoglobin 32.3 Mean Corpuscular Hemoglobin Concent 32.9 Red Cell Distribution Width 15.6 H Platelet Count 37 L Mean Platelet Volume 12.0 H Neutrophils % 72.0 Band Neutrophils % 2.0 Lymphocytes % 23.0 Monocytes % 3.0 Neutrophils # 1.7 Lymphocytes # 0.5 L Monocytes # 0.1 L Sodium Level 136 Potassium Level 4.8 Chloride Level 98 Carbon Dioxide Level 25 Anion Gap 18 H Blood Urea Nitrogen 27 H Creatinine 0.76 Glucose Level 265 H Calcium Level 10.3 H Phosphorus Level 4.4 Magnesium Level 1.8 Test 01/10/17 08:29 01/10/17 11:51 Bedside Glucose 238 H 237 H Medications Medications Current Medications Pantoprazole (Protonix Tab) 40 mg DAILY@06 PO Last administered on 01/10/17 05 :37; Admin Dose 40 MG; Start 12/31/16 at 06:00 Alprazolam (Xanax) 0.25 mg DAILY PRN PO ANXIETY Last administered on 01/09/17 19:09; Admin Dose 0.25 MG; Start 12/31/16 at 05:30 Diphenhydramine HCl (Benadryl) 25 mg Q4 PRN IV ITCHING; Start 12/31/16 at 05:30 Diagnostic Test (Pha) (Accucheck) 1 ea 02 XX Last administered on 01/10/17 02: 06; Admin Dose 1 EA; Start 01/01/17 at 02:00 Ferrous Sulfate (Ferrous Sulfate (Ec)) 325 mg BID PO Last administered on 08:52; Admin Dose 325 MG; Start 12/31/16 at 09:00 Fluoxetine HCl (Prozac) 20 mg DAILY PO Last administered on 01/10/17 08:52; Admin Dose 20 MG; Start 12/31/16 at 09:00 Miscellaneous Information 1 ea NOTE XX ; Start 12/31/16 at 06:00 Glucose (Glutose) 15 gm Q15M PRN PO DECREASED GLUCOSE; Start 12/31/16 at 06:00 Glucose (Glutose) 22.5 gm Q15M PRN PO DECREASED GLUCOSE; Start 12/31/16 at 06: 00 Dextrose (D50w Syringe) 25 ml Q15M PRN IV DECREASED GLUCOSE; Start 12/31/16 at 06:00 Dextrose (D50w Syringe) 50 ml Q15M PRN IV DECREASED GLUCOSE; Start 12/31/16 at 06:00 Glucagon (Glucagen) 1 mg Q15M PRN IM DECREASED GLUCOSE; Start 12/31/16 at 06:00 Glucose (Glutose) 15 gm Q15M PRN BUCCAL DECREASED GLUCOSE; Start 12/31/16 at 06 :00 Acetaminophen/ Hydrocodone Bitart ([place] (5/325)) 1 tab Q6H PRN PO pain Last administered on 01/06/17 05:05; Admin Dose 1 TAB; Start 12/31/16 at 10:00 Guaifenesin/ Dextromethorphan (Robitussin Dm Liquid Cup) 10 ml Q4H PRN PO COUGH Last administered on 01/08/17 20:24; Admin Dose 10 ML; Start 12/31/16 at 20:30 Pregabalin (Lyrica) 150 mg BID PO Last administered on 01/10/17 08:52; Admin Dose 150 MG; Start 01/04/17 at 09:00 Levofloxacin (Levaquin) 500 mg DAILY@06 PO Last administered on 01/10/17 05:37 ; Admin Dose 500 MG; Start 01/04/17 at 09:30 Meclizine HCl (Antivert) 25 mg TID PRN PO dizziness; Start 01/06/17 at 10:00 Lisinopril (Zestril) 10 mg DAILY PO Last administered on 01/10/17 08:52; Admin Dose 10 MG; Start 01/09/17 at 09:00 Insulin Glargine (Lantus) 22 unit DAILY@20 SC ; Start 01/10/17 at 20:00 Zolpidem Tartrate (Ambien) 10 mg HS PRN PO INSOMNIA; Start 01/10/17 at 21:00 Prednisone (Prednisone) 20 mg DAILY PO Last administered on 01/10/17 08:57; Admin Dose 20 MG; Start 01/10/17 at 09:00 ZHAO CARRILLO MD Jan 10, 2017 13:03
[2017-01-10 19:25] VITALS: BP 100/58; RESP 20
[2017-01-10] MEDS ORDERED: INSULIN GLARGINE [LANtus] 3 ML PEN SC SCH (20:00)
[2017-01-10] MEDS: HYDROCODONE/APAP (5/325) TAB PO PRN (20:57)
[2017-01-10] MEDS: ZOLPIDEM 5 MG TAB PO PRN (21:30)
[2017-01-11] MEDS: ALBUTEROL/IPRATROPIUM (NEB) 3 ML AMP HHN SCH ×6 (00:50→20:33)
[2017-01-11] MEDS: ACCU-CHEK XX SCH (02:37)
[2017-01-11 05:13] LABS: ADD SCAN DIFF NO
[2017-01-11 05:25] LABS: ABNORMAL IP MESSAGE 1; HEMATOCRIT 34.2 % (37.0-47.0); HEMOGLOBIN 11.3 g/dl (12.0-16.0); MEAN CORPUSCULAR HEMOGLOBIN 32.7 pg (29.0-33.0); MEAN CORPUSCULAR VOLUME 98.8 fl (82.0-101.0); PLATELET COUNT 47 10^3/UL (140-415); RED BLOOD COUNT 3.46 10^6/ul (4.20-5.40); RED CELL DISTRIBUTION WIDTH 15.8 % (11.5-14.5); WHITE BLOOD COUNT 3.9 10^3/ul (4.8-10.8)
[2017-01-11] MEDS: PANTOPRAZOLE (EC) 40 MG TAB PO SCH (06:02)
[2017-01-11] MEDS: LEVOFLOXACIN 500 MG TAB PO SCH (06:02)
[2017-01-11] MEDS: INSULIN ASPART [NOVOLOG] 3 ML PEN SC SCH ×4 (07:50→21:00)
[2017-01-11 08:10] VITALS: BP 105/59; RESP 20
[2017-01-11] MEDS: metFORMIN 500 MG TAB PO SCH ×2 (08:24→18:02)
[2017-01-11] MEDS: FLUOXETINE 20 MG CAP PO SCH (08:25)
[2017-01-11] MEDS: PREGABALIN 75 MG CAP PO SCH ×2 (08:25→21:32)
[2017-01-11] MEDS: predniSONE 20 MG TAB PO SCH (08:25)
[2017-01-11] MEDS: FERROUS SULFATE (EC) 325 MG TAB PO SCH ×2 (08:25→21:32)
[2017-01-11] MEDS: LISINOPRIL 5 MG TAB PO SCH (09:00)
[2017-01-11] MEDS: LINAGLIPTIN 5 MG TABLET PO SCH (10:17)
[2017-01-11 10:50] LABS: LYMPHOCYTES # 2.3 10^3/ul (0.8-2.9); MONOCYTE # 0.2 10^3/ul (0.3-0.9); NEUTROPHIL # 1.3 10^3/ul (1.6-7.5); PLATELET ESTIMATE PLT APPEAR DECREASED
--- NOTE | 2017-01-11 11:59 | PN ---
DATE: SUBJECTIVE: The patient is stable. The patient is complaining about fullness in her right ear. Th e patient continues to say her breathing is improving, but still feels somewhat congested. No other events noted. OBJECTIVE: VITAL SIGNS: Blood pressure 105/59, respirations 20, pulse 85, temperature 97.8. HEENT: Head is normocephalic. The patient's right ear shows an erythematous, bulging tympanic memb carrol with a serous fluid level. NECK: Supple. HEART: Regular rate. LUNGS: Show diminished sounds at the base. ABDOMEN: Soft, nontender to palpation. No rebound or guarding. EXTREMITIES: Negative for clubbing, cyanosis, no edema. DERMATOLOGIC: No rashes. MUSCULOSKELETAL: No joint effusions. NEUROLOGIC: No focal deficits. LABORATORY DATA: Shows a white count 3.9, hemoglobin 11.3, hematocrit 34.2, platelet count is 47. ASSESSMENT AND PLAN: 1. Thrombocytopenia and leukopenia, etiology secondary to myelodysplastic syndrome and recent chemo therapy. The patient is clinically improving. Continue to monitor. Follow up with hematology. 2. Asthmatic bronchitis, clinically improving. Continue prednisone, will taper down 10 mg daily. Continue Levaquin. 3. Right otitis media. We will continue current medical management. Continue steroids. Continue antibiotics. The patient will follow up with ENT in outpatient setting. 4. Diabetes. The patient's glucose levels are improved. Will start the patient on Tradjenta. Dec reased Lantus to 12 units subQ at night as the patient's steroids are being tapered down. 5. Hypertension. Continue current blood pressure regimen. 6. Anxiety disorder. Continue Ativan. 7. Neuropathy. Continue Lyrica. 8. Insomnia. Continue Ambien. 9. Gastrointestinal and deep venous thrombosis prophylaxis. Continue proton pump inhibitor, sequen tial leg squeezers. Dictated By: FINA NUÑEZ/ARMEN Conf#: [id number] DID#: [id number]
[2017-01-11] MEDS: ALPRAZOLAM 0.25 MG TAB PO PRN (12:51)
[2017-01-11] MEDS: GUAIFENESIN/DM 5ML CUP PO PRN (14:38)
[2017-01-11] MEDS ORDERED: INSULIN GLARGINE [LANtus] 3 ML PEN SC SCH (20:00)
[2017-01-11] MEDS: ZOLPIDEM 5 MG TAB PO PRN (21:32)
--- NOTE | 2017-01-11 22:22 | CONS ---
Date/Time of Note Date/Time of Note DATE: 01/11/17 TIME: 22:22 Assessment/Plan Assessment/Plan Chief Complaint/Hosp Course MDS- POST CHEMO 1. pancytopenia, severe thrombocytopenia, anemia. POST CHEMO The patient transfused- POST 3 units of platelets and 2 units of PRBC. POST Neupogen. We will continue to monitor closely. PLATELET TRANSFUSIONS NEEDED COUNT- BETTER 2. ASTHMA Reactive airway disease. IMPROVING 3. Diabetes. Continue Accu-Cheks and insulin sliding scale. Continue metformin. 4. Hypertension. Continue current blood pressure regimen. 5. Depression and anxiety. Continue Xanax and Prozac. 6. Neuropathy. Continue Lyrica. 7. History of headaches. Etiology may be secondary to migraines. CT scan shows no acute bleed. We will continue to monitor. Continue pain control. 8. Insomnia. Continue Ambien. 9. History of degenerative joint disease, osteoarthritis. 10. Gastrointestinal and deep venous thrombosis prophylaxis. Continue proton pump inhibitor, sequential leg squeezers. Problems: Consultation Date/Type/Reason Admit Date/Time Dec 31, 2016 at 01:30 Initial Consult Date 12/31/16 Type of Consultation: [facility] Referring Provider: FINA IRVING DO 24 HR Interval Summary Free Text/Dictation IMPROVING COUNT- BETTER Exam/Review of Systems Vital Signs Vitals Vital Signs Date Time Temp Pulse Resp B/P Pulse Ox O2 Delivery O2 Flow Rate FiO2 01/11/17 20:33 97 18 97 21 01/11/17 08:10 97.8 105/59 01/07/17 19:26 Room Air Intake and Output 01/10/17 01/10/17 01/11/17 15:00 23:00 07:00 Intake Total 500 ml Balance 500 ml Exam HEENT: Head is normocephalic. NECK: Supple. HEART: Regular rate. LUNGS: Show diminished breath sounds at the base. ABDOMEN: Soft, nontender to palpation. No rebound or guarding. EXTREMITIES: Negative for clubbing, cyanosis and no edema. DERMATOLOGIC: No rashes. MUSCULOSKELETAL: No joint effusions. NEUROLOGIC: No change in exam. Results Result Diagram: 01/11/17 0415 01/10/17 0432 Results 24 hrs Laboratory Tests Test 01/11/17 02:29 01/11/17 04:15 01/11/17 08:23 01/11/17 12:04 Bedside Glucose 122 104 153 White Blood Count 3.9 #L Red Blood Count 3.46 L Hemoglobin 11.3 L Hematocrit 34.2 L Mean Corpuscular Volume 98.8 Mean Corpuscular Hemoglobin 32.7 Mean Corpuscular Hemoglobin Concent 33.0 Red Cell Distribution Width 15.8 H Platelet Count 47 #L Mean Platelet Volume 12.0 H Neutrophils % 33.0 L Band Neutrophils % 3.0 Lymphocytes % 58.0 H Monocytes % 6.0 Neutrophils # 1.3 L Lymphocytes # 2.3 Monocytes # 0.2 L Platelet Estimate PLT APPEAR DECREASED Test 01/11/17 20:58 Bedside Glucose 176 Medications Medications Current Medications Pantoprazole (Protonix Tab) 40 mg DAILY@06 PO Last administered on 01/11/17 06 :02; Admin Dose 40 MG; Start 12/31/16 at 06:00 Alprazolam (Xanax) 0.25 mg DAILY PRN PO ANXIETY Last administered on 01/11/17 12:51; Admin Dose 0.25 MG; Start 12/31/16 at 05:30 Diphenhydramine HCl (Benadryl) 25 mg Q4 PRN IV ITCHING; Start 12/31/16 at 05:30 Diagnostic Test (Pha) (Accucheck) 1 ea 02 XX Last administered on 01/11/17 02: 37; Admin Dose 1 EA; Start 01/01/17 at 02:00 Ferrous Sulfate (Ferrous Sulfate (Ec)) 325 mg BID PO Last administered on 21:32; Admin Dose 325 MG; Start 12/31/16 at 09:00 Fluoxetine HCl (Prozac) 20 mg DAILY PO Last administered on 01/11/17 08:25; Admin Dose 20 MG; Start 12/31/16 at 09:00 Miscellaneous Information 1 ea NOTE XX ; Start 12/31/16 at 06:00 Glucose (Glutose) 15 gm Q15M PRN PO DECREASED GLUCOSE; Start 12/31/16 at 06:00 Glucose (Glutose) 22.5 gm Q15M PRN PO DECREASED GLUCOSE; Start 12/31/16 at 06: 00 Dextrose (D50w Syringe) 25 ml Q15M PRN IV DECREASED GLUCOSE; Start 12/31/16 at 06:00 Dextrose (D50w Syringe) 50 ml Q15M PRN IV DECREASED GLUCOSE; Start 12/31/16 at 06:00 Glucagon (Glucagen) 1 mg Q15M PRN IM DECREASED GLUCOSE; Start 12/31/16 at 06:00 Glucose (Glutose) 15 gm Q15M PRN BUCCAL DECREASED GLUCOSE; Start 12/31/16 at 06 :00 Acetaminophen/ Hydrocodone Bitart ([place] (5/325)) 1 tab Q6H PRN PO pain Last administered on 01/10/17 20:57; Admin Dose 1 TAB; Start 12/31/16 at 10:00 Guaifenesin/ Dextromethorphan (Robitussin Dm Liquid Cup) 10 ml Q4H PRN PO COUGH Last administered on 01/11/17 14:38; Admin Dose 10 ML; Start 12/31/16 at 20:30 Pregabalin (Lyrica) 150 mg BID PO Last administered on 01/11/17 21:32; Admin Dose 150 MG; Start 01/04/17 at 09:00 Levofloxacin (Levaquin) 500 mg DAILY@06 PO Last administered on 01/11/17 06:02 ; Admin Dose 500 MG; Start 01/04/17 at 09:30 Meclizine HCl (Antivert) 25 mg TID PRN PO dizziness Last administered on 12:51; Admin Dose 25 MG; Start 01/06/17 at 10:00 Zolpidem Tartrate (Ambien) 10 mg HS PRN PO INSOMNIA Last administered on 21:32; Admin Dose 10 MG; Start 01/10/17 at 21:00 Insulin Glargine (Lantus) 12 unit DAILY@20 SC Last administered on 01/11/17 21 :31; Admin Dose 12 UNIT; Start 01/11/17 at 20:00 Lisinopril (Zestril) 5 mg DAILY PO ; Start 01/11/17 at 09:00 Prednisone (Prednisone) 10 mg DAILY PO ; Start 01/12/17 at 09:00 Linagliptin (Tradjenta) 5 mg DAILY PO Last administered on 01/11/17 10:17; Admin Dose 5 MG; Start 01/11/17 at 09:00 ZHAO CARRILLO MD Jan 11, 2017 22:22
[2017-01-12] MEDS: ALBUTEROL/IPRATROPIUM (NEB) 3 ML AMP HHN SCH ×5 (00:01→16:18)
[2017-01-12] MEDS: ACCU-CHEK XX SCH (02:00)
[2017-01-12 05:02] LABS: ADD SCAN DIFF NO
[2017-01-12 05:19] LABS: ABNORMAL IP MESSAGE 1; EOSINOPHILS % 0.2 % (0.0-7.0); HEMATOCRIT 37.5 % (37.0-47.0); HEMOGLOBIN 12.2 g/dl (12.0-16.0); LYMPHOCYTES # 3.2 10^3/ul (0.8-2.9); LYMPHOCYTES % 60.2 % (15.0-51.0); MEAN CORPUSCULAR HEMOGLOBIN 32.2 pg (29.0-33.0); MEAN CORPUSCULAR HGB CONC 32.5 g/dl (32.0-37.0); MEAN CORPUSCULAR VOLUME 98.9 fl (82.0-101.0); MEAN PLATELET VOLUME 10.5 fl (7.4-10.4); MONOCYTE # 0.3 10^3/ul (0.3-0.9); MONOCYTES % 4.7 % (0.0-11.0); NEUTROPHIL # 1.8 10^3/ul (1.6-7.5); NUCLEATED RED BLOOD CELLS% 0.4 /100WBC (0.0-0.0); PLATELET COUNT 55 10^3/UL (140-415); RED BLOOD COUNT 3.79 10^6/ul (4.20-5.40); RED CELL DISTRIBUTION WIDTH 15.8 % (11.5-14.5); WHITE BLOOD COUNT 5.4 10^3/ul (4.8-10.8)
[2017-01-12] MEDS: LEVOFLOXACIN 500 MG TAB PO SCH (06:14)
[2017-01-12] MEDS: PANTOPRAZOLE (EC) 40 MG TAB PO SCH (06:14)
[2017-01-12] MEDS: INSULIN ASPART [NOVOLOG] 3 ML PEN SC SCH ×3 (07:50→17:55)
[2017-01-12 08:30] VITALS: BP 100/63; RESP 20
[2017-01-12] MEDS ORDERED: predniSONE 10 MG TAB PO SCH (09:00)
[2017-01-12] MEDS: LISINOPRIL 5 MG TAB PO SCH (09:00)
[2017-01-12] MEDS: FERROUS SULFATE (EC) 325 MG TAB PO SCH (09:34)
[2017-01-12] MEDS: metFORMIN 500 MG TAB PO SCH ×2 (09:34→17:57)
[2017-01-12] MEDS: PREGABALIN 75 MG CAP PO SCH (09:35)
[2017-01-12] MEDS: FLUOXETINE 20 MG CAP PO SCH (09:35)
[2017-01-12] MEDS: LINAGLIPTIN 5 MG TABLET PO SCH (09:35)
--- NOTE | 2017-01-12 10:48 | DS ---
DATE OF ADMISSION: 12/31/2016 DATE OF DISCHARGE: 01/12/2017 HOSPITAL COURSE: This is a 61-year-old female with a past medical history of hypertension, dyslipid emia, obesity, diabetes, depression, anxiety disorder, asthma who presented to [facility] with abnormal labs. The patient was recently admitted to [facility] in [facility]. At that time, patient was found to have severe thrombocytopenia. Workup at the time showed myeloproliferative disorder. The patient was discharged home. She was seen by Dr. Machado in [facility] and was given chemotherapy. The patient then had developed severe thrombocytopeni a and headaches. As a result, she was brought into [facility]. In terms of the p atient's thrombocytopenia and pancytopenia, she was placed on Neupogen, given blood platelets and bl ood transfusion. The patient required intermittent transfusions during the hospital course. A CT s can of the head was also obtained, which showed no acute bleed. The patient's thrombocytopenia, impr birdie and currently, platelets are at 55. The patient's leukopenia has also resolved. 1. The patient also developed asthmatic bronchitis during the hospital course. She was seen by pulm onologist, Dr. Narayanan. The patient was treated with Levaquin and Solu-Medrol and a tapering dose o f steroids. The patient currently is clinically stable. She will be discharged on DuoNeb. The [facility] ient's prednisone will be tapered off and Levaquin will be discontinued prior to discharge. 2. Right otitis media. The patient continues to have decreased hearing on the right ear. She was treated with antibiotics and steroids. The patient will be followed up with an ENT in the outpatien t setting. 3. Diabetes. The patient's glucose levels have improved as her underlying prednisone steroids have been tapered off. The patient will be discharged with Tradjenta and metformin and will follow up w ith her primary care physician. In terms of patient's other medical problems including hypertension, anxiety disorder, neuropathy, a nd insomnia, they have been stable. Currently, at this time, the patient is stable, in no acute distress. She will be discharged home. a nd follow up with her primary care physician and ENT in 1 week's time. FINAL DIAGNOSES 1. Thrombocytopenia, leukopenia secondary to myelodysplastic syndrome. 2. Asthmatic bronchitis, resolved. 3. Right otitis media. The patient will follow up with ENT. 4. Diabetes. 5. Hypertension. 6. Anxiety disorder. 7. Neuropathy. 8. Insomnia. FINAL MEDICATIONS: The patient will be discharged on: 1. Tradjenta 5 mg daily. 2. DuoNeb 3 mL hand-held nebulizers q.6h. p.r.n. 3. Robitussin q.6h. p.r.n. 4. Howe 1 tab q.6 hours p.r.n. The patient will continue home medications of: 1. Alprazolam. 2. Ferrous sulfate. 3. Prozac. 4. Lisinopril. 5. Metformin. 6. Omeprazole. 7. Lyrica. 8. Ambien. At the time of discharge, the patient is stable, in no acute distress. Please note I spent over 40 minutes of time preparing the patient's discharge. Dictated By: FINA NUÑEZ/ARMEN Conf#: [id number] DID#: [id number]
--- NOTE | 2017-01-12 22:57 | CONS ---
Date/Time of Note Date/Time of Note DATE: 01/12/17 TIME: 22:56 Assessment/Plan Assessment/Plan Chief Complaint/Hosp Course MDS- POST CHEMO 1. pancytopenia, severe thrombocytopenia, anemia. POST CHEMO The patient transfused- POST 3 units of platelets and 2 units of PRBC. POST Neupogen. We will continue to monitor closely. PLATELET TRANSFUSIONS NEEDED COUNT- BETTER 2. ASTHMA Reactive airway disease. IMPROVING 3. Diabetes. Continue Accu-Cheks and insulin sliding scale. Continue metformin. 4. Hypertension. Continue current blood pressure regimen. 5. Depression and anxiety. Continue Xanax and Prozac. 6. Neuropathy. Continue Lyrica. 7. History of headaches. Etiology may be secondary to migraines. CT scan shows no acute bleed. We will continue to monitor. Continue pain control. 8. Insomnia. Continue Ambien. 9. History of degenerative joint disease, osteoarthritis. 10. Gastrointestinal and deep venous thrombosis prophylaxis. Continue proton pump inhibitor, sequential leg squeezers. OK TO DC Problems: Consultation Date/Type/Reason Admit Date/Time Dec 31, 2016 at 01:30 Initial Consult Date 12/31/16 [facility]: [facility] Referring Provider: FINA IRVING DO 24 HR Interval Summary Free Text/Dictation FELLING BETTER COUNT IS IMPROVING Exam/Review of Systems Vital Signs Vitals Vital Signs Date Time Temp Pulse Resp B/P Pulse Ox O2 Delivery O2 Flow Rate FiO2 01/12/17 16:18 92 20 95 21 01/12/17 08:30 97.6 100/63 Intake and Output 01/11/17 01/11/17 01/12/17 15:00 23:00 07:00 Intake Total 1000 ml 600 ml Balance 1000 ml 600 ml Exam HEENT: Head is normocephalic. NECK: Supple. HEART: Regular rate. LUNGS: Show diminished breath sounds at the base. ABDOMEN: Soft, nontender to palpation. No rebound or guarding. EXTREMITIES: Negative for clubbing, cyanosis and no edema. DERMATOLOGIC: No rashes. MUSCULOSKELETAL: No joint effusions. NEUROLOGIC: No change in exam. Results Result Diagram: 01/12/17 0439 01/10/17 0432 Results 24 hrs Laboratory Tests Test 01/12/17 04:39 01/12/17 08:11 01/12/17 11:46 01/12/17 17:30 White Blood Count 5.4 # Red Blood Count 3.79 L Hemoglobin 12.2 Hematocrit 37.5 Mean Corpuscular Volume 98.9 Mean Corpuscular Hemoglobin 32.2 Mean Corpuscular Hemoglobin Concent 32.5 Red Cell Distribution Width 15.8 H Platelet Count 55 L Mean Platelet Volume 10.5 H Neutrophils % 33.0 L Lymphocytes % 60.2 H Monocytes % 4.7 Eosinophils % 0.2 Basophils % 0.0 Nucleated Red Blood Cells % 0.4 H Neutrophils # 1.8 Lymphocytes # 3.2 H Monocytes # 0.3 Eosinophils # 0.0 Basophils # 0.0 Nucleated Red Blood Cells # 0.0 Bedside Glucose 94 109 150 ZHAO CARRILLO MD Jan 12, 2017 22:57
== END 2017-01-12 19:05 | disposition home or self-care (01) | DRG 812 ==
LOC: E/R 15:03 → MS4 12-31 01:30 → E/R 12-31 04:04 → MS1 01-07 19:02
PROVIDERS: ADMIT Internal Medicine; ATTEND Internal Medicine
PROC: 30233N1 Transfusion of Nonautologous Red Blood Cells into Peripheral Vein, Percutaneous Approach (ICD-10-PCS; principal; 2016-12-31)
PROC: 30233R1 Transfusion of Nonautologous Platelets into Peripheral Vein, Percutaneous Approach (ICD-10-PCS; 2016-12-31)
DX: D46.9 Myelodysplastic syndrome, unspecified (principal); D61.818 Other pancytopenia; G62.9 Polyneuropathy, unspecified; E11.40 Type 2 diabetes mellitus with diabetic neuropathy, unspecified; J45.901 Unspecified asthma with (acute) exacerbation; N39.0 Urinary tract infection, site not specified; I10 Essential (primary) hypertension; J20.9 Acute bronchitis, unspecified; H66.91 Otitis media, unspecified, right ear; G47.00 Insomnia, unspecified; F41.8 Other specified anxiety disorders; R51 Headache; E66.9 Obesity, unspecified; Z68.37 Body mass index [BMI] 37.0-37.9, adult
CPT/HCPCS: 36415; 36430; 70450; 71010; 76536; 80048; 80053; 81001; 81003; 82962; 83735; 84100; 84484; 85025; 85610; 85730; 86644; 86850; 86870; 86900; 86901; 86920; 86945; 87040; 87086; 93005; 94640; 94664; 96374; 96375; 97110; 97116; 97162; 97530; J0456; J1200; J1815; J2270; J2405; J2920; J3475; J7050; J7512; P9016; P9035

== ENCOUNTER 2017-02-06 23:37 | Inpatient (IN) | payer MEDICARE, OTHER ==
[~2017-02-06] VITALS: Ht 165.1 cm; Wt 97.5 kg
[2017-02-07] MEDS ORDERED: SOD CHLORIDE 0.9% 500 ML IV STA (02:01)
[2017-02-07 02:26] LABS: ADD SCAN DIFF NO
[2017-02-07 02:37] LABS: INR 0.78; PROTIME 10.8 Sec (12.2-14.2); PT RATIO 0.8
[2017-02-07 02:38] LABS: PARTIAL THROMBOPLASTIN TIME 24.1 Sec (25.0-35.0)
[2017-02-07 02:42] LABS: ABNORMAL IP MESSAGE 1; ALBUMIN 4.3 g/dl (3.3-4.9); CHLORIDE 101 mmol/L (97-110); HEMATOCRIT 26.9 % (37.0-47.0); HEMOGLOBIN 9.3 g/dl (12.0-16.0); MEAN CORPUSCULAR HEMOGLOBIN 33.8 pg (29.0-33.0); MEAN CORPUSCULAR HGB CONC 34.6 g/dl (32.0-37.0); MEAN CORPUSCULAR VOLUME 97.8 fl (82.0-101.0); RED BLOOD COUNT 2.75 10^6/ul (4.20-5.40); RED CELL DISTRIBUTION WIDTH 15.3 % (11.5-14.5); WHITE BLOOD COUNT 2.5 10^3/ul (4.8-10.8)
[2017-02-07 02:43] LABS: POTASSIUM 3.7 mmol/L (3.5-5.1); SODIUM 140 mmol/L (135-144)
[2017-02-07 02:45] LABS: ALBUMIN/GLOBULIN RATIO 1.48; ALKALINE PHOSPHATASE 100 IU/L (42-121); ANION GAP 16 (8-16); ASPARTATE AMINO TRANSFERASE 22 IU/L (15-46); BILIRUBIN,INDIRECT 0.4 mg/dl (0-1.1); BILIRUBIN,TOTAL 0.4 mg/dl (0.2-1.3); BLOOD UREA NITROGEN 12 mg/dl (7-20); CARBON DIOXIDE 27 mmol/L (21-31); CREATININE 0.61 mg/dl (0.44-1.00); TOTAL PROTEIN 7.2 g/dl (6.1-8.1)
[2017-02-07 02:46] LABS: ALANINE AMINOTRANSFERASE 34 IU/L (13-69); CALCIUM 9.2 mg/dl (8.4-10.2); GLUCOSE 125 mg/dl (70-220); PLATELET COUNT 7 10^3/UL (140-415)
[2017-02-07 03:11] LABS: TROPONIN-I < 0.012 ng/ml (0.00-0.12)
[2017-02-07] MEDS ORDERED: SOD CHLORIDE 0.9% 250 ML IV ONE (03:12)
[2017-02-07 03:35] LABS: LYMPHOCYTES # 1.9 10^3/ul (0.8-2.9); NEUTROPHIL # 0.5 10^3/ul (1.6-7.5)
[2017-02-07 03:43] LABS: PLATELET ESTIMATE PLT APPEAR DECREASED
[2017-02-07] MEDS ORDERED: ONDANSETRON 4 MG INJ IV PRN (05:00)
[2017-02-07] MEDS ORDERED: ACETAMINOPHEN 325 MG TAB PO PRN (05:00)
--- NOTE | 2017-02-07 05:28 | HP ---
Date/Time of Note Date/Time of Note DATE: 02/07/17 TIME: 05:20 Assessment/Plan Assessment/Plan Assessment/Plan 1. Pancytopenia. Underlying etiology is unclear. Concerning for possible plasma cell dyscrasia, leukemia. Plan is for the patient to undergo bone marrow biopsy by agitator operator, Dr. Machado. We will continue to monitor CBC daily. The patient may require platelet and/or blood transfusion. We will defer to Dr. Machado for management. Otherwise, continue to monitor closely. 2. Azotemia. Etiology is likely due to volume depletion. The patient's renal function has improved after receiving IV hydration. We will continue. 3. Diabetes. We will continue Accu-Cheks and sliding scale. We will continue metformin. 4. History of hypertension. Continue benazepril. 5. Depression and anxiety disorder. Continue Xanax and Prozac. 6. History of neuropathy. Continue Lyrica. 7. History of degenerative joint disease, osteoarthritis. The patient is status post bilateral knee replacement. Continue to monitor. 8. Insomnia. Continue Ambien. 9. Gastrointestinal and deep venous thrombosis prophylaxis. Continue proton pump inhibitor and sequential leg squeezers. HPI/ROS Admit Date/Time Admit Date/Time 02/07/17 0500 Hx of Present Illness CHIEF COMPLAINT: Thrombocytopenia, ecchymosis, bruising. HISTORY OF PRESENT ILLNESS: This is a 60-year-old female with a past medical history of hypertension, history of dyslipidemia, history of obesity, history of anxiety disorder, history of depression, history of diabetes and insomnia who presents to [facility] for recent concern of bruising, bleeding, low platelets and anemia. The patient states over the last 2 to 3 months she has developed ecchymoses and superficial hematomas in her upper and lower extremities. She was then seen by her agitator operator, Dr. Machado, who noted her to be thrombocytopenic and has been working her up for her anemia. The patient continued to have episodes of epistaxis which resolved spontaneously ; however, given these progressive symptoms, she came into the [facility] for evaluation. The patient, upon arrival to the emergency room, had laboratory data drawn which noted her to be anemic with a hemoglobin 11.5 and thrombocytopenia with a platelet count of 29. The patient in the emergency room was given IV fluids and admitted to med/surg telemetry for further evaluation. Overnight, the patient had been stable and complained of a mild headache but otherwise denies any fevers, chills, nausea, vomiting. No hemoptysis, hematemesis, or hematochezia. PAST MEDICAL HISTORY: As stated above, history of hypertension, diabetes, dyslipidemia, obesity, GERD, anxiety disorder, insomnia, depression. ALLERGIES: THE PATIENT IS ALLERGIC TO PENICILLIN. PAST SURGICAL HISTORY: Includes surgeries with bilateral knee arthroplasty and back surgery. FAMILY HISTORY: The patient has family history of diabetes. SOCIAL HISTORY: Does not drink, smoke, or do drugs. MEDICATIONS: The patient's medications have been reviewed and reconciled. REVIEW OF SYSTEMS: A 14-point review of systems was conducted. Pertinent positives stated in HPI, otherwise negative. PHYSICAL EXAMINATION: VITAL SIGNS: Blood pressure is 126/60, respiration 19, pulse 74, temperature 98.2. HEENT: Head is normocephalic. NECK: Supple. HEART: Regular rate. LUNGS: Show diminished breath sounds at base. ABDOMEN: Soft, nontender to palpation without rebound or guarding. EXTREMITIES: Negative for clubbing, cyanosis, no edema. DERMATOLOGIC: Noted ecchymoses upper and lower extremities, back, and thighs. NEUROLOGIC: No focal deficits ROS General: Admits: Denies: Fever, Chills, Poor Appetite, Generalized Body Aches Eyes: Admits: Denies: Blurry Vision, Double Vision HENT: Admits: Denies: Ear Pain/Pressure, Runny/Stuffy Nose, Sore Throat Cardiovascular: Admits: Denies: Chest Pain, Palpitations, Leg Swelling Pulmonary: Admits: Denies: Cough, Wheeze, Shortness of Breath Gastrointestinal: Admits: Denies: Abdominal Pain, Nausea, Vomiting, Diarrhea, Blood in Stool, Black-Colored Stool Urogenital: Admits: Denies: Burning with Urination, Urinary Frequency, Blood in Urine Musculoskeletal: Admits: Muscle pain the left side of neck in the back x 2 days Denies: Joint Pain, Joint Swelling Neurological: Admits: Denies: Headache, Dizziness, Numbness, Tingling, Shooting Pains Integumentary: Admits: Denies: Rash, Itch Hematology: Admits: Denies: Spontaneous Bleeding, Easy Bruising PMH/Family/Social Past Surgical History bilateral knee arthroplasty and back surgery. Social History Alcohol Use: none Smoking Status: Former smoker Drug Use: none Exam/Review of Systems Vital Signs Vitals Vital Signs Date Time Temp Pulse Resp B/P Pulse Ox O2 Delivery O2 Flow Rate FiO2 02/07/17 03:52 76 16 92/81 100 Room Air 02/06/17 23:42 98.3 Exam Exam General: WD/WN overweight female, alert and oriented, in no acute distress, once I awoke her from sleeping Eyes: Sclera White, EOMI HENT: Normocephalic/Atraumatic, External Ears/Nose Normal, Moist Mucus Membranes Neck: Supple, Trachea Midline Cardiovascular: Normal Rate, Regular Rhythm, Normal S1 and S2, No Murmur, No Extra Sounds. Radial pulse +2/4. No pedal Edema. Pulmonary: Clear to Auscultation Bilaterally, Normal Respiratory Effort, No Rales, Rhonchi or Wheezes Gastrointestinal: Normoactive Bowel Sounds, Soft, Non-Tender/Non-Distended, No Hepatosplenomegaly Appreciated, No Pulsatile Masses Urogenital: Deferred Musculoskeletal: Normal Muscle Bulk and Tone, Musle spasm noted in the left posterior paraspinal musculature. approximately Level 5-6. Only minimum Neurological: CN II - XII Grossly Intact, Non-Focal, Speech Normal Integumentary: Normal Moisture and Temperature, Good Turgor, No Jaundice, No Rash Lymphatic: No Cervical Lymphadenopathy Psychiatric: Appropriate Mood and Affect, Good Eye Contact Labs Result Diagram: 02/07/1721402/07/17214 KESHAV MONTERO DO Feb 07, 2017 05:28
[2017-02-07] MEDS ORDERED: METOCLOPRAMIDE 10 MG INJ IV PRN (05:30)
[2017-02-07] MEDS ORDERED: NACL 0.9% 3 ML SYG IV SCH (05:30)
[2017-02-07] MEDS ORDERED: ONDANSETRON 4 MG TAB PO PRN (05:30)
[2017-02-07 05:38] VITALS: TEMP 97.5
[2017-02-07 06:15] VITALS: Ht 165.1 cm; Wt 97.5 kg
[2017-02-07 06:37] VITALS: BP 131/60; PULSE 62; RESP 16
[2017-02-07 08:11] VITALS: BP 118/66; RESP 20
[2017-02-07] MEDS ORDERED: DEXTROSE 50% 50 ML SYRINGE IV PRN ×2 (09:00)
[2017-02-07] MEDS ORDERED: GLUCOSE GEL 15 GRAM TUBE BUCCAL PRN (09:00)
[2017-02-07] MEDS ORDERED: GLUCOSE GEL 15 GRAM TUBE PO PRN ×2 (09:00)
[2017-02-07] MEDS ORDERED: GLUCAGON 1 MG INJ IM PRN (09:00)
[2017-02-07] MEDS: metFORMIN 500 MG TAB PO SCH ×2 (10:02→17:15)
[2017-02-07] MEDS: FAMOTIDINE 20 MG TAB PO SCH ×2 (10:03→22:06)
[2017-02-07] MEDS: FLUOXETINE 20 MG CAP PO SCH (10:03)
[2017-02-07] MEDS: FERROUS SULFATE (EC) 325 MG TAB PO SCH ×2 (10:03→22:06)
[2017-02-07] MEDS: PREGABALIN 75 MG CAP PO SCH ×2 (10:03→22:06)
[2017-02-07] MEDS: LISINOPRIL 5 MG TAB PO SCH (10:04)
[2017-02-07 10:08] VITALS: BP 124/76; PULSE 83
[2017-02-07] MEDS ORDERED: ALBUTEROL/IPRATROPIUM (NEB) 3 ML AMP HHN PRN (10:30)
[2017-02-07] MEDS: ACETAMINOPHEN 500 MG TAB PO PRN (10:32)
[2017-02-07] MEDS: INSULIN ASPART [NOVOLOG] 3 ML PEN SC SCH ×3 (12:06→22:06)
[2017-02-07 13:59] LABS: ADD SCAN DIFF NO
[2017-02-07] MEDS: ALBUTEROL/IPRATROPIUM (NEB) 3 ML AMP HHN SCH ×2 (14:00→19:53)
[2017-02-07 14:02] LABS: ABNORMAL IP MESSAGE 1; HEMATOCRIT 23.8 % (37.0-47.0); HEMOGLOBIN 8.1 g/dl (12.0-16.0); MEAN CORPUSCULAR HEMOGLOBIN 33.3 pg (29.0-33.0); MEAN CORPUSCULAR VOLUME 97.9 fl (82.0-101.0); PLATELET COUNT 47 10^3/UL (140-415); RED BLOOD COUNT 2.43 10^6/ul (4.20-5.40); RED CELL DISTRIBUTION WIDTH 15.2 % (11.5-14.5); WHITE BLOOD COUNT 1.9 10^3/ul (4.8-10.8)
[2017-02-07 14:44] LABS: LYMPHOCYTES # 1.6 10^3/ul (0.8-2.9); NEUTROPHIL # 0.3 10^3/ul (1.6-7.5); PLATELET ESTIMATE PLT APPEAR DECREASED
[2017-02-07 16:14] LABS: HEMOGLOBIN A1C 6.3 % (0-5.9)
[2017-02-07 17:43] LABS: ADD UMIC YES; URINE BILIRUBIN (Dip) NEGATIVE (NEGATIVE); URINE BLOOD (Dip) TRACE (NEGATIVE); URINE COLOR LT. YELLOW (YELLOW); URINE GLUCOSE (Dip) NEGATIVE (NEGATIVE); URINE KETONES (Dip) NEGATIVE (NEGATIVE); URINE LEUKOCYTE ESTERASE (Dip) NEGATIVE (NEGATIVE); URINE NITRITE (Dip) NEGATIVE (NEGATIVE); URINE TOTAL PROTEIN (Dip) NEGATIVE (NEGATIVE); URINE UROBILINOGEN (Dip) 0.2 E.U./dL (0.1-1.0)
[2017-02-07 18:30] LABS: BACTERIA,URINE FEW; SQUAMOUS EPITHELIAL CELL,UR FEW; URINE RBCS 0-2 /HPF (0)
[2017-02-07 19:00] VITALS: BP 117/61; RESP 20
[2017-02-07] MEDS: ZOLPIDEM 5 MG TAB PO PRN (22:06)
[2017-02-08] MEDS: ACCU-CHEK XX SCH (02:00)
[2017-02-08 07:16] VITALS: BP 120/61; RESP 20
[2017-02-08 07:26] LABS: ADD SCAN DIFF NO
[2017-02-08 07:41] LABS: ABNORMAL IP MESSAGE 1; HEMATOCRIT 23.1 % (37.0-47.0); HEMOGLOBIN 7.7 g/dl (12.0-16.0); MEAN CORPUSCULAR HGB CONC 33.3 g/dl (32.0-37.0); MEAN CORPUSCULAR VOLUME 99.1 fl (82.0-101.0); MEAN PLATELET VOLUME 12.3 fl (7.4-10.4); PLATELET COUNT 39 10^3/UL (140-415); RED BLOOD COUNT 2.33 10^6/ul (4.20-5.40); RED CELL DISTRIBUTION WIDTH 15.3 % (11.5-14.5); WHITE BLOOD COUNT 1.7 10^3/ul (4.8-10.8)
[2017-02-08 07:50] LABS: POTASSIUM 3.9 mmol/L (3.5-5.1)
[2017-02-08 07:52] LABS: CREATININE 0.63 mg/dl (0.44-1.00); MAGNESIUM 1.3 mg/dl (1.7-2.5); PHOSPHORUS 3.6 mg/dl (2.5-4.9)
[2017-02-08 07:53] LABS: CALCIUM 9.3 mg/dl (8.4-10.2); CHOL/HDL RATIO 2.7 RATIO
[2017-02-08] MEDS: ALBUTEROL/IPRATROPIUM (NEB) 3 ML AMP HHN SCH ×3 (08:00→20:00)
[2017-02-08] MEDS: FERROUS SULFATE (EC) 325 MG TAB PO SCH ×2 (08:07→20:38)
[2017-02-08] MEDS: FLUOXETINE 20 MG CAP PO SCH (08:08)
[2017-02-08] MEDS: metFORMIN 500 MG TAB PO SCH ×2 (08:08→17:29)
[2017-02-08] MEDS: FAMOTIDINE 20 MG TAB PO SCH ×2 (08:08→20:39)
[2017-02-08] MEDS: PREGABALIN 75 MG CAP PO SCH ×2 (08:08→20:39)
[2017-02-08] MEDS: LISINOPRIL 5 MG TAB PO SCH (08:09)
[2017-02-08] MEDS: INSULIN ASPART [NOVOLOG] 3 ML PEN SC SCH ×4 (08:14→20:40)
[2017-02-08] MEDS ORDERED: SOD CHLORIDE 0.9% 250 ML IV* ONE (09:16)
[2017-02-08] MEDS ORDERED: MAGNESIUM SULFATE 4 GM/100 ML 100 ML IVPB SCH (10:30)
--- NOTE | 2017-02-08 11:11 | PN ---
DATE: 02/07/2017 Please note, I have taken over service from the hospitalist group. HISTORY OF PRESENT ILLNESS: This is a 61-year-old female, well known to me, who has history of myel odysplastic syndrome, receiving chemotherapy. The patient was brought into the hospital due to radha re thrombocytopenia and anemia. The patient was admitted to hospitalist service. The patient has r eceived 1 unit of platelet transfusion. This morning, the patient is clinically stable. Denies any cough, shortness of breath, fevers, chil ls, nausea or vomiting. OBJECTIVE: VITAL SIGNS: Blood pressure 120/61, respirations 20, pulse 80, temperature 98.2. HEENT: Head is normocephalic. Pupils are reactive to light. NECK: Supple. HEART: Regular rate. LUNGS: Show diminished breath sounds at the base. ABDOMEN: Soft, nontender to palpation. No rebound or guarding. EXTREMITIES: Negative for clubbing, cyanosis, no edema. DERMATOLOGIC: Noted ecchymoses upper and lower extremities. NEUROLOGIC: No focal deficits. MUSCULOSKELETAL: No joint effusions. LABORATORY DATA: Shows BMP within normal limits. Magnesium 1.3, phosphorus 3.6. White count 1.7, hemoglobin 7.7, hematocrit 23.1, platelet count is 39. ASSESSMENT AND PLAN: 1. Pancytopenia, etiology secondary to myelodysplastic syndrome. The patient is status post chemot herapy approximately 2 weeks ago. Chemotherapy may also be a contributing factor. The patient has received 1 unit of platelets with appropriate response as platelets increase from 7 to 39. The greg ent will also receive 1 unit of PRBC today. The patient remains neutropenic. Will discuss with Dr. Machado if Neupogen should be given. Would otherwise continue to monitor closely. 2. Diabetes. The patient's glucose levels remained stable. Continue current insulin regimen, insu kirsty sliding scale, metformin. 3. Hypertension. Blood pressure well controlled. Continue current blood pressure regimen. 4. Anxiety disorder. Continue Ativan. 5. Neuropathy. Continue Lyrica. 6. Insomnia. Continue Ambien. 7. Previous history of asthmatic bronchitis. The patient is currently clinically compensated. [place] l continue to monitor. 8. Hypomagnesemia, replete with magnesium sulfate. 9. Gastrointestinal and deep venous thrombosis prophylaxis. Continue Pepcid and sequential leg squ eezers. 10. Depression. Continue Prozac. Please note I spent over 25 minutes of face to face time with the patient, discussing code status. T he patient is FULL CODE. Dictated By: FINA NUÑEZ/ARMEN Conf#: [id number] DID#: [id number]
[2017-02-08 11:54] LABS: LYMPHOCYTES # 1.4 10^3/ul (0.8-2.9); MONOCYTE # 0.1 10^3/ul (0.3-0.9); NEUTROPHIL # 0.2 10^3/ul (1.6-7.5); PLATELET ESTIMATE PLT APPEAR DECREASED
--- NOTE | 2017-02-08 15:38 | CONS ---
Date/Time of Note Date/Time of Note DATE: 02/08/17 TIME: 15:34 Assessment/Plan Assessment/Plan Chief Complaint/Hosp Course This is a 60-year-old female with a past medical history of hypertension, history of dyslipidemia, history of obesity, history of anxiety disorder, history of depression, history of diabetes and insomnia who presents to [facility] for recent concern of bruising, bleeding, low platelets and anemia. The patient states over the last 2 to 3 months she has developed ecchymoses and superficial hematomas in her upper and lower extremities. She was then seen by her weights and measures inspector, Dr. Machado, diagnosed her with MDS and has given her two cycles of chemotherapy (per patient, 7 day cycles of treatment ), ?Vidaza. Her second cycle was completed 1 week ago. # History of MDS per Dr. Machado, status post 2 cycles of chemo (Vidaza?) with pancytopenia - Would recommend transfusion to keep Hgb > 8 and platelets > 10 (or > 20 if febrile or > 50 if bleeding). s/p 1 unit pRBCs today for Hgb 7.7 - Will clarify with Dr. Machado whether she would like to give neupogen - Will continue to monitor counts. - Dr. Machado will return on Tuesday. Problems: Consultation Date/Type/Reason Admit Date/Time 02/07/17 0500 Date of Consultation: Feb 08, 2017 Type of Consultation: Hematology/Oncology Reason for Consultation Pancytopenia Hx of Present Illness This is a 60-year-old female with a past medical history of hypertension, history of dyslipidemia, history of obesity, history of anxiety disorder, history of depression, history of diabetes and insomnia who presents to [facility] for recent concern of bruising, bleeding, low platelets and anemia. The patient states over the last 2 to 3 months she has developed ecchymoses and superficial hematomas in her upper and lower extremities. She was then seen by her weights and measures inspector, Dr. Machado, diagnosed her with MDS and has given her two cycles of chemotherapy (per patient, 7 day cycles of treatment ), ?Vidaza. Her second cycle was completed 1 week ago. She denies bleeding but does have diffuse bruising. Past Medical History As stated above, history of hypertension, diabetes, dyslipidemia, obesity, GERD , anxiety disorder, insomnia, depression, fibromyalgia. Past Surgical History bilateral knee arthroplasty and back surgery. Family History Significant Family History: diabetes, other (son had leuekmia at 10 years of age) Social History Alcohol Use: none Smoking Status: Former smoker Drug Use: none Exam/Review of Systems Vital Signs Vitals Vital Signs Date Time Temp Pulse Resp B/P Pulse Ox O2 Delivery O2 Flow Rate FiO2 02/08/17 08:42 21 02/08/17 07:16 98.2 80 20 120/61 97 02/07/17 06:37 Room Air Intake and Output 02/07/17 02/07/17 02/08/17 15:00 23:00 07:00 Intake Total 840 ml Output Total 400 ml Balance 440 ml Exam Constitutional: alert, oriented Psych: no complaints Head: normocephalic Eyes: nl conjunctiva Neck: supple Respiratory: clear to auscultation Cardiovascular: regular rate and rhythm Gastrointestinal: non-tender, soft Musculoskeletal: nl extremities to inspection Skin: ecchymosis Results Result Diagram: 02/08/1715 02/08/17 0615 Results 24 hrs Laboratory Tests Test 02/07/17 17:08 02/07/17 17:10 02/07/17 22:05 02/08/17 06:15 Bedside Glucose 124 121 Urine Color LT. YELLOW Urine Clarity CLEAR Urine pH 6.0 Urine Specific [place] <=1.005 L Urine Ketones NEGATIVE Urine Nitrite NEGATIVE Urine Bilirubin NEGATIVE Urine Urobilinogen 0.2 E.U./dL Urine Leukocyte Esterase NEGATIVE Urine Microscopic RBC 0-2 Urine Microscopic WBC 0-2 Urine Squamous Epithelial Cells FEW Urine Bacteria FEW Urine Hemoglobin TRACE Urine Glucose NEGATIVE Urine Total Protein NEGATIVE White Blood Count 1.7 L Red Blood Count 2.33 L Hemoglobin 7.7 L Hematocrit 23.1 L Mean Corpuscular Volume 99.1 Mean Corpuscular Hemoglobin 33.0 Mean Corpuscular Hemoglobin Concent 33.3 Red Cell Distribution Width 15.3 H Platelet Count 39 L Mean Platelet Volume 12.3 #H Neutrophils % 14.0 L Lymphocytes % 82.0 H Monocytes % 4.0 Nucleated Red Blood Cells % 1.0 H Neutrophils # 0.2 L Lymphocytes # 1.4 Monocytes # 0.1 L Platelet Estimate PLT APPEAR DECREASED Sodium Level 140 Potassium Level 3.9 Chloride Level 104 Carbon Dioxide Level 27 Anion Gap 13 Blood Urea Nitrogen 11 Creatinine 0.63 Glucose Level 113 Calcium Level 9.3 Phosphorus Level 3.6 Magnesium Level 1.3 L Triglycerides Level 117 Cholesterol Level 146 LDL Cholesterol, Calculated 69 HDL Cholesterol 54 Cholesterol/HDL Ratio 2.7 Test 02/08/17 08:06 02/08/17 12:09 Bedside Glucose 149 90 Medications Medications Current Medications Ondansetron HCl (Zofran Tab) 4 mg Q6H PRN PO NAUSEA AND/OR VOMITING; Start at 05:30 Metoclopramide HCl (Reglan) 10 mg Q6H PRN IV NAUSEA AND/OR VOMITING; Start at 05:30 Famotidine (Pepcid) 20 mg Q12 PO Last administered on 02/08/17 08:08; Admin Dose 20 MG; Start 02/07/17 at 09:00 Ferrous Sulfate (Ferrous Sulfate (Ec)) 325 mg BID PO Last administered on 08:07; Admin Dose 325 MG; Start 02/07/17 at 09:00 Fluoxetine HCl (Prozac) 20 mg DAILY PO Last administered on 02/08/17 08:08; Admin Dose 20 MG; Start 02/07/17 at 09:00 Lisinopril (Zestril) 5 mg DAILY PO Last administered on 02/08/17 08:09; Admin Dose 5 MG; Start 02/07/17 at 09:00 Pregabalin (Lyrica) 150 mg BID PO Last administered on 02/08/17 08:08; Admin Dose 150 MG; Start 02/07/17 at 09:00 Zolpidem Tartrate (Ambien) 10 mg QHS PRN PO INSOMNIA Last administered on 22:06; Admin Dose 10 MG; Start 02/07/17 at 05:30 Diagnostic Test (Pha) (Accu-Chek) 1 ea 02 XX ; Start 02/08/17 at 02:00 Miscellaneous Information 1 ea NOTE XX ; Start 02/07/17 at 09:00 Glucose (Glutose) 15 gm Q15M PRN PO DECREASED GLUCOSE; Start 02/07/17 at 09:00 Glucose (Glutose) 22.5 gm Q15M PRN PO DECREASED GLUCOSE; Start 02/07/17 at 09: 00 Dextrose (D50w Syringe) 25 ml Q15M PRN IV DECREASED GLUCOSE; Start 02/07/17 at 09:00 Dextrose (D50w Syringe) 50 ml Q15M PRN IV DECREASED GLUCOSE; Start 02/07/17 at 09:00 Glucagon (Glucagen) 1 mg Q15M PRN IM DECREASED GLUCOSE; Start 02/07/17 at 09:00 Glucose (Glutose) 15 gm Q15M PRN BUCCAL DECREASED GLUCOSE; Start 02/07/17 at 09 :00 Acetaminophen (Tylenol Tab) 500 mg Q6H PRN PO PAIN AND OR ELEVATED TEMP Last administered on 02/07/17t 10:32; Admin Dose 500 MG; Start 02/07/17 at 10:30 TOZEKE MD Feb 08, 2017 15:38
[2017-02-08] MEDS: ACETAMINOPHEN 500 MG TAB PO PRN (17:29)
[2017-02-08 20:12] VITALS: BP 93/55; RESP 19
[2017-02-08] MEDS: ZOLPIDEM 5 MG TAB PO PRN (22:59)
[2017-02-09] MEDS: ACCU-CHEK XX SCH (01:01)
[2017-02-09 06:02] LABS: ADD SCAN DIFF NO
[2017-02-09 06:23] LABS: ABNORMAL IP MESSAGE 1; HEMATOCRIT 27.3 % (37.0-47.0); HEMOGLOBIN 9.1 g/dl (12.0-16.0); MEAN CORPUSCULAR HEMOGLOBIN 31.6 pg (29.0-33.0); MEAN CORPUSCULAR HGB CONC 33.3 g/dl (32.0-37.0); MEAN CORPUSCULAR VOLUME 94.8 fl (82.0-101.0); MEAN PLATELET VOLUME 12.3 fl (7.4-10.4); PLATELET COUNT 31 10^3/UL (140-415); RED BLOOD COUNT 2.88 10^6/ul (4.20-5.40); RED CELL DISTRIBUTION WIDTH 17.8 % (11.5-14.5); WHITE BLOOD COUNT 1.9 10^3/ul (4.8-10.8)
[2017-02-09 06:53] LABS: POTASSIUM 3.9 mmol/L (3.5-5.1)
[2017-02-09 06:55] LABS: CREATININE 0.63 mg/dl (0.44-1.00)
[2017-02-09 06:56] LABS: CALCIUM 9.2 mg/dl (8.4-10.2); MAGNESIUM 1.9 mg/dl (1.7-2.5)
[2017-02-09] MEDS: ALBUTEROL/IPRATROPIUM (NEB) 3 ML AMP HHN SCH ×3 (07:42→20:00)
[2017-02-09 08:00] VITALS: BP 119/62; RESP 16
[2017-02-09 08:03] LABS: LYMPHOCYTES # 1.5 10^3/ul (0.8-2.9); NEUTROPHIL # 0.3 10^3/ul (1.6-7.5)
[2017-02-09 08:04] LABS: PLATELET ESTIMATE PLT APPEAR DECREASED
[2017-02-09] MEDS: INSULIN ASPART [NOVOLOG] 3 ML PEN SC SCH ×4 (08:15→21:00)
[2017-02-09] MEDS: FAMOTIDINE 20 MG TAB PO SCH ×2 (09:09→21:17)
[2017-02-09] MEDS: FERROUS SULFATE (EC) 325 MG TAB PO SCH ×2 (09:10→21:17)
[2017-02-09] MEDS: LISINOPRIL 5 MG TAB PO SCH (09:10)
[2017-02-09] MEDS: FLUOXETINE 20 MG CAP PO SCH (09:10)
[2017-02-09] MEDS: metFORMIN 500 MG TAB PO SCH ×2 (09:10→17:16)
[2017-02-09] MEDS: PREGABALIN 75 MG CAP PO SCH ×2 (09:14→21:17)
--- NOTE | 2017-02-09 11:08 | PN ---
DATE: SUBJECTIVE: The patient is complaining about general fatigue. No other events noted. No fevers. N o nausea, vomiting, no shortness of breath. OBJECTIVE: VITAL SIGNS: Blood pressure 119/62, respirations 16, pulse 70, temperature 98.4. HEENT: Head is normocephalic. NECK: Supple. HEART: Regular rate. LUNGS: Show diminished breath sounds at base. ABDOMEN: Soft, nontender to palpation. No rebound or guarding. EXTREMITIES: Negative for clubbing, cyanosis, no edema. DERMATOLOGIC: Noted ecchymoses. MUSCULOSKELETAL: No change. NEUROLOGIC: No focal deficits. MEDICATIONS: Have been reviewed. LABORATORY DATA: Shows a BMP within normal limits. White count 1.9, hemoglobin 9.1, hematocrit 27. 3, and platelet count is 31. ASSESSMENT AND PLAN: 1. Pancytopenia and neutropenia. Etiology secondary to myelodysplastic syndrome and recent chemoth erapy. The patient has currently been transfused platelets and PRBCs. The patient's platelet count s are around 31 and hemoglobin levels are currently 9 g/dL. At this point, we will continue to shea stanton. We will follow up with Dr. Whatley who is covering for Dr. Machado for further recommendations. 2. Neutropenia. As stated above, etiology is likely from recent chemotherapy and myelodysplastic syndrome. May consider Neupogen. We will defer to Dr. Whatley. 3. Diabetes. Continue current insulin regimen. 4. Hypertension. Continue current blood pressure regimen. 5. Anxiety disorder. Continue Ativan. 6. Neuropathy. Continue Lyrica. 7. Insomnia. Continue Ambien. 8. Asthmatic bronchitis, currently compensated. Continue to monitor. 9. Status post hypomagnesemia. 10. Depression. Continue Prozac. 11. Gastrointestinal and deep venous thrombosis prophylaxis. Continue Pepcid and sequential leg sq ueezers. Dictated By: FINA NUÑEZ/NTS Conf#: [id number] DID#: [id number]
--- NOTE | 2017-02-09 12:30 | CONS ---
Date/Time of Note Date/Time of Note DATE: 02/09/17 TIME: 12:29 Assessment/Plan Assessment/Plan Chief Complaint/Hosp Course This is a 60-year-old female with a past medical history of hypertension, history of dyslipidemia, history of obesity, history of anxiety disorder, history of depression, history of diabetes and insomnia who presents to [facility] for recent concern of bruising, bleeding, low platelets and anemia. The patient states over the last 2 to 3 months she has developed ecchymoses and superficial hematomas in her upper and lower extremities. She was then seen by her propeller tester, Dr. Machado, diagnosed her with MDS and has given her two cycles of chemotherapy (per patient, 7 day cycles of treatment ), ?Vidaza. Her second cycle was completed 1 week ago. # History of MDS per Dr. Machado, status post 2 cycles of chemo (Vidaza?) with pancytopenia - Would recommend transfusion to keep Hgb > 8 and platelets > 10 (or > 20 if febrile or > 50 if bleeding). s/p 1 unit pRBCs 02/08/17 for Hgb 7.7, now 9.1. - Will monitor counts and consider neupogen only if neutropenic fever or evidence of infection. Discussed with Dr. Machado who is in agreement. - Will continue to monitor counts. - Dr. Machado will return on Tuesday. Problems: Consultation Date/Type/Reason Admit Date/Time Feb 07, 2017 at 05:03 Initial Consult Date 02/08/17 Type of Consultation: Hematology/Oncology 24 HR Interval Summary Free Text/Dictation Patient denies bleeding or fever. Mild fatigue but no other complaints. Exam/Review of Systems Vital Signs Vitals Vital Signs Date Time Temp Pulse Resp B/P Pulse Ox O2 Delivery O2 Flow Rate FiO2 02/09/17 08:00 98.4 70 16 119/62 97 02/09/17 07:41 21 02/07/17 06:37 Room Air Intake and Output 02/08/17 02/08/17 02/09/17 15:00 23:00 07:00 Intake Total 600 ml 1540 ml 1200 ml Output Total 2250 ml 2000 ml Balance 600 ml -710 ml -800 ml Exam Constitutional: alert, oriented Psych: no complaints Head: normocephalic Eyes: nl conjunctiva Neck: supple Respiratory: clear to auscultation Cardiovascular: regular rate and rhythm Gastrointestinal: non-tender, soft Musculoskeletal: nl extremities to inspection Skin: ecchymosis Results Result Diagram: 02/09/1751802/09/17 05 Results 24 hrs Laboratory Tests Test 02/08/17 17:28 02/08/17 20:36 02/09/17 05:19 02/09/17 08:02 Bedside Glucose 109 153 115 White Blood Count 1.9 L Red Blood Count 2.88 #L Hemoglobin 9.1 L Hematocrit 27.3 L Mean Corpuscular Volume 94.8 Mean Corpuscular Hemoglobin 31.6 Mean Corpuscular Hemoglobin Concent 33.3 Red Cell Distribution Width 17.8 H Platelet Count 31 #L Mean Platelet Volume 12.3 H Neutrophils % 14.0 L Band Neutrophils % 6.0 H Monocytes % 1.0 Eosinophils % 1.0 Neutrophils # 0.3 L Lymphocytes # 1.5 Monocytes # 0.0 L Eosinophils # 0.0 Platelet Estimate PLT APPEAR DECREASED Sodium Level 141 Potassium Level 3.9 Chloride Level 106 Carbon Dioxide Level 24 Anion Gap 15 Blood Urea Nitrogen 14 Creatinine 0.63 Glucose Level 102 Calcium Level 9.2 Magnesium Level 1.9 Test 02/09/17 12:09 Bedside Glucose 93 Medications Medications Current Medications Ondansetron HCl (Zofran Tab) 4 mg Q6H PRN PO NAUSEA AND/OR VOMITING; Start at 05:30 Metoclopramide HCl (Reglan) 10 mg Q6H PRN IV NAUSEA AND/OR VOMITING; Start at 05:30 Famotidine (Pepcid) 20 mg Q12 PO Last administered on 02/09/17 09:09; Admin Dose 20 MG; Start 02/07/17 at 09:00 Ferrous Sulfate (Ferrous Sulfate (Ec)) 325 mg BID PO Last administered on 09:10; Admin Dose 325 MG; Start 02/07/17 at 09:00 Fluoxetine HCl (Prozac) 20 mg DAILY PO Last administered on 02/09/17 09:10; Admin Dose 20 MG; Start 02/07/17 at 09:00 Lisinopril (Zestril) 5 mg DAILY PO Last administered on 02/09/17 09:10; Admin Dose 5 MG; Start 02/07/17 at 09:00 Pregabalin (Lyrica) 150 mg BID PO Last administered on 02/09/17 09:14; Admin Dose 150 MG; Start 02/07/17 at 09:00 Zolpidem Tartrate (Ambien) 10 mg QHS PRN PO INSOMNIA Last administered on 22:59; Admin Dose 10 MG; Start 02/07/17 at 05:30 Diagnostic Test (Pha) (Accu-Chek) 1 ea 02 XX ; Start 02/08/17 at 02:00 Miscellaneous Information 1 ea NOTE XX ; Start 02/07/17 at 09:00 Glucose (Glutose) 15 gm Q15M PRN PO DECREASED GLUCOSE; Start 02/07/17 at 09:00 Glucose (Glutose) 22.5 gm Q15M PRN PO DECREASED GLUCOSE; Start 02/07/17 at 09: 00 Dextrose (D50w Syringe) 25 ml Q15M PRN IV DECREASED GLUCOSE; Start 02/07/17 at 09:00 Dextrose (D50w Syringe) 50 ml Q15M PRN IV DECREASED GLUCOSE; Start 02/07/17 at 09:00 Glucagon (Glucagen) 1 mg Q15M PRN IM DECREASED GLUCOSE; Start 02/07/17 at 09:00 Glucose (Glutose) 15 gm Q15M PRN BUCCAL DECREASED GLUCOSE; Start 02/07/17 at 09 :00 Acetaminophen (Tylenol Tab) 500 mg Q6H PRN PO PAIN AND OR ELEVATED TEMP Last administered on 02/08/17 17:29; Admin Dose 500 MG; Start 02/07/17 at 10:30 ZEKE CHACON MD Feb 09, 2017 12:30
[2017-02-09] MEDS: ALPRAZOLAM 0.25 MG TAB PO PRN (18:24)
[2017-02-09 20:56] VITALS: BP 127/72; RESP 18
[2017-02-10] MEDS: ZOLPIDEM 5 MG TAB PO PRN ×2 (01:09→23:50)
[2017-02-10] MEDS: ACCU-CHEK XX SCH (01:17)
[2017-02-10 05:49] LABS: ADD SCAN DIFF NO
[2017-02-10 05:54] LABS: ABNORMAL IP MESSAGE 1; HEMATOCRIT 28.5 % (37.0-47.0); HEMOGLOBIN 9.4 g/dl (12.0-16.0); LYMPHOCYTES # 1.9 10^3/ul (0.8-2.9); LYMPHOCYTES % 78.1 % (15.0-51.0); MEAN CORPUSCULAR HEMOGLOBIN 31.3 pg (29.0-33.0); MEAN PLATELET VOLUME 11.2 fl (7.4-10.4); MONOCYTE # 0.1 10^3/ul (0.3-0.9); MONOCYTES % 5.4 % (0.0-11.0); NEUTROPHIL # 0.4 10^3/ul (1.6-7.5); NEUTROPHILS % 16.1 % (39.0-77.0); RED CELL DISTRIBUTION WIDTH 17.2 % (11.5-14.5); WHITE BLOOD COUNT 2.4 10^3/ul (4.8-10.8)
[2017-02-10 06:20] LABS: PLATELET COUNT 21 10^3/UL (140-415)
[2017-02-10 07:25] VITALS: BP 141/75; RESP 16
[2017-02-10] MEDS: ALBUTEROL/IPRATROPIUM (NEB) 3 ML AMP HHN SCH ×3 (08:00→20:00)
[2017-02-10] MEDS: FLUOXETINE 20 MG CAP PO SCH (08:04)
[2017-02-10] MEDS: LISINOPRIL 5 MG TAB PO SCH (08:04)
[2017-02-10] MEDS: FERROUS SULFATE (EC) 325 MG TAB PO SCH ×2 (08:04→20:39)
[2017-02-10] MEDS: metFORMIN 500 MG TAB PO SCH ×2 (08:04→16:45)
[2017-02-10] MEDS: PREGABALIN 75 MG CAP PO SCH ×2 (08:04→20:41)
[2017-02-10] MEDS: FAMOTIDINE 20 MG TAB PO SCH ×2 (08:04→20:40)
[2017-02-10] MEDS: INSULIN ASPART [NOVOLOG] 3 ML PEN SC SCH ×4 (08:05→20:41)
--- NOTE | 2017-02-10 10:23 | PN ---
DATE: 02/10/2017 SUBJECTIVE: The patient is still complaining of general weakness, no other acute events noted. No hemoptysis, hematemesis or hematochezia. OBJECTIVE: VITAL SIGNS: Blood pressure 141/75, respirations 16, pulse 79, temperature 98.1. HEENT: Head is normocephalic. NECK: Supple. HEART: Regular rate. LUNGS: Show diminished breath sounds at base. ABDOMEN: Soft, nontender to palpation. No rebound or guarding. EXTREMITIES: Negative for clubbing, cyanosis. No edema. The patient has noted ecchymosis, no thompson ge. DERMATOLOGIC: No rashes. MUSCULOSKELETAL: No joint effusions. NEUROLOGIC: No change in exam. LABORATORY DATA: Shows a white count of 2.4, hemoglobin 9.4, hematocrit , and platelet count 2 1. ASSESSMENT AND PLAN: 1. Pancytopenia, etiology secondary to myelodysplastic syndrome and recent chemotherapy. The patie nt's platelet counts continue to trend downwards. We will follow up with hematology if further dickson sfusions are needed. Will monitor closely. 2. Neutropenia, as stated above, likely from recent chemotherapy, myelodysplastic syndrome. Consid er Lucitapogen defer to hematology. 3. Diabetes. Continue current insulin regimen. 4. Hypertension. Continue current blood pressure regimen. 5. Anxiety disorder. Continue Ativan. 6. Neuropathy. Continue Lyrica. 7. Insomnia, continue Ambien. 10. Asthmatic bronchitis, currently compensated. Continue medical management. 12. Depression. Continue Prozac. 12. Gastrointestinal and deep venous thrombosis prophylaxis. Continue Pepcid and sequential leg sq ueezers. Dictated By: FINA NUÑEZ/ARMEN Conf#: [id number] DID#: [id number]
[2017-02-10] MEDS: ALPRAZOLAM 0.25 MG TAB PO PRN (13:55)
--- NOTE | 2017-02-10 16:08 | CONS ---
Date/Time of Note Date/Time of Note DATE: 02/10/17 TIME: 16:07 Assessment/Plan Assessment/Plan Chief Complaint/Hosp Course This is a 60-year-old female with a past medical history of hypertension, history of dyslipidemia, history of obesity, history of anxiety disorder, history of depression, history of diabetes and insomnia who presents to [facility] for recent concern of bruising, bleeding, low platelets and anemia. The patient states over the last 2 to 3 months she has developed ecchymoses and superficial hematomas in her upper and lower extremities. She was then seen by her pole setter, Dr. Machado, diagnosed her with MDS and has given her two cycles of chemotherapy (per patient, 7 day cycles of treatment ), ?Vidaza. Her second cycle was completed 1 week ago. # History of MDS per Dr. Machado, status post 2 cycles of chemo (Vidaza?) with pancytopenia. Lower counts likely due to MDS with recent chemotherapy, continue to monitor until counts stable or increasing. - Would recommend transfusion to keep Hgb > 8 and platelets > 10 (or > 20 if febrile or > 50 if bleeding). s/p 1 unit pRBCs 02/08/17 for Hgb 7.7, now 9.4. Platelets lower today at 21, no need to transfuse unless bleeding or platelets < 10. - Will monitor counts and consider neupogen only if neutropenic fever or evidence of infection. Discussed with Dr. Machado who is in agreement. - Will continue to monitor counts. - Dr. Machado will return on Tuesday. Problems: Consultation Date/Type/Reason Admit Date/Time Feb 07, 2017 at 05:03 Initial Consult Date 02/08/17 Type of Consultation: Hematology/Oncology 24 HR Interval Summary Free Text/Dictation Patient feels weak and has bruises, but no bleeding. Exam/Review of Systems Vital Signs Vitals Vital Signs Date Time Temp Pulse Resp B/P Pulse Ox O2 Delivery O2 Flow Rate FiO2 02/10/17 07:25 98.1 79 16 141/75 99 02/09/17 20:08 21 02/07/17 06:37 Room Air Intake and Output 02/09/17 02/09/17 02/10/17 15:00 23:00 07:00 Intake Total 1000 ml 440 ml Output Total 900 ml 800 ml Balance 100 ml -360 ml Exam Constitutional: alert, oriented Psych: no complaints Head: normocephalic Eyes: nl conjunctiva Neck: supple Respiratory: clear to auscultation Cardiovascular: regular rate and rhythm Gastrointestinal: non-tender, soft Musculoskeletal: nl extremities to inspection Skin: ecchymosis Results Result Diagram: 02/10/17 0520 02/09/17 0519 Results 24 hrs Laboratory Tests Test 02/09/17 17:14 02/09/17 21:15 02/10/17 05:20 02/10/17 08:03 Bedside Glucose 126 120 112 White Blood Count 2.4 #L Red Blood Count 3.00 L Hemoglobin 9.4 L Hematocrit 28.5 L Mean Corpuscular Volume 95.0 Mean Corpuscular Hemoglobin 31.3 Mean Corpuscular Hemoglobin Concent 33.0 Red Cell Distribution Width 17.2 H Platelet Count 21 #*L Mean Platelet Volume 11.2 H Neutrophils % 16.1 L Lymphocytes % 78.1 H Monocytes % 5.4 Eosinophils % 0.0 Basophils % 0.0 Nucleated Red Blood Cells % 0.0 Neutrophils # 0.4 L Lymphocytes # 1.9 Monocytes # 0.1 L Eosinophils # 0.0 Basophils # 0.0 Nucleated Red Blood Cells # 0.0 Test 02/10/17 11:53 Bedside Glucose 101 Medications Medications Current Medications Ondansetron HCl (Zofran Tab) 4 mg Q6H PRN PO NAUSEA AND/OR VOMITING; Start at 05:30 Metoclopramide HCl (Reglan) 10 mg Q6H PRN IV NAUSEA AND/OR VOMITING; Start at 05:30 Famotidine (Pepcid) 20 mg Q12 PO Last administered on 02/10/17 08:04; Admin Dose 20 MG; Start 02/07/17 at 09:00 Ferrous Sulfate (Ferrous Sulfate (Ec)) 325 mg BID PO Last administered on 08:04; Admin Dose 325 MG; Start 02/07/17 at 09:00 Fluoxetine HCl (Prozac) 20 mg DAILY PO Last administered on 02/10/17 08:04; Admin Dose 20 MG; Start 02/07/17 at 09:00 Lisinopril (Zestril) 5 mg DAILY PO Last administered on 02/10/17 08:04; Admin Dose 5 MG; Start 02/07/17 at 09:00 Pregabalin (Lyrica) 150 mg BID PO Last administered on 02/10/17 08:04; Admin Dose 150 MG; Start 02/07/17 at 09:00 Zolpidem Tartrate (Ambien) 10 mg QHS PRN PO INSOMNIA Last administered on 01:09; Admin Dose 10 MG; Start 02/07/17 at 05:30 Diagnostic Test (Pha) (Accu-Chek) 1 ea 02 XX ; Start 02/08/17 at 02:00 Miscellaneous Information 1 ea NOTE XX ; Start 02/07/17 at 09:00 Glucose (Glutose) 15 gm Q15M PRN PO DECREASED GLUCOSE; Start 02/07/17 at 09:00 Glucose (Glutose) 22.5 gm Q15M PRN PO DECREASED GLUCOSE; Start 02/07/17 at 09: 00 Dextrose (D50w Syringe) 25 ml Q15M PRN IV DECREASED GLUCOSE; Start 02/07/17 at 09:00 Dextrose (D50w Syringe) 50 ml Q15M PRN IV DECREASED GLUCOSE; Start 02/07/17 at 09:00 Glucagon (Glucagen) 1 mg Q15M PRN IM DECREASED GLUCOSE; Start 02/07/17 at 09:00 Glucose (Glutose) 15 gm Q15M PRN BUCCAL DECREASED GLUCOSE; Start 02/07/17 at 09 :00 Acetaminophen (Tylenol Tab) 500 mg Q6H PRN PO PAIN AND OR ELEVATED TEMP Last administered on 02/08/17 17:29; Admin Dose 500 MG; Start 02/07/17 at 10:30 Alprazolam (Xanax) 0.25 mg DAILY PRN PO anxiety Last administered on 02/10/17 13:55; Admin Dose 0.25 MG; Start 02/09/17 at 18:30 ZEKE CHACON MD Feb 10, 2017 16:08
[2017-02-10 20:06] VITALS: BP 117/83; RESP 18
[2017-02-10] MEDS: ACETAMINOPHEN 500 MG TAB PO PRN (23:49)
[2017-02-11] MEDS: ACCU-CHEK XX SCH (02:00)
[2017-02-11 05:20] LABS: ADD SCAN DIFF NO
[2017-02-11 05:39] LABS: ABNORMAL IP MESSAGE 1; HEMATOCRIT 27.7 % (37.0-47.0); HEMOGLOBIN 9.6 g/dl (12.0-16.0); MEAN CORPUSCULAR HEMOGLOBIN 32.8 pg (29.0-33.0); MEAN CORPUSCULAR HGB CONC 34.7 g/dl (32.0-37.0); MEAN CORPUSCULAR VOLUME 94.5 fl (82.0-101.0); RED BLOOD COUNT 2.93 10^6/ul (4.20-5.40); RED CELL DISTRIBUTION WIDTH 17.1 % (11.5-14.5); WHITE BLOOD COUNT 2.4 10^3/ul (4.8-10.8)
[2017-02-11 05:42] LABS: PLATELET COUNT 17 10^3/UL (140-415)
[2017-02-11 07:47] VITALS: BP 113/69; RESP 16
[2017-02-11] MEDS: ALBUTEROL/IPRATROPIUM (NEB) 3 ML AMP HHN SCH ×3 (08:00→19:48)
[2017-02-11] MEDS: metFORMIN 500 MG TAB PO SCH ×2 (08:05→18:37)
[2017-02-11] MEDS: LISINOPRIL 5 MG TAB PO SCH (08:05)
[2017-02-11] MEDS: FAMOTIDINE 20 MG TAB PO SCH ×2 (08:06→20:42)
[2017-02-11] MEDS: FLUOXETINE 20 MG CAP PO SCH (08:06)
[2017-02-11] MEDS: FERROUS SULFATE (EC) 325 MG TAB PO SCH ×2 (08:06→20:42)
[2017-02-11] MEDS: PREGABALIN 75 MG CAP PO SCH ×2 (08:06→20:42)
[2017-02-11] MEDS: INSULIN ASPART [NOVOLOG] 3 ML PEN SC SCH ×4 (08:08→20:43)
--- NOTE | 2017-02-11 10:07 | PN ---
DATE: SUBJECTIVE: The patient remains stable. No signs of bleeding. No hemoptysis or hematemesis. No f ever. No other acute events noted. OBJECTIVE: VITAL SIGNS: Blood pressure 130/69, respirations 16, pulse ox 76, temperature 98.4. HEENT: Head is normocephalic. NECK: Supple. HEART: Regular rate. LUNGS: Showed diminished breath sounds at the base, otherwise clear. ABDOMEN: Soft, nontender to palpation. No rebound or guarding. EXTREMITIES: Negative for clubbing or cyanosis. Noted ecchymosis. DERMATOLOGIC: No rashes. MUSCULOSKELETAL: Have no joint effusion. NEUROLOGIC: No change in exam. MEDICATIONS: The patient's medications have been reviewed. LABORATORY DATA: Shows a white count of 2.4, hemoglobin 9.6, hematocrit 27.7, platelet count is 17. ASSESSMENT AND PLAN: 1. Pancytopenia secondary to myelodysplastic syndrome and recent chemotherapy. The patient's plate let counts continue to trend downwards. Will continue to monitor. Will transfuse if platelets are less than 10 and follow up with hematology for recommendations. 2. Neutropenia. As stated above, likely from myelodysplastic syndrome and recent chemotherapy. Wi ll defer Neupogen to hematology and continue to observe. 3. Diabetes. Continue the current insulin regimen. 4. Hypertension. Continue the current blood pressure regimen. 5. Anxiety disorder. Continue Xanax. 6. Neuropathy. Continue Lyrica. 7. Insomnia. Continue Ambien. 8. Asthmatic bronchitis. Currently compensated. Continue the current medical management. 9. Depression. Continue Prozac. 10. Gastrointestinal and deep venous thrombosis prophylaxis. Continue Pepcid and sequential leg sq ueezers. DISPOSITION: Awaiting for the patient's platelet counts to stabilize prior to discharge. Dictated By: FINA NUÑEZ/NTS Conf#: [id number] DID#: [id number]
[2017-02-11 10:13] LABS: LYMPHOCYTES # 1.8 10^3/ul (0.8-2.9); MONOCYTE # 0.1 10^3/ul (0.3-0.9); NEUTROPHIL # 0.6 10^3/ul (1.6-7.5); PLATELET ESTIMATE PLT APPEAR DECREASED
[2017-02-11] MEDS: ACETAMINOPHEN 500 MG TAB PO PRN (12:19)
--- NOTE | 2017-02-11 14:42 | CONS ---
Date/Time of Note Date/Time of Note DATE: 02/11/17 TIME: 14:41 Assessment/Plan Assessment/Plan Chief Complaint/Hosp Course This is a 60-year-old female with a past medical history of hypertension, history of dyslipidemia, history of obesity, history of anxiety disorder, history of depression, history of diabetes and insomnia who presents to [facility] for recent concern of bruising, bleeding, low platelets and anemia. The patient states over the last 2 to 3 months she has developed ecchymoses and superficial hematomas in her upper and lower extremities. She was then seen by her production expediter, Dr. Machado, diagnosed her with MDS and has given her two cycles of chemotherapy (per patient, 7 day cycles of treatment ), ?Vidaza. Her second cycle was completed 1 week ago. # History of MDS per Dr. Machado, status post 2 cycles of chemo (Vidaza?) with pancytopenia. Lower counts likely due to MDS with recent chemotherapy, continue to monitor until counts stable or increasing. - Would recommend transfusion to keep Hgb > 8 and platelets > 10 (or > 20 if febrile or > 50 if bleeding). s/p 1 unit pRBCs 02/08/17 for Hgb 7.7, now 9.6. Platelets lower today at 17, no need to transfuse unless bleeding or platelets < 10. - Will monitor counts and consider neupogen only if neutropenic fever or evidence of infection. Discussed with Dr. Machado who is in agreement. - Will continue to monitor counts. - Dr. Machado will return on Tuesday. Problems: Consultation Date/Type/Reason Admit Date/Time Feb 07, 2017 at 05:03 Initial Consult Date 02/08/17 Type of Consultation: Hematology/Oncology 24 HR Interval Summary Free Text/Dictation Patient states that she had a headache earlier but it resolved with Tylenol. Complains of some dizziness but no focal weakness. Exam/Review of Systems Vital Signs Vitals Vital Signs Date Time Temp Pulse Resp B/P Pulse Ox O2 Delivery O2 Flow Rate FiO2 02/11/17 09:05 85 20 98 21 02/11/17 07:47 98.4 113/69 Intake and Output 02/10/17 02/10/17 02/11/17 15:00 23:00 07:00 Intake Total 1740 ml 400 ml Output Total 1500 ml Balance 240 ml 400 ml Exam Constitutional: alert, oriented Psych: no complaints Head: normocephalic Eyes: nl conjunctiva Neck: supple Respiratory: clear to auscultation Cardiovascular: regular rate and rhythm Gastrointestinal: non-tender, soft Musculoskeletal: nl extremities to inspection, moving all four extremities Skin: ecchymosis Results Result Diagram: 02/11/17 0454 02/09/17 0519 Results 24 hrs Laboratory Tests Test 02/10/17 16:46 02/10/17 20:38 02/11/17 04:54 02/11/17 08:04 Bedside Glucose 110 111 119 White Blood Count 2.4 L Red Blood Count 2.93 L Hemoglobin 9.6 L Hematocrit 27.7 L Mean Corpuscular Volume 94.5 Mean Corpuscular Hemoglobin 32.8 Mean Corpuscular Hemoglobin Concent 34.7 Red Cell Distribution Width 17.1 H Platelet Count 17 *L Mean Platelet Volume Neutrophils % 23.0 L Lymphocytes % 74.0 H Monocytes % 3.0 Neutrophils # 0.6 L Lymphocytes # 1.8 Monocytes # 0.1 L Differential Comment MANUAL DIFF Platelet Estimate PLT APPEAR DECREASED Test 02/11/17 12:18 Bedside Glucose 107 Medications Medications Current Medications Ondansetron HCl (Zofran Tab) 4 mg Q6H PRN PO NAUSEA AND/OR VOMITING; Start at 05:30 Metoclopramide HCl (Reglan) 10 mg Q6H PRN IV NAUSEA AND/OR VOMITING; Start at 05:30 Famotidine (Pepcid) 20 mg Q12 PO Last administered on 02/11/17 08:06; Admin Dose 20 MG; Start 02/07/17 at 09:00 Ferrous Sulfate (Ferrous Sulfate (Ec)) 325 mg BID PO Last administered on 08:06; Admin Dose 325 MG; Start 02/07/17 at 09:00 Fluoxetine HCl (Prozac) 20 mg DAILY PO Last administered on 02/11/17 08:06; Admin Dose 20 MG; Start 02/07/17 at 09:00 Lisinopril (Zestril) 5 mg DAILY PO Last administered on 02/11/17 08:05; Admin Dose 5 MG; Start 02/07/17 at 09:00 Pregabalin (Lyrica) 150 mg BID PO Last administered on 02/11/17 08:06; Admin Dose 150 MG; Start 02/07/17 at 09:00 Zolpidem Tartrate (Ambien) 10 mg QHS PRN PO INSOMNIA Last administered on 23:50; Admin Dose 10 MG; Start 02/07/17 at 05:30 Diagnostic Test (Pha) (Accu-Chek) 1 ea 02 XX ; Start 02/08/17 at 02:00 Miscellaneous Information 1 ea NOTE XX ; Start 02/07/17 at 09:00 Glucose (Glutose) 15 gm Q15M PRN PO DECREASED GLUCOSE; Start 02/07/17 at 09:00 Glucose (Glutose) 22.5 gm Q15M PRN PO DECREASED GLUCOSE; Start 02/07/17 at 09: 00 Dextrose (D50w Syringe) 25 ml Q15M PRN IV DECREASED GLUCOSE; Start 02/07/17 at 09:00 Dextrose (D50w Syringe) 50 ml Q15M PRN IV DECREASED GLUCOSE; Start 02/07/17 at 09:00 Glucagon (Glucagen) 1 mg Q15M PRN IM DECREASED GLUCOSE; Start 02/07/17 at 09:00 Glucose (Glutose) 15 gm Q15M PRN BUCCAL DECREASED GLUCOSE; Start 02/07/17 at 09 :00 Acetaminophen (Tylenol Tab) 500 mg Q6H PRN PO PAIN AND OR ELEVATED TEMP Last administered on 02/11/17 12:19; Admin Dose 500 MG; Start 02/07/17 at 10:30 Alprazolam (Xanax) 0.25 mg DAILY PRN PO anxiety Last administered on 02/10/17 13:55; Admin Dose 0.25 MG; Start 02/09/17 at 18:30 ZEKE CHACON MD Feb 11, 2017 14:42
[2017-02-11 20:24] VITALS: BP 106/68; RESP 16
[2017-02-11] MEDS: ALPRAZOLAM 0.25 MG TAB PO PRN (20:49)
[2017-02-11] MEDS: ZOLPIDEM 5 MG TAB PO PRN (23:35)
[2017-02-12] MEDS: ACCU-CHEK XX SCH (02:00)
[2017-02-12 06:13] LABS: ADD SCAN DIFF NO
[2017-02-12 06:37] LABS: ABNORMAL IP MESSAGE 1; HEMATOCRIT 28.9 % (37.0-47.0); HEMOGLOBIN 9.6 g/dl (12.0-16.0); LYMPHOCYTES # 2.1 10^3/ul (0.8-2.9); LYMPHOCYTES % 68.1 % (15.0-51.0); MEAN CORPUSCULAR HEMOGLOBIN 31.5 pg (29.0-33.0); MEAN CORPUSCULAR HGB CONC 33.2 g/dl (32.0-37.0); MEAN CORPUSCULAR VOLUME 94.8 fl (82.0-101.0); MEAN PLATELET VOLUME 11.4 fl (7.4-10.4); MONOCYTE # 0.2 10^3/ul (0.3-0.9); MONOCYTES % 5.3 % (0.0-11.0); NEUTROPHIL # 0.8 10^3/ul (1.6-7.5); NEUTROPHILS % 26.3 % (39.0-77.0); RED BLOOD COUNT 3.05 10^6/ul (4.20-5.40)
[2017-02-12 07:04] LABS: PLATELET COUNT 11 10^3/UL (140-415)
[2017-02-12 07:16] VITALS: BP 113/82; RESP 20
[2017-02-12] MEDS: ALBUTEROL/IPRATROPIUM (NEB) 3 ML AMP HHN SCH ×3 (07:29→19:27)
[2017-02-12] MEDS: INSULIN ASPART [NOVOLOG] 3 ML PEN SC SCH ×4 (08:00→21:00)
[2017-02-12] MEDS: PREGABALIN 75 MG CAP PO SCH ×2 (08:02→21:51)
[2017-02-12] MEDS: LISINOPRIL 5 MG TAB PO SCH (08:02)
[2017-02-12] MEDS: FAMOTIDINE 20 MG TAB PO SCH ×2 (08:02→21:46)
[2017-02-12] MEDS: FLUOXETINE 20 MG CAP PO SCH (08:03)
[2017-02-12] MEDS: metFORMIN 500 MG TAB PO SCH ×2 (08:03→17:24)
[2017-02-12] MEDS: FERROUS SULFATE (EC) 325 MG TAB PO SCH ×2 (08:03→21:46)
[2017-02-12] MEDS ORDERED: SOD CHLORIDE 0.9% 250 ML IV* ONE (13:48)
--- NOTE | 2017-02-12 13:48 | PN ---
Date/Time of Note Date/Time of Note DATE: 02/12/17 TIME: 13:46 Assessment/Plan VTE Prophylaxis VTE Prophylaxis Intervention: anti-embolic stocking Lines/Catheters [facility]from [facility] Saline Lock Urinary Cath still in place: No Assessment/Plan Assessment/Plan 60-year-old female with a past medical history of hypertension, history of dyslipidemia, history of obesity, history of anxiety disorder, history of depression, history of diabetes and insomnia who presents to [facility] for recent concern of bruising, bleeding, low platelets and anemia. The patient states over the last 2 to 3 months she has developed ecchymoses and superficial hematomas in her upper and lower extremities. She was then seen by her cardiac technologist, Dr. Machado, who diagnosed her with MDS and has given her two cycles of chemotherapy (per patient, 7 day cycles of treatment), ?Vidaza. Her second cycle was completed recently. # History of MDS per Dr. Machado, status post 2 cycles of chemo (Vidaza?) with pancytopenia. Lower counts likely due to MDS with recent chemotherapy, continue to monitor - Would recommend transfusion to keep Hgb > 8 and platelets > 10 (or > 20 if febrile or > 50 if bleeding). s/p 1 unit pRBCs 02/08/17 for Hgb 7.7, now 9.6. Platelets lower today at 11 and will transfuse 1 unit platelet, - Will monitor counts and consider neupogen only if neutropenic fever or evidence of infection. - Dr. Machado will return on Tuesday. Subjective 24 Hr Interval Summary Constitutional: no complaints Eyes: no complaints ENT: no complaints Exam/Review of Systems Vital Signs Vitals Vital Signs Date Time Temp Pulse Resp B/P Pulse Ox O2 Delivery O2 Flow Rate FiO2 02/12/17 07:16 98.1 79 20 113/82 98 02/11/17 20:00 Room Air 02/11/17 09:05 21 Intake and Output 02/11/17 02/11/17 02/12/17 15:00 23:00 07:00 Intake Total 1540 ml 240 ml Output Total 1500 ml 600 ml Balance 40 ml -360 ml Exam Constitutional: alert, oriented Psych: nl mood/affect, no complaints Eyes: nl conjunctiva Neck: supple Respiratory: normal air movement Results Result Diagram: 02/12/17 0546 02/09/17 0519 Results 24 hrs Laboratory Tests Test 02/11/17 17:27 02/11/17 20:41 02/12/17 05:46 02/12/17 07:59 Bedside Glucose 120 115 103 White Blood Count 3.0 #L Red Blood Count 3.05 L Hemoglobin 9.6 L Hematocrit 28.9 L Mean Corpuscular Volume 94.8 Mean Corpuscular Hemoglobin 31.5 Mean Corpuscular Hemoglobin Concent 33.2 Red Cell Distribution Width 17.0 H Platelet Count 11 #*L Mean Platelet Volume 11.4 H Neutrophils % 26.3 L Lymphocytes % 68.1 H Monocytes % 5.3 Eosinophils % 0.0 Basophils % 0.0 Nucleated Red Blood Cells % 0.0 Neutrophils # 0.8 L Lymphocytes # 2.1 Monocytes # 0.2 L Eosinophils # 0.0 Basophils # 0.0 Nucleated Red Blood Cells # 0.0 Test 02/12/17 12:28 Bedside Glucose 113 Medications Medications Current Medications Ondansetron HCl (Zofran Tab) 4 mg Q6H PRN PO NAUSEA AND/OR VOMITING; Start at 05:30 Metoclopramide HCl (Reglan) 10 mg Q6H PRN IV NAUSEA AND/OR VOMITING; Start at 05:30 Famotidine (Pepcid) 20 mg Q12 PO Last administered on 02/12/17 08:02; Admin Dose 20 MG; Start 02/07/17 at 09:00 Ferrous Sulfate (Ferrous Sulfate (Ec)) 325 mg BID PO Last administered on 08:03; Admin Dose 325 MG; Start 02/07/17 at 09:00 Fluoxetine HCl (Prozac) 20 mg DAILY PO Last administered on 02/12/17 08:03; Admin Dose 20 MG; Start 02/07/17 at 09:00 Lisinopril (Zestril) 5 mg DAILY PO Last administered on 02/12/17 08:02; Admin Dose 5 MG; Start 02/07/17 at 09:00 Pregabalin (Lyrica) 150 mg BID PO Last administered on 02/12/17 08:02; Admin Dose 150 MG; Start 02/07/17 at 09:00 Zolpidem Tartrate (Ambien) 10 mg QHS PRN PO INSOMNIA Last administered on 23:35; Admin Dose 10 MG; Start 02/07/17 at 05:30 Diagnostic Test (Pha) (Accu-Chek) 1 ea 02 XX ; Start 02/08/17 at 02:00 Miscellaneous Information 1 ea NOTE XX ; Start 02/07/17 at 09:00 Glucose (Glutose) 15 gm Q15M PRN PO DECREASED GLUCOSE; Start 02/07/17 at 09:00 Glucose (Glutose) 22.5 gm Q15M PRN PO DECREASED GLUCOSE; Start 02/07/17 at 09: 00 Dextrose (D50w Syringe) 25 ml Q15M PRN IV DECREASED GLUCOSE; Start 02/07/17 at 09:00 Dextrose (D50w Syringe) 50 ml Q15M PRN IV DECREASED GLUCOSE; Start 02/07/17 at 09:00 Glucagon (Glucagen) 1 mg Q15M PRN IM DECREASED GLUCOSE; Start 02/07/17 at 09:00 Glucose (Glutose) 15 gm Q15M PRN BUCCAL DECREASED GLUCOSE; Start 02/07/17 at 09 :00 Acetaminophen (Tylenol Tab) 500 mg Q6H PRN PO PAIN AND OR ELEVATED TEMP Last administered on 02/11/17 12:19; Admin Dose 500 MG; Start 02/07/17 at 10:30 Alprazolam (Xanax) 0.25 mg DAILY PRN PO anxiety Last administered on 02/11/17 20:49; Admin Dose 0.25 MG; Start 02/09/17 at 18:30 RIANA REINOSO MD Feb 12, 2017 13:48
[2017-02-12] MEDS ORDERED: ACETAMINOPHEN 325 MG TAB PO SCH (14:00)
[2017-02-12] MEDS ORDERED: DIPHENHYDRAMINE 50 MG INJ IV SCH (14:00)
[2017-02-12] MEDS: ALPRAZOLAM 0.25 MG TAB PO PRN (16:18)
[2017-02-12 19:24] VITALS: BP 97/53; RESP 20
[2017-02-12 22:50] VITALS: BP 97/55; PULSE 80; RESP 16
[2017-02-13] MEDS: ACCU-CHEK XX SCH (01:23)
[2017-02-13 06:21] LABS: ADD SCAN DIFF NO
[2017-02-13 06:49] LABS: ABNORMAL IP MESSAGE 1; HEMATOCRIT 27.5 % (37.0-47.0); HEMOGLOBIN 9.3 g/dl (12.0-16.0); MEAN CORPUSCULAR HEMOGLOBIN 31.8 pg (29.0-33.0); MEAN CORPUSCULAR HGB CONC 33.8 g/dl (32.0-37.0); MEAN CORPUSCULAR VOLUME 94.2 fl (82.0-101.0); RED BLOOD COUNT 2.92 10^6/ul (4.20-5.40); RED CELL DISTRIBUTION WIDTH 17.1 % (11.5-14.5); WHITE BLOOD COUNT 2.8 10^3/ul (4.8-10.8)
[2017-02-13 07:04] LABS: PLATELET COUNT 12 10^3/UL (140-415)
[2017-02-13 07:18] VITALS: BP 112/57; RESP 20
[2017-02-13] MEDS: metFORMIN 500 MG TAB PO SCH ×2 (07:38→16:49)
[2017-02-13] MEDS: INSULIN ASPART [NOVOLOG] 3 ML PEN SC SCH ×4 (07:41→20:58)
[2017-02-13] MEDS: ACETAMINOPHEN 500 MG TAB PO PRN (07:53)
[2017-02-13] MEDS: FAMOTIDINE 20 MG TAB PO SCH ×2 (07:53→20:52)
[2017-02-13] MEDS: FERROUS SULFATE (EC) 325 MG TAB PO SCH ×2 (07:53→20:52)
[2017-02-13] MEDS: FLUOXETINE 20 MG CAP PO SCH (07:54)
[2017-02-13] MEDS: LISINOPRIL 5 MG TAB PO SCH (07:54)
[2017-02-13] MEDS: PREGABALIN 75 MG CAP PO SCH ×2 (07:54→20:52)
[2017-02-13] MEDS: ALBUTEROL/IPRATROPIUM (NEB) 3 ML AMP HHN SCH ×3 (08:00→20:00)
[2017-02-13 11:01] LABS: LYMPHOCYTES # 1.6 10^3/ul (0.8-2.9); MONOCYTE # 0.1 10^3/ul (0.3-0.9); NEUTROPHIL # 1.1 10^3/ul (1.6-7.5)
[2017-02-13 11:02] LABS: ANISOCYTOSIS 1+; PLATELET ESTIMATE PLT APPEAR DECREASED
--- NOTE | 2017-02-13 12:33 | PN ---
Date/Time of Note Date/Time of Note DATE: 02/13/17 TIME: 12:32 Assessment/Plan VTE Prophylaxis VTE Prophylaxis Intervention: ambulation Lines/Catheters IV Catheter Type (from [facility]): Saline Lock Urinary Cath still in place: No Assessment/Plan Assessment/Plan 60-year-old female with a past medical history of hypertension, history of dyslipidemia, history of obesity, history of anxiety disorder, history of depression, history of diabetes and insomnia who presents to [facility] for recent concern of bruising, bleeding, low platelets and anemia. The patient states over the last 2 to 3 months she has developed ecchymoses and superficial hematomas in her upper and lower extremities. She was then seen by her manager advanced, Dr. Machado, who diagnosed her with MDS and has given her two cycles of chemotherapy (per patient, 7 day cycles of treatment), ?Vidaza. Her second cycle was completed recently. # History of MDS per Dr. Machado, status post 2 cycles of chemo (Vidaza?) with pancytopenia. Lower counts likely due to MDS with recent chemotherapy, continue to monitor - Would recommend transfusion to keep Hgb > 8 and platelets > 10 (or > 20 if febrile or > 50 if bleeding). s/p 1 unit pRBCs 02/08/17 for Hgb 7.7, now 9.6. Platelets lower today at 12 and will transfuse 1 unit platelet today - Will monitor counts and consider neupogen only if neutropenic fever or evidence of infection. - Dr. Machado will return on Tuesday. Subjective 24 Hr Interval Summary Constitutional: no complaints Eyes: no complaints Respiratory: no complaints Exam/Review of Systems Vital Signs Vitals Vital Signs Date Time Temp Pulse Resp B/P Pulse Ox O2 Delivery O2 Flow Rate FiO2 02/13/17 07:18 98.0 74 20 112/57 98 02/12/17 22:50 Room Air 02/11/17 09:05 21 Intake and Output 02/12/17 02/12/17 02/13/17 14:59 22:59 06:59 Intake Total 1560 ml 907 ml Output Total 2075 ml 1350 ml Balance -515 ml -443 ml Exam Constitutional: alert, oriented Head: normocephalic Eyes: nl conjunctiva Neck: supple Respiratory: clear to auscultation Gastrointestinal: soft Results Result Diagram: 02/13/17 0557 02/09/17 0519 Results 24 hrs Laboratory Tests Test 02/12/17 17:23 02/12/17 21:45 02/13/17 05:57 02/13/17 07:38 Bedside Glucose 94 96 91 White Blood Count 2.8 L Red Blood Count 2.92 L Hemoglobin 9.3 L Hematocrit 27.5 L Mean Corpuscular Volume 94.2 Mean Corpuscular Hemoglobin 31.8 Mean Corpuscular Hemoglobin Concent 33.8 Red Cell Distribution Width 17.1 H Platelet Count 12 *L Mean Platelet Volume 14.0 #H Neutrophils % 39.0 Lymphocytes % 58.0 H Monocytes % 3.0 Neutrophils # 1.1 L Lymphocytes # 1.6 Monocytes # 0.1 L Platelet Estimate PLT APPEAR DECREASED Anisocytosis 1+ Test 02/13/17 12:02 Bedside Glucose 87 Medications Medications Current Medications Ondansetron HCl (Zofran Tab) 4 mg Q6H PRN PO NAUSEA AND/OR VOMITING; Start at 05:30 Metoclopramide HCl (Reglan) 10 mg Q6H PRN IV NAUSEA AND/OR VOMITING; Start at 05:30 Famotidine (Pepcid) 20 mg Q12 PO Last administered on 02/13/17 07:53; Admin Dose 20 MG; Start 02/07/17 at 09:00 Ferrous Sulfate (Ferrous Sulfate (Ec)) 325 mg BID PO Last administered on 07:53; Admin Dose 325 MG; Start 02/07/17 at 09:00 Fluoxetine HCl (Prozac) 20 mg DAILY PO Last administered on 02/13/17 07:54; Admin Dose 20 MG; Start 02/07/17 at 09:00 Lisinopril (Zestril) 5 mg DAILY PO Last administered on 02/12/17 08:02; Admin Dose 5 MG; Start 02/07/17 at 09:00 Pregabalin (Lyrica) 150 mg BID PO Last administered on 02/13/17 07:54; Admin Dose 150 MG; Start 02/07/17 at 09:00 Zolpidem Tartrate (Ambien) 10 mg QHS PRN PO INSOMNIA Last administered on 23:35; Admin Dose 10 MG; Start 02/07/17 at 05:30 Diagnostic Test (Pha) (Accu-Chek) 1 ea 02 XX ; Start 02/08/17 at 02:00 Miscellaneous Information 1 ea NOTE XX ; Start 02/07/17 at 09:00 Glucose (Glutose) 15 gm Q15M PRN PO DECREASED GLUCOSE; Start 02/07/17 at 09:00 Glucose (Glutose) 22.5 gm Q15M PRN PO DECREASED GLUCOSE; Start 02/07/17 at 09: 00 Dextrose (D50w Syringe) 25 ml Q15M PRN IV DECREASED GLUCOSE; Start 02/07/17 at 09:00 Dextrose (D50w Syringe) 50 ml Q15M PRN IV DECREASED GLUCOSE; Start 02/07/17 at 09:00 Glucagon (Glucagen) 1 mg Q15M PRN IM DECREASED GLUCOSE; Start 02/07/17 at 09:00 Glucose (Glutose) 15 gm Q15M PRN BUCCAL DECREASED GLUCOSE; Start 02/07/17 at 09 :00 Acetaminophen (Tylenol Tab) 500 mg Q6H PRN PO PAIN AND OR ELEVATED TEMP Last administered on 02/13/17 07:53; Admin Dose 500 MG; Start 02/07/17 at 10:30 Alprazolam (Xanax) 0.25 mg DAILY PRN PO anxiety Last administered on 02/12/17 16:18; Admin Dose 0.25 MG; Start 02/09/17 at 18:30 Acetaminophen (Tylenol Tab) 650 mg ONCE PO Last administered on 02/12/17 21:46 ; Admin Dose 650 MG; Start 02/12/17 at 14:00; Stop 02/13/17 at 13:59 Diphenhydramine HCl (Benadryl) 25 mg ONCE IV Last administered on 02/12/17 21: 46; Admin Dose 25 MG; Start 02/12/17 at 14:00; Stop 02/13/17 at 13:59 RIANA REINOSO MD Feb 13, 2017 12:33
[2017-02-13] MEDS ORDERED: VITAMIN A & D 5 GM OINT PACKET TOP ONE (15:27)
[2017-02-13 19:21] VITALS: BP 120/70; RESP 20
[2017-02-13] MEDS: ZOLPIDEM 5 MG TAB PO PRN (22:42)
[2017-02-14] MEDS: ACCU-CHEK XX SCH (02:00)
[2017-02-14 07:13] VITALS: BP 114/71; RESP 20
[2017-02-14] MEDS: ALBUTEROL/IPRATROPIUM (NEB) 3 ML AMP HHN SCH ×3 (07:34→20:00)
[2017-02-14] MEDS: FLUOXETINE 20 MG CAP PO SCH (08:01)
[2017-02-14] MEDS: INSULIN ASPART [NOVOLOG] 3 ML PEN SC SCH ×4 (08:02→21:00)
[2017-02-14] MEDS: metFORMIN 500 MG TAB PO SCH ×2 (08:02→17:04)
[2017-02-14] MEDS: PREGABALIN 75 MG CAP PO SCH ×2 (08:02→22:06)
[2017-02-14] MEDS: FERROUS SULFATE (EC) 325 MG TAB PO SCH ×2 (08:02→22:06)
[2017-02-14] MEDS: LISINOPRIL 5 MG TAB PO SCH (08:02)
[2017-02-14] MEDS: FAMOTIDINE 20 MG TAB PO SCH ×2 (08:02→22:06)
--- NOTE | 2017-02-14 11:12 | CONS ---
Date/Time of Note Date/Time of Note DATE: 02/14/17 TIME: 11:12 Assessment/Plan Assessment/Plan Chief Complaint/Hosp Course ASSESSMENT AND PLAN: 1. Pancytopenia secondary to myelodysplastic syndrome, post chemotherapy. The patient is status post platelet transfusion, 2 packs yesterday. will transfuse 1 more unit today 2. Neutropenia secondary to myelodysplastic syndrome with chemotherapy. Continue to monitor. 3. Diabetes. Continue current insulin regimen. 4. Hypertension. Continue current blood pressure regimen. 5. Anxiety disorder. Continue Xanax. 6. Neuropathy. Continue Lyrica. 7. Insomnia. Ambien. 8. Asthmatic bronchitis, currently compensated. Continue current medical management. 9. Depression. Continue Prozac. 10. Gastrointestinal and deep venous thrombosis prophylaxis. Continue proton pump inhibitor and sequential leg squeezers. Problems: Consultation Date/Type/Reason Admit Date/Time Feb 07, 2017 at 05:03 Initial Consult Date 02/08/17 Type of Consultation: Hematology/Oncology Reason for Consultation MDS Referring Provider: FINA IRVING DO 24 HR Interval Summary Free Text/Dictation ALL NOTED POST CHEMO WITH CYTOPENIA REQUIRING PLATELET TRANSFUSION NO BLEEDING Exam/Review of Systems Vital Signs Vitals Vital Signs Date Time Temp Pulse Resp B/P Pulse Ox O2 Delivery O2 Flow Rate FiO2 02/14/17 07:13 97.8 73 20 114/71 99 02/12/17 22:50 Room Air 02/11/17 09:05 21 Intake and Output 02/13/17 02/13/17 02/14/17 15:00 23:00 07:00 Intake Total 1380 ml 600 ml Output Total 2500 ml 700 ml Balance -1120 ml -100 ml Exam HEENT: Head is normocephalic. NECK: Supple. HEART: Regular rate. LUNGS: Show diminished breath sounds at base. ABDOMEN: Soft, nontender to palpation without rebound or guarding. EXTREMITIES: Negative for clubbing, cyanosis; no edema. DERMATOLOGIC: No rashes. MUSCULOSKELETAL: No joint effusions. NEUROLOGIC: No change in exam. NO HEMATOMA Results Result Diagram: 02/13/17 0557 Results 24 hrs Laboratory Tests Test 02/13/17 12:02 02/13/17 16:48 02/13/17 20:56 02/14/17 08:00 Bedside Glucose 87 91 110 110 Medications Medications Current Medications Ondansetron HCl (Zofran Tab) 4 mg Q6H PRN PO NAUSEA AND/OR VOMITING; Start at 05:30 Metoclopramide HCl (Reglan) 10 mg Q6H PRN IV NAUSEA AND/OR VOMITING; Start at 05:30 Famotidine (Pepcid) 20 mg Q12 PO Last administered on 02/14/17 08:02; Admin Dose 20 MG; Start 02/07/17 at 09:00 Ferrous Sulfate (Ferrous Sulfate (Ec)) 325 mg BID PO Last administered on 08:02; Admin Dose 325 MG; Start 02/07/17 at 09:00 Fluoxetine HCl (Prozac) 20 mg DAILY PO Last administered on 02/14/17 08:01; Admin Dose 20 MG; Start 02/07/17 at 09:00 Lisinopril (Zestril) 5 mg DAILY PO Last administered on 02/12/17 08:02; Admin Dose 5 MG; Start 02/07/17 at 09:00 Pregabalin (Lyrica) 150 mg BID PO Last administered on 02/14/17 08:02; Admin Dose 150 MG; Start 02/07/17 at 09:00 Zolpidem Tartrate (Ambien) 10 mg QHS PRN PO INSOMNIA Last administered on 22:42; Admin Dose 10 MG; Start 02/07/17 at 05:30 Diagnostic Test (Pha) (Accu-Chek) 1 ea 02 XX ; Start 02/08/17 at 02:00 Miscellaneous Information 1 ea NOTE XX ; Start 02/07/17 at 09:00 Glucose (Glutose) 15 gm Q15M PRN PO DECREASED GLUCOSE; Start 02/07/17 at 09:00 Glucose (Glutose) 22.5 gm Q15M PRN PO DECREASED GLUCOSE; Start 02/07/17 at 09: 00 Dextrose (D50w Syringe) 25 ml Q15M PRN IV DECREASED GLUCOSE; Start 02/07/17 at 09:00 Dextrose (D50w Syringe) 50 ml Q15M PRN IV DECREASED GLUCOSE; Start 02/07/17 at 09:00 Glucagon (Glucagen) 1 mg Q15M PRN IM DECREASED GLUCOSE; Start 02/07/17 at 09:00 Glucose (Glutose) 15 gm Q15M PRN BUCCAL DECREASED GLUCOSE; Start 02/07/17 at 09 :00 Acetaminophen (Tylenol Tab) 500 mg Q6H PRN PO PAIN AND OR ELEVATED TEMP Last administered on 02/13/17 07:53; Admin Dose 500 MG; Start 02/07/17 at 10:30 Alprazolam (Xanax) 0.25 mg DAILY PRN PO anxiety Last administered on 02/12/17 16:18; Admin Dose 0.25 MG; Start 02/09/17 at 18:30 ZHAO CARRILLO MD February 14, 2017 11:12
[2017-02-14 12:09] LABS: ADD SCAN DIFF NO
[2017-02-14 12:21] LABS: ABNORMAL IP MESSAGE 1; HEMATOCRIT 31.7 % (37.0-47.0); HEMOGLOBIN 10.4 g/dl (12.0-16.0); MEAN CORPUSCULAR HEMOGLOBIN 31.1 pg (29.0-33.0); MEAN CORPUSCULAR HGB CONC 32.8 g/dl (32.0-37.0); MEAN CORPUSCULAR VOLUME 94.9 fl (82.0-101.0); MEAN PLATELET VOLUME 11.1 fl (7.4-10.4); RED BLOOD COUNT 3.34 10^6/ul (4.20-5.40); RED CELL DISTRIBUTION WIDTH 17.2 % (11.5-14.5); WHITE BLOOD COUNT 2.2 10^3/ul (4.8-10.8)
--- NOTE | 2017-02-14 12:22 | PN ---
DATE: 02/14/2017 SUBJECTIVE: The patient is stable. No acute events overnight. The patient received a platelets tr ansfusion yesterday. OBJECTIVE: VITAL SIGNS: Blood pressure 114/71, respirations 20, pulse 73, temperature 97.8. HEENT: Head is normocephalic. NECK: Supple. HEART: Regular rate. LUNGS: Show diminished breath sounds at base. ABDOMEN: Soft, nontender to palpation without rebound or guarding. EXTREMITIES: Negative for clubbing, cyanosis; no edema. DERMATOLOGIC: No rashes. MUSCULOSKELETAL: No joint effusions. NEUROLOGIC: No change in exam. MEDICATIONS: The patient's medications have been reviewed. LABORATORY DATA: From 02/13/2017 is reviewed; laboratory dated 02/14 is pending. ASSESSMENT AND PLAN: 1. Pancytopenia secondary to myelodysplastic syndrome, chemotherapy. The patient is status post pl atelet transfusion, 2 packs yesterday. Will follow up a CBC this morning. 2. Neutropenia secondary to myelodysplastic syndrome with chemotherapy. Continue to monitor. 3. Diabetes. Continue current insulin regimen. 4. Hypertension. Continue current blood pressure regimen. 5. Anxiety disorder. Continue Xanax. 6. Neuropathy. Continue Lyrica. 7. Insomnia. Ambien. 8. Asthmatic bronchitis, currently compensated. Continue current medical management. 9. Depression. Continue Prozac. 10. Gastrointestinal and deep venous thrombosis prophylaxis. Continue proton pump inhibitor and se quential leg squeezers. Dictated By: FINA NUÑEZ/ARMEN Conf#: [id number] DID#: [id number]
[2017-02-14 12:26] LABS: PLATELET COUNT 11 10^3/UL (140-415)
[2017-02-14 13:13] LABS: LYMPHOCYTES # 1.6 10^3/ul (0.8-2.9); NEUTROPHIL # 0.6 10^3/ul (1.6-7.5); PLATELET ESTIMATE PLT APPEAR DECREASED
[2017-02-14] MEDS: ALPRAZOLAM 0.25 MG TAB PO PRN (15:28)
[2017-02-14] MEDS ORDERED: DIPHENHYDRAMINE 50 MG INJ IV PRN (16:00)
[2017-02-14 19:23] VITALS: BP 121/69; RESP 18
[2017-02-15] MEDS: ZOLPIDEM 5 MG TAB PO PRN (00:49)
[2017-02-15] MEDS: ACCU-CHEK XX SCH (02:00)
[2017-02-15 05:42] LABS: ADD SCAN DIFF NO
[2017-02-15 05:48] LABS: ABNORMAL IP MESSAGE 1; HEMATOCRIT 30.2 % (37.0-47.0); HEMOGLOBIN 10.1 g/dl (12.0-16.0); LYMPHOCYTES # 1.3 10^3/ul (0.8-2.9); LYMPHOCYTES % 55.5 % (15.0-51.0); MEAN CORPUSCULAR HEMOGLOBIN 31.7 pg (29.0-33.0); MEAN CORPUSCULAR HGB CONC 33.4 g/dl (32.0-37.0); MEAN CORPUSCULAR VOLUME 94.7 fl (82.0-101.0); MEAN PLATELET VOLUME 12.8 fl (7.4-10.4); MONOCYTE # 0.2 10^3/ul (0.3-0.9); MONOCYTES % 7.2 % (0.0-11.0); NEUTROPHIL # 0.8 10^3/ul (1.6-7.5); NEUTROPHILS % 35.6 % (39.0-77.0); RED BLOOD COUNT 3.19 10^6/ul (4.20-5.40); RED CELL DISTRIBUTION WIDTH 17.1 % (11.5-14.5); WHITE BLOOD COUNT 2.4 10^3/ul (4.8-10.8)
[2017-02-15 05:59] LABS: PLATELET COUNT 16 10^3/UL (140-415)
[2017-02-15 06:11] LABS: POTASSIUM 3.9 mmol/L (3.5-5.1)
[2017-02-15 06:13] LABS: CREATININE 0.7 mg/dl (0.44-1.00)
[2017-02-15 06:14] LABS: PHOSPHORUS 4.2 mg/dl (2.5-4.9)
[2017-02-15 06:15] LABS: CALCIUM 9.7 mg/dl (8.4-10.2); MAGNESIUM 1.4 mg/dl (1.7-2.5)
[2017-02-15 07:15] VITALS: BP 119/75; RESP 20
[2017-02-15] MEDS: ALBUTEROL/IPRATROPIUM (NEB) 3 ML AMP HHN SCH ×3 (08:00→20:00)
[2017-02-15] MEDS: PREGABALIN 75 MG CAP PO SCH ×2 (08:12→22:02)
[2017-02-15] MEDS: FAMOTIDINE 20 MG TAB PO SCH ×2 (08:12→22:02)
[2017-02-15] MEDS: FERROUS SULFATE (EC) 325 MG TAB PO SCH ×2 (08:13→22:03)
[2017-02-15] MEDS: INSULIN ASPART [NOVOLOG] 3 ML PEN SC SCH ×4 (08:13→21:00)
[2017-02-15] MEDS: metFORMIN 500 MG TAB PO SCH ×2 (08:13→17:15)
[2017-02-15] MEDS: LISINOPRIL 5 MG TAB PO SCH (08:13)
[2017-02-15] MEDS: FLUOXETINE 20 MG CAP PO SCH (08:13)
[2017-02-15] MEDS ORDERED: MAGNESIUM SULFATE 2 GM/50 ML 50 ML IVPB SCH (11:00)
--- NOTE | 2017-02-15 11:12 | PN ---
DATE: 02/15/2017 SUBJECTIVE: The patient is stable, no acute events overnight. No fevers, chills, nausea, vomiting. OBJECTIVE: VITAL SIGNS: Blood pressure 119/75, respirations 20, pulse 82, temperature 98.0. HEENT: Head is normocephalic. NECK: Supple. HEART: Regular rate. LUNGS: Show diminished breath sounds at base. ABDOMEN: Soft, nontender to palpation without rebound or guarding. EXTREMITIES: Negative for clubbing, cyanosis, edema. DERMATOLOGIC: No rashes. MUSCULOSKELETAL: No joint effusions. NEUROLOGIC: No change in exam. MEDICATIONS: The patient's medications have been reviewed. LABORATORY DATA: Shows a white count of 2.4, hemoglobin 10.1, hematocrit 30.2, platelet count is 16 . Sodium 142, potassium 3.9, BUN 22, creatinine 0.70, magnesium 1.4. ASSESSMENT AND PLAN: 1. Pancytopenia and thrombocytopenia secondary to myelodysplastic syndrome chemotherapy. The patie nt is status post platelet transfusion. The patient had a minimal increase in platelets from 11 to 16. We will follow up with Dr. Machado if further transfusions are needed. Continue to monitor. 2. Neutropenia secondary to myelodysplastic syndrome and recent chemotherapy. Continue to monitor. 3. Diabetes. Continue current insulin regimen. 4. Hypertension. Continue current blood pressure regimen. 5. Anxiety disorder. Continue Xanax. 6. Neuropathy. Continue Lyrica. 7. Insomnia. Ambien. 8. Asthmatic bronchitis, currently compensated. Continue medical management. 10. Depression. Continue Prozac. 11. Gastrointestinal and deep venous thrombosis prophylaxis. Continue proton pump inhibitor and se quential leg squeezers. Dictated By: FINA NUÑEZ/ARMEN Conf#: [id number] DID#: [id number]
[2017-02-15] MEDS: ACETAMINOPHEN 500 MG TAB PO PRN ×2 (12:42→22:54)
--- NOTE | 2017-02-15 17:35 | CONS ---
Date/Time of Note Date/Time of Note DATE: 02/15/17 TIME: 17:33 Assessment/Plan Assessment/Plan Chief Complaint/Hosp Course ASSESSMENT AND PLAN: 1. Pancytopenia secondary to myelodysplastic syndrome, post chemotherapy. The patient is status post platelet transfusion x 4 u will transfuse 1 more unit today 2. Neutropenia secondary to myelodysplastic syndrome with chemotherapy. Continue to monitor. 3. Diabetes. Continue current insulin regimen. 4. Hypertension. Continue current blood pressure regimen. 5. Anxiety disorder. Continue Xanax. 6. Neuropathy. Continue Lyrica. 7. Insomnia. Ambien. 8. Asthmatic bronchitis, currently compensated. Continue current medical management. 9. Depression. Continue Prozac. 10. Gastrointestinal and deep venous thrombosis prophylaxis. Continue proton pump inhibitor and sequential leg squeezers. Problems: Consultation Date/Type/Reason Admit Date/Time Feb 07, 2017 at 05:03 Initial Consult Date 02/08/17 Type of Consultation: Hematology/Oncology Referring Provider: FINA IRVING DO 24 HR Interval Summary Free Text/Dictation all noted platelet count [id number] + some cough with min bloody sputum Exam/Review of Systems Vital Signs Vitals Vital Signs Date Time Temp Pulse Resp B/P Pulse Ox O2 Delivery O2 Flow Rate FiO2 02/15/17 07:15 98.0 82 20 119/75 96 02/12/17 22:50 Room Air 02/11/17 09:05 21 Intake and Output 02/14/17 02/14/17 02/15/17 14:59 22:59 06:59 Intake Total 1860 ml Output Total 2500 ml Balance -640 ml Exam HEENT: Head is normocephalic. NECK: Supple. HEART: Regular rate. LUNGS: Show diminished breath sounds at base. ABDOMEN: Soft, nontender to palpation without rebound or guarding. EXTREMITIES: Negative for clubbing, cyanosis, edema. DERMATOLOGIC: No rashes. MUSCULOSKELETAL: No joint effusions. NEUROLOGIC: No change in exam. Results Result Diagram: 02/15/17 0505 02/15/17 0505 Results 24 hrs Laboratory Tests Test 02/14/17 22:25 02/15/17 05:05 02/15/17 07:57 02/15/17 11:44 Bedside Glucose 103 102 102 White Blood Count 2.4 L Red Blood Count 3.19 L Hemoglobin 10.1 L Hematocrit 30.2 L Mean Corpuscular Volume 94.7 Mean Corpuscular Hemoglobin 31.7 Mean Corpuscular Hemoglobin Concent 33.4 Red Cell Distribution Width 17.1 H Platelet Count 16 #*L Mean Platelet Volume 12.8 H Neutrophils % 35.6 L Lymphocytes % 55.5 H Monocytes % 7.2 Eosinophils % 0.0 Basophils % 0.0 Nucleated Red Blood Cells % 0.0 Neutrophils # 0.8 L Lymphocytes # 1.3 Monocytes # 0.2 L Eosinophils # 0.0 Basophils # 0.0 Nucleated Red Blood Cells # 0.0 Sodium Level 142 Potassium Level 3.9 Chloride Level 105 Carbon Dioxide Level 25 Anion Gap 16 Blood Urea Nitrogen 22 H Creatinine 0.70 Glucose Level 84 Calcium Level 9.7 Phosphorus Level 4.2 Magnesium Level 1.4 L Test 02/15/17 17:14 Bedside Glucose 101 Medications Medications Current Medications Ondansetron HCl (Zofran Tab) 4 mg Q6H PRN PO NAUSEA AND/OR VOMITING; Start at 05:30 Metoclopramide HCl (Reglan) 10 mg Q6H PRN IV NAUSEA AND/OR VOMITING; Start at 05:30 Famotidine (Pepcid) 20 mg Q12 PO Last administered on 02/15/17 08:12; Admin Dose 20 MG; Start 02/07/17 at 09:00 Ferrous Sulfate (Ferrous Sulfate (Ec)) 325 mg BID PO Last administered on 08:13; Admin Dose 325 MG; Start 02/07/17 at 09:00 Fluoxetine HCl (Prozac) 20 mg DAILY PO Last administered on 02/15/17 08:13; Admin Dose 20 MG; Start 02/07/17 at 09:00 Lisinopril (Zestril) 5 mg DAILY PO Last administered on 02/15/17 08:13; Admin Dose 5 MG; Start 02/07/17 at 09:00 Pregabalin (Lyrica) 150 mg BID PO Last administered on 02/15/17 08:12; Admin Dose 150 MG; Start 02/07/17 at 09:00 Zolpidem Tartrate (Ambien) 10 mg QHS PRN PO INSOMNIA Last administered on 00:49; Admin Dose 10 MG; Start 02/07/17 at 05:30 Diagnostic Test (Pha) (Accu-Chek) 1 ea 02 XX ; Start 02/08/17 at 02:00 Miscellaneous Information 1 ea NOTE XX ; Start 02/07/17 at 09:00 Glucose (Glutose) 15 gm Q15M PRN PO DECREASED GLUCOSE; Start 02/07/17 at 09:00 Glucose (Glutose) 22.5 gm Q15M PRN PO DECREASED GLUCOSE; Start 02/07/17 at 09: 00 Dextrose (D50w Syringe) 25 ml Q15M PRN IV DECREASED GLUCOSE; Start 02/07/17 at 09:00 Dextrose (D50w Syringe) 50 ml Q15M PRN IV DECREASED GLUCOSE; Start 02/07/17 at 09:00 Glucagon (Glucagen) 1 mg Q15M PRN IM DECREASED GLUCOSE; Start 02/07/17 at 09:00 Glucose (Glutose) 15 gm Q15M PRN BUCCAL DECREASED GLUCOSE; Start 02/07/17 at 09 :00 Acetaminophen (Tylenol Tab) 500 mg Q6H PRN PO PAIN AND OR ELEVATED TEMP Last administered on 02/15/17 12:42; Admin Dose 500 MG; Start 02/07/17 at 10:30 Alprazolam (Xanax) 0.25 mg DAILY PRN PO anxiety Last administered on 02/14/17 15:28; Admin Dose 0.25 MG; Start 02/09/17 at 18:30 ZHAO CARRILLO MD February 15, 2017 17:35
[2017-02-15 19:25] VITALS: RESP 18
[2017-02-15] MEDS: ALPRAZOLAM 0.25 MG TAB PO PRN (22:11)
[2017-02-15] MEDS ORDERED: DIPHENHYDRAMINE 50 MG INJ IV ONE (23:00)
[2017-02-16] MEDS: ZOLPIDEM 5 MG TAB PO PRN ×2 (00:25→22:27)
[2017-02-16] MEDS: ACCU-CHEK XX SCH (02:00)
[2017-02-16 05:27] LABS: ADD SCAN DIFF NO
[2017-02-16 06:27] LABS: ABNORMAL IP MESSAGE 1; EOSINOPHILS % 0.4 % (0.0-7.0); HEMATOCRIT 28.3 % (37.0-47.0); HEMOGLOBIN 9.5 g/dl (12.0-16.0); LYMPHOCYTES # 1.8 10^3/ul (0.8-2.9); LYMPHOCYTES % 72.8 % (15.0-51.0); MEAN CORPUSCULAR HEMOGLOBIN 31.8 pg (29.0-33.0); MEAN CORPUSCULAR HGB CONC 33.6 g/dl (32.0-37.0); MEAN CORPUSCULAR VOLUME 94.6 fl (82.0-101.0); MEAN PLATELET VOLUME 9.4 fl (7.4-10.4); MONOCYTE # 0.2 10^3/ul (0.3-0.9); MONOCYTES % 7.2 % (0.0-11.0); NEUTROPHIL # 0.5 10^3/ul (1.6-7.5); NEUTROPHILS % 19.2 % (39.0-77.0); PLATELET COUNT 43 10^3/UL (140-415); RED BLOOD COUNT 2.99 10^6/ul (4.20-5.40); RED CELL DISTRIBUTION WIDTH 17.1 % (11.5-14.5); WHITE BLOOD COUNT 2.5 10^3/ul (4.8-10.8)
[2017-02-16] MEDS: ALBUTEROL/IPRATROPIUM (NEB) 3 ML AMP HHN SCH ×2 (07:32→19:25)
[2017-02-16 07:55] VITALS: BP 112/58; RESP 16
[2017-02-16] MEDS: PREGABALIN 75 MG CAP PO SCH ×2 (08:11→21:12)
[2017-02-16] MEDS: FLUOXETINE 20 MG CAP PO SCH (08:11)
[2017-02-16] MEDS: metFORMIN 500 MG TAB PO SCH ×2 (08:12→16:58)
[2017-02-16] MEDS: LISINOPRIL 5 MG TAB PO SCH (08:12)
[2017-02-16] MEDS: FERROUS SULFATE (EC) 325 MG TAB PO SCH ×2 (08:12→21:11)
[2017-02-16] MEDS: INSULIN ASPART [NOVOLOG] 3 ML PEN SC SCH ×4 (08:13→21:00)
[2017-02-16] MEDS: FAMOTIDINE 20 MG TAB PO SCH ×2 (08:15→21:12)
--- NOTE | 2017-02-16 08:22 | CONS ---
Date/Time of Note Date/Time of Note DATE: 02/16/17 TIME: 08:21 Consult Date/Type/Reason Admit Date/Time Feb 07, 2017 at 05:03 Initial Consult Date 02/08/17 Type of Consultation: Hematology/Oncology Ordering Provider: FINA IRVING DO Subjective all noted s/p plts transfusion good uop. PE: HEENT: Head is normocephalic. NECK: Supple. HEART: Regular rate. LUNGS: Show diminished breath sounds at base. ABDOMEN: Soft, nontender to palpation without rebound or guarding. EXTREMITIES: Negative for clubbing, cyanosis, edema. DERMATOLOGIC: No rashes. MUSCULOSKELETAL: No joint effusions. NEUROLOGIC: No change in exam. Objective Vital Signs Date Time Temp Pulse Resp B/P Pulse Ox O2 Delivery O2 Flow Rate FiO2 02/16/17 07:55 97.6 69 16 112/58 98 02/12/17 22:50 Room Air Intake and Output 02/15/17 02/15/17 02/16/17 15:00 23:00 07:00 Intake Total 890 ml 1740 ml 741 ml Output Total 800 ml 3850 ml 775 ml Balance 90 ml -2110 ml -34 ml Results/Medications Result Diagram: 02/16/17 0515 02/15/17 0505 Results 24 hrs Laboratory Tests Test 02/15/17 11:44 02/15/17 17:14 02/15/17 22:04 02/16/17 05:15 Bedside Glucose 102 101 104 White Blood Count 2.5 L Red Blood Count 2.99 L Hemoglobin 9.5 L Hematocrit 28.3 L Mean Corpuscular Volume 94.6 Mean Corpuscular Hemoglobin 31.8 Mean Corpuscular Hemoglobin Concent 33.6 Red Cell Distribution Width 17.1 H Platelet Count 43 #L Mean Platelet Volume 9.4 # Neutrophils % 19.2 L Lymphocytes % 72.8 H Monocytes % 7.2 Eosinophils % 0.4 Basophils % 0.0 Nucleated Red Blood Cells % 0.0 Neutrophils # 0.5 L Lymphocytes # 1.8 Monocytes # 0.2 L Eosinophils # 0.0 Basophils # 0.0 Nucleated Red Blood Cells # 0.0 Test 02/16/17 08:07 Bedside Glucose 94 Medications Current Medications Ondansetron HCl (Zofran Tab) 4 mg Q6H PRN PO NAUSEA AND/OR VOMITING; Start 4/ 24/17 at 05:30 Metoclopramide HCl (Reglan) 10 mg Q6H PRN IV NAUSEA AND/OR VOMITING; Start at 05:30 Famotidine (Pepcid) 20 mg Q12 PO Last administered on 02/16/17 08:15; Admin Dose 20 MG; Start 02/07/17 at 09:00 Ferrous Sulfate (Ferrous Sulfate (Ec)) 325 mg BID PO Last administered on 08:12; Admin Dose 325 MG; Start 02/07/17 at 09:00 Fluoxetine HCl (Prozac) 20 mg DAILY PO Last administered on 02/16/17 08:11; Admin Dose 20 MG; Start 02/07/17 at 09:00 Lisinopril (Zestril) 5 mg DAILY PO Last administered on 02/16/17 08:12; Admin Dose 5 MG; Start 02/07/17 at 09:00 Pregabalin (Lyrica) 150 mg BID PO Last administered on 02/16/17 08:11; Admin Dose 150 MG; Start 02/07/17 at 09:00 Zolpidem Tartrate (Ambien) 10 mg QHS PRN PO INSOMNIA Last administered on 00:25; Admin Dose 10 MG; Start 02/07/17 at 05:30 Diagnostic Test (Pha) (Accu-Chek) 1 ea 02 XX ; Start 02/08/17 at 02:00 Miscellaneous Information 1 ea NOTE XX ; Start 02/07/17 at 09:00 Glucose (Glutose) 15 gm Q15M PRN PO DECREASED GLUCOSE; Start 02/07/17 at 09:00 Glucose (Glutose) 22.5 gm Q15M PRN PO DECREASED GLUCOSE; Start 02/07/17 at 09: 00 Dextrose (D50w Syringe) 25 ml Q15M PRN IV DECREASED GLUCOSE; Start 02/07/17 at 09:00 Dextrose (D50w Syringe) 50 ml Q15M PRN IV DECREASED GLUCOSE; Start 02/07/17 at 09:00 Glucagon (Glucagen) 1 mg Q15M PRN IM DECREASED GLUCOSE; Start 02/07/17 at 09:00 Glucose (Glutose) 15 gm Q15M PRN BUCCAL DECREASED GLUCOSE; Start 02/07/17 at 09 :00 Acetaminophen (Tylenol Tab) 500 mg Q6H PRN PO PAIN AND OR ELEVATED TEMP Last administered on 02/15/17 22:54; Admin Dose 500 MG; Start 02/07/17 at 10:30 Alprazolam (Xanax) 0.25 mg DAILY PRN PO anxiety Last administered on 02/15/17 22:11; Admin Dose 0.25 MG; Start 02/09/17 at 18:30 Assessment/Plan Chief Complaint/Hosp Course 1. Pancytopenia and thrombocytopenia secondary to myelodysplastic syndrome chemotherapy. The patient is status post platelet transfusion. The patient had a minimal increase in platelets from 11 to 16. We will follow up with Dr. Machado if further transfusions are needed. Continue to monitor. 2. Neutropenia secondary to myelodysplastic syndrome and recent chemotherapy. Continue to monitor. 3. Diabetes. Continue current insulin regimen. 4. Hypertension. Continue current blood pressure regimen. 5. Anxiety disorder. Continue Xanax. 6. Neuropathy. Continue Lyrica. 7. Insomnia. Ambien. 8. Asthmatic bronchitis, currently compensated. Continue medical management. 10. Depression. Continue Prozac. 11. Gastrointestinal and deep venous thrombosis prophylaxis. Continue proton pump inhibitor and sequential leg squeezers. Problems: CRUZITO SAMUELS MD February 16, 2017 08:22
--- NOTE | 2017-02-16 09:38 | CONS ---
Date/Time of Note Date/Time of Note DATE: 02/16/17 TIME: 09:34 Assessment/Plan Assessment/Plan Chief Complaint/Hosp Course ASSESSMENT AND PLAN: 1. Pancytopenia secondary to myelodysplastic syndrome, post chemotherapy. The patient is status post platelet transfusion x 4 u CONT TO MONITOR CLOSELY TRANSFUSE TO KEEP PLATELET COUNT ABOVE 48946 OR IF PT IS BLEEDING 2. Neutropenia secondary to myelodysplastic syndrome with chemotherapy. Continue to monitor. IMPROVED ANEMIA POST CHEMO POST 1 U PRBC MONITOR CLOSELY TRANSFUSE NEEDED TO KEEP HB ABOVE 8.0 3. Diabetes. Continue current insulin regimen. 4. Hypertension. Continue current blood pressure regimen. 5. Anxiety disorder. Continue Xanax. 6. Neuropathy. Continue Lyrica. 7. Insomnia. Ambien. 8. Asthmatic bronchitis, currently compensated. Continue current medical management. 9. Depression. Continue Prozac. 10. Gastrointestinal and deep venous thrombosis prophylaxis. Continue proton pump inhibitor and sequential leg squeezers. Problems: Consultation Date/Type/Reason Admit Date/Time Feb 07, 2017 at 05:03 Initial Consult Date 02/08/17 Type of Consultation: Hematology/Oncology Referring Provider: FINA IRVING DO 24 HR Interval Summary Free Text/Dictation 1 UNIT OF PLATELETS TRANSFUSED LAST SHIFT. PT DID NOT COUGH OUT BLOOD THIS SHIFT. PT STATES SHE IS WORRIED ABOUT HER LOW PLATELET LEVEL. NO BLEEDING Exam/Review of Systems Vital Signs Vitals Vital Signs Date Time Temp Pulse Resp B/P Pulse Ox O2 Delivery O2 Flow Rate FiO2 02/16/17 07:55 97.6 69 16 112/58 98 02/12/17 22:50 Room Air Intake and Output 02/15/17 02/15/17 02/16/17 15:00 23:00 07:00 Intake Total 890 ml 1740 ml 741 ml Output Total 800 ml 3850 ml 775 ml Balance 90 ml -2110 ml -34 ml Exam HEENT: Head is normocephalic. NECK: Supple. HEART: Regular rate. LUNGS: Show diminished breath sounds at base. ABDOMEN: Soft, nontender to palpation without rebound or guarding. EXTREMITIES: Negative for clubbing, cyanosis, edema. DERMATOLOGIC: No rashes. MUSCULOSKELETAL: No joint effusions. NEUROLOGIC: No change in exam. Results Result Diagram: 02/16/17 0515 02/15/17 0505 Results 24 hrs Laboratory Tests Test 02/15/17 11:44 02/15/17 17:14 02/15/17 22:04 02/16/17 05:15 Bedside Glucose 102 101 104 White Blood Count 2.5 L Red Blood Count 2.99 L Hemoglobin 9.5 L Hematocrit 28.3 L Mean Corpuscular Volume 94.6 Mean Corpuscular Hemoglobin 31.8 Mean Corpuscular Hemoglobin Concent 33.6 Red Cell Distribution Width 17.1 H Platelet Count 43 #L Mean Platelet Volume 9.4 # Neutrophils % 19.2 L Lymphocytes % 72.8 H Monocytes % 7.2 Eosinophils % 0.4 Basophils % 0.0 Nucleated Red Blood Cells % 0.0 Neutrophils # 0.5 L Lymphocytes # 1.8 Monocytes # 0.2 L Eosinophils # 0.0 Basophils # 0.0 Nucleated Red Blood Cells # 0.0 Test 02/16/17 08:07 Bedside Glucose 94 Medications Medications Current Medications Ondansetron HCl (Zofran Tab) 4 mg Q6H PRN PO NAUSEA AND/OR VOMITING; Start at 05:30 Metoclopramide HCl (Reglan) 10 mg Q6H PRN IV NAUSEA AND/OR VOMITING; Start at 05:30 Famotidine (Pepcid) 20 mg Q12 PO Last administered on 02/16/17 08:15; Admin Dose 20 MG; Start 02/07/17 at 09:00 Ferrous Sulfate (Ferrous Sulfate (Ec)) 325 mg BID PO Last administered on 08:12; Admin Dose 325 MG; Start 02/07/17 at 09:00 Fluoxetine HCl (Prozac) 20 mg DAILY PO Last administered on 02/16/17 08:11; Admin Dose 20 MG; Start 02/07/17 at 09:00 Lisinopril (Zestril) 5 mg DAILY PO Last administered on 02/16/17 08:12; Admin Dose 5 MG; Start 02/07/17 at 09:00 Pregabalin (Lyrica) 150 mg BID PO Last administered on 02/16/17 08:11; Admin Dose 150 MG; Start 02/07/17 at 09:00 Zolpidem Tartrate (Ambien) 10 mg QHS PRN PO INSOMNIA Last administered on 00:25; Admin Dose 10 MG; Start 02/07/17 at 05:30 Diagnostic Test (Pha) (Accu-Chek) 1 ea 02 XX ; Start 02/08/17 at 02:00 Miscellaneous Information 1 ea NOTE XX ; Start 02/07/17 at 09:00 Glucose (Glutose) 15 gm Q15M PRN PO DECREASED GLUCOSE; Start 02/07/17 at 09:00 Glucose (Glutose) 22.5 gm Q15M PRN PO DECREASED GLUCOSE; Start 02/07/17 at 09: 00 Dextrose (D50w Syringe) 25 ml Q15M PRN IV DECREASED GLUCOSE; Start 02/07/17 at 09:00 Dextrose (D50w Syringe) 50 ml Q15M PRN IV DECREASED GLUCOSE; Start 02/07/17 at 09:00 Glucagon (Glucagen) 1 mg Q15M PRN IM DECREASED GLUCOSE; Start 02/07/17 at 09:00 Glucose (Glutose) 15 gm Q15M PRN BUCCAL DECREASED GLUCOSE; Start 02/07/17 at 09 :00 Acetaminophen (Tylenol Tab) 500 mg Q6H PRN PO PAIN AND OR ELEVATED TEMP Last administered on 02/15/17 22:54; Admin Dose 500 MG; Start 02/07/17 at 10:30 Alprazolam (Xanax) 0.25 mg DAILY PRN PO anxiety Last administered on 02/15/17 22:11; Admin Dose 0.25 MG; Start 02/09/17 at 18:30 ZHAO CARRILLO MD February 16, 2017 09:38
[2017-02-16 19:19] VITALS: BP 92/60; RESP 16
[2017-02-17] MEDS: ACCU-CHEK XX SCH (02:00)
[2017-02-17 07:22] VITALS: BP 111/58; RESP 18
[2017-02-17] MEDS: ALBUTEROL/IPRATROPIUM (NEB) 3 ML AMP HHN SCH ×3 (08:00→19:59)
[2017-02-17] MEDS: INSULIN ASPART [NOVOLOG] 3 ML PEN SC SCH ×4 (08:15→20:12)
[2017-02-17] MEDS: LISINOPRIL 5 MG TAB PO SCH (09:00)
[2017-02-17] MEDS: metFORMIN 500 MG TAB PO SCH ×2 (09:01→17:14)
[2017-02-17] MEDS: FAMOTIDINE 20 MG TAB PO SCH ×2 (09:01→20:11)
[2017-02-17] MEDS: FLUOXETINE 20 MG CAP PO SCH (09:01)
[2017-02-17] MEDS: FERROUS SULFATE (EC) 325 MG TAB PO SCH ×2 (09:02→20:11)
[2017-02-17] MEDS: PREGABALIN 75 MG CAP PO SCH ×2 (09:02→20:11)
--- NOTE | 2017-02-17 09:48 | PN ---
DATE: 02/17/2017 SUBJECTIVE: The patient is stable, no acute events overnight. No fevers, chills, nausea, vomiting. OBJECTIVE: VITAL SIGNS: Blood pressure is 111/58, respiration 18, pulse 74, temperature 98.0. HEENT: Head is normocephalic. NECK: Supple. HEART: Regular rate. LUNGS: Show diminished breath sounds at the base. ABDOMEN: Soft, nontender to palpation without rebound or guarding. EXTREMITIES: Negative for clubbing, cyanosis. No edema. DERMATOLOGIC: No rashes. MUSCULOSKELETAL: No joint effusions. NEUROLOGIC: No change in exam. MEDICATIONS: Have been reviewed. LABORATORY DATA: Has been reviewed. No new labs. ASSESSMENT AND PLAN: 1. Pancytopenia, thrombocytopenia secondary to myelodysplastic syndrome/chemotherapy. The patient' s platelet counts have been improving. We will continue to monitor. We will follow up with Dr. Tammy paiz for further recommendations. If platelet counts remain stable, anticipate discharging soon. 2. Neutropenia secondary to myelodysplastic syndrome chemotherapy. Continue to monitor. 3. Diabetes. Continue current insulin regimen. 4. Hypertension. Continue current blood pressure regimen. 5. Anxiety disorder. Continue Xanax. 6. Neuropathy. Continue Lyrica. 7. Insomnia. Continue Ambien. 8. Asthmatic bronchitis, currently compensated. Continue to monitor. 9. Depression. Continue Prozac. 10. Gastrointestinal and deep venous thrombosis prophylaxis. Continue proton pump inhibitor and se quential leg squeezers. Dictated By: FINA NUÑEZ/ARMEN Conf#: [id number] DID#: [id number]
[2017-02-17 11:21] LABS: ADD SCAN DIFF NO
[2017-02-17 11:26] LABS: ABNORMAL IP MESSAGE 1; BASOPHILS % 0.4 % (0.0-2.0); HEMATOCRIT 32.5 % (37.0-47.0); HEMOGLOBIN 10.7 g/dl (12.0-16.0); LYMPHOCYTES # 1.9 10^3/ul (0.8-2.9); LYMPHOCYTES % 70.6 % (15.0-51.0); MEAN CORPUSCULAR HEMOGLOBIN 31.3 pg (29.0-33.0); MEAN CORPUSCULAR HGB CONC 32.9 g/dl (32.0-37.0); MEAN PLATELET VOLUME 10.5 fl (7.4-10.4); MONOCYTE # 0.2 10^3/ul (0.3-0.9); MONOCYTES % 7.4 % (0.0-11.0); NEUTROPHIL # 0.6 10^3/ul (1.6-7.5); NEUTROPHILS % 21.6 % (39.0-77.0); RED BLOOD COUNT 3.42 10^6/ul (4.20-5.40); RED CELL DISTRIBUTION WIDTH 17.1 % (11.5-14.5); WHITE BLOOD COUNT 2.7 10^3/ul (4.8-10.8)
[2017-02-17 11:29] LABS: PLATELET COUNT 59 10^3/UL (140-415)
[2017-02-17 19:14] VITALS: BP 107/61; RESP 16
--- NOTE | 2017-02-17 22:07 | CONS ---
Date/Time of Note Date/Time of Note DATE: 02/17/17 TIME: 22:06 Assessment/Plan Assessment/Plan Chief Complaint/Hosp Course ASSESSMENT AND PLAN: 1. Pancytopenia secondary to myelodysplastic syndrome, post chemotherapy. The patient is status post platelet transfusion x 4 u CONT TO MONITOR CLOSELY TRANSFUSE TO KEEP PLATELET COUNT ABOVE 70195 OR IF PT IS BLEEDING 2. Neutropenia secondary to myelodysplastic syndrome with chemotherapy. Continue to monitor. IMPROVED ANEMIA POST CHEMO POST 1 U PRBC MONITOR CLOSELY TRANSFUSE NEEDED TO KEEP HB ABOVE 8.0 3. Diabetes. Continue current insulin regimen. 4. Hypertension. Continue current blood pressure regimen. 5. Anxiety disorder. Continue Xanax. 6. Neuropathy. Continue Lyrica. 7. Insomnia. Ambien. 8. Asthmatic bronchitis, currently compensated. Continue current medical management. 9. Depression. Continue Prozac. 10. Gastrointestinal and deep venous thrombosis prophylaxis. Continue proton pump inhibitor and sequential leg squeezers. Problems: Consultation Date/Type/Reason Admit Date/Time Feb 07, 2017 at 05:03 Initial Consult Date 02/08/17 Type of Consultation: Hematology/Oncology Referring Provider: FINA IRVING DO 24 HR Interval Summary Free Text/Dictation PLATELET COUNT IMPROVING NO BLEEDING Exam/Review of Systems Vital Signs Vitals Vital Signs Date Time Temp Pulse Resp B/P Pulse Ox O2 Delivery O2 Flow Rate FiO2 02/17/17 19:14 98.3 90 16 107/61 98 02/16/17 19:26 21 Intake and Output 02/16/17 02/16/17 02/17/17 15:00 23:00 07:00 Intake Total 1680 ml 980 ml Output Total 1200 ml Balance 480 ml 980 ml Exam HEENT: Head is normocephalic. NECK: Supple. HEART: Regular rate. LUNGS: Show diminished breath sounds at the base. ABDOMEN: Soft, nontender to palpation without rebound or guarding. EXTREMITIES: Negative for clubbing, cyanosis. No edema. DERMATOLOGIC: No rashes. MUSCULOSKELETAL: No joint effusions. NEUROLOGIC: No change in exam. Results Result Diagram: 02/17/17 1110 02/15/17 0505 Results 24 hrs Laboratory Tests Test 02/17/17 08:12 02/17/17 11:10 02/17/17 12:02 02/17/17 17:12 Bedside Glucose 138 94 113 White Blood Count 2.7 L Red Blood Count 3.42 L Hemoglobin 10.7 L Hematocrit 32.5 L Mean Corpuscular Volume 95.0 Mean Corpuscular Hemoglobin 31.3 Mean Corpuscular Hemoglobin Concent 32.9 Red Cell Distribution Width 17.1 H Platelet Count 59 #L Mean Platelet Volume 10.5 H Neutrophils % 21.6 L Lymphocytes % 70.6 H Monocytes % 7.4 Eosinophils % 0.0 Basophils % 0.4 Nucleated Red Blood Cells % 0.0 Neutrophils # 0.6 L Lymphocytes # 1.9 Monocytes # 0.2 L Eosinophils # 0.0 Basophils # 0.0 Nucleated Red Blood Cells # 0.0 Test 02/17/17 20:10 Bedside Glucose 128 Medications Medications Current Medications Ondansetron HCl (Zofran Tab) 4 mg Q6H PRN PO NAUSEA AND/OR VOMITING; Start at 05:30 Metoclopramide HCl (Reglan) 10 mg Q6H PRN IV NAUSEA AND/OR VOMITING; Start at 05:30 Famotidine (Pepcid) 20 mg Q12 PO Last administered on 02/17/17 20:11; Admin Dose 20 MG; Start 02/07/17 at 09:00 Ferrous Sulfate (Ferrous Sulfate (Ec)) 325 mg BID PO Last administered on 20:11; Admin Dose 325 MG; Start 02/07/17 at 09:00 Fluoxetine HCl (Prozac) 20 mg DAILY PO Last administered on 02/17/17 09:01; Admin Dose 20 MG; Start 02/07/17 at 09:00 Lisinopril (Zestril) 5 mg DAILY PO Last administered on 02/16/17 08:12; Admin Dose 5 MG; Start 02/07/17 at 09:00 Pregabalin (Lyrica) 150 mg BID PO Last administered on 02/17/17 20:11; Admin Dose 150 MG; Start 02/07/17 at 09:00 Zolpidem Tartrate (Ambien) 10 mg QHS PRN PO INSOMNIA Last administered on 22:27; Admin Dose 10 MG; Start 02/07/17 at 05:30 Diagnostic Test (Pha) (Accu-Chek) 1 ea 02 XX ; Start 02/08/17 at 02:00 Miscellaneous Information 1 ea NOTE XX ; Start 02/07/17 at 09:00 Glucose (Glutose) 15 gm Q15M PRN PO DECREASED GLUCOSE; Start 02/07/17 at 09:00 Glucose (Glutose) 22.5 gm Q15M PRN PO DECREASED GLUCOSE; Start 02/07/17 at 09: 00 Dextrose (D50w Syringe) 25 ml Q15M PRN IV DECREASED GLUCOSE; Start 02/07/17 at 09:00 Dextrose (D50w Syringe) 50 ml Q15M PRN IV DECREASED GLUCOSE; Start 02/07/17 at 09:00 Glucagon (Glucagen) 1 mg Q15M PRN IM DECREASED GLUCOSE; Start 02/07/17 at 09:00 Glucose (Glutose) 15 gm Q15M PRN BUCCAL DECREASED GLUCOSE; Start 02/07/17 at 09 :00 Acetaminophen (Tylenol Tab) 500 mg Q6H PRN PO PAIN AND OR ELEVATED TEMP Last administered on 02/15/17 22:54; Admin Dose 500 MG; Start 02/07/17 at 10:30 Alprazolam (Xanax) 0.25 mg DAILY PRN PO anxiety Last administered on 02/15/17 22:11; Admin Dose 0.25 MG; Start 02/09/17 at 18:30 ZHAO CARRILLO MD February 17, 2017 22:07
[2017-02-17] MEDS: ZOLPIDEM 5 MG TAB PO PRN (22:30)
[2017-02-18] MEDS: ACCU-CHEK XX SCH (02:00)
[2017-02-18 05:53] LABS: ADD SCAN DIFF NO
[2017-02-18 06:30] LABS: ABNORMAL IP MESSAGE 1; HEMATOCRIT 29.2 % (37.0-47.0); HEMOGLOBIN 9.6 g/dl (12.0-16.0); LYMPHOCYTES # 1.7 10^3/ul (0.8-2.9); LYMPHOCYTES % 74.3 % (15.0-51.0); MEAN CORPUSCULAR HEMOGLOBIN 31.2 pg (29.0-33.0); MEAN CORPUSCULAR HGB CONC 32.9 g/dl (32.0-37.0); MEAN CORPUSCULAR VOLUME 94.8 fl (82.0-101.0); MEAN PLATELET VOLUME 11.2 fl (7.4-10.4); MONOCYTE # 0.2 10^3/ul (0.3-0.9); MONOCYTES % 8.8 % (0.0-11.0); NEUTROPHIL # 0.4 10^3/ul (1.6-7.5); NEUTROPHILS % 16.9 % (39.0-77.0); RED BLOOD COUNT 3.08 10^6/ul (4.20-5.40); RED CELL DISTRIBUTION WIDTH 17.2 % (11.5-14.5); WHITE BLOOD COUNT 2.3 10^3/ul (4.8-10.8)
[2017-02-18 06:55] LABS: PLATELET COUNT 57 10^3/UL (140-415)
[2017-02-18 07:24] VITALS: BP 106/64; RESP 20
[2017-02-18] MEDS: INSULIN ASPART [NOVOLOG] 3 ML PEN SC SCH (07:58)
[2017-02-18] MEDS: ALBUTEROL/IPRATROPIUM (NEB) 3 ML AMP HHN SCH (08:00)
--- NOTE | 2017-02-18 08:32 | DS ---
DATE OF ADMISSION: 02/07/2017 DATE OF DISCHARGE: HOSPITAL COURSE: This is a 61-year-old female with a past medical history of hypertension, dyslipid emia, obesity, diabetes, depression, anxiety disorder and insomnia, who recently had a diagnosis of myelodysplastic syndrome and pancytopenia, who presented to [facility] due to radha re thrombocytopenia. The patient is currently being seen by Dr. Machado in the outpatient setting and was given chemotherapy for her myelodysplastic syndrome. The patient, however, had severe thro mbocytopenia and was brought into [facility] and admitted. In terms of the patien t's pancytopenia, she was seen by oncologist, Dr. Machado. The patient did receive a transfusion o f blood as well as platelets during the hospital course. The patient's platelet count was initially as low as 7, and improved to 31, then declined down again to 16, before stabilizing with a count of 57. The patient during this hospital course complained of intermittent episodes of weakness, but o therwise was stable. The patient had no bleeding noted. The patient's other medical problems inclu ding diabetes, hypertension, anxiety disorder, neuropathy, and insomnia were stable during the hospi jessica course. The patient also has a history of asthmatic bronchitis, which was compensated, with no evidence of flare during the hospital course. Currently at this time the patient will be discharged home, where she will follow up with Dr. Machado in 2 to 3 days' time for a lab check. At the elijah e of discharge the patient is stable, in no acute distress. FINAL DIAGNOSES: 1. Pancytopenia. 2. Thrombocytopenia, status post transfusions. 3. Myelodysplastic syndrome. 4. Neutropenia, stable. No evidence of fever. 5. Diabetes. 6. Hypertension. 7. Anxiety disorder. 8. Neuropathy. 9. Insomnia. 10. History of asthmatic bronchitis. 11. Depression. FINAL MEDICATIONS: Please see reconciliation list. Patient will resume her home medications. At the time of discharge the patient is stable. Please note, I spent over 40 minutes of time preparing the patient's discharge. Dictated By: FINA NUÑEZ/ARMEN Conf#: [id number] DID#: [id number]
[2017-02-18] MEDS: metFORMIN 500 MG TAB PO SCH (08:41)
[2017-02-18] MEDS: LISINOPRIL 5 MG TAB PO SCH (08:41)
[2017-02-18] MEDS: FERROUS SULFATE (EC) 325 MG TAB PO SCH (08:41)
[2017-02-18] MEDS: FAMOTIDINE 20 MG TAB PO SCH (08:41)
[2017-02-18] MEDS: FLUOXETINE 20 MG CAP PO SCH (08:41)
[2017-02-18] MEDS: PREGABALIN 75 MG CAP PO SCH (08:47)
[2017-02-18] MEDS: ALPRAZOLAM 0.25 MG TAB PO PRN (09:46)
--- NOTE | 2017-02-18 10:12 | CONS ---
Date/Time of Note Date/Time of Note DATE: 02/18/17 TIME: 10:12 Assessment/Plan Assessment/Plan Chief Complaint/Hosp Course ASSESSMENT AND PLAN: 1. Pancytopenia secondary to myelodysplastic syndrome, post chemotherapy. The patient is status post platelet transfusion x 4 u CONT TO MONITOR CLOSELY TRANSFUSE TO KEEP PLATELET COUNT ABOVE 05206 OR IF PT IS BLEEDING 2. Neutropenia secondary to myelodysplastic syndrome with chemotherapy. Continue to monitor. IMPROVED ANEMIA POST CHEMO POST 1 U PRBC MONITOR CLOSELY TRANSFUSE NEEDED TO KEEP HB ABOVE 8.0 3. Diabetes. Continue current insulin regimen. 4. Hypertension. Continue current blood pressure regimen. 5. Anxiety disorder. Continue Xanax. 6. Neuropathy. Continue Lyrica. 7. Insomnia. Ambien. 8. Asthmatic bronchitis, currently compensated. Continue current medical management. 9. Depression. Continue Prozac. 10. Gastrointestinal and deep venous thrombosis prophylaxis. Continue proton pump inhibitor and sequential leg squeezers. Problems: Consultation Date/Type/Reason Admit Date/Time Feb 07, 2017 at 05:03 Initial Consult Date 02/08/17 Type of Consultation: Hematology/Oncology Referring Provider: FINA IRVING DO Exam/Review of Systems Vital Signs Vitals Vital Signs Date Time Temp Pulse Resp B/P Pulse Ox O2 Delivery O2 Flow Rate FiO2 02/18/17 07:24 98.5 70 20 106/64 97 02/16/17 19:26 21 Intake and Output 02/17/17 02/17/17 02/18/17 15:00 23:00 07:00 Intake Total 960 ml 680 ml Output Total 1300 ml Balance -340 ml 680 ml Results Result Diagram: 02/18/17 0520 02/15/17 0505 Results 24 hrs Laboratory Tests Test 02/17/17 11:10 02/17/17 12:02 02/17/17 17:12 02/17/17 20:10 White Blood Count 2.7 L Red Blood Count 3.42 L Hemoglobin 10.7 L Hematocrit 32.5 L Mean Corpuscular Volume 95.0 Mean Corpuscular Hemoglobin 31.3 Mean Corpuscular Hemoglobin Concent 32.9 Red Cell Distribution Width 17.1 H Platelet Count 59 #L Mean Platelet Volume 10.5 H Neutrophils % 21.6 L Lymphocytes % 70.6 H Monocytes % 7.4 Eosinophils % 0.0 Basophils % 0.4 Nucleated Red Blood Cells % 0.0 Neutrophils # 0.6 L Lymphocytes # 1.9 Monocytes # 0.2 L Eosinophils # 0.0 Basophils # 0.0 Nucleated Red Blood Cells # 0.0 Bedside Glucose 94 113 128 Test 02/18/17 05:20 02/18/17 07:55 White Blood Count 2.3 L Red Blood Count 3.08 L Hemoglobin 9.6 L Hematocrit 29.2 L Mean Corpuscular Volume 94.8 Mean Corpuscular Hemoglobin 31.2 Mean Corpuscular Hemoglobin Concent 32.9 Red Cell Distribution Width 17.2 H Platelet Count 57 L Mean Platelet Volume 11.2 H Neutrophils % 16.9 L Lymphocytes % 74.3 H Monocytes % 8.8 Eosinophils % 0.0 Basophils % 0.0 Nucleated Red Blood Cells % 0.0 Neutrophils # 0.4 L Lymphocytes # 1.7 Monocytes # 0.2 L Eosinophils # 0.0 Basophils # 0.0 Nucleated Red Blood Cells # 0.0 Bedside Glucose 100 Medications Medications Current Medications Ondansetron HCl (Zofran Tab) 4 mg Q6H PRN PO NAUSEA AND/OR VOMITING; Start at 05:30 Metoclopramide HCl (Reglan) 10 mg Q6H PRN IV NAUSEA AND/OR VOMITING; Start at 05:30 Famotidine (Pepcid) 20 mg Q12 PO Last administered on 02/18/17 08:41; Admin Dose 20 MG; Start 02/07/17 at 09:00 Ferrous Sulfate (Ferrous Sulfate (Ec)) 325 mg BID PO Last administered on 08:41; Admin Dose 325 MG; Start 02/07/17 at 09:00 Fluoxetine HCl (Prozac) 20 mg DAILY PO Last administered on 02/18/17 08:41; Admin Dose 20 MG; Start 02/07/17 at 09:00 Lisinopril (Zestril) 5 mg DAILY PO Last administered on 02/16/17 08:12; Admin Dose 5 MG; Start 02/07/17 at 09:00 Pregabalin (Lyrica) 150 mg BID PO Last administered on 02/18/17 08:47; Admin Dose 150 MG; Start 02/07/17 at 09:00 Zolpidem Tartrate (Ambien) 10 mg QHS PRN PO INSOMNIA Last administered on 22:30; Admin Dose 10 MG; Start 02/07/17 at 05:30 Diagnostic Test (Pha) (Accu-Chek) 1 ea 02 XX ; Start 02/08/17 at 02:00 Miscellaneous Information 1 ea NOTE XX ; Start 02/07/17 at 09:00 Glucose (Glutose) 15 gm Q15M PRN PO DECREASED GLUCOSE; Start 02/07/17 at 09:00 Glucose (Glutose) 22.5 gm Q15M PRN PO DECREASED GLUCOSE; Start 02/07/17 at 09: 00 Dextrose (D50w Syringe) 25 ml Q15M PRN IV DECREASED GLUCOSE; Start 02/07/17 at 09:00 Dextrose (D50w Syringe) 50 ml Q15M PRN IV DECREASED GLUCOSE; Start 02/07/17 at 09:00 Glucagon (Glucagen) 1 mg Q15M PRN IM DECREASED GLUCOSE; Start 02/07/17 at 09:00 Glucose (Glutose) 15 gm Q15M PRN BUCCAL DECREASED GLUCOSE; Start 02/07/17 at 09 :00 Acetaminophen (Tylenol Tab) 500 mg Q6H PRN PO PAIN AND OR ELEVATED TEMP Last administered on 02/15/17 22:54; Admin Dose 500 MG; Start 02/07/17 at 10:30 Alprazolam (Xanax) 0.25 mg DAILY PRN PO anxiety Last administered on 02/18/17 09:46; Admin Dose 0.25 MG; Start 02/09/17 at 18:30 ZHAO CARRILLO MD February 18, 2017 10:12
== END 2017-02-18 10:35 | disposition home or self-care (01) | DRG 811 ==
LOC: E/R 23:37 → MS2 02-07 05:03
PROVIDERS: ADMIT Family Medicine; ATTEND Internal Medicine
PROC: 30233R1 Transfusion of Nonautologous Platelets into Peripheral Vein, Percutaneous Approach (ICD-10-PCS; principal; 2017-02-07)
PROC: 30233N1 Transfusion of Nonautologous Red Blood Cells into Peripheral Vein, Percutaneous Approach (ICD-10-PCS; 2017-02-08)
DX: D46.9 Myelodysplastic syndrome, unspecified (principal); D61.810 Antineoplastic chemotherapy induced pancytopenia; E83.42 Hypomagnesemia; E86.9 Volume depletion, unspecified; G62.9 Polyneuropathy, unspecified; I10 Essential (primary) hypertension; E11.9 Type 2 diabetes mellitus without complications; F32.9 Major depressive disorder, single episode, unspecified; F41.9 Anxiety disorder, unspecified; G47.00 Insomnia, unspecified; E78.5 Hyperlipidemia, unspecified; J45.909 Unspecified asthma, uncomplicated; E66.9 Obesity, unspecified; Z68.35 Body mass index [BMI] 35.0-35.9, adult; Z79.84 Long term (current) use of oral hypoglycemic drugs; Z96.653 Presence of artificial knee joint, bilateral; Z87.891 Personal history of nicotine dependence
CPT/HCPCS: 36430; 80048; 80053; 80061; 81001; 81003; 82652; 82962; 83036; 83735; 84100; 84439; 84443; 84484; 85025; 85610; 85730; 86644; 86850; 86870; 86900; 86901; 86920; 86945; 93005; J1200; J1815; J3475; J7040; P9016; P9035

== ENCOUNTER 2017-03-18 20:37 | Emergency (ER) | payer MEDICARE, OTHER ==
[~2017-03-18] VITALS: Ht 162.6 cm; Wt 98.0 kg
[2017-03-18 21:36] VITALS: Ht 162.6 cm; Wt 98.0 kg
[2017-03-19] MEDS ORDERED: SOD CHLORIDE 0.9% 1,000 ML IV STA (00:15)
[2017-03-19] MEDS ORDERED: DIPHENHYDRAMINE 50 MG INJ IV STA (00:15)
[2017-03-19] MEDS ORDERED: METOCLOPRAMIDE 10 MG INJ IV STA (00:15)
[2017-03-19] MEDS ORDERED: DEXAMETHASONE 10 MG/ML 1 ML INJ IV ONE (00:30)
--- NOTE | 2017-03-19 00:51 | RADRPT ---
PROCEDURE: Noncontrast CT Head. CLINICAL INDICATION: Pain. TECHNIQUE: Noncontrast CT of the head was obtained. The administered radiation dose was CTDI vol = 45 mGy, DLP = 805 mGy-cm. COMPARISON: 01/06/2017 FINDINGS: The ventricles and sulci are within normal limits. There is no acute intracranial hemorrhage or ext ra-axial fluid collection. There is no mass effect. No midline shift is identified. There is no loss of duvall-white differentiation to suggest acute infarction. The orbits are within normal limits. The paranasal sinuses and mastoid air cells are without fluid. No destructive osseous lesion is identified. IMPRESSION: No acute findings. RPTAT: HIKT .Hamilton Alaniz MD, MD Date Time Electronically viewed and signed by .Hamilton Alaniz MD, on 03/19/2017 00:50 .T/
[2017-03-19 01:28] LABS: ADD SCAN DIFF NO
[2017-03-19 01:30] LABS: ABNORMAL IP MESSAGE 1; HEMATOCRIT 29.1 % (37.0-47.0); HEMOGLOBIN 9.5 g/dl (12.0-16.0); MEAN CORPUSCULAR HEMOGLOBIN 31.9 pg (29.0-33.0); MEAN CORPUSCULAR HGB CONC 32.6 g/dl (32.0-37.0); MEAN CORPUSCULAR VOLUME 97.7 fl (82.0-101.0); MEAN PLATELET VOLUME 11.2 fl (7.4-10.4); RED BLOOD COUNT 2.98 10^6/ul (4.20-5.40); RED CELL DISTRIBUTION WIDTH 17.5 % (11.5-14.5); WHITE BLOOD COUNT 3.6 10^3/ul (4.8-10.8)
[2017-03-19 01:44] LABS: INR 0.85; PROTIME 11.6 Sec (12.2-14.2); PT RATIO 0.9
[2017-03-19 01:48] LABS: ANION GAP 12 (8-16); BLOOD UREA NITROGEN 26 mg/dl (7-20); CALCIUM 9.7 mg/dl (8.4-10.2); CARBON DIOXIDE 26 mmol/L (21-31); CHLORIDE 106 mmol/L (97-110); CREATININE 0.83 mg/dl (0.44-1.00); GLUCOSE 109 mg/dl (70-220); POTASSIUM 4.2 mmol/L (3.5-5.1); SODIUM 140 mmol/L (135-144)
[2017-03-19 02:09] LABS: TROPONIN-I < 0.012 ng/ml (0.00-0.12)
[2017-03-19 02:20] LABS: LYMPHOCYTES # 2.4 10^3/ul (0.8-2.9); MONOCYTE # 0.3 10^3/ul (0.3-0.9); NEUTROPHIL # 0.9 10^3/ul (1.6-7.5)
[2017-03-19 02:22] LABS: PLATELET ESTIMATE PLT APPEAR DECREASED
[2017-03-19 03:11] VITALS: BP 144/82; PULSE 63; RESP 16; TEMP 98.2
--- NOTE | 2017-03-19 03:16 | ERD ---
ER Documentation Chief Complaint Date/Time DATE: 03/19/17 TIME: 03:13 Chief Complaint HEADACHE, BLEEDING FROM INSIDE NOSE DOWN TO THROAT WITH CLOTS, NEUTROPENIC HPI This is a [age]-year-old female who presents to the emergency room for evaluation of a headache, and for evaluation of bleeding from her nose which occurred earlier today and has stopped at this time. The patient does state that she has mild dysplastic syndrome and states that she normally has low platelets and was concerned because she did have bleeding earlier. The patient denies any active bleeding at this time. ROS All systems reviewed and are negative except as per history of present illness. Medications Home Meds Reported Medications Zolpidem Tartrate* (Zolpidem Tartrate*) 10 Mg Tablet, 10 MG PO QHS Y for INSOMNIA, #30 TAB 11/18/16 Omeprazole* (Omeprazole*) 40 Mg Capsule.dr, 40 MG PO DAILY, #30 CAP 11/18/16 Pregabalin* (Lyrica*) 150 Mg Capsule, 150 MG PO BID, CAP 11/18/16 Lisinopril* (Lisinopril*) 5 Mg Tablet, 5 MG PO DAILY, #30 TAB 11/18/16 Ferrous Sulfate* (Ferrous Sulfate*) 325 Mg Tabec, 325 MG PO BID, TAB 11/18/16 Alprazolam* (Alprazolam*) 0.25 Mg Tablet, 0.25 MG PO DAILY Y for ANXIETY, TAB 11/18/16 Fluoxetine Hcl* (Prozac*) 20 Mg Capsule, 20 MG PO DAILY, CAP 11/18/16 Metformin Hcl* (Metformin Hcl*) 1,000 Mg Tablet, 1000 MG PO WITH BREAKFAST DINNE , #60 TAB 11/18/16 Allergies Allergies: Coded Allergies: Penicillins (Unverified Allergy, Unknown, 03/19/17) PMhx/Soc History of Surgery: Yes (spinal fusion, bilat knee replacement) Anesthesia Reaction: No Hx Neurological Disorder: No Hx Respiratory Disorders: No Hx Cardiac Disorders: Yes (HTN) Hx Psychiatric Problems: No Hx Miscellaneous Medical Probl: Yes (myelodysplastic anemia on chemo) Hx Alcohol Use: No Hx Substance Use: No Hx Tobacco Use: Yes (quit) Smoking Status: Former smoker Physical Exam Vitals Vital Signs Date Time Temp Pulse Resp B/P Pulse Ox O2 Delivery O2 Flow Rate FiO2 03/19/17 00:10 61 14 131/90 100 Room Air 03/18/17 21:36 98.2 83 20 134/81 99 Physical Exam INITIAL VITAL SIGNS: Reviewed by me GENERAL: The patient is well developed and appropriate for usual state of health in no apparent distress HEENT: Pupils equal, round, and reactive to light. EOMI. There is no scleral icterus. NECK: C-spine is soft and supple, there is no meningismus. There is no cervical lymphadenopathy. LUNGS: Clear to auscultation bilaterally. There are no rales, wheezes or rhonchi. HEART: Regular rate and rhythm, no murmurs, clicks, rubs or gallops. ABDOMEN: Soft, non-tender, non-distended. There are bowel sounds in all four quadrants. No rebound or guarding. EXTREMITIES: There is no peripheral cyanosis or edema. No focal swelling or erythema. NEUROLOGICAL: The patient moves all four extremities with 5/5 strength. Cranial nerves II - XII are intact. Normal gait. Alert and oriented SKIN: There is no apparent rash or petechiae. HEME/LYMPHATIC: There is no evidence of excessive bruising or lymphedema. PSYCHIATRIC: The patient does not appear anxious or depressed. Result Diagram: 03/19/17 0120 03/19/17 0120 Results 24 hrs Laboratory Tests Test 03/19/17 01:20 White Blood Count 3.610^3/ul Red Blood Count 2.9810^6/ul Hemoglobin 9.5g/dl Hematocrit 29.1% Mean Corpuscular Volume 97.7fl Mean Corpuscular Hemoglobin 31.9pg Mean Corpuscular Hemoglobin Concent 32.6g/dl Red Cell Distribution Width 17.5% Platelet Count 1410^3/UL Mean Platelet Volume 11.2fl Neutrophils % 26.0% Lymphocytes % 67.0% Monocytes % 7.0% Neutrophils # 0.910^3/ul Lymphocytes # 2.410^3/ul Monocytes # 0.310^3/ul Differential Comment Platelet Estimate PLT APPEAR DECREASED Prothrombin Time 11.6Sec Prothrombin Time Ratio 0.9 INR International Normalized Ratio 0.85 Activated Partial Thromboplast Time 27.0Sec Sodium Level 140mmol/L Potassium Level 4.2mmol/L Chloride Level 106mmol/L Carbon Dioxide Level 26mmol/L Anion Gap 12 Blood Urea Nitrogen 26mg/dl Creatinine 0.83mg/dl Glucose Level 109mg/dl Calcium Level 9.7mg/dl Troponin I < 0.012ng/ml Current Medications Medications (Trade) Dose Ordered Sig/Rhean Route PRN Reason Start Time Stop Time Status Last Admin Dose Admin Sodium Chloride (NS) 1,000 ml @ 1,000 mls/hr Q1H STAT IV 03/19/17 00:15 03/19/17 01:14 DC 03/19/17 00:15 Metoclopramide HCl (Reglan) 10 mg ONCE STAT IV 03/19/17 00:15 03/19/17 00:17 DC 03/19/17 00:15 Diphenhydramine HCl (Benadryl) 25 mg ONCE STAT IV 03/19/17 00:15 03/19/17 00:17 DC 03/19/17 00:15 Dexamethasone (Decadron) 10 mg ONCE ONCE IV 03/19/17 00:30 03/19/17 00:31 DC 03/19/17 01:25 Procedures/MDM CT head without: No acute findings. This 61-year-old female presents to the emergency room for evaluation of a headache, and bleeding from her nose which is subsided. This patient does have mild dysplastic syndrome. He was complaining of a headache and did complaint of low platelets in the past so I did obtain a CT of the head to rule out any intracranial bleed. CT of the head is within normal limits. Lab work was obtained which does demonstrate thrombocytopenia with a platelet count of 14, 000. The patient was given a migraine cocktail with Benadryl, Reglan, and Decadron. The patient is in no acute distress upon my reevaluation and states that her headache has completely subsided. The patient has no active bleeding, no mucosal bleeding and will be discharged home at this time. I advised her that if she were to develop any headache or fever she needs to return immediately to the emergency room for further evaluation and she verbalized understanding. Departure Diagnosis: Primary Impression: Cephalgia Additional Impressions: Thrombocytopenia Normocytic anemia Condition: Stable MARY HOWARD DO Mar 19, 2017 03:16
[2017-03-22 06:52] LABS: PLATELET COUNT 14 10^3/UL (140-415)
== END 2017-03-19 03:30 | disposition home or self-care (01) ==
LOC: E/R 20:37
DX: R51 Headache (principal); R40.2252 Coma scale, best verbal response, oriented, at arrival to emergency department; D69.6 Thrombocytopenia, unspecified; D64.9 Anemia, unspecified; I10 Essential (primary) hypertension; R40.2142 Coma scale, eyes open, spontaneous, at arrival to emergency department; R40.2362 Coma scale, best motor response, obeys commands, at arrival to emergency department; Z96.653 Presence of artificial knee joint, bilateral; Z87.891 Personal history of nicotine dependence
CPT/HCPCS: 36415; 70450; 80048; 84484; 85025; 85610; 85730; 96374; 96375; 99285; J1100; J1200; J2765; J7030